=== PATIENT | male | born 1955 | race Caucasian/White ===

== ENCOUNTER 2017-09-18 12:37 | Inpatient (IN) | payer BC, OTHER ==
[2017-09-18] MEDS: VANCOMYCIN 1 GM (PMX) 250 ML IVPB (13:01)
[2017-09-18] MEDS: SODIUM CHLORIDE 0.9% 1L BAG IV* (13:37)
[2017-09-18] MEDS: FENTAnyl 50 MCG/ML VIAL IV ×5 (13:48→18:26)
[2017-09-18] MEDS: PIPER-TAZO 3.375 GM IV (PMX) 100 ML IVPB (13:48)
[2017-09-18 13:49] LABS: WHITE BLOOD COUNT 16.2 10^3/ul (4.8-10.8)
[2017-09-18 13:49] LABS: ABNORMAL IP MESSAGE 1; HEMATOCRIT 33.6 % (42.0-52.0); HEMOGLOBIN 10.3 g/dl (14.0-18.0); MEAN CORPUSCULAR HEMOGLOBIN 29.4 pg (29.0-33.0); MEAN CORPUSCULAR HGB CONC 30.7 g/dl (32.0-37.0); MEAN PLATELET VOLUME 10.1 fl (7.4-10.4); PLATELET COUNT 134 10^3/UL (140-415); POSITIVE DIFF @See below; RED CELL DISTRIBUTION WIDTH 14.6 % (11.5-14.5)
[2017-09-18 13:51] LABS: ADD MAN DIFF? YES
[2017-09-18 14:06] LABS: PROTIME 14.4 Sec (11.9-14.9); PT RATIO 1.1
[2017-09-18 14:07] LABS: PARTIAL THROMBOPLASTIN TIME 32.6 Sec (25.0-35.0)
[2017-09-18 14:15] LABS: LACTIC ACID 4.5 mmol/L (0.5-2.0)
[2017-09-18 14:16] LABS: ANISOCYTOSIS 3+ (0-0); BAND NEUTROPHILS #M 1.9 10^3/ul (0.0-0.6); BAND NEUTROPHILS % (M) 12 % (0-4); BURR CELLS 1+ (0-0); HYPOCHROMASIA 1+ (0-0); LYMPHOCYTES #M 0.6 10^3/ul (0.8-2.9); LYMPHOCYTES % (M) 4 % (15-51); MICROCYTOSIS 3+ (0-0); MONOCYTE #M 0.3 10^3/ul (0.3-0.9); MONOCYTES % (M) 2 % (0-11); PLATELET ESTIMATE DECREASED; POIKILOCYTOSIS 1+ (0-0); POLYCHROMASIA 2+ (0-0); SEG NEUT #M 13.6 10^3/ul (1.6-7.5); SEGMENTED NEUTROPHILS (M) % 82 % (39-77); SMUDGE%M 2 % (0-0); TEAR DROP CELLS 1+ (0-0)
[2017-09-18 14:46] LABS: ALANINE AMINOTRANSFERASE 33 IU/L (13-69); ALBUMIN 4.1 g/dl (3.3-4.9); ALBUMIN/GLOBULIN RATIO 1.13; ALKALINE PHOSPHATASE 201 IU/L (42-121); ANION GAP 33 (8-16); ASPARTATE AMINO TRANSFERASE 33 IU/L (15-46); BLOOD UREA NITROGEN 62 mg/dl (7-20); CALCIUM 6.9 mg/dl (8.4-10.2); CARBON DIOXIDE 22 mmol/L (21-31); CHLORIDE 93 mmol/L (97-110); GLUCOSE 246 mg/dl (70-220); POTASSIUM 5.8 mmol/L (3.5-5.1); SODIUM 142 mmol/L (135-144); TOTAL PROTEIN 7.7 g/dl (6.1-8.1)
[2017-09-18 14:54] LABS: CREATININE 14.96 mg/dl (0.61-1.24)
[2017-09-18 15:01] LABS: TROPONIN-I 0.135 ng/ml (0.00-0.12)
[2017-09-18] MEDS: INSULIN REGULAR, HUMAN 100 UNIT/1 ML 3ML VIAL IVP (15:27)
[2017-09-18] MEDS ORDERED: DEXTROSE 50% 50 ML SYRINGE IV ×3 (15:30→17:30)
[2017-09-18] MEDS: ONDANSETRON 4 MG INJ IV (15:32)
[2017-09-18] MEDS: ALBUTEROL 0.5% (NEB) 2.5 MG/0.5 ML AMP INH (15:35)
[2017-09-18 15:55] LABS: LACTIC ACID 1.9 mmol/L (0.5-2.0)
[2017-09-18] MEDS: SOD CHLORIDE 0.9% 100 ML (16:09)
[2017-09-18] MEDS: IODIXANOL LOCM 100 ML BTL (16:09)
[2017-09-18] MEDS ORDERED: hydrOXYzine HCL 50 MG TAB PO (16:30)
[2017-09-18] MEDS ORDERED: FENTAnyl 50 MCG/ML VIAL IV (16:30)
[2017-09-18] MEDS ORDERED: MAGNESIUM HYDROXIDE 30ML CUP PO (16:30)
[2017-09-18] MEDS ORDERED: VANCOMYCIN IV PER PHARMACY XX (16:30)
[2017-09-18 17:13] LABS: HEMOGLOBIN A1C 8.2 % (0-5.9)
[2017-09-18] MEDS ORDERED: GLUCOSE GEL 15 GRAM TUBE BUCCAL (17:30)
[2017-09-18] MEDS ORDERED: glipiZIDE 5 MG TAB PO (17:30)
[2017-09-18] MEDS ORDERED: GLUCOSE GEL 15 GRAM TUBE PO ×2 (17:30)
[2017-09-18] MEDS ORDERED: GLUCAGON 1 MG INJ IM (17:30)
[2017-09-18] MEDS: INSULIN ASPART [NOVOLOG] 3 ML PEN SC ×2 (18:00→21:00)
[2017-09-18] MEDS: NORepinephrine 8MG/250 ML (PMX 250 ML IV (19:31)
[2017-09-18 19:38] LABS: LACTIC ACID 2.8 mmol/L (0.5-2.0)
[2017-09-18] MEDS: ATORVASTATIN 20 MG TAB PO (20:45)
[2017-09-18] MEDS: GABAPENTIN 300 MG CAP PO (20:45)
[2017-09-18] MEDS: SEVELAMER 800 MG TAB PO (20:45)
[2017-09-18] MEDS: LIDOCAINE 5% PATCH TD (20:45)
[2017-09-18] MEDS ORDERED: DOXYCYCLINE 100 MG in SOD CHLORIDE 0.9% 250 ML IVPB (21:00)
[2017-09-18] MEDS: HEPARIN 5,000 UNIT/0.5 ML VIAL SC (21:39)
[2017-09-18] MEDS: ALBUTEROL 0.083% (NEB) 2.5 MG/3 ML AMP NEB (21:41)
[2017-09-18] MEDS: DOXYCYCLINE 100 MG in DEXTROSE 5% 250 ML IVPB (21:42)
[2017-09-18] MEDS: PIPER-TAZO 2.25 GM (PMX) 50 ML IVPB (22:07)
[2017-09-19] LABS: AADO2 Arterial 324.8 mmHg (7.0-24.0); Arterial Base Excess -6.4 mmol/L (-3.0-3); Arterial Blood Gas Oxygen Sat 90.4 mmHG (95.0-98.0); Arterial COHb 0.8 % (0.0-3.0); Arterial Fraction of Oxyhgb 89.3 % (93.0-99.0); Arterial HCO3 19.5 mmol/L (22.0-26.0); Arterial MetHb 0.4 % (0.0-1.5); Arterial Total Hemglobin 10.9 g/dl (12.0-18.0); Arterial pCO2 40.4 mmhg (35-45); MODE MASK - SIMPLE; Site Right Brachial
[2017-09-19] MEDS: AMIKACIN 500 MG in DEXTROSE 5% 100 ML IVPB (00:12)
[2017-09-19] MEDS: ACCU-CHEK XX ×2 (02:05→08:54)
[2017-09-19 03:09] LABS: CREATINE KINASE 285 IU/L (23-200)
[2017-09-19 03:20] LABS: CK INDEX 0.9
[2017-09-19 03:23] LABS: CK-MB 2.55 ng/ml (0.0-2.4)
[2017-09-19 05:28] LABS: HEPATITIS B SURFACE ANTIGEN NEGATIVE (NEGATIVE)
[2017-09-19 05:41] LABS: ADD MAN DIFF? NO
[2017-09-19 05:43] LABS: ABNORMAL IP MESSAGE 1; BASOPHILS % 0.1 % (0.0-2.0); HEMATOCRIT 31.9 % (42.0-52.0); HEMOGLOBIN 9.9 g/dl (14.0-18.0); LYMPHOCYTES # 0.4 10^3/ul (0.8-2.9); LYMPHOCYTES % 2.3 % (15.0-51.0); MEAN CORPUSCULAR HEMOGLOBIN 29.5 pg (29.0-33.0); MEAN CORPUSCULAR VOLUME 94.9 fl (82.0-101.0); MEAN PLATELET VOLUME 10.6 fl (7.4-10.4); MONOCYTE # 0.7 10^3/ul (0.3-0.9); MONOCYTES % 4.1 % (0.0-11.0); NEUTROPHIL # 15.1 10^3/ul (1.6-7.5); NEUTROPHILS % 91.7 % (39.0-77.0); PLATELET COUNT 128 10^3/UL (140-415); POSITIVE DIFF @See below; RED BLOOD COUNT 3.36 10^6/ul (4.70-6.10); RED CELL DISTRIBUTION WIDTH 14.6 % (11.5-14.5)
[2017-09-19 05:43] LABS: WHITE BLOOD COUNT 16.4 10^3/ul (4.8-10.8)
[2017-09-19 05:46] LABS: HEPATITIS B SURFACE ANTIBODY NEGATIVE (NEGATIVE)
[2017-09-19 06:03] LABS: CREATINE KINASE 350 IU/L (23-200)
[2017-09-19 06:16] LABS: CK INDEX 0.8
[2017-09-19 06:24] LABS: CK-MB 2.93 ng/ml (0.0-2.4); TROPONIN-I 0.196 ng/ml (0.00-0.12)
[2017-09-19 06:39] LABS: ANION GAP 30 (8-16); BLOOD UREA NITROGEN 45 mg/dl (7-20); CARBON DIOXIDE 22 mmol/L (21-31); CHLORIDE 98 mmol/L (97-110); GLUCOSE 178 mg/dl (70-220); POTASSIUM 4.8 mmol/L (3.5-5.1); SODIUM 145 mmol/L (135-144)
[2017-09-19 06:40] LABS: ALANINE AMINOTRANSFERASE 32 IU/L (13-69); ALBUMIN 3.3 g/dl (3.3-4.9); ALBUMIN/GLOBULIN RATIO 1.03; ALKALINE PHOSPHATASE 192 IU/L (42-121); ASPARTATE AMINO TRANSFERASE 34 IU/L (15-46); CALCIUM 6.8 mg/dl (8.4-10.2); CREATININE 10.78 mg/dl (0.61-1.24); MAGNESIUM 1.5 mg/dl (1.7-2.5); TOTAL PROTEIN 6.5 g/dl (6.1-8.1)
[2017-09-19] MEDS: INSULIN ASPART [NOVOLOG] 3 ML PEN SC ×4 (08:00→21:56)
[2017-09-19] MEDS: PIPER-TAZO 2.25 GM (PMX) 50 ML IVPB ×3 (08:44→22:32)
[2017-09-19] MEDS: LEVOTHYROXINE 75 MCG TAB PO (08:45)
[2017-09-19] MEDS: hydrOXYzine HCL 25 MG TAB PO (08:45)
[2017-09-19] MEDS: SEVELAMER 800 MG TAB PO ×3 (08:46→17:35)
[2017-09-19] MEDS: SERTRALINE 100 MG TAB PO (08:46)
[2017-09-19] MEDS: GABAPENTIN 300 MG CAP PO ×2 (08:46→21:47)
[2017-09-19] MEDS: ASPIRIN (EC) 81 MG TAB PO (08:59)
[2017-09-19] MEDS: PANTOPRAZOLE (EC) 40 MG TAB PO (08:59)
[2017-09-19] MEDS ORDERED: PAROXETINE 20 MG TAB PO (09:00)
[2017-09-19] MEDS ORDERED: SODIUM BICARBONATE (IV ADD) 50 ML (09:15)
[2017-09-19] MEDS: NA BICARBONATE 8.4% 50 ML SYG IV (09:25)
[2017-09-19] MEDS: CA CHLORIDE 10% 10 ML SYRINGE IV (09:26)
[2017-09-19] MEDS: AMIODARONE 150MG/D5W BOLUS IV* (09:41)
[2017-09-19] MEDS: AMIODARONE 900MG/D5W DRIP 500 ML IV ×2 (10:19→10:21)
[2017-09-19] MEDS ORDERED: NORepinephrine 8MG/250 ML (PMX 250 ML IV ×2 (11:30)
[2017-09-19] MEDS: DOXYCYCLINE 100 MG in DEXTROSE 5% 250 ML IVPB ×2 (11:55→21:00)
[2017-09-19] MEDS: LIDOCAINE 5% PATCH TD (12:01)
[2017-09-19] MEDS: HEPARIN 5,000 UNIT/0.5 ML VIAL SC ×2 (12:03→21:50)
[2017-09-19] MEDS: ACETAMINOPHEN 325 MG TAB PO (12:10)
[2017-09-19] MEDS: HYDROmorphONE 0.5 MG/0.5 ML SYG IV (13:13)
[2017-09-19] MEDS: PHENYLephrine 20MG IN 250 ML 250 ML IV ×2 (14:04→16:14)
[2017-09-19] MEDS: PHENYLephrine 40 MG in DEXTROSE 5% 496 ML IV (17:54)
[2017-09-19] MEDS: ATORVASTATIN 20 MG TAB PO (21:47)
[2017-09-20] MEDS: PHENYLephrine 40 MG in DEXTROSE 5% 496 ML IV (00:12)
[2017-09-20 01:45] LABS: Allen Test ACCEPTAB; Arterial Blood Gas Oxygen Sat 95.9 mmHG (95.0-98.0); Arterial COHb 0.8 % (0.0-3.0); Arterial Fraction of Oxyhgb 94.9 % (93.0-99.0); Arterial MetHb 0.2 % (0.0-1.5); Arterial Total Hemglobin 11.1 g/dl (12.0-18.0); Arterial pCO2 39.9 mmhg (35-45); MODE MASK - NRB; Site Right Brachial
[2017-09-20] MEDS: NORepinephrine 32 MG in DEXTROSE 5% 218 ML IV (02:06)
[2017-09-20] MEDS: PHENYLephrine 160 MG in DEXTROSE 5% 484 ML IV ×2 (02:07→12:36)
[2017-09-20] MEDS: INSULIN ASPART [NOVOLOG] 3 ML PEN SC ×2 (02:57→08:20)
[2017-09-20 04:18] LABS: ADD MAN DIFF? NO
[2017-09-20 04:24] LABS: WHITE BLOOD COUNT 15.5 10^3/ul (4.8-10.8)
[2017-09-20 04:24] LABS: ABNORMAL IP MESSAGE 1; BASOPHILS % 0.1 % (0.0-2.0); HEMATOCRIT 31.6 % (42.0-52.0); HEMOGLOBIN 9.9 g/dl (14.0-18.0); LYMPHOCYTES # 0.4 10^3/ul (0.8-2.9); LYMPHOCYTES % 2.3 % (15.0-51.0); MEAN CORPUSCULAR HEMOGLOBIN 29.5 pg (29.0-33.0); MEAN CORPUSCULAR HGB CONC 31.3 g/dl (32.0-37.0); MEAN PLATELET VOLUME 11.1 fl (7.4-10.4); MONOCYTES % 6.4 % (0.0-11.0); NEUTROPHILS % 90.1 % (39.0-77.0); PLATELET COUNT 118 10^3/UL (140-415); POSITIVE DIFF @See below; RED BLOOD COUNT 3.36 10^6/ul (4.70-6.10); RED CELL DISTRIBUTION WIDTH 14.9 % (11.5-14.5)
[2017-09-20] MEDS: VASOPRESSIN 60 UNIT in DEXTROSE 5% 57 ML IV ×3 (04:28→20:46)
[2017-09-20] MEDS: LORAZEPAM 2 MG INJ IV ×2 (04:42→20:36)
[2017-09-20] MEDS: HALOPERIDOL 5 MG INJ IM (04:42)
[2017-09-20 04:48] LABS: ALANINE AMINOTRANSFERASE 28 IU/L (13-69); ALBUMIN 3.6 g/dl (3.3-4.9); ALBUMIN/GLOBULIN RATIO 1.12; ALKALINE PHOSPHATASE 174 IU/L (42-121); ANION GAP 25 (8-16); ASPARTATE AMINO TRANSFERASE 25 IU/L (15-46); BLOOD UREA NITROGEN 54 mg/dl (7-20); CALCIUM 6.9 mg/dl (8.4-10.2); CARBON DIOXIDE 26 mmol/L (21-31); CHLORIDE 93 mmol/L (97-110); GLUCOSE 316 mg/dl (70-220); MAGNESIUM 1.5 mg/dl (1.7-2.5); POTASSIUM 5.7 mmol/L (3.5-5.1); SODIUM 138 mmol/L (135-144); TOTAL PROTEIN 6.8 g/dl (6.1-8.1)
[2017-09-20 05:01] LABS: CREATININE 11.69 mg/dl (0.61-1.24)
[2017-09-20] MEDS: PANTOPRAZOLE (EC) 40 MG TAB PO (06:24)
[2017-09-20] MEDS: PIPER-TAZO 2.25 GM (PMX) 50 ML IVPB ×2 (06:24→14:49)
[2017-09-20] MEDS: LEVOTHYROXINE 75 MCG TAB PO (07:00)
[2017-09-20] MEDS: SEVELAMER 800 MG TAB PO ×3 (07:35→17:35)
[2017-09-20] MEDS: SERTRALINE 100 MG TAB PO (09:00)
[2017-09-20] MEDS: ASPIRIN (EC) 81 MG TAB PO (09:00)
[2017-09-20] MEDS: GABAPENTIN 300 MG CAP PO ×2 (09:00→21:00)
[2017-09-20] MEDS: HEPARIN 5,000 UNIT/0.5 ML VIAL SC ×2 (09:00→21:25)
[2017-09-20 09:16] LABS: AADO2 Arterial 584.2 mmHg (7.0-24.0); Arterial Base Excess -3.5 mmol/L (-3.0-3); Arterial Blood Gas Oxygen Sat 93.5 mmHG (95.0-98.0); Arterial COHb 0.4 % (0.0-3.0); Arterial HCO3 23.5 mmol/L (22.0-26.0); Arterial MetHb 0.1 % (0.0-1.5); Arterial pCO2 51.2 mmhg (35-45); MODE MASK - NRB; Site Right Brachial
[2017-09-20] MEDS ORDERED: DEXTROSE 50% 50 ML SYRINGE IV (10:00)
[2017-09-20] MEDS ORDERED: VANCOMYCIN IV PER PHARMACY XX (10:00)
[2017-09-20] MEDS: ACCU-CHEK XX ×14 (10:00→23:12)
[2017-09-20] MEDS ORDERED: DEXTROSE 5%-0.45% NACL 1,000 ML IV (10:00)
[2017-09-20] MEDS ORDERED: DIPHENHYDRAMINE 50 MG INJ (10:15)
[2017-09-20] MEDS ORDERED: ALBUMIN HUMAN 25% 100 ML (10:16)
[2017-09-20] MEDS: DIPHENHYDRAMINE 50 MG INJ IV (11:01)
[2017-09-20] MEDS: INSULIN HUMAN REGULAR 100 UNIT in SOD CHLORIDE 0.9% 99 ML IV (11:36)
[2017-09-20] MEDS: ALBUMIN HUMAN 25% 100 ML IV (11:44)
[2017-09-20] MEDS: VANCOMYCIN 1 GM 250 ML IVPB (13:30)
[2017-09-20] MEDS: HYDROmorphONE 0.5 MG/0.5 ML SYG IV (13:46)
[2017-09-20] MEDS: DOXYCYCLINE 100 MG in DEXTROSE 5% 250 ML IVPB (14:50)
[2017-09-20] MEDS: AMIODARONE 900 MG in DEXTROSE 5% 482 ML IV (15:12)
[2017-09-20] MEDS: ASPIRIN 300 MG SUPP PR (15:21)
[2017-09-20] MEDS: LIDOCAINE 5% PATCH TD (15:21)
[2017-09-20 16:43] LABS: AADO2 Arterial 146.2 mmHg (7.0-24.0); Arterial Base Excess -1.1 mmol/L (-3.0-3); Arterial COHb 0.6 % (0.0-3.0); Arterial Fraction of Oxyhgb 92.3 % (93.0-99.0); Arterial HCO3 26.2 mmol/L (22.0-26.0); Arterial MetHb 0.2 % (0.0-1.5); Arterial Total Hemglobin 11.2 g/dl (12.0-18.0); Arterial pCO2 55.8 mmhg (35-45); Blood Gas IEPAP 18/8; Blood Gas PS 10; MODE MASK - BIPAP; Site Right Brachial
[2017-09-20] MEDS ORDERED: LIDOCAINE 1%/EPI 30 ML INJ (18:04)
[2017-09-20] MEDS ORDERED: MIDAZOLAM 1 MG/ML 2 ML INJ (18:33)
[2017-09-20] MEDS: LIDOCAINE 1%/EPI 30 ML INJ INJ (18:50)
[2017-09-20] MEDS ORDERED: LIDOCAINE 2% (SDV) 5 ML INJ (18:55)
[2017-09-20] MEDS ORDERED: FLUMAZENIL 0.5 MG INJ (19:53)
[2017-09-20] MEDS ORDERED: KETAMINE (50 MG/ML) 10 ML VIAL (19:55)
[2017-09-20] MEDS: DEXTROSE 50% 50 ML SYRINGE IV (20:13)
[2017-09-20] MEDS: MEROPENEM 500MG/50 ML (PMX) 50 ML IVPB (20:40)
[2017-09-20] MEDS: ATORVASTATIN 20 MG TAB PO (21:00)
[2017-09-20] MEDS: ACETAMINOPHEN 1000MG/100ML IV 100 ML IVPB (21:20)
[2017-09-21] MEDS: ACCU-CHEK XX ×23 (00:09→23:00)
[2017-09-21] MEDS: HYDROmorphONE 0.5 MG/0.5 ML SYG IV ×2 (00:43→20:18)
[2017-09-21] MEDS: KETOROLAC 15 MG INJ IV (00:46)
[2017-09-21] MEDS: NORepinephrine 32 MG in DEXTROSE 5% 218 ML IV (01:48)
[2017-09-21] MEDS: PHENYLephrine 160 MG in DEXTROSE 5% 484 ML IV (01:50)
[2017-09-21 05:50] LABS: ADD MAN DIFF? NO
[2017-09-21] MEDS: PANTOPRAZOLE (EC) 40 MG TAB PO (06:00)
[2017-09-21 06:01] LABS: WHITE BLOOD COUNT 12.4 10^3/ul (4.8-10.8)
[2017-09-21 06:01] LABS: ABNORMAL IP MESSAGE 1; BASOPHILS % 0.2 % (0.0-2.0); HEMATOCRIT 29.9 % (42.0-52.0); HEMOGLOBIN 8.9 g/dl (14.0-18.0); LYMPHOCYTES # 0.3 10^3/ul (0.8-2.9); LYMPHOCYTES % 2.7 % (15.0-51.0); MEAN CORPUSCULAR HGB CONC 29.8 g/dl (32.0-37.0); MEAN CORPUSCULAR VOLUME 97.4 fl (82.0-101.0); MEAN PLATELET VOLUME 10.9 fl (7.4-10.4); MONOCYTES % 7.9 % (0.0-11.0); NEUTROPHIL # 10.9 10^3/ul (1.6-7.5); NEUTROPHILS % 88.1 % (39.0-77.0); PLATELET COUNT 88 10^3/UL (140-415); POSITIVE DIFF @See below; RED BLOOD COUNT 3.07 10^6/ul (4.70-6.10); RED CELL DISTRIBUTION WIDTH 14.6 % (11.5-14.5)
[2017-09-21 06:21] LABS: ALANINE AMINOTRANSFERASE 25 IU/L (13-69); ALBUMIN 3.3 g/dl (3.3-4.9); ALKALINE PHOSPHATASE 156 IU/L (42-121); ANION GAP 23 (8-16); ASPARTATE AMINO TRANSFERASE 22 IU/L (15-46); BLOOD UREA NITROGEN 41 mg/dl (7-20); CALCIUM 7.6 mg/dl (8.4-10.2); CARBON DIOXIDE 24 mmol/L (21-31); CHLORIDE 100 mmol/L (97-110); CREATININE 9.94 mg/dl (0.61-1.24); GLUCOSE 123 mg/dl (70-220); MAGNESIUM 1.8 mg/dl (1.7-2.5); POTASSIUM 4.7 mmol/L (3.5-5.1); SODIUM 142 mmol/L (135-144); TOTAL PROTEIN 6.6 g/dl (6.1-8.1)
[2017-09-21] MEDS: LEVOTHYROXINE 75 MCG TAB PO (07:00)
[2017-09-21] MEDS: SEVELAMER 800 MG TAB PO ×3 (07:35→17:35)
[2017-09-21] MEDS: MEROPENEM 500MG/50 ML (PMX) 50 ML IVPB ×2 (08:24→21:14)
[2017-09-21] MEDS: ASPIRIN 300 MG SUPP PR (08:25)
[2017-09-21] MEDS: GABAPENTIN 300 MG CAP PO ×2 (08:25→21:12)
[2017-09-21] MEDS: SERTRALINE 100 MG TAB PO (08:25)
[2017-09-21] MEDS: LIDOCAINE 5% PATCH TD (08:28)
[2017-09-21] MEDS: HEPARIN 5,000 UNIT/0.5 ML VIAL SC ×2 (08:30→21:14)
[2017-09-21 08:32] LABS: AADO2 Arterial 190.8 mmHg (7.0-24.0); Allen Test ACCEPTAB; Arterial Base Excess -2.7 mmol/L (-3.0-3); Arterial Blood Gas Oxygen Sat 97.8 mmHG (95.0-98.0); Arterial COHb 0.6 % (0.0-3.0); Arterial Fraction of Oxyhgb 97.1 % (93.0-99.0); Arterial MetHb 0.1 % (0.0-1.5); Arterial Total Hemglobin 10.2 g/dl (12.0-18.0); Arterial pCO2 50.8 mmhg (35-45); Blood Gas IEPAP 18/8; MODE MASK - BIPAP; Site Right Radial
[2017-09-21] MEDS: VASOPRESSIN 60 UNIT in DEXTROSE 5% 57 ML IV (14:30)
[2017-09-21] MEDS: AMIODARONE 900 MG in DEXTROSE 5% 482 ML IV (14:30)
[2017-09-21] MEDS ORDERED: ALBUMIN HUMAN 25% 150 ML (15:19)
[2017-09-21] MEDS: ALBUMIN HUMAN 25% 50 ML IV (15:55)
[2017-09-21] MEDS: LORAZEPAM 2 MG INJ IV (21:12)
[2017-09-21] MEDS: ATORVASTATIN 20 MG TAB PO (21:12)
[2017-09-22] MEDS: ACCU-CHEK XX ×25 (00:12→23:00)
[2017-09-22] MEDS: VASOPRESSIN 60 UNIT in DEXTROSE 5% 57 ML IV ×2 (02:30→14:13)
[2017-09-22] MEDS: HYDROmorphONE 0.5 MG/0.5 ML SYG IV ×5 (03:11→21:08)
[2017-09-22] MEDS: PANTOPRAZOLE (EC) 40 MG TAB PO (06:00)
[2017-09-22 06:12] LABS: ADD MAN DIFF? NO
[2017-09-22 06:20] LABS: WHITE BLOOD COUNT 10.7 10^3/ul (4.8-10.8)
[2017-09-22 06:20] LABS: ABNORMAL IP MESSAGE 1; BASOPHILS % 0.3 % (0.0-2.0); EOSINOPHILS % 0.4 % (0.0-7.0); HEMATOCRIT 29.4 % (42.0-52.0); HEMOGLOBIN 8.7 g/dl (14.0-18.0); LYMPHOCYTES # 0.3 10^3/ul (0.8-2.9); LYMPHOCYTES % 2.9 % (15.0-51.0); MEAN CORPUSCULAR HEMOGLOBIN 28.6 pg (29.0-33.0); MEAN CORPUSCULAR HGB CONC 29.6 g/dl (32.0-37.0); MEAN CORPUSCULAR VOLUME 96.7 fl (82.0-101.0); MEAN PLATELET VOLUME 11.2 fl (7.4-10.4); MONOCYTE # 0.8 10^3/ul (0.3-0.9); MONOCYTES % 7.3 % (0.0-11.0); NEUTROPHIL # 9.5 10^3/ul (1.6-7.5); NEUTROPHILS % 88.4 % (39.0-77.0); PLATELET COUNT 98 10^3/UL (140-415); POSITIVE DIFF @See below; RED BLOOD COUNT 3.04 10^6/ul (4.70-6.10); RED CELL DISTRIBUTION WIDTH 14.7 % (11.5-14.5)
[2017-09-22 06:54] LABS: VANCOMYCIN,RANDOM 8.4 ug/ml
[2017-09-22] MEDS: LEVOTHYROXINE 75 MCG TAB PO (07:00)
[2017-09-22] MEDS: INSULIN HUMAN REGULAR 100 UNIT in SOD CHLORIDE 0.9% 99 ML IV ×2 (07:00→17:48)
[2017-09-22 07:01] LABS: ANION GAP 20 (8-16); BLOOD UREA NITROGEN 36 mg/dl (7-20); CALCIUM 7.9 mg/dl (8.4-10.2); CARBON DIOXIDE 28 mmol/L (21-31); CHLORIDE 98 mmol/L (97-110); CREATININE 8.48 mg/dl (0.61-1.24); GLUCOSE 120 mg/dl (70-220); MAGNESIUM 1.8 mg/dl (1.7-2.5); PHOSPHORUS 5.4 mg/dl (2.5-4.9); POTASSIUM 4.4 mmol/L (3.5-5.1); SODIUM 142 mmol/L (135-144)
[2017-09-22] MEDS: NORepinephrine 32 MG in DEXTROSE 5% 218 ML IV (07:07)
[2017-09-22] MEDS: SEVELAMER 800 MG TAB PO ×3 (07:35→17:35)
[2017-09-22] MEDS: LORAZEPAM 2 MG INJ IV ×3 (07:42→21:08)
[2017-09-22 09:24] LABS: AADO2 Arterial 119.7 mmHg (7.0-24.0); Arterial Base Excess -4.4 mmol/L (-3.0-3); Arterial COHb 1.2 % (0.0-3.0); Arterial Fraction of Oxyhgb 79.9 % (93.0-99.0); Arterial HCO3 21.2 mmol/L (22.0-26.0); Arterial MetHb 0.1 % (0.0-1.5); Arterial Total Hemglobin 8.9 g/dl (12.0-18.0); Arterial pCO2 41.4 mmhg (35-45); MODE NASAL CANNULA; Site Right Brachial
[2017-09-22] MEDS: GABAPENTIN 300 MG CAP PO ×2 (09:31→21:06)
[2017-09-22] MEDS: MEROPENEM 500MG/50 ML (PMX) 50 ML IVPB ×2 (09:31→21:11)
[2017-09-22] MEDS: LIDOCAINE 5% PATCH TD (09:32)
[2017-09-22] MEDS: SERTRALINE 100 MG TAB PO (09:32)
[2017-09-22] MEDS: ASPIRIN 300 MG SUPP PR (09:32)
[2017-09-22] MEDS: HEPARIN 5,000 UNIT/0.5 ML VIAL SC ×2 (09:39→21:41)
[2017-09-22] MEDS: VANCOMYCIN 1 GM 250 ML IVPB (13:38)
[2017-09-22] MEDS: MAGNESIUM SULFATE 1 GM/D5W 100 ML IVPB (14:16)
[2017-09-22] MEDS: ATORVASTATIN 20 MG TAB PO (21:06)
[2017-09-22] MEDS: AMIODARONE 200 MG TAB PO (21:07)
[2017-09-23] MEDS: ACCU-CHEK XX ×14 (00:28→12:23)
[2017-09-23] MEDS: HYDROmorphONE 0.5 MG/0.5 ML SYG IV ×6 (00:28→19:50)
[2017-09-23] MEDS: LORAZEPAM 2 MG INJ IV ×5 (02:20→21:11)
[2017-09-23] MEDS: VASOPRESSIN 60 UNIT in DEXTROSE 5% 57 ML IV ×3 (02:30→23:35)
[2017-09-23] MEDS ORDERED: LIDOCAINE 1% (MPF) 30 ML INJ INJ (04:00)
[2017-09-23 05:18] LABS: ADD MAN DIFF? NO
[2017-09-23 05:21] LABS: WHITE BLOOD COUNT 11.5 10^3/ul (4.8-10.8)
[2017-09-23 05:21] LABS: ABNORMAL IP MESSAGE 1; BASOPHILS % 0.2 % (0.0-2.0); EOSINOPHILS % 0.3 % (0.0-7.0); HEMATOCRIT 27.4 % (42.0-52.0); HEMOGLOBIN 8.3 g/dl (14.0-18.0); LYMPHOCYTES # 0.5 10^3/ul (0.8-2.9); LYMPHOCYTES % 4.1 % (15.0-51.0); MEAN CORPUSCULAR HEMOGLOBIN 29.3 pg (29.0-33.0); MEAN CORPUSCULAR HGB CONC 30.3 g/dl (32.0-37.0); MEAN CORPUSCULAR VOLUME 96.8 fl (82.0-101.0); MONOCYTE # 0.8 10^3/ul (0.3-0.9); MONOCYTES % 7.3 % (0.0-11.0); NEUTROPHIL # 10.1 10^3/ul (1.6-7.5); NEUTROPHILS % 87.4 % (39.0-77.0); PLATELET COUNT 99 10^3/UL (140-415); POSITIVE DIFF @See below; RED BLOOD COUNT 2.83 10^6/ul (4.70-6.10); RED CELL DISTRIBUTION WIDTH 14.9 % (11.5-14.5)
[2017-09-23 05:44] LABS: ANION GAP 26 (8-16); BLOOD UREA NITROGEN 51 mg/dl (7-20); CALCIUM 7.4 mg/dl (8.4-10.2); CARBON DIOXIDE 22 mmol/L (21-31); CHLORIDE 100 mmol/L (97-110); CREATININE 10.67 mg/dl (0.61-1.24); GLUCOSE 159 mg/dl (70-220); MAGNESIUM 2.2 mg/dl (1.7-2.5); PHOSPHORUS 5.2 mg/dl (2.5-4.9); POTASSIUM 4.7 mmol/L (3.5-5.1); SODIUM 143 mmol/L (135-144)
[2017-09-23] MEDS: PANTOPRAZOLE (EC) 40 MG TAB PO (05:46)
[2017-09-23] MEDS: LEVOTHYROXINE 100 MCG VIAL IV (06:00)
[2017-09-23] MEDS ORDERED: LIDOCAINE 1% (MDV) 20 ML INJ SC ×2 (06:30)
[2017-09-23] MEDS: LIDOCAINE 1% (MDV) 20 ML INJ SC (06:30)
[2017-09-23] MEDS ORDERED: LIDOCAINE 1% (MDV) 20 ML INJ INJ (06:30)
[2017-09-23] MEDS: LEVOTHYROXINE 75 MCG TAB PO (07:00)
[2017-09-23] MEDS: SEVELAMER 800 MG TAB PO ×3 (07:35→17:35)
[2017-09-23] MEDS: GABAPENTIN 300 MG CAP PO ×2 (09:00→20:38)
[2017-09-23] MEDS: ASPIRIN 81 MG TAB PO (09:00)
[2017-09-23] MEDS: SERTRALINE 100 MG TAB PO (09:00)
[2017-09-23] MEDS: AMIODARONE 200 MG TAB PO ×2 (09:00→20:38)
[2017-09-23 09:04] LABS: AADO2 Arterial 115.7 mmHg (7.0-24.0); Arterial Base Excess -1.5 mmol/L (-3.0-3); Arterial Blood Gas Oxygen Sat 84.7 mmHG (95.0-98.0); Arterial COHb 1.2 % (0.0-3.0); Arterial Fraction of Oxyhgb 83.7 % (93.0-99.0); Arterial HCO3 25.6 mmol/L (22.0-26.0); Arterial MetHb 0 % (0.0-1.5); Arterial Total Hemglobin 9.8 g/dl (12.0-18.0); Arterial pCO2 55.3 mmhg (35-45); MODE NASAL CANNULA; Site Right Brachial
[2017-09-23] MEDS: MEROPENEM 500MG/50 ML (PMX) 50 ML IVPB ×2 (10:59→20:41)
[2017-09-23] MEDS: LIDOCAINE 5% PATCH TD (11:00)
[2017-09-23] MEDS: HEPARIN 5,000 UNIT/0.5 ML VIAL SC ×2 (11:01→20:44)
[2017-09-23 13:28] LABS: AADO2 Arterial 102.6 mmHg (7.0-24.0); Allen Test ACCEPTAB; Arterial Base Excess -2.7 mmol/L (-3.0-3); Arterial Blood Gas Oxygen Sat 80.8 mmHG (95.0-98.0); Arterial COHb 1.1 % (0.0-3.0); Arterial Fraction of Oxyhgb 79.8 % (93.0-99.0); Arterial HCO3 24.2 mmol/L (22.0-26.0); Arterial MetHb 0.1 % (0.0-1.5); Arterial Total Hemglobin 9.7 g/dl (12.0-18.0); Arterial pCO2 52.4 mmhg (35-45); Blood Gas IEPAP 18/8; MODE MASK - BIPAP; Site Right Radial
[2017-09-23] MEDS: PANTOPRAZOLE 40 MG INJ IV (14:20)
[2017-09-23] MEDS: INSULIN GLARGINE [LANtus] 3 ML PEN SC ×2 (14:28→20:43)
[2017-09-23] MEDS ORDERED: GLUCOSE GEL 15 GRAM TUBE BUCCAL (14:30)
[2017-09-23] MEDS ORDERED: GLUCAGON 1 MG INJ IM (14:30)
[2017-09-23] MEDS ORDERED: GLUCOSE GEL 15 GRAM TUBE PO ×2 (14:30)
[2017-09-23] MEDS ORDERED: DEXTROSE 50% 50 ML SYRINGE IV ×2 (14:30)
[2017-09-23] MEDS: NORepinephrine 32 MG in DEXTROSE 5% 218 ML IV (14:40)
[2017-09-23] MEDS: PHENYLephrine 160 MG in DEXTROSE 5% 484 ML IV (16:02)
[2017-09-23] MEDS: INSULIN ASPART [NOVOLOG] 3 ML PEN SC ×2 (18:05→20:40)
[2017-09-23] MEDS: ATORVASTATIN 20 MG TAB PO (20:38)
[2017-09-24] MEDS: ACCU-CHEK XX (01:22)
[2017-09-24] MEDS: LORAZEPAM 2 MG INJ IV ×3 (02:35→21:50)
[2017-09-24] MEDS: HYDROmorphONE 0.5 MG/0.5 ML SYG IV ×7 (02:40→23:36)
[2017-09-24 05:49] LABS: ADD MAN DIFF? NO
[2017-09-24 05:56] LABS: ABNORMAL IP MESSAGE 1; BASOPHILS % 0.2 % (0.0-2.0); EOSINOPHILS % 0.4 % (0.0-7.0); HEMATOCRIT 30.3 % (42.0-52.0); HEMOGLOBIN 8.9 g/dl (14.0-18.0); LYMPHOCYTES # 0.5 10^3/ul (0.8-2.9); LYMPHOCYTES % 4.4 % (15.0-51.0); MEAN CORPUSCULAR HEMOGLOBIN 28.4 pg (29.0-33.0); MEAN CORPUSCULAR HGB CONC 29.4 g/dl (32.0-37.0); MEAN CORPUSCULAR VOLUME 96.8 fl (82.0-101.0); MEAN PLATELET VOLUME 10.8 fl (7.4-10.4); MONOCYTE # 1.1 10^3/ul (0.3-0.9); MONOCYTES % 10.3 % (0.0-11.0); NEUTROPHIL # 9.3 10^3/ul (1.6-7.5); NEUTROPHILS % 83.5 % (39.0-77.0); PLATELET COUNT 118 10^3/UL (140-415); POSITIVE DIFF @See below; RED BLOOD COUNT 3.13 10^6/ul (4.70-6.10); RED CELL DISTRIBUTION WIDTH 14.8 % (11.5-14.5)
[2017-09-24 05:56] LABS: WHITE BLOOD COUNT 11.1 10^3/ul (4.8-10.8)
[2017-09-24] MEDS: LEVOTHYROXINE 100 MCG VIAL IV (06:23)
[2017-09-24] MEDS: PANTOPRAZOLE 40 MG INJ IV (06:23)
[2017-09-24 06:42] LABS: ANION GAP 24 (8-16); BLOOD UREA NITROGEN 67 mg/dl (7-20); CALCIUM 7.7 mg/dl (8.4-10.2); CARBON DIOXIDE 24 mmol/L (21-31); CHLORIDE 101 mmol/L (97-110); GLUCOSE 189 mg/dl (70-220); MAGNESIUM 2.4 mg/dl (1.7-2.5); PHOSPHORUS 6.2 mg/dl (2.5-4.9); POTASSIUM 4.9 mmol/L (3.5-5.1); SODIUM 144 mmol/L (135-144)
[2017-09-24 07:06] LABS: CREATININE 11.01 mg/dl (0.61-1.24)
[2017-09-24] MEDS: SEVELAMER 800 MG TAB PO ×3 (07:35→17:32)
[2017-09-24] MEDS: INSULIN ASPART [NOVOLOG] 3 ML PEN SC ×4 (07:35→20:36)
[2017-09-24 08:03] LABS: AADO2 Arterial 138.7 mmHg (7.0-24.0); Arterial Base Excess -2.9 mmol/L (-3.0-3); Arterial COHb 0.8 % (0.0-3.0); Arterial HCO3 23.7 mmol/L (22.0-26.0); Arterial MetHb 0.2 % (0.0-1.5); Arterial Total Hemglobin 9.6 g/dl (12.0-18.0); Arterial pCO2 49.8 mmhg (35-45); Blood Gas IEPAP 18/8; MODE MASK - BIPAP; Site Right Brachial
[2017-09-24] MEDS: SERTRALINE 100 MG TAB PO (09:00)
[2017-09-24] MEDS: GABAPENTIN 300 MG CAP PO ×2 (09:00→21:00)
[2017-09-24] MEDS: ASPIRIN 81 MG TAB PO (09:00)
[2017-09-24] MEDS: AMIODARONE 200 MG TAB PO ×2 (09:00→20:58)
[2017-09-24] MEDS: MEROPENEM 500MG/50 ML (PMX) 50 ML IVPB ×2 (12:55→21:01)
[2017-09-24] MEDS: LIDOCAINE 5% PATCH TD (13:11)
[2017-09-24] MEDS: ASPIRIN 300 MG SUPP PR (13:17)
[2017-09-24] MEDS: HEPARIN 5,000 UNIT/0.5 ML VIAL SC ×2 (13:24→20:54)
[2017-09-24] MEDS: VASOPRESSIN 60 UNIT in DEXTROSE 5% 57 ML IV (14:30)
[2017-09-24] MEDS ORDERED: LIDOCAINE 1%/EPI 30 ML INJ (17:00)
[2017-09-24] MEDS ORDERED: KETAMINE (50 MG/ML) 10 ML VIAL (17:06)
[2017-09-24] MEDS ORDERED: ETOMIDATE 20 MG INJ ×2 (17:09→19:26)
[2017-09-24] MEDS ORDERED: LIDOCAINE 2% (SDV) 5 ML INJ (17:09)
[2017-09-24] MEDS ORDERED: FENTAnyl 50 MCG/ML VIAL ×2 (18:05→18:25)
[2017-09-24] MEDS: LIDOCAINE 1% (MPF) 30 ML INJ (18:20)
[2017-09-24] MEDS: POLYMYXIN/BACITRACIN 1L IRRIG (18:21)
[2017-09-24] MEDS: INSULIN GLARGINE [LANtus] 3 ML PEN SC (20:50)
[2017-09-24] MEDS: ATORVASTATIN 20 MG TAB PO (20:59)
[2017-09-24] MEDS: NORepinephrine 32 MG in DEXTROSE 5% 218 ML IV (23:53)
[2017-09-25] MEDS: ACCU-CHEK XX (02:00)
[2017-09-25] MEDS: VASOPRESSIN 60 UNIT in DEXTROSE 5% 57 ML IV ×2 (02:30→13:41)
[2017-09-25] MEDS: HYDROmorphONE 0.5 MG/0.5 ML SYG IV ×4 (02:38→20:22)
[2017-09-25] MEDS: LORAZEPAM 2 MG INJ IV ×3 (03:51→23:34)
[2017-09-25] MEDS: PANTOPRAZOLE 40 MG INJ IV (06:00)
[2017-09-25] MEDS: LEVOTHYROXINE 100 MCG VIAL IV (06:01)
[2017-09-25 06:05] LABS: ADD MAN DIFF? NO
[2017-09-25 06:16] LABS: WHITE BLOOD COUNT 9.1 10^3/ul (4.8-10.8)
[2017-09-25 06:16] LABS: ABNORMAL IP MESSAGE 1; BASOPHILS % 0.1 % (0.0-2.0); HEMATOCRIT 28.8 % (42.0-52.0); HEMOGLOBIN 8.3 g/dl (14.0-18.0); LYMPHOCYTES # 0.3 10^3/ul (0.8-2.9); MEAN CORPUSCULAR HEMOGLOBIN 27.9 pg (29.0-33.0); MEAN CORPUSCULAR HGB CONC 28.8 g/dl (32.0-37.0); MONOCYTE # 0.3 10^3/ul (0.3-0.9); MONOCYTES % 3.2 % (0.0-11.0); NEUTROPHIL # 8.4 10^3/ul (1.6-7.5); NEUTROPHILS % 92.5 % (39.0-77.0); PLATELET COUNT 135 10^3/UL (140-415); POSITIVE DIFF @See below; RED BLOOD COUNT 2.97 10^6/ul (4.70-6.10); RED CELL DISTRIBUTION WIDTH 14.5 % (11.5-14.5)
[2017-09-25 06:39] LABS: ANION GAP 25 (8-16); BLOOD UREA NITROGEN 54 mg/dl (7-20); CALCIUM 7.5 mg/dl (8.4-10.2); CARBON DIOXIDE 22 mmol/L (21-31); CHLORIDE 100 mmol/L (97-110); CREATININE 10.14 mg/dl (0.61-1.24); GLUCOSE 255 mg/dl (70-220); MAGNESIUM 2.2 mg/dl (1.7-2.5); PHOSPHORUS 7.2 mg/dl (2.5-4.9); POTASSIUM 5.3 mmol/L (3.5-5.1); SODIUM 142 mmol/L (135-144)
[2017-09-25] MEDS: SEVELAMER 800 MG TAB PO ×2 (07:25→11:08)
[2017-09-25] MEDS: INSULIN ASPART [NOVOLOG] 3 ML PEN SC (07:43)
[2017-09-25] MEDS: MEROPENEM 500MG/50 ML (PMX) 50 ML IVPB ×2 (08:11→20:37)
[2017-09-25] MEDS: ASPIRIN 300 MG SUPP PR (09:00)
[2017-09-25 09:15] LABS: AADO2 Arterial 83.1 mmHg (7.0-24.0); Arterial Base Excess -4.4 mmol/L (-3.0-3); Arterial Blood Gas Oxygen Sat 91.4 mmHG (95.0-98.0); Arterial COHb 0.7 % (0.0-3.0); Arterial Fraction of Oxyhgb 90.6 % (93.0-99.0); Arterial HCO3 22.7 mmol/L (22.0-26.0); Arterial MetHb 0.2 % (0.0-1.5); Arterial Total Hemglobin 9.2 g/dl (12.0-18.0); Arterial pCO2 51.9 mmhg (35-45); MODE NASAL CANNULA; Site Right Brachial
[2017-09-25] MEDS: LIDOCAINE 5% PATCH TD (09:44)
[2017-09-25] MEDS: HEPARIN 5,000 UNIT/0.5 ML VIAL SC ×2 (09:51→20:32)
[2017-09-25] MEDS: SERTRALINE 100 MG TAB PO (10:38)
[2017-09-25] MEDS: GABAPENTIN 300 MG CAP PO ×2 (10:38→20:22)
[2017-09-25] MEDS: ASPIRIN 81 MG TAB PO (10:39)
[2017-09-25] MEDS: AMIODARONE 200 MG TAB PO ×2 (10:39→20:22)
[2017-09-25] MEDS: VANCOMYCIN 1 GM 250 ML IVPB (11:16)
[2017-09-25] MEDS ORDERED: VANCOMYCIN 1 GM 250 ML IVPB (12:00)
[2017-09-25] MEDS ORDERED: INSULIN ASPART [NOVOLOG] 3 ML PEN SC (13:00)
[2017-09-25] MEDS: Insulin NOVOLOG SS MILD Algorithm (NPO/TPN/ENTERAL FEEDS) SC ×3 (13:20→20:31)
[2017-09-25] MEDS: SEVELAMER CARBONATE 0.8 GM PKT PO (17:43)
[2017-09-25] MEDS: ATORVASTATIN 20 MG TAB PO (20:22)
[2017-09-25] MEDS: INSULIN GLARGINE [LANtus] 3 ML PEN SC (20:30)
[2017-09-26] MEDS: Insulin NOVOLOG SS MILD Algorithm (NPO/TPN/ENTERAL FEEDS) SC ×3 (01:05→08:12)
[2017-09-26] MEDS: ACCU-CHEK XX ×15 (01:06→23:11)
[2017-09-26] MEDS: VASOPRESSIN 60 UNIT in DEXTROSE 5% 57 ML IV ×2 (01:06→14:00)
[2017-09-26] MEDS: LORAZEPAM 2 MG INJ IV ×5 (03:15→22:26)
[2017-09-26] MEDS: NORepinephrine 32 MG in DEXTROSE 5% 218 ML IV (03:17)
[2017-09-26 05:30] LABS: ADD MAN DIFF? NO
[2017-09-26] MEDS: PANTOPRAZOLE 40 MG INJ IV (05:34)
[2017-09-26] MEDS: LEVOTHYROXINE 100 MCG VIAL IV (05:35)
[2017-09-26 05:43] LABS: ABNORMAL IP MESSAGE 1; BASOPHILS % 0.1 % (0.0-2.0); EOSINOPHILS % 0.1 % (0.0-7.0); HEMATOCRIT 28.5 % (42.0-52.0); HEMOGLOBIN 8.5 g/dl (14.0-18.0); LYMPHOCYTES # 0.5 10^3/ul (0.8-2.9); LYMPHOCYTES % 5.9 % (15.0-51.0); MEAN CORPUSCULAR HEMOGLOBIN 28.3 pg (29.0-33.0); MEAN CORPUSCULAR HGB CONC 29.8 g/dl (32.0-37.0); MEAN PLATELET VOLUME 10.6 fl (7.4-10.4); MONOCYTE # 0.8 10^3/ul (0.3-0.9); MONOCYTES % 9.7 % (0.0-11.0); NEUTROPHIL # 6.5 10^3/ul (1.6-7.5); NEUTROPHILS % 83.4 % (39.0-77.0); PLATELET COUNT 196 10^3/UL (140-415); POSITIVE DIFF @See below
[2017-09-26 05:43] LABS: WHITE BLOOD COUNT 7.8 10^3/ul (4.8-10.8)
[2017-09-26 06:09] LABS: ANION GAP 19 (8-16); BLOOD UREA NITROGEN 49 mg/dl (7-20); CALCIUM 7.2 mg/dl (8.4-10.2); CARBON DIOXIDE 28 mmol/L (21-31); CHLORIDE 101 mmol/L (97-110); GLUCOSE 207 mg/dl (70-220); MAGNESIUM 2.1 mg/dl (1.7-2.5); PHOSPHORUS 5.6 mg/dl (2.5-4.9); POTASSIUM 4.3 mmol/L (3.5-5.1); SODIUM 144 mmol/L (135-144)
[2017-09-26] MEDS: HYDROmorphONE 0.5 MG/0.5 ML SYG IV ×5 (07:47→23:17)
[2017-09-26] MEDS: SEVELAMER CARBONATE 0.8 GM PKT PO ×3 (07:47→17:35)
[2017-09-26] MEDS: MEROPENEM 500MG/50 ML (PMX) 50 ML IVPB ×2 (08:01→20:01)
[2017-09-26] MEDS: SERTRALINE 100 MG TAB PO (08:01)
[2017-09-26] MEDS: ASPIRIN 81 MG TAB PO (08:01)
[2017-09-26] MEDS: AMIODARONE 200 MG TAB PO ×2 (08:01→21:00)
[2017-09-26] MEDS: GABAPENTIN 300 MG CAP PO ×2 (08:01→21:00)
[2017-09-26] MEDS: LIDOCAINE 5% PATCH TD (08:02)
[2017-09-26] MEDS: HEPARIN 5,000 UNIT/0.5 ML VIAL SC ×2 (08:03→20:02)
[2017-09-26] MEDS: ASPIRIN 300 MG SUPP PR (08:12)
[2017-09-26] MEDS ORDERED: DEXTROSE 50% 50 ML SYRINGE IV (09:30)
[2017-09-26] MEDS: SOD CHLORIDE 0.9% 2,000 ML IV (10:30)
[2017-09-26] MEDS: INSULIN HUMAN REGULAR 100 UNIT in SOD CHLORIDE 0.9% 99 ML IV (10:33)
[2017-09-26] MEDS: ATORVASTATIN 20 MG TAB PO (21:00)
[2017-09-26] MEDS: DEXTROSE 50% 50 ML SYRINGE IV ×2 (22:32→23:10)
[2017-09-27] MEDS: ACCU-CHEK XX ×24 (00:01→22:58)
[2017-09-27] MEDS: LORAZEPAM 2 MG INJ IV ×3 (01:33→21:11)
[2017-09-27] MEDS: VASOPRESSIN 60 UNIT in DEXTROSE 5% 57 ML IV ×2 (02:30→13:56)
[2017-09-27] MEDS: HYDROmorphONE 0.5 MG/0.5 ML SYG IV ×6 (02:55→22:57)
[2017-09-27 05:12] LABS: ADD MAN DIFF? NO
[2017-09-27 05:15] LABS: BASOPHILS % 0.1 % (0.0-2.0); EOSINOPHILS # 0.1 10^3/ul (0.0-0.5); EOSINOPHILS % 0.9 % (0.0-7.0); HEMATOCRIT 31.4 % (42.0-52.0); HEMOGLOBIN 9.3 g/dl (14.0-18.0); LYMPHOCYTES # 0.6 10^3/ul (0.8-2.9); LYMPHOCYTES % 6.6 % (15.0-51.0); MEAN CORPUSCULAR HEMOGLOBIN 28.2 pg (29.0-33.0); MEAN CORPUSCULAR HGB CONC 29.6 g/dl (32.0-37.0); MEAN CORPUSCULAR VOLUME 95.2 fl (82.0-101.0); MEAN PLATELET VOLUME 10.4 fl (7.4-10.4); NEUTROPHIL # 7.5 10^3/ul (1.6-7.5); NEUTROPHILS % 80.4 % (39.0-77.0); PLATELET COUNT 245 10^3/UL (140-415)
[2017-09-27 05:15] LABS: WHITE BLOOD COUNT 9.4 10^3/ul (4.8-10.8)
[2017-09-27] MEDS: LEVOTHYROXINE 100 MCG VIAL IV (05:21)
[2017-09-27] MEDS: PANTOPRAZOLE 40 MG INJ IV (05:21)
[2017-09-27 05:42] LABS: ANION GAP 18 (8-16); BLOOD UREA NITROGEN 46 mg/dl (7-20); CALCIUM 7.5 mg/dl (8.4-10.2); CARBON DIOXIDE 29 mmol/L (21-31); CHLORIDE 98 mmol/L (97-110); CREATININE 6.97 mg/dl (0.61-1.24); GLUCOSE 130 mg/dl (70-220); PHOSPHORUS 4.4 mg/dl (2.5-4.9); POTASSIUM 3.8 mmol/L (3.5-5.1); SODIUM 141 mmol/L (135-144)
[2017-09-27] MEDS: SEVELAMER CARBONATE 0.8 GM PKT PO ×3 (07:16→17:30)
[2017-09-27] MEDS: NORepinephrine 32 MG in DEXTROSE 5% 218 ML IV (07:25)
[2017-09-27] MEDS: LIDOCAINE 5% PATCH TD (08:02)
[2017-09-27] MEDS: MEROPENEM 500MG/50 ML (PMX) 50 ML IVPB ×2 (08:02→21:11)
[2017-09-27] MEDS: GABAPENTIN 300 MG CAP PO ×2 (08:03→23:53)
[2017-09-27] MEDS: SERTRALINE 100 MG TAB PO (08:03)
[2017-09-27] MEDS: AMIODARONE 200 MG TAB PO ×2 (08:03→23:54)
[2017-09-27] MEDS: ASPIRIN 81 MG TAB PO (08:03)
[2017-09-27] MEDS: HEPARIN 5,000 UNIT/0.5 ML VIAL SC ×2 (08:09→21:17)
[2017-09-27] MEDS: ASPIRIN 300 MG SUPP PR (08:11)
[2017-09-27] MEDS ORDERED: KETAMINE (50 MG/ML) 10 ML VIAL (17:50)
[2017-09-27] MEDS ORDERED: MIDAZOLAM 1 MG/ML 2 ML INJ (17:50)
[2017-09-27] MEDS ORDERED: GLYCOPYRROLATE 0.4 MG INJ (17:58)
[2017-09-27] MEDS ORDERED: ETOMIDATE 20 MG INJ (18:12)
[2017-09-27] MEDS ORDERED: LIDOCAINE 1% (MPF) 30 ML INJ (18:13)
[2017-09-27] MEDS: LIDOCAINE 1% (MPF) 30 ML INJ INJ ×2 (18:15)
[2017-09-27] MEDS: BACITRACIN 50000 UNITS INJ (18:44)
[2017-09-27] MEDS ORDERED: HYDROmorphONE 1 MG/ML SYG IV (19:30)
[2017-09-27] MEDS ORDERED: FENTAnyl 50 MCG/ML VIAL IV (19:30)
[2017-09-27] MEDS ORDERED: HYDROmorphONE 0.5 MG/0.5 ML SYG IV (19:30)
[2017-09-27] MEDS ORDERED: ONDANSETRON 4 MG INJ IV (19:30)
[2017-09-27] MEDS: INSULIN HUMAN REGULAR 100 UNIT in SOD CHLORIDE 0.9% 99 ML IV (20:11)
[2017-09-27] MEDS: BALSAM PERU/CASTOR OIL 60 GM TUBE TOP (21:11)
[2017-09-27] MEDS: ATORVASTATIN 20 MG TAB PO (23:53)
[2017-09-28] MEDS: ACCU-CHEK XX ×24 (00:26→23:00)
[2017-09-28] MEDS: VASOPRESSIN 60 UNIT in DEXTROSE 5% 57 ML IV ×2 (02:21→14:30)
[2017-09-28] MEDS: HYDROmorphONE 0.5 MG/0.5 ML SYG IV ×3 (03:37→22:34)
[2017-09-28 05:15] LABS: ADD MAN DIFF? NO
[2017-09-28 05:19] LABS: WHITE BLOOD COUNT 11.4 10^3/ul (4.8-10.8)
[2017-09-28 05:19] LABS: BASOPHILS % 0.1 % (0.0-2.0); EOSINOPHILS # 0.1 10^3/ul (0.0-0.5); EOSINOPHILS % 0.9 % (0.0-7.0); HEMATOCRIT 29.1 % (42.0-52.0); HEMOGLOBIN 8.7 g/dl (14.0-18.0); LYMPHOCYTES # 0.9 10^3/ul (0.8-2.9); LYMPHOCYTES % 7.8 % (15.0-51.0); MEAN CORPUSCULAR HEMOGLOBIN 28.4 pg (29.0-33.0); MEAN CORPUSCULAR HGB CONC 29.9 g/dl (32.0-37.0); MEAN CORPUSCULAR VOLUME 95.1 fl (82.0-101.0); MEAN PLATELET VOLUME 10.6 fl (7.4-10.4); MONOCYTE # 1.1 10^3/ul (0.3-0.9); MONOCYTES % 9.6 % (0.0-11.0); NEUTROPHIL # 9.2 10^3/ul (1.6-7.5); NEUTROPHILS % 80.6 % (39.0-77.0); PLATELET COUNT 214 10^3/UL (140-415); RED BLOOD COUNT 3.06 10^6/ul (4.70-6.10); RED CELL DISTRIBUTION WIDTH 14.3 % (11.5-14.5)
[2017-09-28] MEDS: LEVOTHYROXINE 100 MCG VIAL IV (05:24)
[2017-09-28] MEDS: PANTOPRAZOLE 40 MG INJ IV (05:24)
[2017-09-28 05:48] LABS: ALBUMIN 3.5 g/dl (3.3-4.9); ANION GAP 21 (8-16); BLOOD UREA NITROGEN 64 mg/dl (7-20); CALCIUM 7.7 mg/dl (8.4-10.2); CARBON DIOXIDE 24 mmol/L (21-31); CHLORIDE 100 mmol/L (97-110); GLUCOSE 157 mg/dl (70-220); PHOSPHORUS 5.9 mg/dl (2.5-4.9); POTASSIUM 4.2 mmol/L (3.5-5.1); SODIUM 141 mmol/L (135-144)
[2017-09-28] MEDS: SEVELAMER CARBONATE 0.8 GM PKT PO ×3 (07:35→17:35)
[2017-09-28 08:35] LABS: AADO2 Arterial 85.7 mmHg (7.0-24.0); Arterial Base Excess -0.3 mmol/L (-3.0-3); Arterial Blood Gas Oxygen Sat 91.1 mmHG (95.0-98.0); Arterial COHb 0.6 % (0.0-3.0); Arterial Fraction of Oxyhgb 90.4 % (93.0-99.0); Arterial HCO3 23.9 mmol/L (22.0-26.0); Arterial MetHb 0.2 % (0.0-1.5); Arterial Total Hemglobin 9.9 g/dl (12.0-18.0); MODE NASAL CANNULA; Site Right Brachial
[2017-09-28] MEDS: LIDOCAINE 5% PATCH TD (09:00)
[2017-09-28] MEDS: ASPIRIN 300 MG SUPP PR (09:00)
[2017-09-28] MEDS: MEROPENEM 500MG/50 ML (PMX) 50 ML IVPB ×2 (09:19→20:45)
[2017-09-28] MEDS: ASPIRIN 81 MG TAB PO (09:19)
[2017-09-28] MEDS: SERTRALINE 100 MG TAB PO (09:20)
[2017-09-28] MEDS: BALSAM PERU/CASTOR OIL 60 GM TUBE TOP ×2 (09:20→21:32)
[2017-09-28] MEDS: AMIODARONE 200 MG TAB PO ×2 (09:20→20:45)
[2017-09-28] MEDS: GABAPENTIN 300 MG CAP PO ×2 (09:20→20:45)
[2017-09-28] MEDS: ALBUMIN HUMAN 25% 50 ML IV (10:49)
[2017-09-28] MEDS: HEPARIN 5,000 UNIT/0.5 ML VIAL SC ×2 (13:15→20:49)
[2017-09-28] MEDS: INSULIN HUMAN REGULAR 100 UNIT in SOD CHLORIDE 0.9% 99 ML IV (18:50)
[2017-09-28] MEDS: ATORVASTATIN 20 MG TAB PO (20:45)
[2017-09-29] MEDS: VASOPRESSIN 60 UNIT in DEXTROSE 5% 57 ML IV (00:02)
[2017-09-29] MEDS: ACCU-CHEK XX ×15 (00:02→14:10)
[2017-09-29] MEDS: PANTOPRAZOLE 40 MG INJ IV (05:16)
[2017-09-29] MEDS: LEVOTHYROXINE 100 MCG VIAL IV (05:16)
[2017-09-29] MEDS: NORepinephrine 32 MG in DEXTROSE 5% 218 ML IV (05:18)
[2017-09-29 05:47] LABS: ADD MAN DIFF? NO
[2017-09-29 05:55] LABS: BASOPHILS % 0.1 % (0.0-2.0); EOSINOPHILS # 0.1 10^3/ul (0.0-0.5); EOSINOPHILS % 1.2 % (0.0-7.0); HEMOGLOBIN 8.7 g/dl (14.0-18.0); LYMPHOCYTES # 0.7 10^3/ul (0.8-2.9); LYMPHOCYTES % 7.2 % (15.0-51.0); MEAN CORPUSCULAR HEMOGLOBIN 28.2 pg (29.0-33.0); MEAN CORPUSCULAR VOLUME 94.2 fl (82.0-101.0); MEAN PLATELET VOLUME 10.7 fl (7.4-10.4); MONOCYTE # 1.1 10^3/ul (0.3-0.9); MONOCYTES % 10.8 % (0.0-11.0); NEUTROPHILS % 79.6 % (39.0-77.0); PLATELET COUNT 213 10^3/UL (140-415); RED BLOOD COUNT 3.08 10^6/ul (4.70-6.10); RED CELL DISTRIBUTION WIDTH 14.1 % (11.5-14.5)
[2017-09-29 05:55] LABS: WHITE BLOOD COUNT 10.1 10^3/ul (4.8-10.8)
[2017-09-29 06:19] LABS: ALBUMIN 3.7 g/dl (3.3-4.9); ANION GAP 22 (8-16); BLOOD UREA NITROGEN 52 mg/dl (7-20); CALCIUM 8.5 mg/dl (8.4-10.2); CARBON DIOXIDE 25 mmol/L (21-31); CHLORIDE 100 mmol/L (97-110); CREATININE 8.68 mg/dl (0.61-1.24); GLUCOSE 177 mg/dl (70-220); MAGNESIUM 2.1 mg/dl (1.7-2.5); PHOSPHORUS 5.7 mg/dl (2.5-4.9); POTASSIUM 3.9 mmol/L (3.5-5.1); SODIUM 143 mmol/L (135-144)
[2017-09-29] MEDS: SEVELAMER CARBONATE 0.8 GM PKT PO ×3 (07:35→18:05)
[2017-09-29] MEDS: MEROPENEM 500MG/50 ML (PMX) 50 ML IVPB (08:07)
[2017-09-29] MEDS: GABAPENTIN 300 MG CAP PO ×2 (08:08→20:10)
[2017-09-29] MEDS: LIDOCAINE 5% PATCH TD (08:08)
[2017-09-29] MEDS: SERTRALINE 100 MG TAB PO (08:08)
[2017-09-29] MEDS: AMIODARONE 200 MG TAB PO ×2 (08:08→20:10)
[2017-09-29] MEDS: ASPIRIN 300 MG SUPP PR (09:00)
[2017-09-29] MEDS: ASPIRIN 81 MG TAB PO (10:16)
[2017-09-29] MEDS: BALSAM PERU/CASTOR OIL 60 GM TUBE TOP ×2 (10:17→20:15)
[2017-09-29] MEDS: HEPARIN 5,000 UNIT/0.5 ML VIAL SC ×2 (10:18→20:13)
[2017-09-29] MEDS: HYDROmorphONE 0.5 MG/0.5 ML SYG IV ×4 (11:10→22:29)
[2017-09-29] MEDS: HYDROmorphONE 0.5 MG/0.5 ML SYG IM (12:04)
[2017-09-29] MEDS: VANCOMYCIN 1 GM 250 ML IVPB (12:05)
[2017-09-29] MEDS: ACETAMINOPHEN 325 MG TAB PO (13:47)
[2017-09-29] MEDS: ONDANSETRON 4 MG INJ IV (13:48)
[2017-09-29] MEDS ORDERED: GLUCOSE GEL 15 GRAM TUBE PO ×2 (15:00)
[2017-09-29] MEDS ORDERED: DEXTROSE 50% 50 ML SYRINGE IV ×2 (15:00)
[2017-09-29] MEDS ORDERED: GLUCAGON 1 MG INJ IM (15:00)
[2017-09-29] MEDS: INSULIN ASPART [NOVOLOG] 3 ML PEN SC ×3 (18:21→21:38)
[2017-09-29] MEDS: ATORVASTATIN 20 MG TAB PO (20:10)
[2017-09-29] MEDS: ZOLPIDEM 5 MG TAB PO (23:41)
[2017-09-30] MEDS: NORepinephrine 32 MG in DEXTROSE 5% 218 ML IV (01:06)
[2017-09-30] MEDS: HYDROmorphONE 0.5 MG/0.5 ML SYG IV ×6 (01:33→22:54)
[2017-09-30 05:52] LABS: ADD MAN DIFF? NO
[2017-09-30] MEDS: PANTOPRAZOLE 40 MG INJ IV (05:52)
[2017-09-30] MEDS: LEVOTHYROXINE 100 MCG VIAL IV (05:52)
[2017-09-30 06:07] LABS: WHITE BLOOD COUNT 9.5 10^3/ul (4.8-10.8)
[2017-09-30 06:07] LABS: BASOPHILS % 0.2 % (0.0-2.0); EOSINOPHILS # 0.2 10^3/ul (0.0-0.5); EOSINOPHILS % 2.3 % (0.0-7.0); HEMATOCRIT 28.3 % (42.0-52.0); HEMOGLOBIN 8.6 g/dl (14.0-18.0); LYMPHOCYTES # 0.7 10^3/ul (0.8-2.9); LYMPHOCYTES % 7.8 % (15.0-51.0); MEAN CORPUSCULAR HEMOGLOBIN 28.8 pg (29.0-33.0); MEAN CORPUSCULAR HGB CONC 30.4 g/dl (32.0-37.0); MEAN CORPUSCULAR VOLUME 94.6 fl (82.0-101.0); MEAN PLATELET VOLUME 10.7 fl (7.4-10.4); MONOCYTE # 1.1 10^3/ul (0.3-0.9); MONOCYTES % 11.8 % (0.0-11.0); NEUTROPHIL # 7.3 10^3/ul (1.6-7.5); NEUTROPHILS % 76.8 % (39.0-77.0); PLATELET COUNT 252 10^3/UL (140-415); RED BLOOD COUNT 2.99 10^6/ul (4.70-6.10); RED CELL DISTRIBUTION WIDTH 14.1 % (11.5-14.5)
[2017-09-30 06:34] LABS: ALBUMIN 3.6 g/dl (3.3-4.9); ANION GAP 22 (8-16); BLOOD UREA NITROGEN 68 mg/dl (7-20); CALCIUM 7.9 mg/dl (8.4-10.2); CARBON DIOXIDE 25 mmol/L (21-31); CHLORIDE 99 mmol/L (97-110); CREATININE 10.66 mg/dl (0.61-1.24); GLUCOSE 240 mg/dl (70-220); PHOSPHORUS 7.9 mg/dl (2.5-4.9); POTASSIUM 4.7 mmol/L (3.5-5.1); SODIUM 141 mmol/L (135-144)
[2017-09-30] MEDS ORDERED: LIDOCAINE 2% (SDV) 5 ML INJ (07:00)
[2017-09-30] MEDS ORDERED: ROPIVACAINE 0.5 % 30 ML VIAL (07:00)
[2017-09-30] MEDS ORDERED: PROPOFOL 200 MG INJ (07:00)
[2017-09-30 07:57] LABS: AADO2 Arterial 58.8 mmHg (7.0-24.0); Arterial Base Excess -1.7 mmol/L (-3.0-3); Arterial Blood Gas Oxygen Sat 94.5 mmHG (95.0-98.0); Arterial COHb 0.8 % (0.0-3.0); Arterial Fraction of Oxyhgb 93.6 % (93.0-99.0); Arterial HCO3 24.2 mmol/L (22.0-26.0); Arterial MetHb 0.2 % (0.0-1.5); Arterial Total Hemglobin 9.6 g/dl (12.0-18.0); Arterial pCO2 46.1 mmhg (35-45); MODE NASAL CANNULA; Site Right Brachial
[2017-09-30] MEDS: SEVELAMER CARBONATE 0.8 GM PKT PO ×3 (08:23→17:35)
[2017-09-30] MEDS: INSULIN ASPART [NOVOLOG] 3 ML PEN SC ×6 (08:25→21:25)
[2017-09-30] MEDS: AMIODARONE 200 MG TAB PO ×2 (08:51→21:33)
[2017-09-30] MEDS: GABAPENTIN 300 MG CAP PO ×2 (08:51→21:32)
[2017-09-30] MEDS: ASPIRIN 81 MG TAB PO (08:51)
[2017-09-30] MEDS: ASPIRIN 300 MG SUPP PR (08:52)
[2017-09-30] MEDS: SERTRALINE 100 MG TAB PO (08:52)
[2017-09-30] MEDS: LIDOCAINE 5% PATCH TD (08:53)
[2017-09-30] MEDS: BALSAM PERU/CASTOR OIL 60 GM TUBE TOP ×2 (08:53→21:33)
[2017-09-30] MEDS: HEPARIN 5,000 UNIT/0.5 ML VIAL SC ×2 (08:59→21:28)
[2017-09-30] MEDS: HYDROCORTISONE 100 MG INJ IV ×3 (11:53→22:52)
[2017-09-30] MEDS: ALBUMIN HUMAN 25% 50 ML IV ×2 (14:18→16:21)
[2017-09-30] MEDS: DIPHENHYDRAMINE 50 MG INJ IV (14:38)
[2017-09-30] MEDS: FLUCONAZOLE 100 MG TAB PO (15:00)
[2017-09-30] MEDS: LORAZEPAM 2 MG INJ IV (15:47)
[2017-09-30] MEDS: CASPOFUNGIN 70 MG in NS 250 ML IVPB (17:39)
[2017-09-30] MEDS ORDERED: KETAMINE (50 MG/ML) 10 ML VIAL (18:29)
[2017-09-30] MEDS: LIDOCAINE 1% (MPF) 30 ML INJ INJ (19:20)
[2017-09-30] MEDS: INSULIN GLARGINE [LANtus] 3 ML PEN SC (21:26)
[2017-09-30] MEDS: ATORVASTATIN 20 MG TAB PO (21:32)
[2017-10-01] MEDS: LORAZEPAM 2 MG INJ IV ×2 (00:25→04:09)
[2017-10-01] MEDS: HYDROmorphONE 0.5 MG/0.5 ML SYG IV ×5 (02:12→23:42)
[2017-10-01] MEDS: NORepinephrine 32 MG in DEXTROSE 5% 218 ML IV (04:48)
[2017-10-01] MEDS: HYDROCORTISONE 100 MG INJ IV ×3 (05:28→20:25)
[2017-10-01] MEDS: LEVOTHYROXINE 100 MCG VIAL IV (05:28)
[2017-10-01] MEDS: PANTOPRAZOLE 40 MG INJ IV (05:28)
[2017-10-01 05:38] LABS: ADD MAN DIFF? NO
[2017-10-01 05:45] LABS: ABNORMAL IP MESSAGE 1; BASOPHILS % 0.1 % (0.0-2.0); HEMATOCRIT 29.2 % (42.0-52.0); HEMOGLOBIN 8.8 g/dl (14.0-18.0); LYMPHOCYTES # 0.3 10^3/ul (0.8-2.9); LYMPHOCYTES % 3.1 % (15.0-51.0); MEAN CORPUSCULAR HEMOGLOBIN 28.2 pg (29.0-33.0); MEAN CORPUSCULAR HGB CONC 30.1 g/dl (32.0-37.0); MEAN CORPUSCULAR VOLUME 93.6 fl (82.0-101.0); MONOCYTE # 0.2 10^3/ul (0.3-0.9); MONOCYTES % 2.2 % (0.0-11.0); NEUTROPHIL # 7.8 10^3/ul (1.6-7.5); NEUTROPHILS % 93.9 % (39.0-77.0); PLATELET COUNT 233 10^3/UL (140-415); POSITIVE DIFF @See below; RED BLOOD COUNT 3.12 10^6/ul (4.70-6.10)
[2017-10-01 05:45] LABS: WHITE BLOOD COUNT 8.4 10^3/ul (4.8-10.8)
[2017-10-01 06:06] LABS: ALANINE AMINOTRANSFERASE 16 IU/L (13-69); ALBUMIN/GLOBULIN RATIO 1.02; ALKALINE PHOSPHATASE 118 IU/L (42-121); ANION GAP 24 (8-16); ASPARTATE AMINO TRANSFERASE 18 IU/L (15-46); BLOOD UREA NITROGEN 65 mg/dl (7-20); CALCIUM 7.4 mg/dl (8.4-10.2); CARBON DIOXIDE 23 mmol/L (21-31); CHLORIDE 95 mmol/L (97-110); CREATININE 9.64 mg/dl (0.61-1.24); SODIUM 136 mmol/L (135-144); TOTAL PROTEIN 7.9 g/dl (6.1-8.1)
[2017-10-01 06:53] LABS: GLUCOSE 506 mg/dl (70-220); POTASSIUM 6.2 mmol/L (3.5-5.1)
[2017-10-01] MEDS: SOD CHLORIDE 0.9% 500 ML IV (07:15)
[2017-10-01] MEDS: INSULIN ASPART [NOVOLOG] 3 ML PEN SC ×3 (07:18→18:31)
[2017-10-01] MEDS: NA POLYST SULFON 15 GM/60 ML BTL PO (07:54)
[2017-10-01] MEDS ORDERED: FLUCONAZOLE 100 MG TAB PO (09:00)
[2017-10-01] MEDS ORDERED: DEXTROSE 50% 50 ML SYRINGE IV (09:00)
[2017-10-01] MEDS: ASPIRIN 300 MG SUPP PR (09:00)
[2017-10-01] MEDS: ACCU-CHEK XX ×15 (09:53→23:00)
[2017-10-01] MEDS: LIDOCAINE 5% PATCH TD (09:57)
[2017-10-01] MEDS: ASPIRIN 81 MG TAB PO (09:57)
[2017-10-01] MEDS: SEVELAMER CARBONATE 0.8 GM PKT PO ×3 (09:57→18:30)
[2017-10-01] MEDS: GABAPENTIN 300 MG CAP PO ×2 (09:57→20:23)
[2017-10-01] MEDS: SERTRALINE 100 MG TAB PO (09:57)
[2017-10-01] MEDS: HEPARIN 5,000 UNIT/0.5 ML VIAL SC ×2 (09:58→20:14)
[2017-10-01] MEDS: AMIODARONE 200 MG TAB PO ×2 (09:58→21:00)
[2017-10-01] MEDS: BALSAM PERU/CASTOR OIL 60 GM TUBE TOP ×2 (09:59→20:25)
[2017-10-01] MEDS: INSULIN HUMAN REGULAR 100 UNIT in SOD CHLORIDE 0.9% 99 ML IV (11:07)
[2017-10-01 11:53] LABS: ALANINE AMINOTRANSFERASE 20 IU/L (13-69); ALBUMIN 3.8 g/dl (3.3-4.9); ALBUMIN/GLOBULIN RATIO 0.95; ALKALINE PHOSPHATASE 107 IU/L (42-121); ANION GAP 25 (8-16); ASPARTATE AMINO TRANSFERASE 18 IU/L (15-46); BLOOD UREA NITROGEN 72 mg/dl (7-20); CALCIUM 7.6 mg/dl (8.4-10.2); CARBON DIOXIDE 22 mmol/L (21-31); CHLORIDE 98 mmol/L (97-110); CREATININE 10.34 mg/dl (0.61-1.24); SODIUM 140 mmol/L (135-144); TOTAL PROTEIN 7.8 g/dl (6.1-8.1)
[2017-10-01 12:01] LABS: GLUCOSE 414 mg/dl (70-220); POTASSIUM 5.1 mmol/L (3.5-5.1)
[2017-10-01] MEDS: CASPOFUNGIN 50 MG in NS 250 ML IVPB (18:28)
[2017-10-01] MEDS: ATORVASTATIN 20 MG TAB PO (20:23)
[2017-10-01 21:20] LABS: ALANINE AMINOTRANSFERASE 24 IU/L (13-69); ALBUMIN 3.6 g/dl (3.3-4.9); ALBUMIN/GLOBULIN RATIO 0.92; ALKALINE PHOSPHATASE 103 IU/L (42-121); ANION GAP 25 (8-16); ASPARTATE AMINO TRANSFERASE 21 IU/L (15-46); BLOOD UREA NITROGEN 74 mg/dl (7-20); CALCIUM 6.9 mg/dl (8.4-10.2); CARBON DIOXIDE 22 mmol/L (21-31); CHLORIDE 99 mmol/L (97-110); CREATININE 10.81 mg/dl (0.61-1.24); GLUCOSE 250 mg/dl (70-220); POTASSIUM 3.9 mmol/L (3.5-5.1); SODIUM 142 mmol/L (135-144); TOTAL PROTEIN 7.5 g/dl (6.1-8.1)
[2017-10-01] MEDS: DIPHENHYDRAMINE 50 MG INJ IV (22:19)
[2017-10-02] MEDS: HYDROmorphONE 0.5 MG/0.5 ML SYG IV ×9 (01:18→22:35)
[2017-10-02] MEDS: ACCU-CHEK XX ×24 (01:37→23:02)
[2017-10-02] MEDS: DIPHENHYDRAMINE 50 MG INJ IV ×3 (02:44→23:29)
[2017-10-02 05:08] LABS: ADD MAN DIFF? NO
[2017-10-02 05:13] LABS: WHITE BLOOD COUNT 12.8 10^3/ul (4.8-10.8)
[2017-10-02 05:13] LABS: ABNORMAL IP MESSAGE 1; BASOPHILS % 0.1 % (0.0-2.0); HEMATOCRIT 28.2 % (42.0-52.0); HEMOGLOBIN 8.8 g/dl (14.0-18.0); LYMPHOCYTES # 0.5 10^3/ul (0.8-2.9); LYMPHOCYTES % 4.2 % (15.0-51.0); MEAN CORPUSCULAR HEMOGLOBIN 28.4 pg (29.0-33.0); MEAN CORPUSCULAR HGB CONC 31.2 g/dl (32.0-37.0); MEAN PLATELET VOLUME 10.9 fl (7.4-10.4); MONOCYTE # 0.8 10^3/ul (0.3-0.9); MONOCYTES % 6.4 % (0.0-11.0); NEUTROPHIL # 11.3 10^3/ul (1.6-7.5); NEUTROPHILS % 88.5 % (39.0-77.0); PLATELET COUNT 253 10^3/UL (140-415); POSITIVE DIFF @See below
[2017-10-02 05:30] LABS: ALBUMIN 3.9 g/dl (3.3-4.9); ANION GAP 19 (8-16); BLOOD UREA NITROGEN 46 mg/dl (7-20); CALCIUM 7.3 mg/dl (8.4-10.2); CARBON DIOXIDE 29 mmol/L (21-31); CHLORIDE 98 mmol/L (97-110); CREATININE 7.03 mg/dl (0.61-1.24); GLUCOSE 217 mg/dl (70-220); MAGNESIUM 1.7 mg/dl (1.7-2.5); POTASSIUM 3.4 mmol/L (3.5-5.1); SODIUM 143 mmol/L (135-144)
[2017-10-02] MEDS: LEVOTHYROXINE 100 MCG VIAL IV (06:17)
[2017-10-02] MEDS: HYDROCORTISONE 100 MG INJ IV ×3 (06:18→22:27)
[2017-10-02] MEDS: PANTOPRAZOLE 40 MG INJ IV (06:18)
[2017-10-02] MEDS: INSULIN ASPART [NOVOLOG] 3 ML PEN SC ×3 (07:35→17:23)
[2017-10-02] MEDS: LIDOCAINE 5% PATCH TD (08:25)
[2017-10-02] MEDS: SEVELAMER CARBONATE 0.8 GM PKT PO ×3 (08:26→17:23)
[2017-10-02] MEDS: SERTRALINE 100 MG TAB PO (08:27)
[2017-10-02] MEDS: BALSAM PERU/CASTOR OIL 60 GM TUBE TOP ×2 (08:27→21:03)
[2017-10-02] MEDS: ASPIRIN 81 MG TAB PO (08:27)
[2017-10-02] MEDS: AMIODARONE 200 MG TAB PO (08:28)
[2017-10-02] MEDS: HEPARIN 5,000 UNIT/0.5 ML VIAL SC ×2 (08:28→20:52)
[2017-10-02] MEDS: INSULIN HUMAN REGULAR 100 UNIT in SOD CHLORIDE 0.9% 99 ML IV (08:36)
[2017-10-02] MEDS: ASPIRIN 300 MG SUPP PR (08:43)
[2017-10-02] MEDS: GABAPENTIN 300 MG CAP PO ×2 (08:43→20:51)
[2017-10-02] MEDS: LIDOCAINE 1% (MPF) 5 ML VIAL SC (11:51)
[2017-10-02] MEDS ORDERED: traMADol 50 MG TAB PO (14:30)
[2017-10-02] MEDS: CASPOFUNGIN 50 MG in NS 250 ML IVPB (16:08)
[2017-10-02] MEDS: ATORVASTATIN 20 MG TAB PO (20:51)
[2017-10-03] MEDS: ACCU-CHEK XX ×24 (00:28→23:27)
[2017-10-03] MEDS: ALBUMIN HUMAN 25% 50 ML IV (00:50)
[2017-10-03] MEDS: HYDROmorphONE 0.5 MG/0.5 ML SYG IV ×4 (03:12→22:25)
[2017-10-03 04:56] LABS: ADD MAN DIFF? NO
[2017-10-03 04:59] LABS: ABNORMAL IP MESSAGE 1; BASOPHILS % 0.1 % (0.0-2.0); HEMATOCRIT 28.8 % (42.0-52.0); HEMOGLOBIN 9.1 g/dl (14.0-18.0); LYMPHOCYTES # 0.4 10^3/ul (0.8-2.9); LYMPHOCYTES % 3.8 % (15.0-51.0); MEAN CORPUSCULAR HEMOGLOBIN 28.9 pg (29.0-33.0); MEAN CORPUSCULAR HGB CONC 31.6 g/dl (32.0-37.0); MEAN CORPUSCULAR VOLUME 91.4 fl (82.0-101.0); MEAN PLATELET VOLUME 10.7 fl (7.4-10.4); MONOCYTE # 0.5 10^3/ul (0.3-0.9); MONOCYTES % 4.9 % (0.0-11.0); NEUTROPHIL # 9.4 10^3/ul (1.6-7.5); NEUTROPHILS % 90.5 % (39.0-77.0); PLATELET COUNT 231 10^3/UL (140-415); POSITIVE DIFF @See below; RED BLOOD COUNT 3.15 10^6/ul (4.70-6.10)
[2017-10-03 04:59] LABS: WHITE BLOOD COUNT 10.4 10^3/ul (4.8-10.8)
[2017-10-03 05:23] LABS: ALBUMIN 4.2 g/dl (3.3-4.9); ANION GAP 20 (8-16); BLOOD UREA NITROGEN 38 mg/dl (7-20); CALCIUM 7.4 mg/dl (8.4-10.2); CARBON DIOXIDE 30 mmol/L (21-31); CHLORIDE 95 mmol/L (97-110); GLUCOSE 146 mg/dl (70-220); MAGNESIUM 1.7 mg/dl (1.7-2.5); PHOSPHORUS 4.1 mg/dl (2.5-4.9); POTASSIUM 3.6 mmol/L (3.5-5.1); SODIUM 141 mmol/L (135-144)
[2017-10-03] MEDS: LEVOTHYROXINE 100 MCG VIAL IV (05:57)
[2017-10-03] MEDS: HYDROCORTISONE 100 MG INJ IV ×3 (05:57→21:09)
[2017-10-03] MEDS: PANTOPRAZOLE 40 MG INJ IV (05:57)
[2017-10-03] MEDS: INSULIN HUMAN REGULAR 100 UNIT in SOD CHLORIDE 0.9% 99 ML IV (06:05)
[2017-10-03] MEDS: SEVELAMER CARBONATE 0.8 GM PKT PO ×3 (07:56→17:34)
[2017-10-03] MEDS: INSULIN ASPART [NOVOLOG] 3 ML PEN SC ×3 (07:58→18:48)
[2017-10-03] MEDS: LIDOCAINE 5% PATCH TD (09:08)
[2017-10-03] MEDS: GABAPENTIN 300 MG CAP PO ×2 (09:08→21:08)
[2017-10-03] MEDS: SERTRALINE 100 MG TAB PO (09:08)
[2017-10-03] MEDS: ASPIRIN 81 MG TAB PO (09:08)
[2017-10-03] MEDS: HEPARIN 5,000 UNIT/0.5 ML VIAL SC ×2 (09:10→21:14)
[2017-10-03] MEDS: FENTAnyl 50 MCG/ML VIAL IV (09:16)
[2017-10-03] MEDS: BALSAM PERU/CASTOR OIL 60 GM TUBE TOP ×2 (09:39→21:08)
[2017-10-03] MEDS: MIDODRINE 5 MG TAB PO ×3 (09:58→17:34)
[2017-10-03] MEDS: VANCOMYCIN 1 GM 250 ML IVPB (11:43)
[2017-10-03] MEDS: DOCUSATE SODIUM 100 MG CAP PO (11:45)
[2017-10-03] MEDS: SENNA/DOCUSATE NA (8.6MG/50MG) TAB PO (12:03)
[2017-10-03 12:30] LABS: VANCOMYCIN,TROUGH 9.5 ug/ml (10.0-20.0)
[2017-10-03] MEDS: VANCOMYCIN 500MG/NS (PMX) 100 ML IVPB (14:35)
[2017-10-03] MEDS: CASPOFUNGIN 50 MG in NS 250 ML IVPB (16:55)
[2017-10-03] MEDS: OXYCODONE/ACETAMINOPHEN (10/325) TAB PO (19:40)
[2017-10-03] MEDS: ATORVASTATIN 20 MG TAB PO (21:08)
[2017-10-04] MEDS: ACCU-CHEK XX ×24 (00:13→23:04)
[2017-10-04] MEDS: HYDROmorphONE 0.5 MG/0.5 ML SYG IV ×5 (01:19→22:47)
[2017-10-04] MEDS: OXYCODONE/ACETAMINOPHEN (10/325) TAB PO ×2 (02:52→10:04)
[2017-10-04] MEDS: DIPHENHYDRAMINE 50 MG INJ IV ×2 (02:53→15:49)
[2017-10-04 06:03] LABS: ADD MAN DIFF? NO
[2017-10-04 06:13] LABS: HEMATOCRIT 25.4 % (42.0-52.0); HEMOGLOBIN 7.9 g/dl (14.0-18.0); LYMPHOCYTES # 0.6 10^3/ul (0.8-2.9); LYMPHOCYTES % 6.6 % (15.0-51.0); MEAN CORPUSCULAR HEMOGLOBIN 28.3 pg (29.0-33.0); MEAN CORPUSCULAR HGB CONC 31.1 g/dl (32.0-37.0); MEAN PLATELET VOLUME 11.1 fl (7.4-10.4); MONOCYTE # 0.8 10^3/ul (0.3-0.9); MONOCYTES % 8.5 % (0.0-11.0); NEUTROPHIL # 7.6 10^3/ul (1.6-7.5); NEUTROPHILS % 84.2 % (39.0-77.0); PLATELET COUNT 171 10^3/UL (140-415); RED BLOOD COUNT 2.79 10^6/ul (4.70-6.10); RED CELL DISTRIBUTION WIDTH 14.1 % (11.5-14.5)
[2017-10-04] MEDS: PANTOPRAZOLE 40 MG INJ IV (06:17)
[2017-10-04] MEDS: HYDROCORTISONE 100 MG INJ IV ×3 (06:18→22:13)
[2017-10-04] MEDS: LEVOTHYROXINE 100 MCG VIAL IV (06:18)
[2017-10-04] MEDS: INSULIN HUMAN REGULAR 100 UNIT in SOD CHLORIDE 0.9% 99 ML IV ×2 (06:23→20:42)
[2017-10-04] MEDS: NORepinephrine 32 MG in DEXTROSE 5% 218 ML IV (06:24)
[2017-10-04 06:34] LABS: ALBUMIN 3.5 g/dl (3.3-4.9); ANION GAP 22 (8-16); BLOOD UREA NITROGEN 70 mg/dl (7-20); CALCIUM 6.1 mg/dl (8.4-10.2); CARBON DIOXIDE 23 mmol/L (21-31); CHLORIDE 99 mmol/L (97-110); CREATININE 7.87 mg/dl (0.61-1.24); GLUCOSE 197 mg/dl (70-220); MAGNESIUM 1.5 mg/dl (1.7-2.5); PHOSPHORUS 6.7 mg/dl (2.5-4.9); POTASSIUM 4.4 mmol/L (3.5-5.1); SODIUM 140 mmol/L (135-144)
[2017-10-04] MEDS: SEVELAMER CARBONATE 0.8 GM PKT PO ×3 (08:05→17:45)
[2017-10-04] MEDS: INSULIN ASPART [NOVOLOG] 3 ML PEN SC ×3 (08:11→17:55)
[2017-10-04] MEDS: GABAPENTIN 300 MG CAP PO ×2 (08:52→20:29)
[2017-10-04] MEDS: MIDODRINE 5 MG TAB PO ×3 (08:52→17:45)
[2017-10-04] MEDS: ASPIRIN 81 MG TAB PO (08:53)
[2017-10-04] MEDS: SERTRALINE 100 MG TAB PO (08:53)
[2017-10-04] MEDS: BALSAM PERU/CASTOR OIL 60 GM TUBE TOP ×2 (08:53→20:30)
[2017-10-04] MEDS: LIDOCAINE 5% PATCH TD (08:55)
[2017-10-04] MEDS: HEPARIN 5,000 UNIT/0.5 ML VIAL SC ×2 (08:59→20:36)
[2017-10-04] MEDS ORDERED: NORepinephrine 8MG/250 ML (PMX 250 ML (09:19)
[2017-10-04] MEDS: NORepinephrine 8MG/250 ML (PMX 250 ML IV (09:25)
[2017-10-04 16:06] LABS: IONIZED CALCIUM 0.8 mmol/L (1.1-1.4)
[2017-10-04] MEDS: CASPOFUNGIN 50 MG in NS 250 ML IVPB (16:53)
[2017-10-04] MEDS: METHADONE (1 MG/1 ML PO SYG) PO ×2 (17:45→20:16)
[2017-10-04] MEDS: ATORVASTATIN 20 MG TAB PO (20:29)
[2017-10-04] MEDS: CALCITRIOL 1 MCG INJ IV (20:29)
[2017-10-05] MEDS: METHADONE (1 MG/1 ML PO SYG) PO ×6 (00:21→23:55)
[2017-10-05] MEDS: ACCU-CHEK XX ×25 (00:21→23:55)
[2017-10-05] MEDS: DIPHENHYDRAMINE 50 MG INJ IV ×2 (03:32→09:37)
[2017-10-05 04:32] LABS: ADD MAN DIFF? NO
[2017-10-05 04:42] LABS: ABNORMAL IP MESSAGE 1; HEMATOCRIT 26.9 % (42.0-52.0); HEMOGLOBIN 8.3 g/dl (14.0-18.0); LYMPHOCYTES # 0.5 10^3/ul (0.8-2.9); LYMPHOCYTES % 4.1 % (15.0-51.0); MEAN CORPUSCULAR HEMOGLOBIN 28.2 pg (29.0-33.0); MEAN CORPUSCULAR HGB CONC 30.9 g/dl (32.0-37.0); MEAN CORPUSCULAR VOLUME 91.5 fl (82.0-101.0); MEAN PLATELET VOLUME 10.8 fl (7.4-10.4); MONOCYTE # 0.7 10^3/ul (0.3-0.9); MONOCYTES % 6.4 % (0.0-11.0); NEUTROPHIL # 9.9 10^3/ul (1.6-7.5); NEUTROPHILS % 88.5 % (39.0-77.0); PLATELET COUNT 157 10^3/UL (140-415); POSITIVE DIFF @See below; RED BLOOD COUNT 2.94 10^6/ul (4.70-6.10); RED CELL DISTRIBUTION WIDTH 13.9 % (11.5-14.5)
[2017-10-05 04:42] LABS: WHITE BLOOD COUNT 11.2 10^3/ul (4.8-10.8)
[2017-10-05] MEDS: HYDROmorphONE 0.5 MG/0.5 ML SYG IV ×5 (04:49→23:55)
[2017-10-05 05:16] LABS: ANION GAP 18 (8-16); BLOOD UREA NITROGEN 52 mg/dl (7-20); CALCIUM 6.8 mg/dl (8.4-10.2); CARBON DIOXIDE 27 mmol/L (21-31); CHLORIDE 103 mmol/L (97-110); CREATININE 6.46 mg/dl (0.61-1.24); GLUCOSE 136 mg/dl (70-220); MAGNESIUM 1.6 mg/dl (1.7-2.5); PHOSPHORUS 5.2 mg/dl (2.5-4.9); POTASSIUM 4.1 mmol/L (3.5-5.1); SODIUM 144 mmol/L (135-144)
[2017-10-05] MEDS: PANTOPRAZOLE 40 MG INJ IV (06:34)
[2017-10-05] MEDS: HYDROCORTISONE 100 MG INJ IV ×3 (06:34→22:19)
[2017-10-05] MEDS: LEVOTHYROXINE 75 MCG TAB PO (06:34)
[2017-10-05] MEDS: INSULIN ASPART [NOVOLOG] 3 ML PEN SC ×3 (08:04→17:14)
[2017-10-05] MEDS: MAGNESIUM SULFATE 2 GM/50 ML 50 ML IVPB (08:10)
[2017-10-05] MEDS: GABAPENTIN 300 MG CAP PO ×2 (08:12→09:30)
[2017-10-05] MEDS: SERTRALINE 100 MG TAB PO ×2 (08:12→09:31)
[2017-10-05] MEDS: MIDODRINE 5 MG TAB PO ×3 (08:12→16:59)
[2017-10-05] MEDS: ASPIRIN 81 MG TAB PO (09:30)
[2017-10-05] MEDS: SEVELAMER CARBONATE 0.8 GM PKT PO ×3 (09:30→16:59)
[2017-10-05] MEDS: CALCITRIOL 0.25 MCG CAP PO (09:36)
[2017-10-05] MEDS: ONDANSETRON 4 MG INJ IV (09:42)
[2017-10-05] MEDS: HEPARIN 5,000 UNIT/0.5 ML VIAL SC ×2 (09:45→20:32)
[2017-10-05] MEDS: BALSAM PERU/CASTOR OIL 60 GM TUBE TOP ×2 (09:47→20:23)
[2017-10-05] MEDS: CALCITRIOL 1 MCG INJ IV (14:07)
[2017-10-05] MEDS: CA CARBONATE (250 MG/ML) 5ML CUP PO ×2 (14:33→20:22)
[2017-10-05] MEDS: CASPOFUNGIN 50 MG in NS 250 ML IVPB (15:53)
[2017-10-05] MEDS: ATORVASTATIN 20 MG TAB PO (20:22)
[2017-10-05] MEDS: INSULIN HUMAN REGULAR 100 UNIT in SOD CHLORIDE 0.9% 99 ML IV (20:32)
[2017-10-06] MEDS: DIPHENHYDRAMINE 50 MG INJ IV ×3 (00:40→21:14)
[2017-10-06] MEDS: ACCU-CHEK XX ×25 (01:00→23:23)
[2017-10-06] MEDS: HYDROmorphONE 0.5 MG/0.5 ML SYG IV ×7 (02:47→21:14)
[2017-10-06] MEDS: KETOROLAC 30 MG INJ IV (04:14)
[2017-10-06 05:10] LABS: ABNORMAL IP MESSAGE 1; ADD MAN DIFF? NO; BASOPHILS % 0.1 % (0.0-2.0); HEMATOCRIT 23.7 % (42.0-52.0); HEMOGLOBIN 7.3 g/dl (14.0-18.0); LYMPHOCYTES # 0.5 10^3/ul (0.8-2.9); LYMPHOCYTES % 4.9 % (15.0-51.0); MEAN CORPUSCULAR HEMOGLOBIN 28.4 pg (29.0-33.0); MEAN CORPUSCULAR HGB CONC 30.8 g/dl (32.0-37.0); MEAN CORPUSCULAR VOLUME 92.2 fl (82.0-101.0); MEAN PLATELET VOLUME 11.5 fl (7.4-10.4); MONOCYTE # 0.7 10^3/ul (0.3-0.9); MONOCYTES % 6.3 % (0.0-11.0); NEUTROPHIL # 9.6 10^3/ul (1.6-7.5); NEUTROPHILS % 87.5 % (39.0-77.0); PLATELET COUNT 141 10^3/UL (140-415); POSITIVE DIFF @See below; RED BLOOD COUNT 2.57 10^6/ul (4.70-6.10); RED CELL DISTRIBUTION WIDTH 14.1 % (11.5-14.5)
[2017-10-06] MEDS: PANTOPRAZOLE 40 MG INJ IV (05:52)
[2017-10-06] MEDS: METHADONE (1 MG/1 ML PO SYG) PO ×4 (05:52→23:29)
[2017-10-06] MEDS: HYDROCORTISONE 100 MG INJ IV ×3 (05:52→23:27)
[2017-10-06 05:57] LABS: ALANINE AMINOTRANSFERASE 18 IU/L (13-69); ALBUMIN 3.5 g/dl (3.3-4.9); ALBUMIN/GLOBULIN RATIO 1.12; ALKALINE PHOSPHATASE 79 IU/L (42-121); ANION GAP 22 (8-16); ASPARTATE AMINO TRANSFERASE 17 IU/L (15-46); BLOOD UREA NITROGEN 79 mg/dl (7-20); CARBON DIOXIDE 24 mmol/L (21-31); CHLORIDE 103 mmol/L (97-110); GLUCOSE 139 mg/dl (70-220); POTASSIUM 5.2 mmol/L (3.5-5.1); SODIUM 144 mmol/L (135-144); TOTAL PROTEIN 6.6 g/dl (6.1-8.1)
[2017-10-06 05:57] LABS: PHOSPHORUS 6.7 mg/dl (2.5-4.9)
[2017-10-06] MEDS: LEVOTHYROXINE 75 MCG TAB PO (06:04)
[2017-10-06 07:40] LABS: IONIZED CALCIUM 1.1 mmol/L (1.1-1.4)
[2017-10-06] MEDS: INSULIN ASPART [NOVOLOG] 3 ML PEN SC ×4 (08:23→20:16)
[2017-10-06] MEDS: HEPARIN 5,000 UNIT/0.5 ML VIAL SC ×2 (08:25→20:27)
[2017-10-06] MEDS: SEVELAMER CARBONATE 0.8 GM PKT PO ×3 (08:26→17:33)
[2017-10-06] MEDS: GABAPENTIN 300 MG CAP PO ×2 (08:26→20:27)
[2017-10-06] MEDS: ASPIRIN 81 MG TAB PO (08:26)
[2017-10-06] MEDS: CA CARBONATE (250 MG/ML) 5ML CUP PO ×2 (08:26→20:27)
[2017-10-06] MEDS: MIDODRINE 5 MG TAB PO ×3 (09:36→17:02)
[2017-10-06] MEDS: BALSAM PERU/CASTOR OIL 60 GM TUBE TOP ×2 (09:39→20:27)
[2017-10-06] MEDS: SERTRALINE 100 MG TAB PO (10:14)
[2017-10-06] MEDS: CALCITRIOL 0.25 MCG CAP PO (11:21)
[2017-10-06] MEDS: INSULIN HUMAN REGULAR 100 UNIT in SOD CHLORIDE 0.9% 99 ML IV (17:00)
[2017-10-06] MEDS: CASPOFUNGIN 50 MG in NS 250 ML IVPB (17:10)
[2017-10-06] MEDS: INSULIN GLARGINE [LANtus] 3 ML PEN SC (20:26)
[2017-10-06] MEDS: ATORVASTATIN 20 MG TAB PO (20:27)
[2017-10-07] MEDS: HYDROmorphONE 0.5 MG/0.5 ML SYG IV ×8 (00:43→22:24)
[2017-10-07] MEDS: ACCU-CHEK XX ×11 (00:46→19:35)
[2017-10-07] MEDS: PANTOPRAZOLE 40 MG INJ IV (05:12)
[2017-10-07] MEDS: DIPHENHYDRAMINE 50 MG INJ IV ×3 (05:13→18:26)
[2017-10-07 05:16] LABS: ADD MAN DIFF? NO
[2017-10-07] MEDS: METHADONE (1 MG/1 ML PO SYG) PO ×5 (05:16→23:56)
[2017-10-07] MEDS: HYDROCORTISONE 100 MG INJ IV ×3 (05:20→21:38)
[2017-10-07 05:23] LABS: ABNORMAL IP MESSAGE 1; BASOPHILS % 0.1 % (0.0-2.0); HEMATOCRIT 24.9 % (42.0-52.0); HEMOGLOBIN 7.5 g/dl (14.0-18.0); LYMPHOCYTES # 0.5 10^3/ul (0.8-2.9); LYMPHOCYTES % 4.5 % (15.0-51.0); MEAN CORPUSCULAR HEMOGLOBIN 28.4 pg (29.0-33.0); MEAN CORPUSCULAR HGB CONC 30.1 g/dl (32.0-37.0); MEAN CORPUSCULAR VOLUME 94.3 fl (82.0-101.0); MEAN PLATELET VOLUME 11.3 fl (7.4-10.4); MONOCYTE # 0.4 10^3/ul (0.3-0.9); MONOCYTES % 3.8 % (0.0-11.0); NEUTROPHILS % 90.3 % (39.0-77.0); PLATELET COUNT 133 10^3/UL (140-415); POSITIVE DIFF @See below; RED BLOOD COUNT 2.64 10^6/ul (4.70-6.10); RED CELL DISTRIBUTION WIDTH 14.2 % (11.5-14.5)
[2017-10-07 05:23] LABS: WHITE BLOOD COUNT 11.1 10^3/ul (4.8-10.8)
[2017-10-07 05:43] LABS: ALANINE AMINOTRANSFERASE 18 IU/L (13-69); ALBUMIN 3.4 g/dl (3.3-4.9); ALBUMIN/GLOBULIN RATIO 1.21; ALKALINE PHOSPHATASE 81 IU/L (42-121); ANION GAP 23 (8-16); ASPARTATE AMINO TRANSFERASE 14 IU/L (15-46); BLOOD UREA NITROGEN 69 mg/dl (7-20); CALCIUM 7.1 mg/dl (8.4-10.2); CARBON DIOXIDE 24 mmol/L (21-31); CHLORIDE 106 mmol/L (97-110); CREATININE 8.08 mg/dl (0.61-1.24); GLUCOSE 269 mg/dl (70-220); POTASSIUM 5.1 mmol/L (3.5-5.1); SODIUM 148 mmol/L (135-144); TOTAL PROTEIN 6.2 g/dl (6.1-8.1)
[2017-10-07] MEDS: LEVOTHYROXINE 75 MCG TAB PO (06:43)
[2017-10-07] MEDS ORDERED: ACETAMINOPHEN 1000 MG/100 ML IVPB (07:00)
[2017-10-07] MEDS: SEVELAMER CARBONATE 0.8 GM PKT PO ×3 (07:35→17:29)
[2017-10-07] MEDS: INSULIN ASPART [NOVOLOG] 3 ML PEN SC ×8 (07:35→21:00)
[2017-10-07] MEDS ORDERED: KETAMINE (50 MG/ML) 10 ML VIAL (07:40)
[2017-10-07] MEDS ORDERED: MIDAZOLAM 1 MG/ML 2 ML INJ ×2 (07:41→08:39)
[2017-10-07] MEDS: LIDOCAINE 1% (MPF) 30 ML INJ (08:13)
[2017-10-07 08:15] LABS: PHOSPHORUS 5.7 mg/dl (2.5-4.9)
[2017-10-07] MEDS ORDERED: LIDOCAINE 2% JELLY 5 ML (08:38)
[2017-10-07] MEDS: HEPARIN 5,000 UNIT/0.5 ML VIAL SC ×2 (09:00→21:34)
[2017-10-07] MEDS: BALSAM PERU/CASTOR OIL 60 GM TUBE TOP ×2 (09:00→21:38)
[2017-10-07] MEDS ORDERED: EPHEDrine SULFATE 50 MG/5 ML SYG (09:02)
[2017-10-07] MEDS ORDERED: HYDROmorphONE 0.5 MG/0.5 ML SYG IV (09:30)
[2017-10-07] MEDS ORDERED: DIPHENHYDRAMINE 50 MG INJ IV (09:30)
[2017-10-07] MEDS ORDERED: EPHEDrine SULFATE 50 MG/5 ML SYG IV (09:30)
[2017-10-07] MEDS ORDERED: hydrALAzine 20 MG INJ IV (09:30)
[2017-10-07] MEDS ORDERED: LABETALOL HCL 20MG INJ IV (09:30)
[2017-10-07] MEDS ORDERED: ONDANSETRON 4 MG INJ IV (09:30)
[2017-10-07] MEDS: CALCITRIOL 0.25 MCG CAP PO ×2 (10:01→21:29)
[2017-10-07] MEDS: CA CARBONATE (250 MG/ML) 5ML CUP PO ×2 (10:01→21:29)
[2017-10-07] MEDS: GABAPENTIN 300 MG CAP PO ×2 (10:01→21:29)
[2017-10-07] MEDS: ASPIRIN 81 MG TAB PO (10:01)
[2017-10-07] MEDS: MIDODRINE 5 MG TAB PO ×3 (10:02→17:29)
[2017-10-07] MEDS: SERTRALINE 100 MG TAB PO (10:02)
[2017-10-07] MEDS: VANCOMYCIN 1.5 GM in SOD CHLORIDE 0.9% 250 ML IVPB (10:44)
[2017-10-07] MEDS: KETOROLAC 30 MG INJ IV (13:56)
[2017-10-07] MEDS: CALCITRIOL 1 MCG INJ IV (14:41)
[2017-10-07] MEDS: NPH, HUMAN INSULIN ISOPHANE 3ML VIAL SC ×2 (14:50→21:40)
[2017-10-07] MEDS: hydrOXYzine HCL 25 MG TAB PO (14:57)
[2017-10-07] MEDS: CASPOFUNGIN 50 MG in NS 250 ML IVPB (15:56)
[2017-10-07] MEDS: INSULIN GLARGINE [LANtus] 3 ML PEN SC (20:17)
[2017-10-07] MEDS: LORAZEPAM 2 MG INJ IV (20:25)
[2017-10-07 20:41] LABS: PTH CALCIUM 7.2 mg/dL (8.6-10.3)
[2017-10-07] MEDS: ATORVASTATIN 20 MG TAB PO (21:29)
[2017-10-08] MEDS: LORAZEPAM 2 MG INJ IV ×2 (00:19→04:29)
[2017-10-08] MEDS: DIPHENHYDRAMINE 50 MG INJ IV ×2 (00:25→09:22)
[2017-10-08] MEDS: ACCU-CHEK XX ×4 (02:00→19:55)
[2017-10-08] MEDS: HYDROmorphONE 0.5 MG/0.5 ML SYG IV ×10 (03:22→22:59)
[2017-10-08 05:36] LABS: ADD MAN DIFF? NO
[2017-10-08 05:46] LABS: WHITE BLOOD COUNT 13.1 10^3/ul (4.8-10.8)
[2017-10-08 05:46] LABS: ABNORMAL IP MESSAGE 1; BASOPHILS % 0.1 % (0.0-2.0); EOSINOPHILS % 0.1 % (0.0-7.0); HEMATOCRIT 22.2 % (42.0-52.0); LYMPHOCYTES # 0.4 10^3/ul (0.8-2.9); LYMPHOCYTES % 2.8 % (15.0-51.0); MEAN CORPUSCULAR HEMOGLOBIN 29.5 pg (29.0-33.0); MEAN CORPUSCULAR HGB CONC 31.1 g/dl (32.0-37.0); MEAN CORPUSCULAR VOLUME 94.9 fl (82.0-101.0); MEAN PLATELET VOLUME 11.8 fl (7.4-10.4); MONOCYTE # 0.4 10^3/ul (0.3-0.9); MONOCYTES % 3.1 % (0.0-11.0); NEUTROPHIL # 12.1 10^3/ul (1.6-7.5); NEUTROPHILS % 92.7 % (39.0-77.0); PLATELET COUNT 124 10^3/UL (140-415); POSITIVE DIFF @See below; RED BLOOD COUNT 2.34 10^6/ul (4.70-6.10); RED CELL DISTRIBUTION WIDTH 14.6 % (11.5-14.5)
[2017-10-08 05:54] LABS: PHOSPHORUS 6.5 mg/dl (2.5-4.9)
[2017-10-08 05:58] LABS: ALANINE AMINOTRANSFERASE 25 IU/L (13-69); ALBUMIN/GLOBULIN RATIO 1.11; ALKALINE PHOSPHATASE 82 IU/L (42-121); ANION GAP 26 (8-16); ASPARTATE AMINO TRANSFERASE 11 IU/L (15-46); BLOOD UREA NITROGEN 88 mg/dl (7-20); CALCIUM 6.6 mg/dl (8.4-10.2); CARBON DIOXIDE 20 mmol/L (21-31); CHLORIDE 107 mmol/L (97-110); CREATININE 9.24 mg/dl (0.61-1.24); GLUCOSE 274 mg/dl (70-220); SODIUM 147 mmol/L (135-144); TOTAL PROTEIN 5.7 g/dl (6.1-8.1)
[2017-10-08 06:01] LABS: POTASSIUM 6.1 mmol/L (3.5-5.1)
[2017-10-08 06:05] LABS: HEMOGLOBIN 6.9 g/dl (14.0-18.0)
[2017-10-08] MEDS: PANTOPRAZOLE 40 MG INJ IV (06:38)
[2017-10-08] MEDS: HYDROCORTISONE 100 MG INJ IV ×2 (06:38→14:59)
[2017-10-08] MEDS: METHADONE (1 MG/1 ML PO SYG) PO ×4 (06:38→16:39)
[2017-10-08] MEDS: NPH, HUMAN INSULIN ISOPHANE 3ML VIAL SC ×2 (06:51→15:00)
[2017-10-08 07:31] LABS: PTH INTACT 1005 pg/mL (14-64)
[2017-10-08] MEDS: CA CARBONATE (250 MG/ML) 5ML CUP PO ×2 (08:04→16:39)
[2017-10-08] MEDS: CALCITRIOL 0.25 MCG CAP PO ×2 (08:05→20:47)
[2017-10-08] MEDS: GABAPENTIN 300 MG CAP PO ×2 (08:05→20:46)
[2017-10-08] MEDS: MIDODRINE 5 MG TAB PO ×3 (08:05→16:40)
[2017-10-08] MEDS: SEVELAMER CARBONATE 0.8 GM PKT PO ×3 (08:05→17:28)
[2017-10-08] MEDS: LEVOTHYROXINE 75 MCG TAB PO (08:05)
[2017-10-08] MEDS: SERTRALINE 100 MG TAB PO (08:06)
[2017-10-08] MEDS: ASPIRIN 81 MG TAB PO (08:06)
[2017-10-08] MEDS: INSULIN ASPART [NOVOLOG] 3 ML PEN SC ×7 (08:17→20:58)
[2017-10-08] MEDS: BALSAM PERU/CASTOR OIL 60 GM TUBE TOP ×2 (08:18→21:23)
[2017-10-08] MEDS: HEPARIN 5,000 UNIT/0.5 ML VIAL SC ×2 (08:18→21:22)
[2017-10-08 09:13] LABS: IMMEDIATE SPIN CROSSMATCH 1 2
[2017-10-08] MEDS: hydrOXYzine HCL 25 MG TAB PO (10:31)
[2017-10-08] MEDS: ERGOCALCIFEROL 50,000 UNIT CAP PO (15:44)
[2017-10-08] MEDS: CALCITRIOL 1 MCG INJ IV (15:45)
[2017-10-08] MEDS: ACETAMINOPHEN 1000MG/100ML IV 100 ML IVPB (16:27)
[2017-10-08] MEDS: CASPOFUNGIN 50 MG in NS 250 ML IVPB (16:38)
[2017-10-08] MEDS: SENNA/DOCUSATE NA (8.6MG/50MG) TAB PO (16:39)
[2017-10-08] MEDS: INSULIN GLARGINE [LANtus] 3 ML PEN SC (20:00)
[2017-10-08] MEDS: ATORVASTATIN 20 MG TAB PO (20:47)
[2017-10-08] MEDS: MAGNESIUM HYDROXIDE 30ML CUP PO (20:48)
[2017-10-09] MEDS: HYDROCORTISONE 100 MG INJ IV ×4 (00:10→22:04)
[2017-10-09] MEDS: NPH, HUMAN INSULIN ISOPHANE 3ML VIAL SC ×4 (00:13→22:13)
[2017-10-09] MEDS: DIPHENHYDRAMINE 50 MG INJ IV ×4 (00:16→21:40)
[2017-10-09] MEDS: ACCU-CHEK XX ×4 (02:00→19:55)
[2017-10-09] MEDS: HYDROmorphONE 0.5 MG/0.5 ML SYG IV ×9 (02:04→23:28)
[2017-10-09] MEDS: METHADONE (1 MG/1 ML PO SYG) PO ×4 (06:00→17:46)
[2017-10-09] MEDS: PANTOPRAZOLE (EC) 40 MG TAB PO (06:16)
[2017-10-09] MEDS: LEVOTHYROXINE 75 MCG TAB PO (06:16)
[2017-10-09 06:59] LABS: ADD MAN DIFF? NO
[2017-10-09 07:05] LABS: ABNORMAL IP MESSAGE 1; BASOPHILS % 0.1 % (0.0-2.0); EOSINOPHILS % 0.1 % (0.0-7.0); LYMPHOCYTES # 0.6 10^3/ul (0.8-2.9); LYMPHOCYTES % 2.5 % (15.0-51.0); MEAN CORPUSCULAR HEMOGLOBIN 29.5 pg (29.0-33.0); MEAN CORPUSCULAR VOLUME 92.3 fl (82.0-101.0); MEAN PLATELET VOLUME 11.7 fl (7.4-10.4); MONOCYTE # 1.1 10^3/ul (0.3-0.9); MONOCYTES % 4.7 % (0.0-11.0); NEUTROPHIL # 20.6 10^3/ul (1.6-7.5); NEUTROPHILS % 91.5 % (39.0-77.0); PLATELET COUNT 120 10^3/UL (140-415); POSITIVE DIFF @See below; RED BLOOD COUNT 2.71 10^6/ul (4.70-6.10); RED CELL DISTRIBUTION WIDTH 15.4 % (11.5-14.5)
[2017-10-09 07:05] LABS: WHITE BLOOD COUNT 22.5 10^3/ul (4.8-10.8)
[2017-10-09 07:45] LABS: ANION GAP 21 (8-16); BLOOD UREA NITROGEN 76 mg/dl (7-20); CALCIUM 7.1 mg/dl (8.4-10.2); CARBON DIOXIDE 25 mmol/L (21-31); CHLORIDE 106 mmol/L (97-110); CREATININE 7.63 mg/dl (0.61-1.24); GLUCOSE 121 mg/dl (70-220); PHOSPHORUS 3.9 mg/dl (2.5-4.9); POTASSIUM 5.1 mmol/L (3.5-5.1); SODIUM 147 mmol/L (135-144)
[2017-10-09] MEDS: INSULIN ASPART [NOVOLOG] 3 ML PEN SC ×8 (07:55→21:00)
[2017-10-09] MEDS: SERTRALINE 100 MG TAB PO (09:32)
[2017-10-09] MEDS: ASPIRIN 81 MG TAB PO (09:32)
[2017-10-09] MEDS: GABAPENTIN 300 MG CAP PO ×2 (09:32→21:02)
[2017-10-09] MEDS: CA CARBONATE (250 MG/ML) 5ML CUP PO ×2 (09:33→21:00)
[2017-10-09] MEDS: SEVELAMER CARBONATE 0.8 GM PKT PO ×3 (09:33→17:46)
[2017-10-09] MEDS: BALSAM PERU/CASTOR OIL 60 GM TUBE TOP ×2 (09:35→21:03)
[2017-10-09] MEDS: HEPARIN 5,000 UNIT/0.5 ML VIAL SC ×2 (09:50→21:03)
[2017-10-09] MEDS: CALCITRIOL 0.25 MCG CAP PO ×2 (09:54→21:03)
[2017-10-09] MEDS: MIDODRINE 5 MG TAB PO (09:55)
[2017-10-09] MEDS: ERGOCALCIFEROL 50,000 UNIT CAP PO (14:11)
[2017-10-09] MEDS: MIDODRINE 2.5 MG TAB PO ×2 (15:21→17:46)
[2017-10-09] MEDS: CASPOFUNGIN 50 MG in NS 250 ML IVPB (17:45)
[2017-10-09] MEDS: INSULIN GLARGINE [LANtus] 3 ML PEN SC ×2 (20:00→22:11)
[2017-10-09] MEDS: ONDANSETRON 4 MG INJ IV (20:23)
[2017-10-09] MEDS: GLUCOSE GEL 15 GRAM TUBE BUCCAL (20:50)
[2017-10-09] MEDS: ATORVASTATIN 20 MG TAB PO (21:02)
[2017-10-09] MEDS: LORAZEPAM 2 MG INJ IV (21:20)
[2017-10-10] MEDS: METHADONE (1 MG/1 ML PO SYG) PO ×4 (00:07→18:37)
[2017-10-10] MEDS: LORAZEPAM 2 MG INJ IV ×3 (00:45→02:14)
[2017-10-10] MEDS: HALOPERIDOL 5 MG INJ IM (01:29)
[2017-10-10] MEDS: DIPHENHYDRAMINE 50 MG INJ IV ×2 (01:30→13:59)
[2017-10-10] MEDS: ACCU-CHEK XX ×4 (02:00→20:29)
[2017-10-10 02:16] LABS: AADO2 Arterial 564.1 mmHg (7.0-24.0); Arterial Base Excess -7.1 mmol/L (-3.0-3); Arterial Blood Gas Oxygen Sat 97.5 mmHG (95.0-98.0); Arterial COHb 0.5 % (0.0-3.0); Arterial HCO3 17.7 mmol/L (22.0-26.0); Arterial MetHb 0 % (0.0-1.5); Arterial Total Hemglobin 10.3 g/dl (12.0-18.0); MODE NON-REBREATHING MASK; Site Right Brachial
[2017-10-10 05:54] LABS: ADD MAN DIFF? NO
[2017-10-10 05:58] LABS: ABNORMAL IP MESSAGE 1; BASOPHILS % 0.1 % (0.0-2.0); EOSINOPHILS % 0.1 % (0.0-7.0); HEMATOCRIT 26.5 % (42.0-52.0); HEMOGLOBIN 8.3 g/dl (14.0-18.0); LYMPHOCYTES # 0.4 10^3/ul (0.8-2.9); LYMPHOCYTES % 1.9 % (15.0-51.0); MEAN CORPUSCULAR HEMOGLOBIN 29.1 pg (29.0-33.0); MEAN CORPUSCULAR HGB CONC 31.3 g/dl (32.0-37.0); MEAN PLATELET VOLUME 11.4 fl (7.4-10.4); MONOCYTE # 0.9 10^3/ul (0.3-0.9); MONOCYTES % 4.6 % (0.0-11.0); NEUTROPHILS % 91.7 % (39.0-77.0); PLATELET COUNT 112 10^3/UL (140-415); POSITIVE DIFF @See below; RED BLOOD COUNT 2.85 10^6/ul (4.70-6.10); RED CELL DISTRIBUTION WIDTH 15.4 % (11.5-14.5)
[2017-10-10 05:58] LABS: WHITE BLOOD COUNT 18.5 10^3/ul (4.8-10.8)
[2017-10-10] MEDS: PANTOPRAZOLE (EC) 40 MG TAB PO (06:00)
[2017-10-10 06:35] LABS: ANION GAP 23 (8-16); BLOOD UREA NITROGEN 91 mg/dl (7-20); CALCIUM 7.4 mg/dl (8.4-10.2); CARBON DIOXIDE 23 mmol/L (21-31); CHLORIDE 104 mmol/L (97-110); GLUCOSE 213 mg/dl (70-220); PHOSPHORUS 4.5 mg/dl (2.5-4.9); SODIUM 144 mmol/L (135-144)
[2017-10-10] MEDS: HYDROCORTISONE 100 MG INJ IV ×3 (06:53→23:00)
[2017-10-10] MEDS: NPH, HUMAN INSULIN ISOPHANE 3ML VIAL SC ×3 (06:54→23:06)
[2017-10-10 06:59] LABS: POTASSIUM 6.4 mmol/L (3.5-5.1)
[2017-10-10] MEDS ORDERED: DEXTROSE 50% 50 ML SYRINGE IV (08:30)
[2017-10-10] MEDS: SEVELAMER CARBONATE 0.8 GM PKT PO ×3 (08:51→17:42)
[2017-10-10] MEDS: BALSAM PERU/CASTOR OIL 60 GM TUBE TOP ×2 (08:51→20:31)
[2017-10-10] MEDS: CALCITRIOL 0.25 MCG CAP PO ×2 (08:51→20:30)
[2017-10-10] MEDS: GABAPENTIN 300 MG CAP PO ×2 (08:52→20:30)
[2017-10-10] MEDS: LEVOTHYROXINE 75 MCG TAB PO (08:52)
[2017-10-10] MEDS: ASPIRIN 81 MG TAB PO (08:52)
[2017-10-10] MEDS: DEXTROSE 50% 50 ML SYRINGE IV (08:53)
[2017-10-10] MEDS: NA BICARBONATE 8.4% 50 ML SYG IV (08:53)
[2017-10-10] MEDS: CA CARBONATE (250 MG/ML) 5ML CUP PO (08:53)
[2017-10-10] MEDS: INSULIN ASPART [NOVOLOG] 3 ML PEN SC ×7 (08:57→20:31)
[2017-10-10] MEDS: MIDODRINE 2.5 MG TAB PO ×3 (09:00→17:43)
[2017-10-10] MEDS: SERTRALINE 100 MG TAB PO (09:00)
[2017-10-10] MEDS: CALCIUM GLUCONATE 10% 1 GM in DEXTROSE 5% 100 ML IVPB (09:00)
[2017-10-10] MEDS: HEPARIN 5,000 UNIT/0.5 ML VIAL SC (09:13)
[2017-10-10] MEDS: INSULIN REGULAR, HUMAN 100 UNIT/1 ML 3ML VIAL IVP (09:31)
[2017-10-10] MEDS: NA POLYST SULFON 15 GM/60 ML BTL PO (09:37)
[2017-10-10] MEDS: CALCIUM CARBONATE 500 MG CHEW TAB PO ×2 (12:00→20:30)
[2017-10-10] MEDS: HYDROmorphONE 0.5 MG/0.5 ML SYG IV ×4 (13:36→21:21)
[2017-10-10 16:56] LABS: ADD MAN DIFF? NO
[2017-10-10 16:58] LABS: BASOPHILS % 0.1 % (0.0-2.0); EOSINOPHILS % 0.2 % (0.0-7.0); HEMATOCRIT 27.1 % (42.0-52.0); HEMOGLOBIN 8.6 g/dl (14.0-18.0); LYMPHOCYTES # 0.7 10^3/ul (0.8-2.9); LYMPHOCYTES % 3.6 % (15.0-51.0); MEAN CORPUSCULAR HGB CONC 31.7 g/dl (32.0-37.0); MEAN CORPUSCULAR VOLUME 91.2 fl (82.0-101.0); MONOCYTE # 1.1 10^3/ul (0.3-0.9); MONOCYTES % 5.7 % (0.0-11.0); NEUTROPHIL # 16.5 10^3/ul (1.6-7.5); NEUTROPHILS % 88.9 % (39.0-77.0); PLATELET COUNT 133 10^3/UL (140-415); POSITIVE DIFF @See below; RED BLOOD COUNT 2.97 10^6/ul (4.70-6.10); RED CELL DISTRIBUTION WIDTH 15.5 % (11.5-14.5)
[2017-10-10 16:58] LABS: WHITE BLOOD COUNT 18.5 10^3/ul (4.8-10.8)
[2017-10-10 17:17] LABS: INR 0.99; PROTIME 13.2 Sec (11.9-14.9)
[2017-10-10 17:18] LABS: PARTIAL THROMBOPLASTIN TIME 31.5 Sec (25.0-35.0)
[2017-10-10] MEDS: HEPARIN 1000 UNITS/ML 10 ML INJ IV (17:46)
[2017-10-10] MEDS: HEPARIN 25000 UNITS/250 ML 250 ML IV (18:08)
[2017-10-10] MEDS: CASPOFUNGIN 50 MG in NS 250 ML IVPB (18:40)
[2017-10-10] MEDS ORDERED: INSULIN GLARGINE [LANtus] 3 ML PEN SC (20:00)
[2017-10-10] MEDS: ATORVASTATIN 20 MG TAB PO (20:30)
[2017-10-10] MEDS: INSULIN GLARGINE [LANtus] 3 ML PEN SC (20:48)
[2017-10-11] MEDS: METHADONE (1 MG/1 ML PO SYG) PO ×4 (00:07→17:35)
[2017-10-11] MEDS: HYDROmorphONE 0.5 MG/0.5 ML SYG IV ×7 (00:48→21:09)
[2017-10-11] MEDS: LORAZEPAM 2 MG INJ IV (00:54)
[2017-10-11] MEDS: ACCU-CHEK XX ×4 (02:00→20:45)
[2017-10-11] MEDS: HEPARIN 1000 UNITS/ML 10 ML INJ IV (02:12)
[2017-10-11] MEDS: HEPARIN 25000 UNITS/250 ML 250 ML IV ×5 (02:14→22:14)
[2017-10-11] MEDS: HYDROCORTISONE 100 MG INJ IV (06:48)
[2017-10-11] MEDS: PANTOPRAZOLE (EC) 40 MG TAB PO ×2 (06:49→20:50)
[2017-10-11] MEDS: LEVOTHYROXINE 75 MCG TAB PO (06:49)
[2017-10-11] MEDS: NPH, HUMAN INSULIN ISOPHANE 3ML VIAL SC (06:54)
[2017-10-11] MEDS: CALCIUM CARBONATE 500 MG CHEW TAB PO ×2 (08:17→20:49)
[2017-10-11] MEDS: GABAPENTIN 300 MG CAP PO ×2 (08:17→20:49)
[2017-10-11] MEDS: CALCITRIOL 0.25 MCG CAP PO ×2 (08:18→21:09)
[2017-10-11] MEDS: ASPIRIN 81 MG TAB PO (08:20)
[2017-10-11] MEDS: SERTRALINE 100 MG TAB PO (08:20)
[2017-10-11] MEDS: BALSAM PERU/CASTOR OIL 60 GM TUBE TOP ×2 (08:21→21:10)
[2017-10-11] MEDS: SEVELAMER CARBONATE 0.8 GM PKT PO ×3 (08:28→17:29)
[2017-10-11] MEDS: INSULIN ASPART [NOVOLOG] 3 ML PEN SC ×7 (08:40→20:51)
[2017-10-11 09:32] LABS: PARTIAL THROMBOPLASTIN TIME 62.1 Sec (25.0-35.0)
[2017-10-11] MEDS: DIPHENHYDRAMINE 50 MG INJ IV (09:43)
[2017-10-11] MEDS: MIDODRINE 2.5 MG TAB PO ×2 (09:44→12:06)
[2017-10-11] MEDS: VANCOMYCIN 1.5 GM in SOD CHLORIDE 0.9% 250 ML IVPB (12:43)
[2017-10-11 12:45] LABS: PARTIAL THROMBOPLASTIN TIME 54.4 Sec (25.0-35.0)
[2017-10-11 14:07] LABS: VANCOMYCIN,TROUGH 14.8 ug/ml (10.0-20.0)
[2017-10-11] MEDS: CASPOFUNGIN 50 MG in NS 250 ML IVPB (17:07)
[2017-10-11] MEDS ORDERED: morphine 2 MG INJ (18:30)
[2017-10-11] MEDS: morphine 2 MG INJ IV ×3 (18:32→19:02)
[2017-10-11] MEDS ORDERED: LEVALBUTEROL (NEB) 0.63 MG/3 ML AMP (18:34)
[2017-10-11] MEDS ORDERED: LEVALBUTEROL (NEB) 0.63 MG/3 ML AMP HHN (19:00)
[2017-10-11 20:07] LABS: ALBUMIN 3.2 g/dl (3.3-4.9); ANION GAP 23 (8-16); BLOOD UREA NITROGEN 73 mg/dl (7-20); CALCIUM 7.3 mg/dl (8.4-10.2); CARBON DIOXIDE 21 mmol/L (21-31); CHLORIDE 102 mmol/L (97-110); CREATININE 7.84 mg/dl (0.61-1.24); GLUCOSE 144 mg/dl (70-220); PHOSPHORUS 5.6 mg/dl (2.5-4.9); POTASSIUM 4.9 mmol/L (3.5-5.1); SODIUM 141 mmol/L (135-144)
[2017-10-11 20:19] LABS: PARTIAL THROMBOPLASTIN TIME 148.7 Sec (25.0-35.0)
[2017-10-11] MEDS: clonAZEPAM 0.5 MG TAB PO (20:49)
[2017-10-11] MEDS: HYDROCORTISONE 5 MG TAB PO (20:50)
[2017-10-11] MEDS: ATORVASTATIN 20 MG TAB PO (20:50)
[2017-10-11] MEDS ORDERED: HYDROCORTISONE 100 MG INJ IV (21:00)
[2017-10-11] MEDS: INSULIN GLARGINE [LANtus] 3 ML PEN SC (21:01)
[2017-10-12] MEDS: ACETAMINOPHEN 325 MG TAB PO ×2 (00:24→09:29)
[2017-10-12] MEDS: LORAZEPAM 2 MG INJ IV (00:48)
[2017-10-12] MEDS: HYDROmorphONE 0.5 MG/0.5 ML SYG IV ×4 (01:14→21:29)
[2017-10-12 01:16] LABS: PARTIAL THROMBOPLASTIN TIME 39.2 Sec (25.0-35.0)
[2017-10-12] MEDS: HEPARIN 1000 UNITS/ML 10 ML INJ IV (01:31)
[2017-10-12] MEDS: HEPARIN 25000 UNITS/250 ML 250 ML IV ×2 (01:32→07:29)
[2017-10-12] MEDS: ACCU-CHEK XX ×4 (01:59→21:53)
[2017-10-12] MEDS: DEXTROSE 50% 50 ML SYRINGE IV (04:58)
[2017-10-12] MEDS: METHADONE (1 MG/1 ML PO SYG) PO ×4 (06:00→21:34)
[2017-10-12] MEDS: LEVOTHYROXINE 75 MCG TAB PO (06:27)
[2017-10-12] MEDS: HYDROCORTISONE 5 MG TAB PO ×3 (06:27→21:46)
[2017-10-12] MEDS: LEVALBUTEROL (NEB) 0.63 MG/3 ML AMP HHN (07:26)
[2017-10-12 07:30] LABS: ADD MAN DIFF? NO
[2017-10-12] MEDS: INSULIN ASPART [NOVOLOG] 3 ML PEN SC ×7 (07:55→21:00)
[2017-10-12 08:07] LABS: PARTIAL THROMBOPLASTIN TIME 55.3 Sec (25.0-35.0)
[2017-10-12 08:14] LABS: ALANINE AMINOTRANSFERASE 42 IU/L (13-69); ALBUMIN 3.3 g/dl (3.3-4.9); ALBUMIN/GLOBULIN RATIO 1.26; ALKALINE PHOSPHATASE 120 IU/L (42-121); ANION GAP 25 (8-16); ASPARTATE AMINO TRANSFERASE 28 IU/L (15-46); BLOOD UREA NITROGEN 85 mg/dl (7-20); CALCIUM 7.6 mg/dl (8.4-10.2); CARBON DIOXIDE 22 mmol/L (21-31); CHLORIDE 103 mmol/L (97-110); CREATININE 9.06 mg/dl (0.61-1.24); POTASSIUM 5.4 mmol/L (3.5-5.1); SODIUM 145 mmol/L (135-144); TOTAL PROTEIN 5.9 g/dl (6.1-8.1)
[2017-10-12 08:16] LABS: CREATINE KINASE 63 IU/L (23-200)
[2017-10-12 08:21] LABS: ABNORMAL IP MESSAGE 1; BASOPHILS % 0.1 % (0.0-2.0); EOSINOPHILS # 0.1 10^3/ul (0.0-0.5); EOSINOPHILS % 0.4 % (0.0-7.0); HEMATOCRIT 30.5 % (42.0-52.0); HEMOGLOBIN 9.4 g/dl (14.0-18.0); LYMPHOCYTES # 0.4 10^3/ul (0.8-2.9); LYMPHOCYTES % 2.5 % (15.0-51.0); MEAN CORPUSCULAR HEMOGLOBIN 29.1 pg (29.0-33.0); MEAN CORPUSCULAR HGB CONC 30.8 g/dl (32.0-37.0); MEAN CORPUSCULAR VOLUME 94.4 fl (82.0-101.0); MEAN PLATELET VOLUME 11.1 fl (7.4-10.4); MONOCYTE # 0.7 10^3/ul (0.3-0.9); MONOCYTES % 3.7 % (0.0-11.0); NEUTROPHIL # 16.2 10^3/ul (1.6-7.5); NEUTROPHILS % 92.6 % (39.0-77.0); PLATELET COUNT 123 10^3/UL (140-415); POSITIVE DIFF @See below; RED BLOOD COUNT 3.23 10^6/ul (4.70-6.10); RED CELL DISTRIBUTION WIDTH 15.7 % (11.5-14.5)
[2017-10-12 08:21] LABS: WHITE BLOOD COUNT 17.5 10^3/ul (4.8-10.8)
[2017-10-12 08:22] LABS: CK INDEX 11.1
[2017-10-12 08:30] LABS: CK-MB 7.01 ng/ml (0.0-2.4)
[2017-10-12] MEDS: SEVELAMER CARBONATE 0.8 GM PKT PO ×3 (09:19→18:13)
[2017-10-12] MEDS: ASPIRIN 81 MG TAB PO (09:29)
[2017-10-12] MEDS: PANTOPRAZOLE (EC) 40 MG TAB PO ×2 (09:29→21:46)
[2017-10-12] MEDS: SERTRALINE 100 MG TAB PO (09:29)
[2017-10-12] MEDS: CALCIUM CARBONATE 500 MG CHEW TAB PO ×2 (09:29→21:46)
[2017-10-12] MEDS: GABAPENTIN 300 MG CAP PO ×2 (09:29→21:46)
[2017-10-12] MEDS: PIPER-TAZO 2.25 GM (PMX) 50 ML IVPB ×3 (09:30→21:57)
[2017-10-12] MEDS: CALCITRIOL 0.25 MCG CAP PO ×2 (10:00→21:53)
[2017-10-12] MEDS: MIDODRINE 2.5 MG TAB PO ×3 (10:00→18:14)
[2017-10-12] MEDS: BALSAM PERU/CASTOR OIL 60 GM TUBE TOP ×2 (10:00→21:47)
[2017-10-12 11:32] LABS: MAGNESIUM 1.8 mg/dl (1.7-2.5)
[2017-10-12 11:35] LABS: GLUCOSE 79 mg/dl (70-220)
[2017-10-12] MEDS ORDERED: PIPER-TAZO 3.375 GM IV (PMX) 100 ML IVPB (12:00)
[2017-10-12] MEDS: ONDANSETRON 4 MG INJ IV (12:13)
[2017-10-12 16:11] LABS: PARTIAL THROMBOPLASTIN TIME 51.6 Sec (25.0-35.0)
[2017-10-12] MEDS: ALBUMIN HUMAN 25% 100 ML IV (20:41)
[2017-10-12] MEDS: ATORVASTATIN 20 MG TAB PO (21:46)
[2017-10-12] MEDS: CASPOFUNGIN 50 MG in NS 250 ML IVPB (21:54)
[2017-10-12] MEDS: INSULIN GLARGINE [LANtus] 3 ML PEN SC (21:59)
[2017-10-12 23:45] LABS: PARTIAL THROMBOPLASTIN TIME 38.3 Sec (25.0-35.0)
[2017-10-13] MEDS: HEPARIN 1000 UNITS/ML 10 ML INJ IV (00:50)
[2017-10-13] MEDS: HEPARIN 25000 UNITS/250 ML 250 ML IV ×2 (00:54→09:12)
[2017-10-13] MEDS: HYDROmorphONE 0.5 MG/0.5 ML SYG IV ×8 (01:56→23:02)
[2017-10-13] MEDS: METHADONE (1 MG/1 ML PO SYG) PO ×4 (02:31→18:00)
[2017-10-13] MEDS: ACCU-CHEK XX ×4 (02:31→18:14)
[2017-10-13] MEDS: ALBUMIN HUMAN 25% 50 ML IV (02:35)
[2017-10-13 05:16] LABS: ADD MAN DIFF? NO
[2017-10-13 05:24] LABS: WHITE BLOOD COUNT 15.9 10^3/ul (4.8-10.8)
[2017-10-13 05:24] LABS: ABNORMAL IP MESSAGE 1; BASOPHILS % 0.1 % (0.0-2.0); EOSINOPHILS # 0.2 10^3/ul (0.0-0.5); HEMATOCRIT 21.7 % (42.0-52.0); LYMPHOCYTES # 0.5 10^3/ul (0.8-2.9); LYMPHOCYTES % 3.4 % (15.0-51.0); MEAN CORPUSCULAR HEMOGLOBIN 29.4 pg (29.0-33.0); MEAN CORPUSCULAR HGB CONC 30.9 g/dl (32.0-37.0); MEAN CORPUSCULAR VOLUME 95.2 fl (82.0-101.0); MEAN PLATELET VOLUME 11.3 fl (7.4-10.4); MONOCYTE # 0.9 10^3/ul (0.3-0.9); MONOCYTES % 5.5 % (0.0-11.0); NEUTROPHIL # 14.2 10^3/ul (1.6-7.5); NEUTROPHILS % 89.1 % (39.0-77.0); PLATELET COUNT 115 10^3/UL (140-415); POSITIVE DIFF @See below; RED BLOOD COUNT 2.28 10^6/ul (4.70-6.10); RED CELL DISTRIBUTION WIDTH 16.1 % (11.5-14.5)
[2017-10-13 05:40] LABS: ALANINE AMINOTRANSFERASE 38 IU/L (13-69); ALBUMIN 3.2 g/dl (3.3-4.9); ALKALINE PHOSPHATASE 128 IU/L (42-121); ANION GAP 24 (8-16); ASPARTATE AMINO TRANSFERASE 32 IU/L (15-46); BLOOD UREA NITROGEN 68 mg/dl (7-20); CALCIUM 7.6 mg/dl (8.4-10.2); CARBON DIOXIDE 24 mmol/L (21-31); CHLORIDE 99 mmol/L (97-110); CREATININE 8.05 mg/dl (0.61-1.24); GLUCOSE 186 mg/dl (70-220); SODIUM 142 mmol/L (135-144); TOTAL PROTEIN 6.1 g/dl (6.1-8.1)
[2017-10-13 05:50] LABS: MAGNESIUM 1.7 mg/dl (1.7-2.5)
[2017-10-13 06:15] LABS: HEMOGLOBIN 6.7 g/dl (14.0-18.0); PATH REVIEW? YES
[2017-10-13] MEDS: PIPER-TAZO 2.25 GM (PMX) 50 ML IVPB ×3 (06:35→22:47)
[2017-10-13 07:22] LABS: ANISOCYTOSIS 1+ (0-0); EOSINOPHILS % (M) 5 % (0-7); HYPOCHROMASIA 1+ (0-0); LYMPHOCYTES #M 0.9 10^3/ul (0.8-2.9); LYMPHOCYTES % (M) 6 % (15-51); MICROCYTOSIS 1+ (0-0); MYELOCYTES #M 0.1 10^3/ul (0.0-0.0); MYELOCYTES % (M) 1 % (0-0); PLATELET ESTIMATE DECREASED; POLYCHROMASIA 1+ (0-0); REACTIVE LYMPHOCYTES #M 0.3 10^3/ul (0.0-0.0); REACTIVE LYMPHOCYTES% (M) 2 % (0-0); SEGMENTED NEUTROPHILS (M) % 86 % (39-77)
[2017-10-13] MEDS: INSULIN ASPART [NOVOLOG] 3 ML PEN SC ×6 (07:35→21:00)
[2017-10-13] MEDS: ONDANSETRON 4 MG INJ IV (08:13)
[2017-10-13] MEDS: SEVELAMER CARBONATE 0.8 GM PKT PO ×3 (08:14→18:13)
[2017-10-13] MEDS: hydrOXYzine HCL 25 MG TAB PO (08:14)
[2017-10-13] MEDS: HYDROCORTISONE 5 MG TAB PO ×3 (08:14→22:44)
[2017-10-13] MEDS: GABAPENTIN 300 MG CAP PO ×2 (08:14→22:44)
[2017-10-13 08:15] LABS: HEMATOCRIT 20.5 % (42.0-52.0)
[2017-10-13] MEDS: LEVOTHYROXINE 75 MCG TAB PO (08:15)
[2017-10-13] MEDS: ERGOCALCIFEROL 50,000 UNIT CAP PO (08:15)
[2017-10-13] MEDS: SENNA/DOCUSATE NA (8.6MG/50MG) TAB PO (08:15)
[2017-10-13] MEDS: CALCITRIOL 0.25 MCG CAP PO ×2 (08:15→22:45)
[2017-10-13] MEDS: ASPIRIN 81 MG TAB PO (08:15)
[2017-10-13] MEDS: SERTRALINE 100 MG TAB PO (08:16)
[2017-10-13] MEDS: CALCIUM CARBONATE 500 MG CHEW TAB PO ×3 (08:18→22:45)
[2017-10-13] MEDS: MIDODRINE 2.5 MG TAB PO ×3 (08:18→17:26)
[2017-10-13 08:20] LABS: HEMOGLOBIN 6.5 g/dl (14.0-18.0)
[2017-10-13] MEDS: MAGNESIUM HYDROXIDE 30ML CUP PO (08:22)
[2017-10-13] MEDS: DOCUSATE SODIUM 100 MG CAP PO ×2 (08:22→22:44)
[2017-10-13 08:43] LABS: PARTIAL THROMBOPLASTIN TIME 48.3 Sec (25.0-35.0)
[2017-10-13] MEDS: POLYETHYLENE GLYCOL 17 GM PACKET PO (08:43)
[2017-10-13] MEDS: PANTOPRAZOLE (EC) 40 MG TAB PO ×2 (08:43→22:45)
[2017-10-13] MEDS: BALSAM PERU/CASTOR OIL 60 GM TUBE TOP ×2 (08:54→22:46)
[2017-10-13] MEDS: DEXTROSE 50% 50 ML SYRINGE IV (10:40)
[2017-10-13] MEDS: BISACODYL 10 MG SUPP PR (12:12)
[2017-10-13] MEDS: AMIODARONE 200 MG TAB PO ×2 (13:28→22:46)
[2017-10-13] MEDS: MAGNESIUM SULFATE 1 GM/D5W 100 ML IVPB (13:29)
[2017-10-13] MEDS: MINERAL OIL 133 ML ENEMA PR (13:40)
[2017-10-13] MEDS: DIPHENHYDRAMINE 50 MG INJ IV (18:47)
[2017-10-13] MEDS: ATORVASTATIN 20 MG TAB PO (22:45)
[2017-10-13] MEDS: INSULIN GLARGINE [LANtus] 3 ML PEN SC (22:59)
[2017-10-13] MEDS: CASPOFUNGIN 50 MG in NS 250 ML IVPB (23:02)
[2017-10-14] MEDS: ACCU-CHEK XX ×4 (02:00→19:41)
[2017-10-14] MEDS: HYDROmorphONE 0.5 MG/0.5 ML SYG IV ×8 (02:29→22:58)
[2017-10-14] MEDS: PIPER-TAZO 2.25 GM (PMX) 50 ML IVPB ×2 (05:16→15:28)
[2017-10-14] MEDS: METHADONE (1 MG/1 ML PO SYG) PO ×4 (06:00→17:54)
[2017-10-14 06:33] LABS: ALBUMIN 3.4 g/dl (3.3-4.9); ANION GAP 22 (8-16); BLOOD UREA NITROGEN 60 mg/dl (7-20); CALCIUM 7.7 mg/dl (8.4-10.2); CARBON DIOXIDE 27 mmol/L (21-31); CHLORIDE 100 mmol/L (97-110); CREATININE 7.43 mg/dl (0.61-1.24); GLUCOSE 101 mg/dl (70-220); PHOSPHORUS 6.1 mg/dl (2.5-4.9); POTASSIUM 5.3 mmol/L (3.5-5.1); SODIUM 144 mmol/L (135-144)
[2017-10-14 06:36] LABS: ALANINE AMINOTRANSFERASE 35 IU/L (13-69); ALBUMIN 3.3 g/dl (3.3-4.9); ALKALINE PHOSPHATASE 179 IU/L (42-121); ANION GAP 21 (8-16); ASPARTATE AMINO TRANSFERASE 28 IU/L (15-46); BILIRUBIN,INDIRECT 0.1 mg/dl (0-1.1); BILIRUBIN,TOTAL 0.1 mg/dl (0.2-1.3); BLOOD UREA NITROGEN 59 mg/dl (7-20); CALCIUM 7.8 mg/dl (8.4-10.2); CARBON DIOXIDE 27 mmol/L (21-31); CHLORIDE 100 mmol/L (97-110); CREATININE 7.22 mg/dl (0.61-1.24); GLUCOSE 100 mg/dl (70-220); POTASSIUM 5.3 mmol/L (3.5-5.1); SODIUM 143 mmol/L (135-144); TOTAL PROTEIN 6.6 g/dl (6.1-8.1)
[2017-10-14] MEDS: INSULIN ASPART [NOVOLOG] 3 ML PEN SC ×7 (07:35→20:49)
[2017-10-14] MEDS: ASPIRIN 81 MG TAB PO (08:23)
[2017-10-14] MEDS: SERTRALINE 100 MG TAB PO (08:23)
[2017-10-14] MEDS: PANTOPRAZOLE (EC) 40 MG TAB PO ×2 (08:23→20:36)
[2017-10-14] MEDS: HYDROCORTISONE 5 MG TAB PO ×3 (08:23→20:37)
[2017-10-14] MEDS: CALCIUM CARBONATE 500 MG CHEW TAB PO ×3 (08:23→20:36)
[2017-10-14] MEDS: DOCUSATE SODIUM 100 MG CAP PO ×2 (08:23→20:34)
[2017-10-14] MEDS: LEVOTHYROXINE 75 MCG TAB PO (08:23)
[2017-10-14] MEDS: GABAPENTIN 300 MG CAP PO ×2 (08:24→20:36)
[2017-10-14] MEDS: CALCITRIOL 0.25 MCG CAP PO ×2 (08:24→20:35)
[2017-10-14] MEDS: AMIODARONE 200 MG TAB PO ×3 (08:24→20:36)
[2017-10-14] MEDS: BALSAM PERU/CASTOR OIL 60 GM TUBE TOP ×2 (08:25→20:37)
[2017-10-14] MEDS: SEVELAMER CARBONATE 0.8 GM PKT PO ×3 (08:25→17:35)
[2017-10-14] MEDS: POLYETHYLENE GLYCOL 17 GM PACKET PO (08:27)
[2017-10-14] MEDS: DIPHENHYDRAMINE 50 MG INJ IV ×2 (08:32→21:01)
[2017-10-14] MEDS ORDERED: MIDODRINE 5 MG TAB PO (09:00)
[2017-10-14 09:40] LABS: ADD MAN DIFF? NO
[2017-10-14 09:46] LABS: BASOPHILS % 0.1 % (0.0-2.0); EOSINOPHILS # 0.2 10^3/ul (0.0-0.5); EOSINOPHILS % 1.9 % (0.0-7.0); HEMATOCRIT 25.2 % (42.0-52.0); LYMPHOCYTES # 0.7 10^3/ul (0.8-2.9); MEAN CORPUSCULAR HEMOGLOBIN 29.3 pg (29.0-33.0); MEAN CORPUSCULAR HGB CONC 31.7 g/dl (32.0-37.0); MEAN CORPUSCULAR VOLUME 92.3 fl (82.0-101.0); MEAN PLATELET VOLUME 10.9 fl (7.4-10.4); MONOCYTE # 0.6 10^3/ul (0.3-0.9); NEUTROPHIL # 8.5 10^3/ul (1.6-7.5); NEUTROPHILS % 84.3 % (39.0-77.0); PLATELET COUNT 110 10^3/UL (140-415); POSITIVE DIFF @See below; RED BLOOD COUNT 2.73 10^6/ul (4.70-6.10); RED CELL DISTRIBUTION WIDTH 18.7 % (11.5-14.5)
[2017-10-14 09:46] LABS: WHITE BLOOD COUNT 10.1 10^3/ul (4.8-10.8)
[2017-10-14] MEDS: MIDODRINE 2.5 MG TAB PO ×2 (12:29→17:54)
[2017-10-14] MEDS ORDERED: MIDAZOLAM 1 MG/ML 2 ML INJ (17:50)
[2017-10-14] MEDS ORDERED: KETAMINE (50 MG/ML) 10 ML VIAL (17:51)
[2017-10-14] MEDS: SODIUM HYPOCHLORITE 0.125% 473 ML BTL IRR (18:00)
[2017-10-14] MEDS: LIDOCAINE 1% (MPF) 30 ML INJ ×2 (18:18)
[2017-10-14] MEDS: SENNA/DOCUSATE NA (8.6MG/50MG) TAB PO (20:34)
[2017-10-14] MEDS: CASPOFUNGIN 50 MG in NS 250 ML IVPB (20:34)
[2017-10-14] MEDS: ATORVASTATIN 20 MG TAB PO (20:36)
[2017-10-14] MEDS: INSULIN GLARGINE [LANtus] 3 ML PEN SC (20:50)
[2017-10-15] MEDS: HYDROmorphONE 0.5 MG/0.5 ML SYG IV ×6 (00:59→15:37)
[2017-10-15] MEDS: LORAZEPAM 2 MG INJ IV ×2 (01:03→15:36)
[2017-10-15] MEDS: PIPER-TAZO 2.25 GM (PMX) 50 ML IVPB ×4 (01:03→22:02)
[2017-10-15 05:39] LABS: ADD MAN DIFF? NO
[2017-10-15 05:46] LABS: BASOPHILS % 0.1 % (0.0-2.0); EOSINOPHILS # 0.1 10^3/ul (0.0-0.5); EOSINOPHILS % 1.4 % (0.0-7.0); HEMATOCRIT 24.6 % (42.0-52.0); HEMOGLOBIN 7.5 g/dl (14.0-18.0); LYMPHOCYTES # 0.8 10^3/ul (0.8-2.9); LYMPHOCYTES % 7.4 % (15.0-51.0); MEAN CORPUSCULAR HEMOGLOBIN 28.4 pg (29.0-33.0); MEAN CORPUSCULAR HGB CONC 30.5 g/dl (32.0-37.0); MEAN CORPUSCULAR VOLUME 93.2 fl (82.0-101.0); MONOCYTE # 0.6 10^3/ul (0.3-0.9); MONOCYTES % 5.9 % (0.0-11.0); NEUTROPHIL # 8.5 10^3/ul (1.6-7.5); NEUTROPHILS % 84.5 % (39.0-77.0); PLATELET COUNT 109 10^3/UL (140-415); RED BLOOD COUNT 2.64 10^6/ul (4.70-6.10); RED CELL DISTRIBUTION WIDTH 18.4 % (11.5-14.5)
[2017-10-15 05:46] LABS: WHITE BLOOD COUNT 10.1 10^3/ul (4.8-10.8)
[2017-10-15] MEDS: METHADONE (1 MG/1 ML PO SYG) PO ×3 (05:57→12:30)
[2017-10-15 06:04] LABS: IRON 64 ug/dl (35-150)
[2017-10-15 06:06] LABS: MAGNESIUM 1.9 mg/dl (1.7-2.5)
[2017-10-15 06:14] LABS: % IRON SATURATION 42 % SAT (22-52); TOTAL IRON BINDING CAPACITY 154 ug/dl (241-421)
[2017-10-15 06:27] LABS: ALANINE AMINOTRANSFERASE 32 IU/L (13-69); ALBUMIN 3.4 g/dl (3.3-4.9); ALBUMIN/GLOBULIN RATIO 1.13; ALKALINE PHOSPHATASE 167 IU/L (42-121); ANION GAP 24 (8-16); ASPARTATE AMINO TRANSFERASE 21 IU/L (15-46); BLOOD UREA NITROGEN 74 mg/dl (7-20); CALCIUM 7.7 mg/dl (8.4-10.2); CARBON DIOXIDE 24 mmol/L (21-31); CHLORIDE 103 mmol/L (97-110); CREATININE 8.66 mg/dl (0.61-1.24); GLUCOSE 144 mg/dl (70-220); POTASSIUM 5.6 mmol/L (3.5-5.1); SODIUM 145 mmol/L (135-144); TOTAL PROTEIN 6.4 g/dl (6.1-8.1)
[2017-10-15] MEDS: INSULIN ASPART [NOVOLOG] 3 ML PEN SC ×7 (07:32→20:22)
[2017-10-15] MEDS: SEVELAMER CARBONATE 0.8 GM PKT PO ×3 (07:57→16:51)
[2017-10-15] MEDS: LEVOTHYROXINE 75 MCG TAB PO (07:58)
[2017-10-15] MEDS: PANTOPRAZOLE (EC) 40 MG TAB PO ×2 (08:01→20:24)
[2017-10-15] MEDS: POLYETHYLENE GLYCOL 17 GM PACKET PO (08:02)
[2017-10-15] MEDS: CALCITRIOL 0.25 MCG CAP PO ×2 (08:02→20:32)
[2017-10-15] MEDS: MIDODRINE 2.5 MG TAB PO ×3 (08:02→16:49)
[2017-10-15] MEDS: BALSAM PERU/CASTOR OIL 60 GM TUBE TOP ×2 (08:03→20:24)
[2017-10-15] MEDS: AMIODARONE 200 MG TAB PO ×3 (08:03→20:24)
[2017-10-15] MEDS: DOCUSATE SODIUM 100 MG CAP PO ×2 (08:03→20:23)
[2017-10-15] MEDS: SERTRALINE 100 MG TAB PO (08:03)
[2017-10-15] MEDS: HYDROCORTISONE 5 MG TAB PO ×3 (08:10→20:32)
[2017-10-15] MEDS: CALCIUM CARBONATE 500 MG CHEW TAB PO ×3 (08:10→20:23)
[2017-10-15] MEDS: SENNA/DOCUSATE NA (8.6MG/50MG) TAB PO ×2 (08:11→20:23)
[2017-10-15] MEDS: GABAPENTIN 300 MG CAP PO ×2 (08:11→20:22)
[2017-10-15] MEDS: DIPHENHYDRAMINE 50 MG INJ IV (10:05)
[2017-10-15 11:11] LABS: IMMEDIATE SPIN CROSSMATCH 1 6
[2017-10-15] MEDS: SOD CHLORIDE 0.9% 250 ML IV* ×2 (11:30)
[2017-10-15] MEDS: VANCOMYCIN 1.5 GM in SOD CHLORIDE 0.9% 250 ML IVPB (12:35)
[2017-10-15] MEDS: ERGOCALCIFEROL (8000 UNITS/ML PO SYG) PO (12:35)
[2017-10-15 13:53] LABS: CREATINE KINASE 36 IU/L (23-200)
[2017-10-15 14:05] LABS: CK INDEX 8.9
[2017-10-15 14:06] LABS: CK-MB 3.21 ng/ml (0.0-2.4)
[2017-10-15] MEDS: CASPOFUNGIN 50 MG in NS 250 ML IVPB (16:48)
[2017-10-15] MEDS: BACITRACIN 0.5%/ZINC 28.35 GM OINT TOP ×2 (16:48→22:03)
[2017-10-15] MEDS: EPOETIN 4000 UNITS/1 ML INJ (ESRD) SC (16:51)
[2017-10-15] MEDS ORDERED: HYDROmorphONE 0.5 MG/0.5 ML SYG IV (17:00)
[2017-10-15] MEDS: HYDROmorphONE 0.2 MG/ML PCA IV (18:19)
[2017-10-15] MEDS: ATORVASTATIN 20 MG TAB PO (20:22)
[2017-10-15] MEDS: INSULIN GLARGINE [LANtus] 3 ML PEN SC (20:31)
[2017-10-15] MEDS ORDERED: AMIKACIN IV PER PHARMACY XX (21:30)
[2017-10-15] MEDS: SOD CHLORIDE 0.9% IVPB (23:49)
[2017-10-15] MEDS: AMIKACIN IVPB (23:49)
[2017-10-16] MEDS: HYDROmorphONE 0.2 MG/ML PCA IV ×4 (02:39→23:09)
[2017-10-16 04:44] LABS: ADD MAN DIFF? NO
[2017-10-16 04:46] LABS: WHITE BLOOD COUNT 6.6 10^3/ul (4.8-10.8)
[2017-10-16 04:46] LABS: ABNORMAL IP MESSAGE 1; BASOPHILS % 0.2 % (0.0-2.0); EOSINOPHILS # 0.1 10^3/ul (0.0-0.5); EOSINOPHILS % 1.4 % (0.0-7.0); HEMATOCRIT 27.8 % (42.0-52.0); HEMOGLOBIN 8.8 g/dl (14.0-18.0); LYMPHOCYTES # 0.5 10^3/ul (0.8-2.9); LYMPHOCYTES % 7.9 % (15.0-51.0); MEAN CORPUSCULAR HEMOGLOBIN 29.2 pg (29.0-33.0); MEAN CORPUSCULAR HGB CONC 31.7 g/dl (32.0-37.0); MEAN CORPUSCULAR VOLUME 92.4 fl (82.0-101.0); MEAN PLATELET VOLUME 10.8 fl (7.4-10.4); MONOCYTE # 0.5 10^3/ul (0.3-0.9); MONOCYTES % 6.8 % (0.0-11.0); NEUTROPHIL # 5.5 10^3/ul (1.6-7.5); NEUTROPHILS % 83.1 % (39.0-77.0); PLATELET COUNT 101 10^3/UL (140-415); POSITIVE DIFF @See below; RED BLOOD COUNT 3.01 10^6/ul (4.70-6.10); RED CELL DISTRIBUTION WIDTH 17.3 % (11.5-14.5)
[2017-10-16 05:08] LABS: ANION GAP 21 (8-16); BLOOD UREA NITROGEN 60 mg/dl (7-20); CALCIUM 7.7 mg/dl (8.4-10.2); CARBON DIOXIDE 25 mmol/L (21-31); CHLORIDE 102 mmol/L (97-110); CREATININE 6.96 mg/dl (0.61-1.24); GLUCOSE 94 mg/dl (70-220); POTASSIUM 5.1 mmol/L (3.5-5.1); SODIUM 143 mmol/L (135-144)
[2017-10-16 05:09] LABS: ALBUMIN 3.3 g/dl (3.3-4.9); ANION GAP 18 (8-16); BLOOD UREA NITROGEN 56 mg/dl (7-20); CALCIUM 7.9 mg/dl (8.4-10.2); CARBON DIOXIDE 26 mmol/L (21-31); CHLORIDE 103 mmol/L (97-110); CREATININE 7.78 mg/dl (0.61-1.24); GLUCOSE 95 mg/dl (70-220); MAGNESIUM 1.9 mg/dl (1.7-2.5); PHOSPHORUS 6.3 mg/dl (2.5-4.9); SODIUM 142 mmol/L (135-144)
[2017-10-16 05:19] LABS: IONIZED CALCIUM 1.1 mmol/L (1.1-1.4)
[2017-10-16] MEDS: PIPER-TAZO 2.25 GM (PMX) 50 ML IVPB ×3 (05:39→22:12)
[2017-10-16] MEDS: LEVOTHYROXINE 75 MCG TAB PO (06:49)
[2017-10-16] MEDS: HYDROCORTISONE 5 MG TAB PO ×3 (06:52→21:09)
[2017-10-16] MEDS ORDERED: ERGOCALCIFEROL 50,000 UNIT CAP PO (07:00)
[2017-10-16] MEDS: INSULIN ASPART [NOVOLOG] 3 ML PEN SC ×7 (07:35→21:00)
[2017-10-16] MEDS: ERGOCALCIFEROL 50,000 UNIT CAP PO (08:15)
[2017-10-16] MEDS: POLYETHYLENE GLYCOL 17 GM PACKET PO (08:15)
[2017-10-16] MEDS: CALCIUM CARBONATE 500 MG CHEW TAB PO ×3 (08:16→21:08)
[2017-10-16] MEDS: ASPIRIN (EC) 81 MG TAB PO (08:17)
[2017-10-16] MEDS: SEVELAMER CARBONATE 0.8 GM PKT PO ×3 (08:17→18:11)
[2017-10-16] MEDS: GABAPENTIN 300 MG CAP PO ×2 (08:17→21:09)
[2017-10-16] MEDS: DOCUSATE SODIUM 100 MG CAP PO ×2 (08:17→21:00)
[2017-10-16] MEDS: PANTOPRAZOLE (EC) 40 MG TAB PO ×2 (08:17→21:08)
[2017-10-16] MEDS: CALCITRIOL 0.25 MCG CAP PO ×2 (08:17→21:08)
[2017-10-16] MEDS: AMIODARONE 200 MG TAB PO ×3 (08:17→21:10)
[2017-10-16] MEDS: SENNA/DOCUSATE NA (8.6MG/50MG) TAB PO ×2 (08:17→21:00)
[2017-10-16] MEDS: SERTRALINE 100 MG TAB PO (08:17)
[2017-10-16] MEDS: BALSAM PERU/CASTOR OIL 60 GM TUBE TOP ×2 (08:18→21:12)
[2017-10-16] MEDS: BACITRACIN 0.5%/ZINC 28.35 GM OINT TOP ×2 (08:18→21:12)
[2017-10-16] MEDS: MIDODRINE 2.5 MG TAB PO ×3 (09:00→17:00)
[2017-10-16] MEDS ORDERED: MIDODRINE 2.5 MG TAB PO (09:00)
[2017-10-16] MEDS: LIDOCAINE 1% (MPF) 30 ML INJ INJ (10:00)
[2017-10-16] MEDS: SODIUM HYPOCHLORITE 0.125% 473 ML BTL IRR (10:30)
[2017-10-16] MEDS ORDERED: HYDROmorphONE 0.2 MG/ML PCA IV (13:30)
[2017-10-16] MEDS: CASPOFUNGIN 50 MG in NS 250 ML IVPB (16:58)
[2017-10-16] MEDS: ATORVASTATIN 20 MG TAB PO (21:08)
[2017-10-16] MEDS: INSULIN GLARGINE [LANtus] 3 ML PEN SC (21:16)
[2017-10-17 04:28] LABS: ADD MAN DIFF? NO
[2017-10-17 04:34] LABS: ABNORMAL IP MESSAGE 1; BASOPHILS % 0.1 % (0.0-2.0); EOSINOPHILS # 0.1 10^3/ul (0.0-0.5); EOSINOPHILS % 1.3 % (0.0-7.0); HEMATOCRIT 28.4 % (42.0-52.0); HEMOGLOBIN 8.7 g/dl (14.0-18.0); LYMPHOCYTES # 0.5 10^3/ul (0.8-2.9); MEAN CORPUSCULAR HEMOGLOBIN 28.8 pg (29.0-33.0); MEAN CORPUSCULAR HGB CONC 30.6 g/dl (32.0-37.0); MEAN PLATELET VOLUME 10.5 fl (7.4-10.4); MONOCYTE # 0.4 10^3/ul (0.3-0.9); MONOCYTES % 5.9 % (0.0-11.0); NEUTROPHIL # 5.9 10^3/ul (1.6-7.5); NEUTROPHILS % 84.8 % (39.0-77.0); PLATELET COUNT 94 10^3/UL (140-415); POSITIVE DIFF @See below; RED BLOOD COUNT 3.02 10^6/ul (4.70-6.10); RED CELL DISTRIBUTION WIDTH 16.9 % (11.5-14.5)
[2017-10-17 04:51] LABS: ALBUMIN 3.3 g/dl (3.3-4.9); ANION GAP 23 (8-16); BLOOD UREA NITROGEN 67 mg/dl (7-20); CALCIUM 7.7 mg/dl (8.4-10.2); CARBON DIOXIDE 23 mmol/L (21-31); CHLORIDE 103 mmol/L (97-110); CREATININE 9.33 mg/dl (0.61-1.24); GLUCOSE 116 mg/dl (70-220); MAGNESIUM 1.9 mg/dl (1.7-2.5); PHOSPHORUS 8.4 mg/dl (2.5-4.9); POTASSIUM 5.8 mmol/L (3.5-5.1); SODIUM 143 mmol/L (135-144)
[2017-10-17] MEDS: LORAZEPAM 2 MG INJ IV (05:31)
[2017-10-17] MEDS: PIPER-TAZO 2.25 GM (PMX) 50 ML IVPB ×3 (06:07→22:14)
[2017-10-17] MEDS: LEVOTHYROXINE 75 MCG TAB PO (06:10)
[2017-10-17] MEDS: HYDROCORTISONE 5 MG TAB PO ×3 (06:10→20:54)
[2017-10-17] MEDS: INSULIN ASPART [NOVOLOG] 3 ML PEN SC ×7 (08:30→20:52)
[2017-10-17] MEDS: HYDROmorphONE 0.2 MG/ML PCA IV ×4 (08:39→22:01)
[2017-10-17] MEDS: ASPIRIN (EC) 81 MG TAB PO (08:52)
[2017-10-17] MEDS: PANTOPRAZOLE (EC) 40 MG TAB PO ×2 (08:52→20:54)
[2017-10-17] MEDS: SENNA/DOCUSATE NA (8.6MG/50MG) TAB PO ×2 (08:52→20:53)
[2017-10-17] MEDS: GABAPENTIN 300 MG CAP PO ×2 (08:52→20:53)
[2017-10-17] MEDS: SEVELAMER CARBONATE 0.8 GM PKT PO ×3 (08:52→17:13)
[2017-10-17] MEDS: AMIODARONE 200 MG TAB PO ×3 (08:52→20:53)
[2017-10-17] MEDS: DOCUSATE SODIUM 100 MG CAP PO ×2 (08:52→20:53)
[2017-10-17] MEDS: CALCITRIOL 0.25 MCG CAP PO ×2 (08:53→20:53)
[2017-10-17] MEDS: NA POLYST SULFON 15 GM/60 ML BTL PO (08:53)
[2017-10-17] MEDS: CALCIUM CARBONATE 500 MG CHEW TAB PO ×3 (08:53→20:54)
[2017-10-17] MEDS: POLYETHYLENE GLYCOL 17 GM PACKET PO (08:53)
[2017-10-17] MEDS: BACITRACIN 0.5%/ZINC 28.35 GM OINT TOP ×2 (08:53→20:54)
[2017-10-17] MEDS: BALSAM PERU/CASTOR OIL 60 GM TUBE TOP ×2 (08:53→20:54)
[2017-10-17] MEDS: SERTRALINE 100 MG TAB PO (08:54)
[2017-10-17] MEDS: MIDODRINE 2.5 MG TAB PO ×3 (08:58→17:13)
[2017-10-17] MEDS: CASPOFUNGIN 50 MG in NS 250 ML IVPB (17:14)
[2017-10-17] MEDS: INSULIN GLARGINE [LANtus] 3 ML PEN SC (20:52)
[2017-10-17] MEDS: ATORVASTATIN 20 MG TAB PO (20:54)
[2017-10-17] MEDS: LIDOCAINE 5% PATCH TD (22:15)
[2017-10-18] MEDS ORDERED: HYDROmorphONE 2 MG/ML SYG (00:38)
[2017-10-18] MEDS: HYDROmorphONE 0.5 MG/0.5 ML SYG IV (00:54)
[2017-10-18 05:17] LABS: ADD MAN DIFF? NO
[2017-10-18 05:23] LABS: WHITE BLOOD COUNT 6.8 10^3/ul (4.8-10.8)
[2017-10-18 05:23] LABS: ABNORMAL IP MESSAGE 1; BASOPHILS % 0.1 % (0.0-2.0); EOSINOPHILS # 0.1 10^3/ul (0.0-0.5); HEMATOCRIT 28.6 % (42.0-52.0); HEMOGLOBIN 8.6 g/dl (14.0-18.0); LYMPHOCYTES # 0.5 10^3/ul (0.8-2.9); LYMPHOCYTES % 7.9 % (15.0-51.0); MEAN CORPUSCULAR HGB CONC 30.1 g/dl (32.0-37.0); MEAN CORPUSCULAR VOLUME 96.3 fl (82.0-101.0); MEAN PLATELET VOLUME 10.3 fl (7.4-10.4); MONOCYTE # 0.4 10^3/ul (0.3-0.9); MONOCYTES % 5.9 % (0.0-11.0); NEUTROPHIL # 5.7 10^3/ul (1.6-7.5); NEUTROPHILS % 84.5 % (39.0-77.0); PLATELET COUNT 93 10^3/UL (140-415); POSITIVE DIFF @See below; RED BLOOD COUNT 2.97 10^6/ul (4.70-6.10)
[2017-10-18] MEDS: HYDROmorphONE 0.2 MG/ML PCA IV ×4 (05:25→23:50)
[2017-10-18 05:47] LABS: ALBUMIN 3.6 g/dl (3.3-4.9); ANION GAP 28 (8-16); BLOOD UREA NITROGEN 78 mg/dl (7-20); CALCIUM 7.3 mg/dl (8.4-10.2); CARBON DIOXIDE 21 mmol/L (21-31); CHLORIDE 104 mmol/L (97-110); CREATININE 10.77 mg/dl (0.61-1.24); GLUCOSE 150 mg/dl (70-220); MAGNESIUM 1.9 mg/dl (1.7-2.5); PHOSPHORUS 9.6 mg/dl (2.5-4.9); SODIUM 147 mmol/L (135-144)
[2017-10-18 06:16] LABS: POTASSIUM 6.2 mmol/L (3.5-5.1)
[2017-10-18] MEDS: PIPER-TAZO 2.25 GM (PMX) 50 ML IVPB ×3 (07:26→21:23)
[2017-10-18] MEDS: HYDROCORTISONE 5 MG TAB PO ×3 (07:27→21:22)
[2017-10-18] MEDS: LEVOTHYROXINE 75 MCG TAB PO (07:27)
[2017-10-18] MEDS: INSULIN ASPART [NOVOLOG] 3 ML PEN SC ×7 (07:35→21:00)
[2017-10-18] MEDS: SEVELAMER CARBONATE 0.8 GM PKT PO ×3 (08:22→18:09)
[2017-10-18] MEDS: NA POLYST SULFON 15 GM/60 ML BTL PO (08:22)
[2017-10-18] MEDS: CALCITRIOL 0.25 MCG CAP PO ×2 (08:23→21:20)
[2017-10-18] MEDS: PANTOPRAZOLE (EC) 40 MG TAB PO ×2 (08:23→21:21)
[2017-10-18] MEDS: AMIODARONE 200 MG TAB PO ×3 (08:23→21:20)
[2017-10-18] MEDS: ASPIRIN (EC) 81 MG TAB PO (08:23)
[2017-10-18] MEDS: CALCIUM CARBONATE 500 MG CHEW TAB PO ×3 (08:23→21:22)
[2017-10-18] MEDS: SERTRALINE 100 MG TAB PO (08:23)
[2017-10-18] MEDS: POLYETHYLENE GLYCOL 17 GM PACKET PO (08:24)
[2017-10-18] MEDS: SENNA/DOCUSATE NA (8.6MG/50MG) TAB PO ×2 (08:24→21:21)
[2017-10-18] MEDS: BALSAM PERU/CASTOR OIL 60 GM TUBE TOP ×2 (08:25→21:00)
[2017-10-18] MEDS: BACITRACIN 0.5%/ZINC 28.35 GM OINT TOP ×2 (08:25→21:00)
[2017-10-18] MEDS: GABAPENTIN 300 MG CAP PO ×2 (08:28→21:21)
[2017-10-18] MEDS: DOCUSATE SODIUM 100 MG CAP PO ×2 (08:28→21:17)
[2017-10-18] MEDS: MIDODRINE 2.5 MG TAB PO ×3 (08:28→17:00)
[2017-10-18] MEDS: OXYCODONE/ACETAMINOPHEN (10/325) TAB PO (15:24)
[2017-10-18] MEDS: CASPOFUNGIN 50 MG in NS 250 ML IVPB (16:30)
[2017-10-18] MEDS: LIDOCAINE 1% (MDV) 10 ML INJ INJ (18:08)
[2017-10-18] MEDS: EPOETIN 4000 UNITS/1 ML INJ (ESRD) SC (18:10)
[2017-10-18] MEDS: INSULIN GLARGINE [LANtus] 3 ML PEN SC (20:00)
[2017-10-18] MEDS: ATORVASTATIN 20 MG TAB PO (21:22)
[2017-10-19] MEDS: DIPHENHYDRAMINE 50 MG INJ IV ×2 (01:30→16:34)
[2017-10-19] MEDS: LEVOTHYROXINE 75 MCG TAB PO (06:12)
[2017-10-19] MEDS: PIPER-TAZO 2.25 GM (PMX) 50 ML IVPB ×3 (06:12→21:10)
[2017-10-19] MEDS: INSULIN ASPART [NOVOLOG] 3 ML PEN SC ×7 (07:55→21:03)
[2017-10-19] MEDS: HYDROCORTISONE 5 MG TAB PO ×3 (08:17→23:34)
[2017-10-19] MEDS: SEVELAMER CARBONATE 0.8 GM PKT PO ×4 (08:17→20:55)
[2017-10-19] MEDS: DOCUSATE SODIUM 100 MG CAP PO ×2 (08:18→20:59)
[2017-10-19] MEDS: ASPIRIN (EC) 81 MG TAB PO (08:19)
[2017-10-19] MEDS: MIDODRINE 2.5 MG TAB PO ×2 (08:19→13:09)
[2017-10-19] MEDS: PANTOPRAZOLE (EC) 40 MG TAB PO ×2 (08:19→20:58)
[2017-10-19] MEDS: POLYETHYLENE GLYCOL 17 GM PACKET PO (08:19)
[2017-10-19] MEDS: GABAPENTIN 300 MG CAP PO ×2 (08:19→21:09)
[2017-10-19] MEDS: AMIODARONE 200 MG TAB PO ×3 (08:19→21:00)
[2017-10-19] MEDS: CALCIUM CARBONATE 500 MG CHEW TAB PO ×3 (08:20→20:54)
[2017-10-19] MEDS: CALCITRIOL 0.25 MCG CAP PO ×2 (08:20→20:55)
[2017-10-19] MEDS: SENNA/DOCUSATE NA (8.6MG/50MG) TAB PO ×2 (08:20→20:58)
[2017-10-19] MEDS: BACITRACIN 0.5%/ZINC 28.35 GM OINT TOP (09:00)
[2017-10-19] MEDS: BALSAM PERU/CASTOR OIL 60 GM TUBE TOP (09:00)
[2017-10-19] MEDS: SERTRALINE 100 MG TAB PO (09:00)
[2017-10-19] MEDS: LORAZEPAM 2 MG INJ IV (10:05)
[2017-10-19] MEDS: HYDROmorphONE 0.2 MG/ML PCA IV ×2 (11:05→19:02)
[2017-10-19] MEDS: AMIKACIN IVPB (13:11)
[2017-10-19] MEDS: SOD CHLORIDE 0.9% IVPB (13:11)
[2017-10-19] MEDS: CASPOFUNGIN 50 MG in NS 250 ML IVPB (17:25)
[2017-10-19 19:53] LABS: ADD MAN DIFF? NO
[2017-10-19 19:55] LABS: WHITE BLOOD COUNT 6.4 10^3/ul (4.8-10.8)
[2017-10-19 19:55] LABS: ABNORMAL IP MESSAGE 1; BASOPHILS % 0.2 % (0.0-2.0); EOSINOPHILS # 0.1 10^3/ul (0.0-0.5); EOSINOPHILS % 1.1 % (0.0-7.0); HEMATOCRIT 24.7 % (42.0-52.0); HEMOGLOBIN 7.6 g/dl (14.0-18.0); LYMPHOCYTES # 0.4 10^3/ul (0.8-2.9); LYMPHOCYTES % 5.8 % (15.0-51.0); MEAN CORPUSCULAR HGB CONC 30.8 g/dl (32.0-37.0); MEAN CORPUSCULAR VOLUME 94.3 fl (82.0-101.0); MEAN PLATELET VOLUME 10.6 fl (7.4-10.4); MONOCYTE # 0.3 10^3/ul (0.3-0.9); MONOCYTES % 4.8 % (0.0-11.0); NEUTROPHIL # 5.6 10^3/ul (1.6-7.5); NEUTROPHILS % 87.6 % (39.0-77.0); PLATELET COUNT 97 10^3/UL (140-415); POSITIVE DIFF @See below; RED BLOOD COUNT 2.62 10^6/ul (4.70-6.10); RED CELL DISTRIBUTION WIDTH 16.9 % (11.5-14.5)
[2017-10-19 20:24] LABS: ALBUMIN 3.3 g/dl (3.3-4.9); ANION GAP 24 (8-16); BLOOD UREA NITROGEN 62 mg/dl (7-20); CALCIUM 6.6 mg/dl (8.4-10.2); CARBON DIOXIDE 23 mmol/L (21-31); CHLORIDE 101 mmol/L (97-110); GLUCOSE 195 mg/dl (70-220); MAGNESIUM 1.5 mg/dl (1.7-2.5); PHOSPHORUS 7.9 mg/dl (2.5-4.9); SODIUM 143 mmol/L (135-144)
[2017-10-19] MEDS: ATORVASTATIN 20 MG TAB PO (20:55)
[2017-10-19] MEDS: VANCOMYCIN 1.5 GM in SOD CHLORIDE 0.9% 250 ML IVPB (21:10)
[2017-10-19] MEDS: INSULIN GLARGINE [LANtus] 3 ML PEN SC (23:07)
[2017-10-19] MEDS: HYDROmorphONE 2 MG/ML SYG IV (23:28)
[2017-10-20] MEDS: HYDROmorphONE 0.5 MG/0.5 ML SYG IV ×10 (01:51→22:14)
[2017-10-20] MEDS: morphine (ER) 30 MG TAB PO ×3 (01:51→22:03)
[2017-10-20] MEDS: DIPHENHYDRAMINE 50 MG INJ IV ×2 (04:14→12:11)
[2017-10-20] MEDS: PIPER-TAZO 2.25 GM (PMX) 50 ML IVPB ×3 (05:42→22:00)
[2017-10-20] MEDS: HYDROCORTISONE 5 MG TAB PO ×3 (05:47→21:45)
[2017-10-20] MEDS: LEVOTHYROXINE 75 MCG TAB PO (05:48)
[2017-10-20] MEDS: BALSAM PERU/CASTOR OIL 60 GM TUBE TOP ×3 (05:48→21:00)
[2017-10-20] MEDS: BACITRACIN 0.5%/ZINC 28.35 GM OINT TOP ×3 (05:48→21:00)
[2017-10-20] MEDS: INSULIN ASPART [NOVOLOG] 3 ML PEN SC ×7 (07:55→21:00)
[2017-10-20] MEDS: DOCUSATE SODIUM 100 MG CAP PO ×2 (08:44→21:46)
[2017-10-20] MEDS: CALCIUM CARBONATE 500 MG CHEW TAB PO ×3 (08:45→22:00)
[2017-10-20] MEDS: GABAPENTIN 300 MG CAP PO ×2 (08:46→21:46)
[2017-10-20] MEDS: hydrOXYzine HCL 25 MG TAB PO (08:46)
[2017-10-20] MEDS: SENNA/DOCUSATE NA (8.6MG/50MG) TAB PO ×2 (08:47→22:00)
[2017-10-20] MEDS: PANTOPRAZOLE (EC) 40 MG TAB PO ×2 (08:47→22:00)
[2017-10-20] MEDS: POLYETHYLENE GLYCOL 17 GM PACKET PO (08:47)
[2017-10-20] MEDS: CALCITRIOL 0.25 MCG CAP PO ×2 (08:47→22:00)
[2017-10-20] MEDS: ASPIRIN (EC) 81 MG TAB PO (08:47)
[2017-10-20] MEDS: SERTRALINE 100 MG TAB PO (08:48)
[2017-10-20] MEDS: ERGOCALCIFEROL 50,000 UNIT CAP PO (08:48)
[2017-10-20] MEDS: AMIODARONE 200 MG TAB PO ×3 (08:48→21:44)
[2017-10-20] MEDS ORDERED: LIDOCAINE 1% (MDV) 50 ML INJ INJ (10:00)
[2017-10-20] MEDS: SEVELAMER CARBONATE 0.8 GM PKT PO ×2 (12:01→17:59)
[2017-10-20] MEDS: SODIUM HYPOCHLORITE 0.125% 473 ML BTL IRR (13:00)
[2017-10-20] MEDS: CASPOFUNGIN 50 MG in NS 250 ML IVPB (16:30)
[2017-10-20] MEDS: EPOETIN 4000 UNITS/1 ML INJ (ESRD) SC (17:00)
[2017-10-20] MEDS: SOD CHLORIDE 0.9% IVPB (22:01)
[2017-10-20] MEDS: ATORVASTATIN 20 MG TAB PO (22:01)
[2017-10-20] MEDS: AMIKACIN IVPB (22:01)
[2017-10-20] MEDS: INSULIN GLARGINE [LANtus] 3 ML PEN SC (22:12)
[2017-10-20] MEDS: LORAZEPAM 2 MG INJ IV (23:42)
[2017-10-21] MEDS: HALOPERIDOL 5 MG INJ IV (01:33)
[2017-10-21] MEDS: PIPER-TAZO 2.25 GM (PMX) 50 ML IVPB ×3 (06:00→22:04)
[2017-10-21] MEDS: HYDROCORTISONE 5 MG TAB PO ×3 (06:26→20:52)
[2017-10-21] MEDS: LEVOTHYROXINE 75 MCG TAB PO (06:26)
[2017-10-21] MEDS: INSULIN ASPART [NOVOLOG] 3 ML PEN SC ×7 (07:55→21:00)
[2017-10-21] MEDS: HYDROmorphONE 0.5 MG/0.5 ML SYG IV ×7 (08:47→23:14)
[2017-10-21] MEDS: morphine (ER) 30 MG TAB PO ×2 (09:00→20:54)
[2017-10-21] MEDS: SENNA/DOCUSATE NA (8.6MG/50MG) TAB PO ×2 (09:00→20:52)
[2017-10-21] MEDS: POLYETHYLENE GLYCOL 17 GM PACKET PO (09:00)
[2017-10-21] MEDS: AMIODARONE 200 MG TAB PO ×2 (09:00→21:00)
[2017-10-21] MEDS: SERTRALINE 100 MG TAB PO (09:00)
[2017-10-21] MEDS: PANTOPRAZOLE (EC) 40 MG TAB PO ×2 (09:29→20:53)
[2017-10-21] MEDS: ASPIRIN (EC) 81 MG TAB PO (09:29)
[2017-10-21] MEDS: GABAPENTIN 300 MG CAP PO ×2 (09:29→20:52)
[2017-10-21] MEDS: DOCUSATE SODIUM 100 MG CAP PO ×2 (09:29→20:53)
[2017-10-21] MEDS: CALCITRIOL 0.25 MCG CAP PO ×2 (09:29→20:54)
[2017-10-21] MEDS: CALCIUM CARBONATE 500 MG CHEW TAB PO ×3 (09:29→20:54)
[2017-10-21] MEDS: BACITRACIN 0.5%/ZINC 28.35 GM OINT TOP ×2 (09:30→21:01)
[2017-10-21] MEDS: BALSAM PERU/CASTOR OIL 60 GM TUBE TOP ×2 (09:30→21:01)
[2017-10-21] MEDS: SEVELAMER CARBONATE 0.8 GM PKT PO ×3 (09:31→17:55)
[2017-10-21] MEDS: SOD CHLORIDE 0.9% 500 ML IV (13:00)
[2017-10-21] MEDS: CASPOFUNGIN 50 MG in NS 250 ML IVPB (16:29)
[2017-10-21] MEDS: DIPHENHYDRAMINE 50 MG INJ IV (20:42)
[2017-10-21] MEDS: ATORVASTATIN 20 MG TAB PO (20:53)
[2017-10-21] MEDS: INSULIN GLARGINE [LANtus] 3 ML PEN SC (22:04)
[2017-10-22] MEDS: HYDROmorphONE 0.5 MG/0.5 ML SYG IV ×8 (01:20→22:50)
[2017-10-22] MEDS: DIPHENHYDRAMINE 50 MG INJ IV ×2 (02:46→12:00)
[2017-10-22] MEDS: PIPER-TAZO 2.25 GM (PMX) 50 ML IVPB ×3 (05:19→21:32)
[2017-10-22] MEDS: HYDROCORTISONE 5 MG TAB PO ×3 (06:09→21:32)
[2017-10-22] MEDS: LEVOTHYROXINE 75 MCG TAB PO (06:09)
[2017-10-22] MEDS: SEVELAMER CARBONATE 0.8 GM PKT PO ×3 (07:50→17:15)
[2017-10-22] MEDS: INSULIN ASPART [NOVOLOG] 3 ML PEN SC ×7 (07:56→20:25)
[2017-10-22] MEDS: CALCIUM CARBONATE 500 MG CHEW TAB PO ×3 (08:22→20:24)
[2017-10-22] MEDS: GABAPENTIN 300 MG CAP PO ×2 (08:22→20:24)
[2017-10-22] MEDS: POLYETHYLENE GLYCOL 17 GM PACKET PO (08:22)
[2017-10-22] MEDS: DOCUSATE SODIUM 100 MG CAP PO ×2 (08:23→20:24)
[2017-10-22] MEDS: CALCITRIOL 0.25 MCG CAP PO ×2 (08:23→20:24)
[2017-10-22] MEDS: ASPIRIN (EC) 81 MG TAB PO (08:23)
[2017-10-22] MEDS: PANTOPRAZOLE (EC) 40 MG TAB PO ×2 (08:23→20:24)
[2017-10-22] MEDS: SENNA/DOCUSATE NA (8.6MG/50MG) TAB PO ×2 (08:23→21:31)
[2017-10-22] MEDS: AMIODARONE 200 MG TAB PO ×2 (08:24→20:25)
[2017-10-22] MEDS: BALSAM PERU/CASTOR OIL 60 GM TUBE TOP ×2 (08:25→20:25)
[2017-10-22] MEDS: BACITRACIN 0.5%/ZINC 28.35 GM OINT TOP ×2 (08:25→20:26)
[2017-10-22] MEDS: morphine (ER) 30 MG TAB PO ×2 (08:28→21:00)
[2017-10-22] MEDS: SERTRALINE 100 MG TAB PO (11:55)
[2017-10-22 14:00] LABS: ADD MAN DIFF? NO
[2017-10-22 14:03] LABS: ABNORMAL IP MESSAGE 1; BASOPHILS % 0.2 % (0.0-2.0); EOSINOPHILS # 0.2 10^3/ul (0.0-0.5); EOSINOPHILS % 1.9 % (0.0-7.0); HEMATOCRIT 26.3 % (42.0-52.0); HEMOGLOBIN 8.3 g/dl (14.0-18.0); LYMPHOCYTES # 0.5 10^3/ul (0.8-2.9); LYMPHOCYTES % 6.1 % (15.0-51.0); MEAN CORPUSCULAR HEMOGLOBIN 29.6 pg (29.0-33.0); MEAN CORPUSCULAR HGB CONC 31.6 g/dl (32.0-37.0); MEAN CORPUSCULAR VOLUME 93.9 fl (82.0-101.0); MEAN PLATELET VOLUME 10.1 fl (7.4-10.4); MONOCYTE # 0.5 10^3/ul (0.3-0.9); MONOCYTES % 5.3 % (0.0-11.0); NEUTROPHIL # 7.3 10^3/ul (1.6-7.5); PLATELET COUNT 138 10^3/UL (140-415); POSITIVE DIFF @See below; RED CELL DISTRIBUTION WIDTH 16.9 % (11.5-14.5)
[2017-10-22 14:03] LABS: WHITE BLOOD COUNT 8.5 10^3/ul (4.8-10.8)
[2017-10-22 14:20] LABS: ANION GAP 21 (8-16); BLOOD UREA NITROGEN 32 mg/dl (7-20); CALCIUM 7.9 mg/dl (8.4-10.2); CARBON DIOXIDE 28 mmol/L (21-31); CHLORIDE 101 mmol/L (97-110); CREATININE 4.66 mg/dl (0.61-1.24); GLUCOSE 90 mg/dl (70-220); POTASSIUM 3.4 mmol/L (3.5-5.1); SODIUM 147 mmol/L (135-144)
[2017-10-22 14:22] LABS: MAGNESIUM 1.7 mg/dl (1.7-2.5)
[2017-10-22] MEDS: CASPOFUNGIN 50 MG in NS 250 ML IVPB (16:20)
[2017-10-22] MEDS: AMIKACIN IVPB (16:24)
[2017-10-22] MEDS: SOD CHLORIDE 0.9% IVPB (16:24)
[2017-10-22] MEDS: EPOETIN 4000 UNITS/1 ML INJ (ESRD) SC (17:14)
[2017-10-22] MEDS: ATORVASTATIN 20 MG TAB PO (20:24)
[2017-10-22] MEDS: INSULIN GLARGINE [LANtus] 3 ML PEN SC (21:00)
[2017-10-23] MEDS: HYDROmorphONE 0.5 MG/0.5 ML SYG IV ×5 (02:29→15:22)
[2017-10-23] MEDS: PIPER-TAZO 2.25 GM (PMX) 50 ML IVPB ×3 (05:59→22:47)
[2017-10-23] MEDS: LEVOTHYROXINE 75 MCG TAB PO (06:00)
[2017-10-23] MEDS: INSULIN ASPART [NOVOLOG] 3 ML PEN SC ×7 (07:55→21:00)
[2017-10-23] MEDS: SEVELAMER CARBONATE 0.8 GM PKT PO ×3 (08:09→17:28)
[2017-10-23] MEDS: POLYETHYLENE GLYCOL 17 GM PACKET PO (08:09)
[2017-10-23] MEDS: CALCIUM CARBONATE 500 MG CHEW TAB PO ×3 (08:10→21:00)
[2017-10-23] MEDS: SENNA/DOCUSATE NA (8.6MG/50MG) TAB PO ×2 (08:10→21:04)
[2017-10-23] MEDS: CALCITRIOL 0.25 MCG CAP PO ×2 (08:10→21:04)
[2017-10-23] MEDS: HYDROCORTISONE 5 MG TAB PO ×3 (08:12→21:05)
[2017-10-23] MEDS: GABAPENTIN 300 MG CAP PO ×2 (08:13→21:04)
[2017-10-23] MEDS: SERTRALINE 100 MG TAB PO (08:13)
[2017-10-23] MEDS: DOCUSATE SODIUM 100 MG CAP PO ×2 (08:13→21:04)
[2017-10-23] MEDS: PANTOPRAZOLE (EC) 40 MG TAB PO ×2 (08:13→21:04)
[2017-10-23] MEDS: AMIODARONE 200 MG TAB PO ×2 (08:14→21:05)
[2017-10-23] MEDS: BALSAM PERU/CASTOR OIL 60 GM TUBE TOP ×2 (08:14→21:07)
[2017-10-23] MEDS: ASPIRIN (EC) 81 MG TAB PO (08:14)
[2017-10-23] MEDS: BACITRACIN 0.5%/ZINC 28.35 GM OINT TOP ×2 (08:15→21:06)
[2017-10-23] MEDS: morphine (ER) 30 MG TAB PO ×2 (08:23→21:05)
[2017-10-23] MEDS: DIPHENHYDRAMINE 50 MG INJ IV (11:58)
[2017-10-23 13:35] LABS: VANCOMYCIN,TROUGH 12.4 ug/ml (10.0-20.0)
[2017-10-23] MEDS: VANCOMYCIN 1.5 GM in SOD CHLORIDE 0.9% 250 ML IVPB (14:19)
[2017-10-23] MEDS: METOPROLOL (XL) 25 MG TAB PO (15:06)
[2017-10-23] MEDS: CASPOFUNGIN 50 MG in NS 250 ML IVPB (16:39)
[2017-10-23] MEDS: INSULIN GLARGINE [LANtus] 3 ML PEN SC (20:00)
[2017-10-23] MEDS: ATORVASTATIN 20 MG TAB PO (21:04)
[2017-10-24] MEDS: HALOPERIDOL 5 MG INJ IV (01:20)
[2017-10-24] MEDS: PIPER-TAZO 2.25 GM (PMX) 50 ML IVPB ×3 (05:59→22:00)
[2017-10-24] MEDS: HYDROmorphONE 0.5 MG/0.5 ML SYG IV (05:59)
[2017-10-24] MEDS: LEVOTHYROXINE 75 MCG TAB PO (06:00)
[2017-10-24] MEDS: HYDROCORTISONE 5 MG TAB PO ×3 (06:37→22:43)
[2017-10-24] MEDS ORDERED: CA CHLORIDE 10% 10 ML SYRINGE ×2 (07:00→11:08)
[2017-10-24] MEDS ORDERED: NORepinephrine 8MG/250 ML BAG (07:00)
[2017-10-24] MEDS ORDERED: NA BICARBONATE 8.4% 50 ML SYG (07:00)
[2017-10-24] MEDS ORDERED: EPINEPHrine 0.1 MG/ML SYG (07:00)
[2017-10-24] MEDS ORDERED: AMIODARONE 150 MG INJ (07:00)
[2017-10-24] MEDS: INSULIN ASPART [NOVOLOG] 3 ML PEN SC ×5 (07:38→18:27)
[2017-10-24] MEDS: SEVELAMER CARBONATE 0.8 GM PKT PO ×3 (07:51→17:04)
[2017-10-24] MEDS: POLYETHYLENE GLYCOL 17 GM PACKET PO (08:53)
[2017-10-24] MEDS: SENNA/DOCUSATE NA (8.6MG/50MG) TAB PO ×2 (08:54→21:00)
[2017-10-24] MEDS: CALCITRIOL 0.25 MCG CAP PO ×2 (08:56→21:00)
[2017-10-24] MEDS: PANTOPRAZOLE (EC) 40 MG TAB PO ×2 (08:56→21:00)
[2017-10-24] MEDS: SERTRALINE 100 MG TAB PO (08:56)
[2017-10-24] MEDS: GABAPENTIN 300 MG CAP PO ×2 (08:56→22:41)
[2017-10-24] MEDS: ASPIRIN (EC) 81 MG TAB PO (08:56)
[2017-10-24] MEDS: morphine (ER) 30 MG TAB PO ×2 (08:57→21:00)
[2017-10-24] MEDS: CALCIUM CARBONATE 500 MG CHEW TAB PO ×3 (08:57→22:41)
[2017-10-24] MEDS: DOCUSATE SODIUM 100 MG CAP PO ×2 (09:00→21:00)
[2017-10-24] MEDS: AMIODARONE 200 MG TAB PO (09:01)
[2017-10-24] MEDS: METOPROLOL (XL) 25 MG TAB PO (09:01)
[2017-10-24] MEDS: BALSAM PERU/CASTOR OIL 60 GM TUBE TOP ×2 (09:07→22:44)
[2017-10-24] MEDS: BACITRACIN 0.5%/ZINC 28.35 GM OINT TOP ×2 (09:08→22:45)
[2017-10-24] MEDS: VASOPRESSIN 60 UNIT in DEXTROSE 5% 57 ML IV ×2 (11:30→23:30)
[2017-10-24] MEDS: AMIODARONE 150MG/D5W BOLUS 100 ML IV (11:30)
[2017-10-24 12:02] LABS: ADD MAN DIFF? NO
[2017-10-24] MEDS: PHENYLephrine 40 MG in DEXTROSE 5% 496 ML IV ×2 (12:13→17:49)
[2017-10-24 12:26] LABS: BASOPHILS % 0.1 % (0.0-2.0); EOSINOPHILS # 0.1 10^3/ul (0.0-0.5); EOSINOPHILS % 1.5 % (0.0-7.0); HEMATOCRIT 26.9 % (42.0-52.0); LYMPHOCYTES # 1.2 10^3/ul (0.8-2.9); MEAN CORPUSCULAR HEMOGLOBIN 29.3 pg (29.0-33.0); MEAN CORPUSCULAR HGB CONC 29.7 g/dl (32.0-37.0); MEAN CORPUSCULAR VOLUME 98.5 fl (82.0-101.0); MONOCYTE # 0.3 10^3/ul (0.3-0.9); MONOCYTES % 4.4 % (0.0-11.0); NEUTROPHIL # 5.1 10^3/ul (1.6-7.5); NEUTROPHILS % 74.7 % (39.0-77.0); PLATELET COUNT 177 10^3/UL (140-415); RED BLOOD COUNT 2.73 10^6/ul (4.70-6.10); RED CELL DISTRIBUTION WIDTH 17.2 % (11.5-14.5)
[2017-10-24 12:26] LABS: WHITE BLOOD COUNT 6.8 10^3/ul (4.8-10.8)
[2017-10-24] MEDS: FENTAnyl (DRIP) 1000 mcg/100mL 100 ML IV (12:26)
[2017-10-24 12:47] LABS: ALBUMIN 3.3 g/dl (3.3-4.9); ALBUMIN/GLOBULIN RATIO 1.22; ALKALINE PHOSPHATASE 350 IU/L (42-121); ANION GAP 32 (8-16); BLOOD UREA NITROGEN 75 mg/dl (7-20); CALCIUM 7.8 mg/dl (8.4-10.2); CARBON DIOXIDE 16 mmol/L (21-31); CHLORIDE 105 mmol/L (97-110); GLUCOSE 124 mg/dl (70-220); MAGNESIUM 1.8 mg/dl (1.7-2.5); SODIUM 147 mmol/L (135-144)
[2017-10-24 12:50] LABS: AADO2 Arterial 568.8 mmHg (7.0-24.0); Allen Test ACCEPTAB; Arterial Base Excess -12.4 mmol/L (-3.0-3); Arterial COHb 0.7 % (0.0-3.0); Arterial Fraction of Oxyhgb 92.1 % (93.0-99.0); Arterial HCO3 16.2 mmol/L (22.0-26.0); Arterial MetHb 0.3 % (0.0-1.5); Arterial Total Hemglobin 8.8 g/dl (12.0-18.0); Arterial pCO2 49.9 mmhg (35-45); MODE VENT - AC; Site Right Radial
[2017-10-24 12:54] LABS: POTASSIUM 5.6 mmol/L (3.5-5.1)
[2017-10-24 12:56] LABS: ALANINE AMINOTRANSFERASE 1913 IU/L (13-69)
[2017-10-24] MEDS ORDERED: SODIUM BICARBONATE (IV ADD) 100 MEQ in DEXTROSE 5% 1,000 ML IV (13:00)
[2017-10-24] MEDS: SOD CHLORIDE 0.9% 500 ML IV (13:03)
[2017-10-24 13:15] LABS: ASPARTATE AMINO TRANSFERASE 2431 IU/L (15-46)
[2017-10-24] MEDS ORDERED: NA BICARBONATE 8.4% 50 ML SYG IV (13:30)
[2017-10-24] MEDS: MAGNESIUM SULFATE 2 GM/50 ML 50 ML IVPB (13:43)
[2017-10-24] MEDS: NA BICARBONATE 8.4% 50 ML SYG IV (13:43)
[2017-10-24] MEDS: AMIODARONE 900 MG in DEXTROSE 5% 482 ML IV (13:43)
[2017-10-24] MEDS: NA POLYST SULFON 15 GM/60 ML BTL PO (13:44)
[2017-10-24] MEDS: SOD CHLORIDE 0.9% 1,000 ML IV (13:45)
[2017-10-24 13:53] LABS: TROPONIN-I 0.153 ng/ml (0.00-0.12)
[2017-10-24] MEDS: SODIUM BICARBONATE (IV ADD) 100 MEQ in DEXTROSE 5% 1,000 ML IV (15:22)
[2017-10-24 15:55] LABS: AADO2 Arterial 577.4 mmHg (7.0-24.0); Arterial Base Excess -7.4 mmol/L (-3.0-3); Arterial HCO3 20.5 mmol/L (22.0-26.0); Arterial pCO2 50.4 mmhg (35-45); MODE VENT - AC; Site Right Brachial
[2017-10-24] MEDS ORDERED: MIDAZOLAM (DRIP) 50 mg/50 mL 50 ML IV (17:00)
[2017-10-24] MEDS: DIPHENHYDRAMINE 50 MG INJ IV (17:26)
[2017-10-24] MEDS: CASPOFUNGIN 50 MG in NS 250 ML IVPB (18:21)
[2017-10-24] MEDS ORDERED: DEXTROSE 50% 50 ML SYRINGE IV ×2 (19:00)
[2017-10-24] MEDS: ACCU-CHEK XX ×5 (19:00→23:00)
[2017-10-24 19:46] LABS: TROPONIN-I 0.418 ng/ml (0.00-0.12)
[2017-10-24] MEDS: INSULIN HUMAN REGULAR 100 UNIT in SOD CHLORIDE 0.9% 99 ML IV (19:50)
[2017-10-24] MEDS ORDERED: INSULIN GLARGINE [LANtus] 3 ML PEN SC (20:00)
[2017-10-24] MEDS: ATORVASTATIN 20 MG TAB PO (22:41)
[2017-10-25 00:08] LABS: AADO2 Arterial 573.5 mmHg (7.0-24.0); Arterial Base Excess -5.1 mmol/L (-3.0-3); Arterial Blood Gas Oxygen Sat 94.2 mmHG (95.0-98.0); Arterial COHb 0.7 % (0.0-3.0); Arterial Fraction of Oxyhgb 93.4 % (93.0-99.0); Arterial HCO3 21.9 mmol/L (22.0-26.0); Arterial MetHb 0.2 % (0.0-1.5); Arterial Total Hemglobin 8.4 g/dl (12.0-18.0); Arterial pCO2 50.4 mmhg (35-45); MODE VENT - AC; Site Right Brachial
[2017-10-25] MEDS: ACCU-CHEK XX ×23 (01:03→22:03)
[2017-10-25 01:33] LABS: TROPONIN-I 0.797 ng/ml (0.00-0.12)
[2017-10-25 01:48] LABS: HEPATITIS B SURFACE ANTIGEN NEGATIVE (NEGATIVE)
[2017-10-25] MEDS: PHENYLephrine 40 MG in DEXTROSE 5% 496 ML IV (02:12)
[2017-10-25] MEDS: LORAZEPAM 2 MG INJ IV (04:15)
[2017-10-25] MEDS: FENTAnyl (DRIP) 1000 mcg/100mL 100 ML IV ×2 (05:26→18:21)
[2017-10-25] MEDS: PIPER-TAZO 2.25 GM (PMX) 50 ML IVPB ×3 (05:34→21:08)
[2017-10-25 05:51] LABS: Arterial Base Excess -0.2 mmol/L (-3.0-3); Arterial Blood Gas Oxygen Sat 94.9 mmHG (95.0-98.0); Arterial COHb 0.4 % (0.0-3.0); Arterial Fraction of Oxyhgb 94.3 % (93.0-99.0); Arterial HCO3 25.4 mmol/L (22.0-26.0); Arterial MetHb 0.2 % (0.0-1.5); Arterial Total Hemglobin 8.7 g/dl (12.0-18.0); Arterial pCO2 45.8 mmhg (35-45); MODE VENT - AC; Site Right Brachial
[2017-10-25 05:54] LABS: ADD MAN DIFF? NO
[2017-10-25 06:11] LABS: WHITE BLOOD COUNT 8.6 10^3/ul (4.8-10.8)
[2017-10-25 06:11] LABS: BASOPHILS % 0.2 % (0.0-2.0); EOSINOPHILS # 0.2 10^3/ul (0.0-0.5); EOSINOPHILS % 2.3 % (0.0-7.0); HEMATOCRIT 25.6 % (42.0-52.0); HEMOGLOBIN 7.9 g/dl (14.0-18.0); LYMPHOCYTES # 0.7 10^3/ul (0.8-2.9); LYMPHOCYTES % 7.9 % (15.0-51.0); MEAN CORPUSCULAR HEMOGLOBIN 29.4 pg (29.0-33.0); MEAN CORPUSCULAR HGB CONC 30.9 g/dl (32.0-37.0); MEAN CORPUSCULAR VOLUME 95.2 fl (82.0-101.0); MONOCYTE # 0.5 10^3/ul (0.3-0.9); MONOCYTES % 6.3 % (0.0-11.0); NEUTROPHIL # 7.1 10^3/ul (1.6-7.5); NEUTROPHILS % 82.7 % (39.0-77.0); PLATELET COUNT 194 10^3/UL (140-415); RED BLOOD COUNT 2.69 10^6/ul (4.70-6.10); RED CELL DISTRIBUTION WIDTH 17.2 % (11.5-14.5)
[2017-10-25 06:36] LABS: ANION GAP 21 (8-16); BLOOD UREA NITROGEN 52 mg/dl (7-20); CALCIUM 7.8 mg/dl (8.4-10.2); CARBON DIOXIDE 28 mmol/L (21-31); CHLORIDE 99 mmol/L (97-110); CREATININE 7.38 mg/dl (0.61-1.24); GLUCOSE 158 mg/dl (70-220); MAGNESIUM 1.8 mg/dl (1.7-2.5); PHOSPHORUS 6.8 mg/dl (2.5-4.9); POTASSIUM 4.4 mmol/L (3.5-5.1); SODIUM 144 mmol/L (135-144)
[2017-10-25 06:50] LABS: ALBUMIN 3.1 g/dl (3.3-4.9); ALKALINE PHOSPHATASE 363 IU/L (42-121); TOTAL PROTEIN 6.1 g/dl (6.1-8.1)
[2017-10-25 07:07] LABS: ALANINE AMINOTRANSFERASE 1501 IU/L (13-69)
[2017-10-25] MEDS: LEVOTHYROXINE 75 MCG TAB PO (08:44)
[2017-10-25] MEDS: GABAPENTIN 300 MG CAP PO ×2 (08:45→20:18)
[2017-10-25] MEDS: HYDROCORTISONE 5 MG TAB PO ×2 (08:45→20:17)
[2017-10-25] MEDS: SERTRALINE 100 MG TAB PO (08:45)
[2017-10-25] MEDS: SEVELAMER CARBONATE 0.8 GM PKT PO ×3 (08:45→17:08)
[2017-10-25] MEDS: PANTOPRAZOLE (EC) 40 MG TAB PO ×2 (08:45→20:16)
[2017-10-25] MEDS: SENNA/DOCUSATE NA (8.6MG/50MG) TAB PO ×2 (08:45→20:17)
[2017-10-25] MEDS: BALSAM PERU/CASTOR OIL 60 GM TUBE TOP ×2 (08:46→20:20)
[2017-10-25] MEDS: BACITRACIN 0.5%/ZINC 28.35 GM OINT TOP ×2 (08:46→20:18)
[2017-10-25] MEDS: CALCIUM CARBONATE 500 MG CHEW TAB PO ×3 (08:46→20:16)
[2017-10-25] MEDS: DOCUSATE SODIUM 100 MG CAP PO ×2 (08:47→20:17)
[2017-10-25] MEDS: ASPIRIN (EC) 81 MG TAB PO (08:47)
[2017-10-25] MEDS: CALCITRIOL 0.25 MCG CAP PO ×2 (08:50→20:17)
[2017-10-25] MEDS: POLYETHYLENE GLYCOL 17 GM PACKET PO (08:52)
[2017-10-25] MEDS: morphine (ER) 30 MG TAB PO (08:52)
[2017-10-25] MEDS: SODIUM BICARBONATE (IV ADD) 100 MEQ in DEXTROSE 5% 1,000 ML IV (10:03)
[2017-10-25] MEDS: VASOPRESSIN 60 UNIT in DEXTROSE 5% 57 ML IV ×2 (10:03→20:20)
[2017-10-25] MEDS: PHENYLephrine 40 MG in SOD CHLORIDE 0.9% 496 ML IV (13:30)
[2017-10-25] MEDS: AMIODARONE 900 MG in DEXTROSE 5% 482 ML IV (13:30)
[2017-10-25] MEDS: COSYNTROPIN 0.25 MG INJ IV (17:05)
[2017-10-25] MEDS: EPOETIN 4000 UNITS/1 ML INJ (ESRD) SC (17:06)
[2017-10-25] MEDS: CASPOFUNGIN 50 MG in NS 250 ML IVPB (17:08)
[2017-10-25] MEDS ORDERED: GLUCOSE GEL 15 GRAM TUBE BUCCAL (18:00)
[2017-10-25] MEDS ORDERED: GLUCOSE GEL 15 GRAM TUBE PO ×2 (18:00)
[2017-10-25] MEDS ORDERED: GLUCAGON 1 MG INJ IM (18:00)
[2017-10-25] MEDS: HYDROCORTISONE 100 MG INJ IV (20:16)
[2017-10-25] MEDS: ATORVASTATIN 20 MG TAB PO (20:18)
[2017-10-25] MEDS: DIPHENHYDRAMINE 50 MG INJ IV (20:21)
[2017-10-25] MEDS: hydrOXYzine HCL 25 MG TAB PO (20:21)
[2017-10-25] MEDS: INSULIN GLARGINE [LANtus] 3 ML PEN SC (20:25)
[2017-10-25] MEDS: INSULIN ASPART [NOVOLOG] 3 ML PEN SC (21:00)
[2017-10-25] MEDS: AMIKACIN IVPB (22:48)
[2017-10-25] MEDS: SOD CHLORIDE 0.9% IVPB (22:48)
[2017-10-26] MEDS: ACCU-CHEK XX (02:00)
[2017-10-26 05:17] LABS: ADD MAN DIFF? NO
[2017-10-26 05:18] LABS: ABNORMAL IP MESSAGE 1; BASOPHILS % 0.1 % (0.0-2.0); EOSINOPHILS % 0.1 % (0.0-7.0); HEMATOCRIT 23.1 % (42.0-52.0); HEMOGLOBIN 7.2 g/dl (14.0-18.0); LYMPHOCYTES # 0.4 10^3/ul (0.8-2.9); LYMPHOCYTES % 6.5 % (15.0-51.0); MEAN CORPUSCULAR HEMOGLOBIN 29.3 pg (29.0-33.0); MEAN CORPUSCULAR HGB CONC 31.2 g/dl (32.0-37.0); MEAN CORPUSCULAR VOLUME 93.9 fl (82.0-101.0); MEAN PLATELET VOLUME 10.9 fl (7.4-10.4); MONOCYTE # 0.4 10^3/ul (0.3-0.9); MONOCYTES % 6.5 % (0.0-11.0); NEUTROPHIL # 5.9 10^3/ul (1.6-7.5); NEUTROPHILS % 86.4 % (39.0-77.0); PLATELET COUNT 151 10^3/UL (140-415); POSITIVE DIFF @See below; RED BLOOD COUNT 2.46 10^6/ul (4.70-6.10); RED CELL DISTRIBUTION WIDTH 17.3 % (11.5-14.5)
[2017-10-26 05:18] LABS: WHITE BLOOD COUNT 6.8 10^3/ul (4.8-10.8)
[2017-10-26 05:56] LABS: MAGNESIUM 1.8 mg/dl (1.7-2.5)
[2017-10-26 05:59] LABS: ALANINE AMINOTRANSFERASE 803 IU/L (13-69); ALBUMIN 2.8 g/dl (3.3-4.9); ALBUMIN/GLOBULIN RATIO 0.96; ALKALINE PHOSPHATASE 276 IU/L (42-121); ANION GAP 22 (8-16); ASPARTATE AMINO TRANSFERASE 667 IU/L (15-46); BLOOD UREA NITROGEN 40 mg/dl (7-20); CARBON DIOXIDE 25 mmol/L (21-31); CHLORIDE 94 mmol/L (97-110); CREATININE 5.17 mg/dl (0.61-1.24); GLUCOSE 249 mg/dl (70-220); POTASSIUM 4.5 mmol/L (3.5-5.1); SODIUM 136 mmol/L (135-144); TOTAL PROTEIN 5.7 g/dl (6.1-8.1)
[2017-10-26] MEDS: LEVOTHYROXINE 75 MCG TAB PO ×2 (06:32→08:29)
[2017-10-26] MEDS: PIPER-TAZO 2.25 GM (PMX) 50 ML IVPB ×3 (06:32→20:53)
[2017-10-26] MEDS: HYDROCORTISONE 5 MG TAB PO ×3 (06:32→20:51)
[2017-10-26] MEDS: FENTAnyl (DRIP) 1000 mcg/100mL 100 ML IV ×2 (06:59→14:29)
[2017-10-26] MEDS: SERTRALINE 100 MG TAB PO (08:29)
[2017-10-26] MEDS: DOCUSATE SODIUM 100 MG CAP PO ×2 (08:29→20:49)
[2017-10-26] MEDS: SEVELAMER CARBONATE 0.8 GM PKT PO ×3 (08:29→14:22)
[2017-10-26] MEDS: PANTOPRAZOLE (EC) 40 MG TAB PO ×2 (08:29→20:51)
[2017-10-26] MEDS: GABAPENTIN 300 MG CAP PO ×2 (08:29→20:51)
[2017-10-26] MEDS: ASPIRIN (EC) 81 MG TAB PO (08:30)
[2017-10-26] MEDS: CALCIUM CARBONATE 500 MG CHEW TAB PO ×3 (08:30→20:50)
[2017-10-26] MEDS: SENNA/DOCUSATE NA (8.6MG/50MG) TAB PO ×2 (08:30→20:51)
[2017-10-26] MEDS: CALCITRIOL 0.25 MCG CAP PO ×2 (08:31→20:50)
[2017-10-26] MEDS: BACITRACIN 0.5%/ZINC 28.35 GM OINT TOP ×2 (08:32→20:52)
[2017-10-26] MEDS: BALSAM PERU/CASTOR OIL 60 GM TUBE TOP ×2 (08:32→20:52)
[2017-10-26] MEDS: INSULIN ASPART [NOVOLOG] 3 ML PEN SC ×4 (08:34→20:52)
[2017-10-26] MEDS: INSULIN GLARGINE [LANtus] 3 ML PEN SC ×2 (08:35→20:56)
[2017-10-26] MEDS: VASOPRESSIN 60 UNIT in DEXTROSE 5% 57 ML IV ×2 (08:45→20:52)
[2017-10-26] MEDS: MAGNESIUM SULFATE 2 GM/50 ML 50 ML IVPB (11:42)
[2017-10-26] MEDS: AMIODARONE 900 MG in DEXTROSE 5% 482 ML IV (13:00)
[2017-10-26] MEDS: AMIODARONE 200 MG TAB NGT ×2 (14:22→20:50)
[2017-10-26] MEDS: CASPOFUNGIN 50 MG in NS 250 ML IVPB (17:58)
[2017-10-26] MEDS: DIPHENHYDRAMINE 50 MG INJ IV (20:49)
[2017-10-26] MEDS: ATORVASTATIN 20 MG TAB PO (20:51)
[2017-10-26] MEDS: ZOLPIDEM 5 MG TAB PO (20:51)
[2017-10-26] MEDS: hydrOXYzine HCL 25 MG TAB PO (20:51)
[2017-10-27] MEDS: FENTAnyl (DRIP) 1000 mcg/100mL 100 ML IV (01:07)
[2017-10-27] MEDS: ACCU-CHEK XX (02:06)
[2017-10-27 05:07] LABS: ADD MAN DIFF? NO
[2017-10-27 05:13] LABS: WHITE BLOOD COUNT 8.3 10^3/ul (4.8-10.8)
[2017-10-27 05:13] LABS: BASOPHILS % 0.2 % (0.0-2.0); EOSINOPHILS # 0.2 10^3/ul (0.0-0.5); EOSINOPHILS % 2.2 % (0.0-7.0); HEMATOCRIT 23.7 % (42.0-52.0); HEMOGLOBIN 7.1 g/dl (14.0-18.0); LYMPHOCYTES # 0.8 10^3/ul (0.8-2.9); LYMPHOCYTES % 9.4 % (15.0-51.0); MEAN CORPUSCULAR HEMOGLOBIN 28.4 pg (29.0-33.0); MEAN CORPUSCULAR VOLUME 94.8 fl (82.0-101.0); MEAN PLATELET VOLUME 10.8 fl (7.4-10.4); MONOCYTE # 0.9 10^3/ul (0.3-0.9); NEUTROPHIL # 6.3 10^3/ul (1.6-7.5); NEUTROPHILS % 76.5 % (39.0-77.0); PLATELET COUNT 172 10^3/UL (140-415); RED CELL DISTRIBUTION WIDTH 17.3 % (11.5-14.5)
[2017-10-27 05:31] LABS: MAGNESIUM 2.1 mg/dl (1.7-2.5)
[2017-10-27 05:39] LABS: ALANINE AMINOTRANSFERASE 492 IU/L (13-69); ALBUMIN 2.9 g/dl (3.3-4.9); ALKALINE PHOSPHATASE 227 IU/L (42-121); ANION GAP 20 (8-16); ASPARTATE AMINO TRANSFERASE 225 IU/L (15-46); BLOOD UREA NITROGEN 57 mg/dl (7-20); CALCIUM 8.1 mg/dl (8.4-10.2); CARBON DIOXIDE 27 mmol/L (21-31); CHLORIDE 94 mmol/L (97-110); CREATININE 7.03 mg/dl (0.61-1.24); GLUCOSE 120 mg/dl (70-220); POTASSIUM 4.3 mmol/L (3.5-5.1); SODIUM 137 mmol/L (135-144); TOTAL PROTEIN 6.1 g/dl (6.1-8.1)
[2017-10-27] MEDS: HYDROCORTISONE 5 MG TAB PO (06:02)
[2017-10-27] MEDS: AMIODARONE 200 MG TAB NGT ×3 (06:02→21:44)
[2017-10-27] MEDS: PIPER-TAZO 2.25 GM (PMX) 50 ML IVPB ×3 (06:02→22:00)
[2017-10-27 06:20] LABS: AADO2 Arterial 311.2 mmHg (7.0-24.0); Allen Test ACCEPTAB; Arterial Blood Gas Oxygen Sat 92.2 mmHG (95.0-98.0); Arterial COHb 1.1 % (0.0-3.0); Arterial Fraction of Oxyhgb 90.9 % (93.0-99.0); Arterial HCO3 26.9 mmol/L (22.0-26.0); Arterial MetHb 0.3 % (0.0-1.5); Arterial pCO2 43.6 mmhg (35-45); MODE VENT - AC; Site Right Brachial
[2017-10-27] MEDS: INSULIN ASPART [NOVOLOG] 3 ML PEN SC ×4 (07:33→21:00)
[2017-10-27] MEDS: DEXTROSE 50% 50 ML SYRINGE IV ×5 (07:38→17:06)
[2017-10-27] MEDS: CALCITRIOL 0.25 MCG CAP PO (09:00)
[2017-10-27] MEDS: ERGOCALCIFEROL 50,000 UNIT CAP PO (09:00)
[2017-10-27] MEDS: INSULIN GLARGINE [LANtus] 3 ML PEN SC ×2 (09:11→20:00)
[2017-10-27] MEDS: SERTRALINE 100 MG TAB PO (09:11)
[2017-10-27] MEDS: CALCIUM CARBONATE 500 MG CHEW TAB PO ×3 (09:11→21:45)
[2017-10-27] MEDS: GABAPENTIN 300 MG CAP PO ×2 (09:11→21:43)
[2017-10-27] MEDS: SEVELAMER CARBONATE 0.8 GM PKT PO ×3 (09:11→18:28)
[2017-10-27] MEDS: PANTOPRAZOLE (EC) 40 MG TAB PO ×2 (09:12→21:45)
[2017-10-27] MEDS: BACITRACIN 0.5%/ZINC 28.35 GM OINT TOP ×2 (09:12→21:00)
[2017-10-27] MEDS: LEVOTHYROXINE 75 MCG TAB PO (09:12)
[2017-10-27] MEDS: SENNA/DOCUSATE NA (8.6MG/50MG) TAB PO ×2 (09:12→21:43)
[2017-10-27] MEDS: BALSAM PERU/CASTOR OIL 60 GM TUBE TOP ×2 (09:12→21:00)
[2017-10-27] MEDS: ASPIRIN (EC) 81 MG TAB PO (09:12)
[2017-10-27] MEDS: DOCUSATE SODIUM 100 MG CAP PO ×2 (09:13→21:45)
[2017-10-27] MEDS: SODIUM HYPOCHLORITE 0.125% 473 ML BTL IRR ×2 (09:20→21:00)
[2017-10-27] MEDS: VASOPRESSIN 60 UNIT in DEXTROSE 5% 57 ML IV (09:56)
[2017-10-27 12:56] LABS: AADO2 Arterial 566.6 mmHg (7.0-24.0); Allen Test ACCEPTAB; Arterial Base Excess 3.8 mmol/L (-3.0-3); Arterial Blood Gas Oxygen Sat 97.4 mmHG (95.0-98.0); Arterial COHb 0.8 % (0.0-3.0); Arterial Fraction of Oxyhgb 96.4 % (93.0-99.0); Arterial HCO3 28.3 mmol/L (22.0-26.0); Arterial MetHb 0.2 % (0.0-1.5); Arterial Total Hemglobin 8.6 g/dl (12.0-18.0); Arterial pCO2 42.1 mmhg (35-45); MODE MASK - NRB; Site Right Brachial
[2017-10-27] MEDS: VANCOMYCIN 1.5 GM in SOD CHLORIDE 0.9% 250 ML IVPB (13:10)
[2017-10-27] MEDS: SOD CHLORIDE 0.9% IVPB (14:58)
[2017-10-27] MEDS: AMIKACIN IVPB (14:58)
[2017-10-27] MEDS: CASPOFUNGIN 50 MG in NS 250 ML IVPB (18:29)
[2017-10-27] MEDS: EPOETIN 4000 UNITS/1 ML INJ (ESRD) SC (18:34)
[2017-10-27] MEDS: ROCALTROL PO (21:00)
[2017-10-27] MEDS: ATORVASTATIN 20 MG TAB PO (21:44)
[2017-10-28] MEDS: FENTAnyl 50 MCG/ML VIAL IV ×2 (00:38→19:25)
[2017-10-28] MEDS: ACCU-CHEK XX (02:00)
[2017-10-28 05:37] LABS: ADD MAN DIFF? NO
[2017-10-28 05:43] LABS: WHITE BLOOD COUNT 9.3 10^3/ul (4.8-10.8)
[2017-10-28 05:43] LABS: BASOPHILS % 0.2 % (0.0-2.0); EOSINOPHILS # 0.2 10^3/ul (0.0-0.5); EOSINOPHILS % 1.7 % (0.0-7.0); HEMATOCRIT 24.7 % (42.0-52.0); HEMOGLOBIN 7.6 g/dl (14.0-18.0); LYMPHOCYTES # 0.8 10^3/ul (0.8-2.9); MEAN CORPUSCULAR HEMOGLOBIN 29.3 pg (29.0-33.0); MEAN CORPUSCULAR HGB CONC 30.8 g/dl (32.0-37.0); MEAN CORPUSCULAR VOLUME 95.4 fl (82.0-101.0); MEAN PLATELET VOLUME 10.7 fl (7.4-10.4); MONOCYTE # 1.1 10^3/ul (0.3-0.9); MONOCYTES % 12.2 % (0.0-11.0); NEUTROPHILS % 75.8 % (39.0-77.0); PLATELET COUNT 139 10^3/UL (140-415); RED BLOOD COUNT 2.59 10^6/ul (4.70-6.10); RED CELL DISTRIBUTION WIDTH 17.3 % (11.5-14.5)
[2017-10-28 06:37] LABS: ALANINE AMINOTRANSFERASE 347 IU/L (13-69); ALBUMIN 3.2 g/dl (3.3-4.9); ALBUMIN/GLOBULIN RATIO 0.88; ALKALINE PHOSPHATASE 222 IU/L (42-121); ANION GAP 21 (8-16); ASPARTATE AMINO TRANSFERASE 109 IU/L (15-46); BLOOD UREA NITROGEN 51 mg/dl (7-20); CALCIUM 8.4 mg/dl (8.4-10.2); CARBON DIOXIDE 25 mmol/L (21-31); CHLORIDE 95 mmol/L (97-110); CREATININE 6.65 mg/dl (0.61-1.24); GLUCOSE 125 mg/dl (70-220); POTASSIUM 4.3 mmol/L (3.5-5.1); SODIUM 137 mmol/L (135-144); TOTAL PROTEIN 6.8 g/dl (6.1-8.1)
[2017-10-28] MEDS: PIPER-TAZO 2.25 GM (PMX) 50 ML IVPB ×2 (07:21→13:15)
[2017-10-28] MEDS: AMIODARONE 200 MG TAB NGT ×3 (07:21→22:00)
[2017-10-28] MEDS ORDERED: INSULIN GLARGINE [LANtus] 3 ML PEN SC (08:00)
[2017-10-28] MEDS: INSULIN ASPART [NOVOLOG] 3 ML PEN SC ×4 (08:45→21:00)
[2017-10-28] MEDS: SEVELAMER CARBONATE 0.8 GM PKT PO ×3 (08:45→18:16)
[2017-10-28] MEDS: INSULIN GLARGINE [LANtus] 3 ML PEN SC ×2 (08:47→21:36)
[2017-10-28] MEDS: DOCUSATE SODIUM 100 MG CAP PO ×2 (09:00→21:00)
[2017-10-28] MEDS: BALSAM PERU/CASTOR OIL 60 GM TUBE TOP ×2 (09:06→21:37)
[2017-10-28] MEDS: CALCIUM CARBONATE 500 MG CHEW TAB PO ×3 (09:06→21:00)
[2017-10-28] MEDS: SODIUM HYPOCHLORITE 0.125% 473 ML BTL IRR ×2 (09:06→21:30)
[2017-10-28] MEDS: BACITRACIN 0.5%/ZINC 28.35 GM OINT TOP ×2 (09:07→21:37)
[2017-10-28] MEDS: MIDODRINE 2.5 MG TAB PO (09:19)
[2017-10-28] MEDS: PANTOPRAZOLE (EC) 40 MG TAB PO ×2 (09:20→21:00)
[2017-10-28] MEDS: ASPIRIN (EC) 81 MG TAB PO (09:20)
[2017-10-28] MEDS: ROCALTROL PO ×2 (09:21→21:00)
[2017-10-28] MEDS: GABAPENTIN 300 MG CAP PO ×2 (09:21→21:00)
[2017-10-28] MEDS: SERTRALINE 100 MG TAB PO (09:22)
[2017-10-28] MEDS: SENNA/DOCUSATE NA (8.6MG/50MG) TAB PO ×2 (09:22→21:00)
[2017-10-28] MEDS ORDERED: ALTEPLASE (CATHFLO) 2 MG INJ CATHETER (10:30)
[2017-10-28] MEDS: DEXTROSE 5%-0.45% NACL 1,000 ML IV (10:43)
[2017-10-28] MEDS: ALTEPLASE (CATHFLO) 2 MG INJ CATHETER (16:00)
[2017-10-28] MEDS: CASPOFUNGIN 50 MG in NS 250 ML IVPB (18:16)
[2017-10-28] MEDS: HYDROmorphONE 0.5 MG/0.5 ML SYG IV (19:44)
[2017-10-28] MEDS: ATORVASTATIN 20 MG TAB PO (21:00)
[2017-10-29] MEDS: ACCU-CHEK XX (02:00)
[2017-10-29] MEDS: HYDROmorphONE 0.5 MG/0.5 ML SYG IV ×5 (03:34→23:38)
[2017-10-29 05:32] LABS: ADD MAN DIFF? NO
[2017-10-29 05:43] LABS: WHITE BLOOD COUNT 7.9 10^3/ul (4.8-10.8)
[2017-10-29 05:43] LABS: BASOPHILS % 0.4 % (0.0-2.0); EOSINOPHILS # 0.3 10^3/ul (0.0-0.5); EOSINOPHILS % 3.8 % (0.0-7.0); HEMATOCRIT 24.8 % (42.0-52.0); HEMOGLOBIN 7.7 g/dl (14.0-18.0); LYMPHOCYTES # 0.9 10^3/ul (0.8-2.9); LYMPHOCYTES % 11.1 % (15.0-51.0); MEAN CORPUSCULAR HEMOGLOBIN 29.5 pg (29.0-33.0); MEAN PLATELET VOLUME 11.3 fl (7.4-10.4); MONOCYTE # 0.8 10^3/ul (0.3-0.9); MONOCYTES % 10.2 % (0.0-11.0); NEUTROPHIL # 5.9 10^3/ul (1.6-7.5); NEUTROPHILS % 73.9 % (39.0-77.0); PLATELET COUNT 141 10^3/UL (140-415); RED BLOOD COUNT 2.61 10^6/ul (4.70-6.10); RED CELL DISTRIBUTION WIDTH 17.3 % (11.5-14.5)
[2017-10-29] MEDS: AMIODARONE 200 MG TAB NGT ×3 (06:00→23:41)
[2017-10-29 06:05] LABS: ALBUMIN 3.3 g/dl (3.3-4.9); ANION GAP 22 (8-16); BLOOD UREA NITROGEN 63 mg/dl (7-20); CALCIUM 8.3 mg/dl (8.4-10.2); CARBON DIOXIDE 26 mmol/L (21-31); CHLORIDE 92 mmol/L (97-110); GLUCOSE 162 mg/dl (70-220); MAGNESIUM 2.2 mg/dl (1.7-2.5); PHOSPHORUS 7.7 mg/dl (2.5-4.9); POTASSIUM 4.3 mmol/L (3.5-5.1); SODIUM 136 mmol/L (135-144)
[2017-10-29] MEDS: DEXTROSE 5%-0.45% NACL 1,000 ML IV (06:08)
[2017-10-29] MEDS: LEVOTHYROXINE 75 MCG TAB PO (07:08)
[2017-10-29] MEDS: INSULIN ASPART [NOVOLOG] 3 ML PEN SC ×4 (07:35→20:33)
[2017-10-29] MEDS: ASPIRIN (EC) 81 MG TAB PO (08:14)
[2017-10-29] MEDS: DOCUSATE SODIUM 100 MG CAP PO ×2 (08:17→20:33)
[2017-10-29] MEDS: PANTOPRAZOLE (EC) 40 MG TAB PO ×2 (08:17→20:33)
[2017-10-29] MEDS: SEVELAMER CARBONATE 0.8 GM PKT PO ×3 (08:17→16:13)
[2017-10-29] MEDS: SENNA/DOCUSATE NA (8.6MG/50MG) TAB PO ×2 (08:17→20:33)
[2017-10-29] MEDS: CALCIUM CARBONATE 500 MG CHEW TAB PO ×3 (08:17→20:32)
[2017-10-29] MEDS: SERTRALINE 100 MG TAB PO (08:17)
[2017-10-29] MEDS: GABAPENTIN 300 MG CAP PO ×2 (08:17→20:33)
[2017-10-29] MEDS: SODIUM HYPOCHLORITE 0.125% 473 ML BTL IRR ×2 (08:19→21:00)
[2017-10-29] MEDS: ROCALTROL PO ×2 (08:19→21:00)
[2017-10-29] MEDS: INSULIN GLARGINE [LANtus] 3 ML PEN SC ×2 (08:24→20:00)
[2017-10-29] MEDS: BALSAM PERU/CASTOR OIL 60 GM TUBE TOP ×2 (09:00→21:00)
[2017-10-29] MEDS: BACITRACIN 0.5%/ZINC 28.35 GM OINT TOP ×2 (09:00→21:00)
[2017-10-29] MEDS: LIDOCAINE 5% PATCH TD (09:50)
[2017-10-29] MEDS: DIPHENHYDRAMINE 50 MG INJ IV (10:30)
[2017-10-29] MEDS: SOD CHLORIDE 0.9% IVPB (16:05)
[2017-10-29] MEDS: AMIKACIN IVPB (16:05)
[2017-10-29] MEDS: morphine 2 MG INJ IV ×2 (16:05→17:54)
[2017-10-29] MEDS: EPOETIN 4000 UNITS/1 ML INJ (ESRD) SC (16:10)
[2017-10-29] MEDS: CASPOFUNGIN 50 MG in NS 250 ML IVPB (16:12)
[2017-10-29] MEDS: ATORVASTATIN 20 MG TAB PO (21:00)
[2017-10-30] MEDS: ACCU-CHEK XX (02:00)
[2017-10-30] MEDS: HYDROmorphONE 0.5 MG/0.5 ML SYG IV ×7 (03:29→21:48)
[2017-10-30 05:12] LABS: ADD MAN DIFF? NO
[2017-10-30 05:13] LABS: WHITE BLOOD COUNT 7.3 10^3/ul (4.8-10.8)
[2017-10-30 05:13] LABS: BASOPHILS % 0.3 % (0.0-2.0); EOSINOPHILS # 0.2 10^3/ul (0.0-0.5); EOSINOPHILS % 2.1 % (0.0-7.0); HEMATOCRIT 25.8 % (42.0-52.0); HEMOGLOBIN 7.8 g/dl (14.0-18.0); LYMPHOCYTES # 0.8 10^3/ul (0.8-2.9); LYMPHOCYTES % 11.6 % (15.0-51.0); MEAN CORPUSCULAR HEMOGLOBIN 28.7 pg (29.0-33.0); MEAN CORPUSCULAR HGB CONC 30.2 g/dl (32.0-37.0); MEAN CORPUSCULAR VOLUME 94.9 fl (82.0-101.0); MONOCYTE # 0.6 10^3/ul (0.3-0.9); MONOCYTES % 8.1 % (0.0-11.0); NEUTROPHIL # 5.6 10^3/ul (1.6-7.5); NEUTROPHILS % 76.5 % (39.0-77.0); PLATELET COUNT 152 10^3/UL (140-415); RED BLOOD COUNT 2.72 10^6/ul (4.70-6.10); RED CELL DISTRIBUTION WIDTH 17.6 % (11.5-14.5)
[2017-10-30 05:37] LABS: ALBUMIN 3.3 g/dl (3.3-4.9); ANION GAP 18 (8-16); BLOOD UREA NITROGEN 48 mg/dl (7-20); CALCIUM 8.4 mg/dl (8.4-10.2); CARBON DIOXIDE 26 mmol/L (21-31); CHLORIDE 96 mmol/L (97-110); CREATININE 6.92 mg/dl (0.61-1.24); GLUCOSE 188 mg/dl (70-220); PHOSPHORUS 6.8 mg/dl (2.5-4.9); POTASSIUM 4.2 mmol/L (3.5-5.1); SODIUM 136 mmol/L (135-144)
[2017-10-30] MEDS: AMIODARONE 200 MG TAB NGT ×3 (06:08→21:08)
[2017-10-30] MEDS: LEVOTHYROXINE 75 MCG TAB PO (06:08)
[2017-10-30] MEDS: DEXTROSE 5%-0.45% NACL 1,000 ML IV (06:14)
[2017-10-30] MEDS: INSULIN ASPART [NOVOLOG] 3 ML PEN SC ×4 (07:35→21:00)
[2017-10-30] MEDS: SEVELAMER CARBONATE 0.8 GM PKT PO ×3 (08:17→17:39)
[2017-10-30] MEDS: INSULIN GLARGINE [LANtus] 3 ML PEN SC ×2 (08:20→21:16)
[2017-10-30] MEDS: SODIUM HYPOCHLORITE 0.125% 473 ML BTL IRR ×2 (08:22→21:08)
[2017-10-30] MEDS: CALCIUM CARBONATE 500 MG CHEW TAB PO ×3 (08:23→21:07)
[2017-10-30] MEDS: DOCUSATE SODIUM 100 MG CAP PO ×2 (08:23→21:08)
[2017-10-30] MEDS: PANTOPRAZOLE (EC) 40 MG TAB PO ×2 (08:23→21:08)
[2017-10-30] MEDS: SENNA/DOCUSATE NA (8.6MG/50MG) TAB PO ×2 (08:23→21:08)
[2017-10-30] MEDS: GABAPENTIN 300 MG CAP PO ×2 (08:23→21:07)
[2017-10-30] MEDS: ASPIRIN (EC) 81 MG TAB PO (08:23)
[2017-10-30] MEDS: SERTRALINE 100 MG TAB PO (08:23)
[2017-10-30] MEDS: BACITRACIN 0.5%/ZINC 28.35 GM OINT TOP ×2 (08:24→21:09)
[2017-10-30] MEDS: BALSAM PERU/CASTOR OIL 60 GM TUBE TOP ×2 (08:24→21:08)
[2017-10-30] MEDS: LIDOCAINE 5% PATCH TD (08:24)
[2017-10-30] MEDS: ROCALTROL PO ×2 (09:35→21:11)
[2017-10-30] MEDS: CASPOFUNGIN 50 MG in NS 250 ML IVPB (16:34)
[2017-10-30] MEDS: ATORVASTATIN 20 MG TAB PO (21:07)
[2017-10-31] MEDS: ATORVASTATIN 20 MG TAB PO (01:44)
[2017-10-31] MEDS: AMIODARONE 200 MG TAB NGT ×3 (01:44→14:15)
[2017-10-31] MEDS: HYDROmorphONE 0.5 MG/0.5 ML SYG IV ×8 (01:45→21:48)
[2017-10-31] MEDS: ACCU-CHEK XX (02:00)
[2017-10-31] MEDS: DEXTROSE 5%-0.45% NACL 1,000 ML IV (04:54)
[2017-10-31 04:57] LABS: ADD MAN DIFF? NO
[2017-10-31 05:00] LABS: WHITE BLOOD COUNT 5.5 10^3/ul (4.8-10.8)
[2017-10-31 05:00] LABS: BASOPHILS % 0.4 % (0.0-2.0); EOSINOPHILS # 0.1 10^3/ul (0.0-0.5); EOSINOPHILS % 1.8 % (0.0-7.0); HEMOGLOBIN 7.5 g/dl (14.0-18.0); LYMPHOCYTES # 0.8 10^3/ul (0.8-2.9); LYMPHOCYTES % 14.7 % (15.0-51.0); MEAN CORPUSCULAR HEMOGLOBIN 28.8 pg (29.0-33.0); MEAN CORPUSCULAR VOLUME 96.2 fl (82.0-101.0); MEAN PLATELET VOLUME 10.9 fl (7.4-10.4); MONOCYTE # 0.5 10^3/ul (0.3-0.9); MONOCYTES % 9.1 % (0.0-11.0); NEUTROPHILS % 72.4 % (39.0-77.0); PLATELET COUNT 148 10^3/UL (140-415); RED CELL DISTRIBUTION WIDTH 17.5 % (11.5-14.5)
[2017-10-31 05:19] LABS: ALBUMIN 3.1 g/dl (3.3-4.9); ANION GAP 21 (8-16); BLOOD UREA NITROGEN 58 mg/dl (7-20); CALCIUM 8.2 mg/dl (8.4-10.2); CARBON DIOXIDE 25 mmol/L (21-31); CHLORIDE 97 mmol/L (97-110); CREATININE 8.22 mg/dl (0.61-1.24); GLUCOSE 118 mg/dl (70-220); MAGNESIUM 2.1 mg/dl (1.7-2.5); PHOSPHORUS 7.6 mg/dl (2.5-4.9); POTASSIUM 4.8 mmol/L (3.5-5.1); SODIUM 138 mmol/L (135-144)
[2017-10-31] MEDS: LEVOTHYROXINE 75 MCG TAB PO (05:49)
[2017-10-31] MEDS: INSULIN ASPART [NOVOLOG] 3 ML PEN SC ×4 (07:35→20:28)
[2017-10-31] MEDS: DIPHENHYDRAMINE 50 MG INJ IV ×2 (07:51→21:27)
[2017-10-31] MEDS: LIDOCAINE 5% PATCH TD (08:40)
[2017-10-31] MEDS: DOCUSATE SODIUM 100 MG CAP PO ×2 (08:40→21:00)
[2017-10-31] MEDS: SEVELAMER CARBONATE 0.8 GM PKT PO ×3 (08:40→17:35)
[2017-10-31] MEDS: SENNA/DOCUSATE NA (8.6MG/50MG) TAB PO ×2 (08:40→21:00)
[2017-10-31] MEDS: CALCIUM CARBONATE 500 MG CHEW TAB PO ×3 (08:40→21:00)
[2017-10-31] MEDS: PANTOPRAZOLE (EC) 40 MG TAB PO ×2 (08:40→21:00)
[2017-10-31] MEDS: GABAPENTIN 300 MG CAP PO ×2 (08:40→21:00)
[2017-10-31] MEDS: SERTRALINE 100 MG TAB PO (08:40)
[2017-10-31] MEDS: ASPIRIN (EC) 81 MG TAB PO (08:41)
[2017-10-31] MEDS: INSULIN GLARGINE [LANtus] 3 ML PEN SC ×2 (08:44→20:23)
[2017-10-31] MEDS: ROCALTROL PO ×2 (09:00→21:00)
[2017-10-31] MEDS: BACITRACIN 0.5%/ZINC 28.35 GM OINT TOP ×2 (09:00→21:00)
[2017-10-31] MEDS: BALSAM PERU/CASTOR OIL 60 GM TUBE TOP ×2 (09:00→21:00)
[2017-10-31] MEDS: SODIUM HYPOCHLORITE 0.125% 473 ML BTL IRR ×2 (09:00→21:00)
[2017-10-31] MEDS: VANCOMYCIN 1.5 GM in SOD CHLORIDE 0.9% 250 ML IVPB (14:22)
[2017-10-31] MEDS: CASPOFUNGIN 50 MG in NS 250 ML IVPB (16:52)
[2017-10-31 23:18] LABS: AADO2 Arterial 353.3 mmHg (7.0-24.0); Allen Test ACCEPTAB; Arterial Base Excess -0.6 mmol/L (-3.0-3); Arterial Blood Gas Oxygen Sat 85.8 mmHG (95.0-98.0); Arterial COHb 1.5 % (0.0-3.0); Arterial Fraction of Oxyhgb 84.3 % (93.0-99.0); Arterial HCO3 25.4 mmol/L (22.0-26.0); Arterial MetHb 0.3 % (0.0-1.5); Arterial Total Hemglobin 8.9 g/dl (12.0-18.0); Arterial pCO2 48.7 mmhg (35-45); MODE HFNC; Site Right Radial
[2017-11-01] MEDS: HYDROmorphONE 0.5 MG/0.5 ML SYG IV ×8 (00:14→21:21)
[2017-11-01] MEDS: AMIODARONE 200 MG TAB NGT ×4 (01:30→22:00)
[2017-11-01] MEDS: ACCU-CHEK XX (02:08)
[2017-11-01] MEDS: ALBUTEROL 0.083% (NEB) 2.5 MG/3 ML AMP NEB (02:27)
[2017-11-01 05:14] LABS: ADD MAN DIFF? NO
[2017-11-01 05:24] LABS: WHITE BLOOD COUNT 5.5 10^3/ul (4.8-10.8)
[2017-11-01 05:24] LABS: BASOPHILS % 0.4 % (0.0-2.0); EOSINOPHILS # 0.1 10^3/ul (0.0-0.5); EOSINOPHILS % 1.3 % (0.0-7.0); HEMATOCRIT 25.7 % (42.0-52.0); HEMOGLOBIN 7.7 g/dl (14.0-18.0); LYMPHOCYTES # 0.6 10^3/ul (0.8-2.9); LYMPHOCYTES % 11.7 % (15.0-51.0); MEAN CORPUSCULAR HEMOGLOBIN 28.7 pg (29.0-33.0); MEAN CORPUSCULAR VOLUME 95.9 fl (82.0-101.0); MONOCYTE # 0.5 10^3/ul (0.3-0.9); MONOCYTES % 9.7 % (0.0-11.0); NEUTROPHIL # 4.1 10^3/ul (1.6-7.5); NEUTROPHILS % 75.3 % (39.0-77.0); PLATELET COUNT 142 10^3/UL (140-415); RED BLOOD COUNT 2.68 10^6/ul (4.70-6.10); RED CELL DISTRIBUTION WIDTH 17.7 % (11.5-14.5)
[2017-11-01] MEDS: DEXTROSE 5%-0.45% NACL 1,000 ML IV (05:26)
[2017-11-01] MEDS: LEVOTHYROXINE 75 MCG TAB PO (06:34)
[2017-11-01 06:39] LABS: ANION GAP 17 (8-16); BLOOD UREA NITROGEN 41 mg/dl (7-20); CALCIUM 8.2 mg/dl (8.4-10.2); CARBON DIOXIDE 28 mmol/L (21-31); CHLORIDE 97 mmol/L (97-110); GLUCOSE 115 mg/dl (70-220); MAGNESIUM 1.9 mg/dl (1.7-2.5); PHOSPHORUS 6.4 mg/dl (2.5-4.9); POTASSIUM 4.1 mmol/L (3.5-5.1); SODIUM 138 mmol/L (135-144)
[2017-11-01] MEDS: INSULIN ASPART [NOVOLOG] 3 ML PEN SC ×4 (07:35→21:00)
[2017-11-01] MEDS: SEVELAMER CARBONATE 0.8 GM PKT PO ×3 (07:57→17:35)
[2017-11-01] MEDS: DIPHENHYDRAMINE 50 MG INJ IV (08:05)
[2017-11-01 08:30] LABS: AADO2 Arterial 380.6 mmHg (7.0-24.0); Arterial Base Excess -1.3 mmol/L (-3.0-3); Arterial Blood Gas Oxygen Sat 91.1 mmHG (95.0-98.0); Arterial COHb 1.5 % (0.0-3.0); Arterial Fraction of Oxyhgb 89.5 % (93.0-99.0); Arterial HCO3 24.5 mmol/L (22.0-26.0); Arterial MetHb 0.3 % (0.0-1.5); Arterial pCO2 46.3 mmhg (35-45); MODE HFNC; Site Right Brachial
[2017-11-01] MEDS: INSULIN GLARGINE [LANtus] 3 ML PEN SC ×2 (08:30→20:14)
[2017-11-01] MEDS: ASPIRIN (EC) 81 MG TAB PO (08:31)
[2017-11-01] MEDS: SODIUM HYPOCHLORITE 0.125% 473 ML BTL IRR ×2 (08:31→20:54)
[2017-11-01] MEDS: PANTOPRAZOLE (EC) 40 MG TAB PO ×2 (08:32→21:01)
[2017-11-01] MEDS: GABAPENTIN 300 MG CAP PO ×2 (08:32→20:55)
[2017-11-01] MEDS: SENNA/DOCUSATE NA (8.6MG/50MG) TAB PO ×2 (08:32→21:01)
[2017-11-01] MEDS: DOCUSATE SODIUM 100 MG CAP PO ×2 (08:32→20:55)
[2017-11-01] MEDS: SERTRALINE 100 MG TAB PO (08:32)
[2017-11-01] MEDS: BACITRACIN 0.5%/ZINC 28.35 GM OINT TOP ×2 (08:33→21:14)
[2017-11-01] MEDS: LIDOCAINE 5% PATCH TD (08:33)
[2017-11-01] MEDS: BALSAM PERU/CASTOR OIL 60 GM TUBE TOP ×2 (08:33→21:14)
[2017-11-01] MEDS: CALCIUM CARBONATE 500 MG CHEW TAB PO ×3 (08:34→20:54)
[2017-11-01] MEDS: ROCALTROL PO ×2 (08:40→21:10)
[2017-11-01] MEDS: HALOPERIDOL 5 MG INJ IV (09:34)
[2017-11-01] MEDS: SOD CHLORIDE 0.9% IVPB (10:45)
[2017-11-01] MEDS: AMIKACIN IVPB (10:45)
[2017-11-01 14:07] LABS: AHG CROSSMATCH 1 1
[2017-11-01] MEDS: CASPOFUNGIN 50 MG in NS 250 ML IVPB (16:53)
[2017-11-01] MEDS: EPOETIN 4000 UNITS/1 ML INJ (ESRD) SC (16:55)
[2017-11-01] MEDS: ATORVASTATIN 20 MG TAB PO (20:54)
[2017-11-02] MEDS: DEXTROSE 50% 50 ML SYRINGE IV (02:01)
[2017-11-02] MEDS: ACCU-CHEK XX (02:04)
[2017-11-02] MEDS: HYDROmorphONE 0.5 MG/0.5 ML SYG IV ×8 (04:13→22:16)
[2017-11-02] MEDS: AMIODARONE 200 MG TAB NGT ×3 (05:23→22:21)
[2017-11-02] MEDS: DEXTROSE 5%-0.45% NACL 1,000 ML IV (05:23)
[2017-11-02 06:04] LABS: ADD MAN DIFF? NO
[2017-11-02 06:06] LABS: WHITE BLOOD COUNT 5.1 10^3/ul (4.8-10.8)
[2017-11-02 06:06] LABS: BASOPHILS % 0.4 % (0.0-2.0); EOSINOPHILS # 0.1 10^3/ul (0.0-0.5); EOSINOPHILS % 1.2 % (0.0-7.0); HEMATOCRIT 27.3 % (42.0-52.0); HEMOGLOBIN 8.4 g/dl (14.0-18.0); LYMPHOCYTES # 0.8 10^3/ul (0.8-2.9); LYMPHOCYTES % 15.4 % (15.0-51.0); MEAN CORPUSCULAR HEMOGLOBIN 29.6 pg (29.0-33.0); MEAN CORPUSCULAR HGB CONC 30.8 g/dl (32.0-37.0); MEAN CORPUSCULAR VOLUME 96.1 fl (82.0-101.0); MEAN PLATELET VOLUME 10.2 fl (7.4-10.4); MONOCYTE # 0.6 10^3/ul (0.3-0.9); MONOCYTES % 10.7 % (0.0-11.0); NEUTROPHIL # 3.6 10^3/ul (1.6-7.5); NEUTROPHILS % 71.1 % (39.0-77.0); PLATELET COUNT 141 10^3/UL (140-415); RED BLOOD COUNT 2.84 10^6/ul (4.70-6.10); RED CELL DISTRIBUTION WIDTH 18.3 % (11.5-14.5)
[2017-11-02] MEDS: LEVOTHYROXINE 75 MCG TAB PO (06:29)
[2017-11-02 06:36] LABS: ANION GAP 21 (8-16); BLOOD UREA NITROGEN 50 mg/dl (7-20); CALCIUM 8.3 mg/dl (8.4-10.2); CARBON DIOXIDE 25 mmol/L (21-31); CHLORIDE 98 mmol/L (97-110); CREATININE 7.57 mg/dl (0.61-1.24); GLUCOSE 67 mg/dl (70-220); POTASSIUM 4.8 mmol/L (3.5-5.1); SODIUM 139 mmol/L (135-144)
[2017-11-02] MEDS: INSULIN ASPART [NOVOLOG] 3 ML PEN SC ×4 (07:35→20:37)
[2017-11-02] MEDS: INSULIN GLARGINE [LANtus] 3 ML PEN SC ×2 (08:54→20:37)
[2017-11-02] MEDS: SERTRALINE 100 MG TAB PO (08:54)
[2017-11-02] MEDS: CALCIUM CARBONATE 500 MG CHEW TAB PO ×3 (08:54→20:34)
[2017-11-02] MEDS: ASPIRIN (EC) 81 MG TAB PO (08:54)
[2017-11-02] MEDS: GABAPENTIN 300 MG CAP PO ×2 (08:54→20:34)
[2017-11-02] MEDS: PANTOPRAZOLE (EC) 40 MG TAB PO ×2 (08:55→20:34)
[2017-11-02] MEDS: SEVELAMER CARBONATE 0.8 GM PKT PO ×3 (08:55→17:34)
[2017-11-02] MEDS: SODIUM HYPOCHLORITE 0.125% 473 ML BTL IRR (08:55)
[2017-11-02] MEDS: BACITRACIN 0.5%/ZINC 28.35 GM OINT TOP ×2 (08:55→20:41)
[2017-11-02] MEDS: DOCUSATE SODIUM 100 MG CAP PO ×2 (08:55→20:34)
[2017-11-02] MEDS: SENNA/DOCUSATE NA (8.6MG/50MG) TAB PO ×2 (08:55→20:34)
[2017-11-02] MEDS: BALSAM PERU/CASTOR OIL 60 GM TUBE TOP ×2 (08:55→20:41)
[2017-11-02] MEDS: ROCALTROL PO ×2 (09:01→20:34)
[2017-11-02] MEDS: LIDOCAINE 5% PATCH TD (09:02)
[2017-11-02] MEDS: LEVALBUTEROL (NEB) 0.63 MG/3 ML AMP HHN ×2 (10:51→20:30)
[2017-11-02] MEDS: DIPHENHYDRAMINE 50 MG INJ IV (14:59)
[2017-11-02] MEDS: CASPOFUNGIN 50 MG in NS 250 ML IVPB (17:03)
[2017-11-02] MEDS: ATORVASTATIN 20 MG TAB PO (20:34)
[2017-11-02] MEDS: SOD CHLORIDE 0.9% IVPB (20:41)
[2017-11-02] MEDS: AMIKACIN IVPB (20:41)
[2017-11-03] MEDS: HYDROmorphONE 0.5 MG/0.5 ML SYG IV ×9 (00:27→23:26)
[2017-11-03] MEDS: ACCU-CHEK XX (02:26)
[2017-11-03] MEDS: SODIUM HYPOCHLORITE 0.125% 473 ML BTL IRR ×3 (04:52→23:21)
[2017-11-03 05:55] LABS: ADD MAN DIFF? NO
[2017-11-03 06:10] LABS: BASOPHILS % 0.2 % (0.0-2.0); EOSINOPHILS # 0.1 10^3/ul (0.0-0.5); EOSINOPHILS % 1.1 % (0.0-7.0); HEMATOCRIT 26.8 % (42.0-52.0); LYMPHOCYTES # 0.8 10^3/ul (0.8-2.9); LYMPHOCYTES % 11.6 % (15.0-51.0); MEAN CORPUSCULAR HEMOGLOBIN 29.6 pg (29.0-33.0); MEAN CORPUSCULAR HGB CONC 29.9 g/dl (32.0-37.0); MEAN CORPUSCULAR VOLUME 99.3 fl (82.0-101.0); MEAN PLATELET VOLUME 10.2 fl (7.4-10.4); MONOCYTE # 0.6 10^3/ul (0.3-0.9); MONOCYTES % 9.3 % (0.0-11.0); NEUTROPHILS % 76.9 % (39.0-77.0); PLATELET COUNT 154 10^3/UL (140-415); RED CELL DISTRIBUTION WIDTH 18.6 % (11.5-14.5)
[2017-11-03 06:10] LABS: WHITE BLOOD COUNT 6.6 10^3/ul (4.8-10.8)
[2017-11-03 06:22] LABS: ANION GAP 18 (8-16); BLOOD UREA NITROGEN 42 mg/dl (7-20); CALCIUM 8.1 mg/dl (8.4-10.2); CARBON DIOXIDE 28 mmol/L (21-31); CHLORIDE 99 mmol/L (97-110); CREATININE 7.14 mg/dl (0.61-1.24); GLUCOSE 80 mg/dl (70-220); MAGNESIUM 1.9 mg/dl (1.7-2.5); POTASSIUM 4.5 mmol/L (3.5-5.1); SODIUM 140 mmol/L (135-144)
[2017-11-03] MEDS: LEVOTHYROXINE 75 MCG TAB PO (06:30)
[2017-11-03] MEDS: AMIODARONE 200 MG TAB NGT ×3 (06:31→20:33)
[2017-11-03] MEDS: DEXTROSE 5%-0.45% NACL 1,000 ML IV (06:32)
[2017-11-03] MEDS: INSULIN ASPART [NOVOLOG] 3 ML PEN SC ×4 (07:35→21:00)
[2017-11-03] MEDS: SEVELAMER CARBONATE 0.8 GM PKT PO ×4 (07:35→17:22)
[2017-11-03] MEDS: DOCUSATE SODIUM 100 MG CAP PO ×2 (08:58→20:29)
[2017-11-03] MEDS: GABAPENTIN 300 MG CAP PO ×2 (08:58→20:31)
[2017-11-03] MEDS: CALCIUM CARBONATE 500 MG CHEW TAB PO ×3 (08:58→20:31)
[2017-11-03] MEDS: SENNA/DOCUSATE NA (8.6MG/50MG) TAB PO ×2 (08:59→20:31)
[2017-11-03] MEDS: SERTRALINE 100 MG TAB PO (08:59)
[2017-11-03] MEDS: ASPIRIN (EC) 81 MG TAB PO (08:59)
[2017-11-03] MEDS: PANTOPRAZOLE (EC) 40 MG TAB PO ×2 (08:59→20:31)
[2017-11-03] MEDS: LIDOCAINE 5% PATCH TD (09:00)
[2017-11-03] MEDS: BACITRACIN 0.5%/ZINC 28.35 GM OINT TOP ×2 (09:01→20:32)
[2017-11-03] MEDS: BALSAM PERU/CASTOR OIL 60 GM TUBE TOP ×2 (09:01→20:32)
[2017-11-03] MEDS: ROCALTROL PO ×2 (09:02→20:28)
[2017-11-03] MEDS: INSULIN GLARGINE [LANtus] 3 ML PEN SC ×2 (09:02→20:27)
[2017-11-03] MEDS: ERGOCALCIFEROL 50,000 UNIT CAP PO (09:03)
[2017-11-03] MEDS: traMADol 50 MG TAB PO ×3 (09:37→20:32)
[2017-11-03] MEDS: LEVALBUTEROL (NEB) 0.63 MG/3 ML AMP HHN ×2 (09:56→14:50)
[2017-11-03] MEDS ORDERED: HYDROmorphONE 0.5 MG/0.5 ML SYG (10:22)
[2017-11-03] MEDS ORDERED: HYDROmorphONE 0.5 MG/0.5 ML SYG IV (13:00)
[2017-11-03] MEDS ORDERED: TOBRAMYCIN IV PER PHARMACY XX (14:00)
[2017-11-03] MEDS: CASPOFUNGIN 50 MG in NS 250 ML IVPB (16:29)
[2017-11-03] MEDS: DEXTROSE 5% IVPB (17:21)
[2017-11-03] MEDS: TOBRAMYCIN IVPB (17:21)
[2017-11-03] MEDS: EPOETIN 4000 UNITS/1 ML INJ (ESRD) SC (18:23)
[2017-11-03] MEDS: ATORVASTATIN 20 MG TAB PO (20:31)
[2017-11-03] MEDS: LEVALBUTEROL (NEB) 1.25 MG/0.5 ML AMP HHN (21:00)
[2017-11-04] MEDS: LEVALBUTEROL (NEB) 1.25 MG/0.5 ML AMP HHN ×4 (01:21→20:36)
[2017-11-04] MEDS ORDERED: LEVALBUTEROL (NEB) 1.25 MG/0.5 ML AMP HHN (02:00)
[2017-11-04] MEDS: ACCU-CHEK XX (02:02)
[2017-11-04] MEDS: traMADol 50 MG TAB PO ×5 (02:03→20:02)
[2017-11-04] MEDS: HYDROmorphONE 0.5 MG/0.5 ML SYG IV ×6 (03:26→22:42)
[2017-11-04 05:03] LABS: ADD MAN DIFF? NO
[2017-11-04 05:13] LABS: WHITE BLOOD COUNT 7.6 10^3/ul (4.8-10.8)
[2017-11-04 05:13] LABS: BASOPHILS % 0.1 % (0.0-2.0); EOSINOPHILS # 0.1 10^3/ul (0.0-0.5); EOSINOPHILS % 0.8 % (0.0-7.0); HEMATOCRIT 27.8 % (42.0-52.0); HEMOGLOBIN 8.1 g/dl (14.0-18.0); LYMPHOCYTES # 0.8 10^3/ul (0.8-2.9); LYMPHOCYTES % 10.7 % (15.0-51.0); MEAN CORPUSCULAR HGB CONC 29.1 g/dl (32.0-37.0); MEAN CORPUSCULAR VOLUME 99.6 fl (82.0-101.0); MEAN PLATELET VOLUME 10.4 fl (7.4-10.4); MONOCYTE # 0.6 10^3/ul (0.3-0.9); MONOCYTES % 7.7 % (0.0-11.0); NEUTROPHIL # 6.1 10^3/ul (1.6-7.5); NEUTROPHILS % 79.9 % (39.0-77.0); PLATELET COUNT 151 10^3/UL (140-415); RED BLOOD COUNT 2.79 10^6/ul (4.70-6.10); RED CELL DISTRIBUTION WIDTH 18.5 % (11.5-14.5)
[2017-11-04 05:47] LABS: ANION GAP 22 (8-16); BLOOD UREA NITROGEN 48 mg/dl (7-20); CALCIUM 8.4 mg/dl (8.4-10.2); CARBON DIOXIDE 24 mmol/L (21-31); CHLORIDE 100 mmol/L (97-110); CREATININE 8.63 mg/dl (0.61-1.24); GLUCOSE 77 mg/dl (70-220); PHOSPHORUS 8.2 mg/dl (2.5-4.9); POTASSIUM 4.9 mmol/L (3.5-5.1); SODIUM 141 mmol/L (135-144)
[2017-11-04] MEDS: DEXTROSE 5%-0.45% NACL 1,000 ML IV (06:18)
[2017-11-04] MEDS: AMIODARONE 200 MG TAB NGT ×3 (06:18→20:14)
[2017-11-04] MEDS: LEVOTHYROXINE 75 MCG TAB PO ×2 (06:18→08:42)
[2017-11-04] MEDS: INSULIN ASPART [NOVOLOG] 3 ML PEN SC ×4 (07:35→20:33)
[2017-11-04] MEDS: ASPIRIN (EC) 81 MG TAB PO (08:42)
[2017-11-04] MEDS: SENNA/DOCUSATE NA (8.6MG/50MG) TAB PO ×2 (08:42→20:03)
[2017-11-04] MEDS: SERTRALINE 100 MG TAB PO (08:42)
[2017-11-04] MEDS: GABAPENTIN 300 MG CAP PO ×2 (08:42→20:03)
[2017-11-04] MEDS: PANTOPRAZOLE (EC) 40 MG TAB PO ×2 (08:43→20:03)
[2017-11-04] MEDS: SEVELAMER CARBONATE 0.8 GM PKT PO ×3 (08:43→17:25)
[2017-11-04] MEDS: DOCUSATE SODIUM 100 MG CAP PO ×2 (08:43→20:03)
[2017-11-04] MEDS: BACITRACIN 0.5%/ZINC 28.35 GM OINT TOP ×2 (08:43→20:04)
[2017-11-04] MEDS: CALCIUM CARBONATE 500 MG CHEW TAB PO ×3 (08:43→20:02)
[2017-11-04] MEDS: BALSAM PERU/CASTOR OIL 60 GM TUBE TOP ×2 (08:44→20:04)
[2017-11-04] MEDS: ROCALTROL PO ×2 (08:44→20:00)
[2017-11-04] MEDS: SODIUM HYPOCHLORITE 0.125% 473 ML BTL IRR ×2 (08:44→20:05)
[2017-11-04] MEDS: INSULIN GLARGINE [LANtus] 3 ML PEN SC ×2 (10:06→20:17)
[2017-11-04] MEDS: BISACODYL 10 MG SUPP PR (14:25)
[2017-11-04] MEDS ORDERED: TOBRAMYCIN 120 MG in DEXTROSE 5% 100 ML IVPB (14:30)
[2017-11-04] MEDS: CASPOFUNGIN 50 MG in NS 250 ML IVPB (17:25)
[2017-11-04] MEDS: ATORVASTATIN 20 MG TAB PO (20:03)
[2017-11-04] MEDS: CEFTAZIDIME 1GM/50 ML (PMX) 50 ML IVPB (20:05)
[2017-11-04] MEDS: TRIMETHOPRIM/SULFAMETHOX (DS) TAB PO (20:14)
[2017-11-04] MEDS: DIPHENHYDRAMINE 50 MG INJ IV (22:00)
[2017-11-05] MEDS: HYDROmorphONE 0.5 MG/0.5 ML SYG IV ×9 (01:51→23:35)
[2017-11-05] MEDS: ACCU-CHEK XX (01:57)
[2017-11-05] MEDS: LEVALBUTEROL (NEB) 1.25 MG/0.5 ML AMP HHN ×4 (02:00→19:33)
[2017-11-05] MEDS: traMADol 50 MG TAB PO ×4 (02:26→21:24)
[2017-11-05] MEDS: DIPHENHYDRAMINE 50 MG INJ IV (04:35)
[2017-11-05 05:19] LABS: ADD MAN DIFF? NO
[2017-11-05 05:22] LABS: WHITE BLOOD COUNT 7.1 10^3/ul (4.8-10.8)
[2017-11-05 05:22] LABS: BASOPHILS % 0.1 % (0.0-2.0); EOSINOPHILS # 0.1 10^3/ul (0.0-0.5); HEMOGLOBIN 8.4 g/dl (14.0-18.0); LYMPHOCYTES # 0.7 10^3/ul (0.8-2.9); LYMPHOCYTES % 9.9 % (15.0-51.0); MEAN CORPUSCULAR HEMOGLOBIN 29.7 pg (29.0-33.0); MEAN CORPUSCULAR VOLUME 98.9 fl (82.0-101.0); MEAN PLATELET VOLUME 10.5 fl (7.4-10.4); MONOCYTE # 0.6 10^3/ul (0.3-0.9); MONOCYTES % 8.5 % (0.0-11.0); NEUTROPHIL # 5.6 10^3/ul (1.6-7.5); NEUTROPHILS % 79.9 % (39.0-77.0); PLATELET COUNT 150 10^3/UL (140-415); RED BLOOD COUNT 2.83 10^6/ul (4.70-6.10); RED CELL DISTRIBUTION WIDTH 18.3 % (11.5-14.5)
[2017-11-05] MEDS: AMIODARONE 200 MG TAB NGT ×3 (05:50→22:01)
[2017-11-05] MEDS: DEXTROSE 5%-0.45% NACL 1,000 ML IV (05:52)
[2017-11-05 05:58] LABS: ANION GAP 19 (8-16); BLOOD UREA NITROGEN 37 mg/dl (7-20); CALCIUM 8.5 mg/dl (8.4-10.2); CARBON DIOXIDE 28 mmol/L (21-31); CHLORIDE 99 mmol/L (97-110); CREATININE 7.06 mg/dl (0.61-1.24); GLUCOSE 70 mg/dl (70-220); POTASSIUM 4.4 mmol/L (3.5-5.1); SODIUM 142 mmol/L (135-144)
[2017-11-05] MEDS: INSULIN ASPART [NOVOLOG] 3 ML PEN SC ×4 (07:35→20:11)
[2017-11-05] MEDS: DOCUSATE SODIUM 100 MG CAP PO ×2 (09:00→21:14)
[2017-11-05] MEDS: SENNA/DOCUSATE NA (8.6MG/50MG) TAB PO ×2 (09:00→21:14)
[2017-11-05] MEDS: PANTOPRAZOLE (EC) 40 MG TAB PO ×2 (09:39→21:13)
[2017-11-05] MEDS: ASPIRIN (EC) 81 MG TAB PO (09:40)
[2017-11-05] MEDS: SEVELAMER CARBONATE 0.8 GM PKT PO ×3 (09:40→16:54)
[2017-11-05] MEDS: ROCALTROL PO ×2 (09:40→21:45)
[2017-11-05] MEDS: CALCIUM CARBONATE 500 MG CHEW TAB PO ×3 (09:40→15:20)
[2017-11-05] MEDS: GABAPENTIN 300 MG CAP PO ×2 (09:40→21:11)
[2017-11-05] MEDS: BACITRACIN 0.5%/ZINC 28.35 GM OINT TOP ×2 (09:41→21:45)
[2017-11-05] MEDS: SODIUM HYPOCHLORITE 0.125% 473 ML BTL IRR ×2 (09:41→21:47)
[2017-11-05] MEDS: BALSAM PERU/CASTOR OIL 60 GM TUBE TOP ×2 (09:41→21:45)
[2017-11-05] MEDS: SERTRALINE 100 MG TAB PO (09:41)
[2017-11-05] MEDS: INSULIN GLARGINE [LANtus] 3 ML PEN SC ×2 (09:46→20:09)
[2017-11-05] MEDS: EPOETIN 4000 UNITS/1 ML INJ (ESRD) SC (16:54)
[2017-11-05] MEDS: CASPOFUNGIN 50 MG in NS 250 ML IVPB (16:55)
[2017-11-05] MEDS: KETOROLAC 30 MG INJ IV (18:05)
[2017-11-05] MEDS: ATORVASTATIN 20 MG TAB PO (21:13)
[2017-11-05] MEDS: TRIMETHOPRIM/SULFAMETHOX (DS) TAB PO (21:23)
[2017-11-05] MEDS: CEFTAZIDIME 1GM/50 ML (PMX) 50 ML IVPB (21:27)
[2017-11-06] MEDS: LEVALBUTEROL (NEB) 1.25 MG/0.5 ML AMP HHN ×4 (01:22→19:42)
[2017-11-06] MEDS: ACCU-CHEK XX (02:37)
[2017-11-06] MEDS: traMADol 50 MG TAB PO ×4 (03:00→21:06)
[2017-11-06] MEDS: HYDROmorphONE 0.5 MG/0.5 ML SYG IV ×4 (04:02→22:03)
[2017-11-06] MEDS: HALOPERIDOL 5 MG INJ IV (04:59)
[2017-11-06 05:20] LABS: ADD MAN DIFF? NO
[2017-11-06 05:25] LABS: WHITE BLOOD COUNT 6.6 10^3/ul (4.8-10.8)
[2017-11-06 05:25] LABS: BASOPHILS % 0.6 % (0.0-2.0); EOSINOPHILS # 0.1 10^3/ul (0.0-0.5); EOSINOPHILS % 1.1 % (0.0-7.0); HEMATOCRIT 28.2 % (42.0-52.0); HEMOGLOBIN 8.3 g/dl (14.0-18.0); LYMPHOCYTES # 0.8 10^3/ul (0.8-2.9); LYMPHOCYTES % 12.3 % (15.0-51.0); MEAN CORPUSCULAR HEMOGLOBIN 29.5 pg (29.0-33.0); MEAN CORPUSCULAR HGB CONC 29.4 g/dl (32.0-37.0); MEAN CORPUSCULAR VOLUME 100.4 fl (82.0-101.0); MEAN PLATELET VOLUME 10.1 fl (7.4-10.4); MONOCYTE # 0.6 10^3/ul (0.3-0.9); NEUTROPHIL # 5.1 10^3/ul (1.6-7.5); NEUTROPHILS % 76.5 % (39.0-77.0); PLATELET COUNT 145 10^3/UL (140-415); RED BLOOD COUNT 2.81 10^6/ul (4.70-6.10); RED CELL DISTRIBUTION WIDTH 18.1 % (11.5-14.5)
[2017-11-06] MEDS: DIPHENHYDRAMINE 50 MG INJ IV ×2 (05:35→16:10)
[2017-11-06 05:47] LABS: ANION GAP 22 (8-16); BLOOD UREA NITROGEN 46 mg/dl (7-20); CALCIUM 8.6 mg/dl (8.4-10.2); CARBON DIOXIDE 26 mmol/L (21-31); CHLORIDE 100 mmol/L (97-110); CREATININE 8.56 mg/dl (0.61-1.24); GLUCOSE 71 mg/dl (70-220); POTASSIUM 4.6 mmol/L (3.5-5.1); SODIUM 143 mmol/L (135-144)
[2017-11-06] MEDS: AMIODARONE 200 MG TAB NGT ×3 (06:00→22:03)
[2017-11-06] MEDS: DEXTROSE 5%-0.45% NACL 1,000 ML IV (06:30)
[2017-11-06] MEDS: LEVOTHYROXINE 75 MCG TAB PO (06:52)
[2017-11-06] MEDS: INSULIN ASPART [NOVOLOG] 3 ML PEN SC ×4 (07:35→21:00)
[2017-11-06] MEDS: INSULIN GLARGINE [LANtus] 3 ML PEN SC ×2 (08:00→20:00)
[2017-11-06] MEDS: DEXTROSE 50% 50 ML SYRINGE IV (08:38)
[2017-11-06] MEDS: SEVELAMER CARBONATE 0.8 GM PKT PO ×3 (09:31→18:09)
[2017-11-06] MEDS: SERTRALINE 100 MG TAB PO (09:32)
[2017-11-06] MEDS: PANTOPRAZOLE (EC) 40 MG TAB PO ×2 (09:32→21:04)
[2017-11-06] MEDS: GABAPENTIN 300 MG CAP PO ×2 (09:32→21:04)
[2017-11-06] MEDS: ASPIRIN (EC) 81 MG TAB PO (09:32)
[2017-11-06] MEDS: DOCUSATE SODIUM 100 MG CAP PO ×2 (09:32→21:04)
[2017-11-06] MEDS: CALCIUM CARBONATE 500 MG CHEW TAB PO ×3 (09:32→21:02)
[2017-11-06] MEDS: SODIUM HYPOCHLORITE 0.125% 473 ML BTL IRR ×2 (09:33→21:12)
[2017-11-06] MEDS: SENNA/DOCUSATE NA (8.6MG/50MG) TAB PO ×2 (09:33→21:04)
[2017-11-06] MEDS: ROCALTROL PO ×2 (09:33→21:01)
[2017-11-06] MEDS: BALSAM PERU/CASTOR OIL 60 GM TUBE TOP ×2 (09:34→21:25)
[2017-11-06] MEDS: BACITRACIN 0.5%/ZINC 28.35 GM OINT TOP ×2 (09:34→21:25)
[2017-11-06] MEDS: CASPOFUNGIN 50 MG in NS 250 ML IVPB (18:22)
[2017-11-06] MEDS: ATORVASTATIN 20 MG TAB PO (21:04)
[2017-11-06] MEDS: TRIMETHOPRIM/SULFAMETHOX (DS) TAB PO (21:04)
[2017-11-06] MEDS: CEFTAZIDIME 1GM/50 ML (PMX) 50 ML IVPB (21:11)
[2017-11-07] MEDS: HYDROmorphONE 0.5 MG/0.5 ML SYG IV ×7 (01:02→21:23)
[2017-11-07] MEDS: INSULIN GLARGINE [LANtus] 3 ML PEN SC ×2 (01:08→08:00)
[2017-11-07] MEDS: DIPHENHYDRAMINE 50 MG INJ IV ×2 (01:17→16:39)
[2017-11-07] MEDS: LEVALBUTEROL (NEB) 1.25 MG/0.5 ML AMP HHN ×4 (02:03→20:09)
[2017-11-07] MEDS: ACCU-CHEK XX (02:25)
[2017-11-07] MEDS: traMADol 50 MG TAB PO ×4 (03:30→21:23)
[2017-11-07 05:36] LABS: ADD MAN DIFF? NO
[2017-11-07 05:46] LABS: WHITE BLOOD COUNT 7.2 10^3/ul (4.8-10.8)
[2017-11-07 05:46] LABS: BASOPHILS % 0.4 % (0.0-2.0); EOSINOPHILS # 0.1 10^3/ul (0.0-0.5); EOSINOPHILS % 0.7 % (0.0-7.0); HEMATOCRIT 26.9 % (42.0-52.0); LYMPHOCYTES # 0.7 10^3/ul (0.8-2.9); LYMPHOCYTES % 9.1 % (15.0-51.0); MEAN CORPUSCULAR HEMOGLOBIN 29.6 pg (29.0-33.0); MEAN CORPUSCULAR HGB CONC 29.7 g/dl (32.0-37.0); MEAN CORPUSCULAR VOLUME 99.6 fl (82.0-101.0); MEAN PLATELET VOLUME 10.5 fl (7.4-10.4); MONOCYTE # 0.5 10^3/ul (0.3-0.9); MONOCYTES % 7.3 % (0.0-11.0); NEUTROPHIL # 5.9 10^3/ul (1.6-7.5); NEUTROPHILS % 82.1 % (39.0-77.0); PLATELET COUNT 148 10^3/UL (140-415); RED CELL DISTRIBUTION WIDTH 18.1 % (11.5-14.5)
[2017-11-07 06:03] LABS: PROTIME 15.4 Sec (11.9-14.9); PT RATIO 1.2
[2017-11-07 06:04] LABS: PARTIAL THROMBOPLASTIN TIME 47.5 Sec (25.0-35.0)
[2017-11-07] MEDS: AMIODARONE 200 MG TAB NGT ×3 (06:20→21:48)
[2017-11-07] MEDS: DEXTROSE 5%-0.45% NACL 1,000 ML IV (06:21)
[2017-11-07 06:35] LABS: ANION GAP 20 (8-16); BLOOD UREA NITROGEN 35 mg/dl (7-20); CALCIUM 8.5 mg/dl (8.4-10.2); CARBON DIOXIDE 26 mmol/L (21-31); CHLORIDE 100 mmol/L (97-110); CREATININE 7.18 mg/dl (0.61-1.24); GLUCOSE 134 mg/dl (70-220); POTASSIUM 4.6 mmol/L (3.5-5.1); SODIUM 141 mmol/L (135-144)
[2017-11-07 06:42] LABS: THROMBIN TIME 16.2 SEC (13.8-19.1)
[2017-11-07 07:03] LABS: PLATELET COUNT 148 10^3/UL (140-440)
[2017-11-07] MEDS: LEVOTHYROXINE 75 MCG TAB PO (07:03)
[2017-11-07] MEDS: SEVELAMER CARBONATE 0.8 GM PKT PO ×3 (07:35→17:35)
[2017-11-07] MEDS: INSULIN ASPART [NOVOLOG] 3 ML PEN SC ×4 (07:35→21:00)
[2017-11-07] MEDS: PANTOPRAZOLE (EC) 40 MG TAB PO ×2 (09:00→21:22)
[2017-11-07] MEDS: DOCUSATE SODIUM 100 MG CAP PO ×2 (09:00→21:24)
[2017-11-07] MEDS: ROCALTROL PO ×2 (09:00→21:22)
[2017-11-07] MEDS: SODIUM HYPOCHLORITE 0.125% 473 ML BTL IRR ×2 (09:00→21:26)
[2017-11-07] MEDS: SENNA/DOCUSATE NA (8.6MG/50MG) TAB PO ×2 (09:00→21:24)
[2017-11-07] MEDS: ASPIRIN (EC) 81 MG TAB PO (09:00)
[2017-11-07] MEDS: CALCIUM CARBONATE 500 MG CHEW TAB PO ×3 (09:00→21:22)
[2017-11-07] MEDS: BACITRACIN 0.5%/ZINC 28.35 GM OINT TOP ×2 (09:46→21:23)
[2017-11-07] MEDS: BALSAM PERU/CASTOR OIL 60 GM TUBE TOP ×2 (09:46→21:24)
[2017-11-07] MEDS: SERTRALINE 100 MG TAB PO (09:56)
[2017-11-07] MEDS: GABAPENTIN 300 MG CAP PO ×2 (09:57→21:22)
[2017-11-07] MEDS: CASPOFUNGIN 50 MG in NS 250 ML IVPB (19:58)
[2017-11-07] MEDS ORDERED: AMIODARONE 200 MG TAB NGT (21:00)
[2017-11-07] MEDS: ATORVASTATIN 20 MG TAB PO (21:22)
[2017-11-07] MEDS: TRIMETHOPRIM/SULFAMETHOX (DS) TAB PO (21:22)
[2017-11-07] MEDS: CEFTAZIDIME 1GM/50 ML (PMX) 50 ML IVPB (21:47)
[2017-11-08] MEDS: HYDROmorphONE 0.5 MG/0.5 ML SYG IV ×3 (01:13→18:22)
[2017-11-08 01:17] LABS: AADO2 Arterial 580.9 mmHg (7.0-24.0); Arterial Base Excess 0.4 mmol/L (-3.0-3); Arterial Blood Gas Oxygen Sat 93.3 mmHG (95.0-98.0); Arterial COHb 1.2 % (0.0-3.0); Arterial Fraction of Oxyhgb 92.1 % (93.0-99.0); Arterial HCO3 27.2 mmol/L (22.0-26.0); Arterial MetHb 0.1 % (0.0-1.5); Arterial Total Hemglobin 9.2 g/dl (12.0-18.0); Arterial pCO2 55.8 mmhg (35-45); MODE HFNC; Site Right Brachial
[2017-11-08] MEDS: ACCU-CHEK XX (02:00)
[2017-11-08] MEDS: LEVALBUTEROL (NEB) 1.25 MG/0.5 ML AMP HHN ×4 (02:12→20:15)
[2017-11-08 02:33] LABS: TROPONIN-I 0.068 ng/ml (0.00-0.12)
[2017-11-08] MEDS: clonAZEPAM 0.5 MG TAB PO (03:57)
[2017-11-08] MEDS: traMADol 50 MG TAB PO ×4 (03:57→21:17)
[2017-11-08 05:06] LABS: ADD MAN DIFF? NO
[2017-11-08 05:12] LABS: ABNORMAL IP MESSAGE 1; BASOPHILS % 0.3 % (0.0-2.0); EOSINOPHILS % 0.2 % (0.0-7.0); HEMATOCRIT 27.3 % (42.0-52.0); HEMOGLOBIN 7.9 g/dl (14.0-18.0); LYMPHOCYTES # 0.4 10^3/ul (0.8-2.9); LYMPHOCYTES % 6.3 % (15.0-51.0); MEAN CORPUSCULAR HEMOGLOBIN 29.4 pg (29.0-33.0); MEAN CORPUSCULAR HGB CONC 28.9 g/dl (32.0-37.0); MEAN CORPUSCULAR VOLUME 101.5 fl (82.0-101.0); MEAN PLATELET VOLUME 10.4 fl (7.4-10.4); MONOCYTE # 0.4 10^3/ul (0.3-0.9); MONOCYTES % 6.3 % (0.0-11.0); NEUTROPHIL # 5.7 10^3/ul (1.6-7.5); NEUTROPHILS % 86.4 % (39.0-77.0); PLATELET COUNT 152 10^3/UL (140-415); POSITIVE DIFF @See below; RED BLOOD COUNT 2.69 10^6/ul (4.70-6.10); RED CELL DISTRIBUTION WIDTH 18.2 % (11.5-14.5)
[2017-11-08 05:12] LABS: WHITE BLOOD COUNT 6.6 10^3/ul (4.8-10.8)
[2017-11-08 05:29] LABS: ANION GAP 21 (8-16); BLOOD UREA NITROGEN 32 mg/dl (7-20); CALCIUM 8.7 mg/dl (8.4-10.2); CARBON DIOXIDE 27 mmol/L (21-31); CHLORIDE 102 mmol/L (97-110); CREATININE 6.94 mg/dl (0.61-1.24); GLUCOSE 154 mg/dl (70-220); POTASSIUM 4.4 mmol/L (3.5-5.1); SODIUM 146 mmol/L (135-144)
[2017-11-08] MEDS: DEXTROSE 5%-0.45% NACL 1,000 ML IV (05:55)
[2017-11-08] MEDS: LEVOTHYROXINE 75 MCG TAB PO (06:20)
[2017-11-08] MEDS: SEVELAMER CARBONATE 0.8 GM PKT PO ×3 (08:00→17:26)
[2017-11-08] MEDS: INSULIN ASPART [NOVOLOG] 3 ML PEN SC ×4 (08:00→21:00)
[2017-11-08 08:32] LABS: AADO2 Arterial 515.3 mmHg (7.0-24.0); Allen Test ACCEPTAB; Arterial Base Excess 1.9 mmol/L (-3.0-3); Arterial Blood Gas Oxygen Sat 92.9 mmHG (95.0-98.0); Arterial COHb 1.3 % (0.0-3.0); Arterial Fraction of Oxyhgb 91.4 % (93.0-99.0); Arterial HCO3 28.3 mmol/L (22.0-26.0); Arterial MetHb 0.3 % (0.0-1.5); Arterial pCO2 54.3 mmhg (35-45); MODE HFNC; Site Right Radial
[2017-11-08] MEDS: AMIODARONE 200 MG TAB NGT (09:00)
[2017-11-08] MEDS: DOCUSATE SODIUM 100 MG CAP PO ×2 (09:00→21:17)
[2017-11-08] MEDS: CALCIUM CARBONATE 500 MG CHEW TAB PO ×3 (09:00→21:17)
[2017-11-08] MEDS ORDERED: AMIODARONE 200 MG TAB NGT (09:00)
[2017-11-08] MEDS: SERTRALINE 100 MG TAB PO (09:00)
[2017-11-08] MEDS: SENNA/DOCUSATE NA (8.6MG/50MG) TAB PO ×2 (09:00→21:17)
[2017-11-08] MEDS: ASPIRIN (EC) 81 MG TAB PO (09:00)
[2017-11-08] MEDS: GABAPENTIN 300 MG CAP PO ×2 (09:00→21:17)
[2017-11-08] MEDS: ROCALTROL PO ×2 (09:00→21:29)
[2017-11-08] MEDS: PANTOPRAZOLE (EC) 40 MG TAB PO ×2 (09:00→21:17)
[2017-11-08] MEDS: INSULIN GLARGINE [LANtus] 3 ML PEN SC ×2 (09:41→21:30)
[2017-11-08] MEDS: BALSAM PERU/CASTOR OIL 60 GM TUBE TOP ×2 (09:47→21:25)
[2017-11-08] MEDS: BACITRACIN 0.5%/ZINC 28.35 GM OINT TOP ×2 (09:47→21:25)
[2017-11-08] MEDS: SODIUM HYPOCHLORITE 0.125% 473 ML BTL IRR ×2 (09:49→21:24)
[2017-11-08] MEDS ORDERED: BUPIVACAINE 0.25% (MPF) 30 ML INJ (12:18)
[2017-11-08] MEDS: DEXTROSE 50% 50 ML SYRINGE IV (12:53)
[2017-11-08] MEDS ORDERED: MIDAZOLAM 1 MG/ML 2 ML INJ (12:54)
[2017-11-08] MEDS ORDERED: KETAMINE (50 MG/ML) 10 ML VIAL (12:55)
[2017-11-08] MEDS ORDERED: LIDOCAINE 1% (MPF) 30 ML INJ ×2 (13:06→13:26)
[2017-11-08] MEDS ORDERED: EPHEDrine SULFATE 50 MG/5 ML SYG ×2 (13:17→15:13)
[2017-11-08] MEDS ORDERED: ALBUMIN HUMAN 5% 250 ML (13:54)
[2017-11-08 14:27] LABS: AHG CROSSMATCH 1 2
[2017-11-08] MEDS ORDERED: NEOMYC/POLYMYX/BACIT 30 GM OINT (15:26)
[2017-11-08] MEDS ORDERED: HYDROmorphONE 0.5 MG/0.5 ML SYG IV (15:30)
[2017-11-08] MEDS ORDERED: ONDANSETRON 4 MG INJ IV (15:30)
[2017-11-08] MEDS ORDERED: EPHEDrine SULFATE 50 MG/5 ML SYG IV (15:30)
[2017-11-08] MEDS: LIDOCAINE 1% (MPF) 30 ML INJ ×2 (16:09)
[2017-11-08] MEDS: CASPOFUNGIN 50 MG in NS 250 ML IVPB (17:19)
[2017-11-08] MEDS: EPOETIN 4000 UNITS/1 ML INJ (ESRD) SC (17:20)
[2017-11-08] MEDS: DIPHENHYDRAMINE 50 MG INJ IV (20:51)
[2017-11-08] MEDS: ATORVASTATIN 20 MG TAB PO (21:17)
[2017-11-08] MEDS: CEFTAZIDIME 1GM/50 ML (PMX) 50 ML IVPB (21:21)
[2017-11-08] MEDS: TRIMETHOPRIM/SULFAMETHOX (DS) TAB PO (21:26)
[2017-11-09] MEDS: AMIODARONE 200 MG TAB NGT ×3 (00:47→20:14)
[2017-11-09] MEDS: HYDROmorphONE 0.5 MG/0.5 ML SYG IV ×7 (00:47→22:22)
[2017-11-09] MEDS: LEVALBUTEROL (NEB) 1.25 MG/0.5 ML AMP HHN ×4 (01:42→20:41)
[2017-11-09] MEDS: ACCU-CHEK XX (02:19)
[2017-11-09] MEDS: traMADol 50 MG TAB PO ×4 (03:00→20:22)
[2017-11-09 05:12] LABS: ADD MAN DIFF? NO
[2017-11-09 05:15] LABS: BASOPHILS % 0.2 % (0.0-2.0); EOSINOPHILS % 0.4 % (0.0-7.0); HEMATOCRIT 28.8 % (42.0-52.0); HEMOGLOBIN 8.7 g/dl (14.0-18.0); LYMPHOCYTES # 0.7 10^3/ul (0.8-2.9); LYMPHOCYTES % 8.5 % (15.0-51.0); MEAN CORPUSCULAR HEMOGLOBIN 29.6 pg (29.0-33.0); MEAN CORPUSCULAR HGB CONC 30.2 g/dl (32.0-37.0); MEAN PLATELET VOLUME 10.5 fl (7.4-10.4); MONOCYTE # 0.7 10^3/ul (0.3-0.9); MONOCYTES % 8.3 % (0.0-11.0); NEUTROPHIL # 6.7 10^3/ul (1.6-7.5); NEUTROPHILS % 82.2 % (39.0-77.0); PLATELET COUNT 145 10^3/UL (140-415); RED BLOOD COUNT 2.94 10^6/ul (4.70-6.10); RED CELL DISTRIBUTION WIDTH 19.5 % (11.5-14.5)
[2017-11-09 05:15] LABS: WHITE BLOOD COUNT 8.2 10^3/ul (4.8-10.8)
[2017-11-09 05:40] LABS: ALANINE AMINOTRANSFERASE 51 IU/L (13-69); ALBUMIN/GLOBULIN RATIO 0.93; ALKALINE PHOSPHATASE 114 IU/L (42-121); ANION GAP 18 (8-16); ASPARTATE AMINO TRANSFERASE 38 IU/L (15-46); BLOOD UREA NITROGEN 29 mg/dl (7-20); CALCIUM 8.5 mg/dl (8.4-10.2); CARBON DIOXIDE 27 mmol/L (21-31); CHLORIDE 103 mmol/L (97-110); CREATININE 5.81 mg/dl (0.61-1.24); GLUCOSE 81 mg/dl (70-220); POTASSIUM 4.4 mmol/L (3.5-5.1); SODIUM 144 mmol/L (135-144); TOTAL PROTEIN 6.2 g/dl (6.1-8.1)
[2017-11-09] MEDS: DEXTROSE 5%-0.45% NACL 1,000 ML IV (06:08)
[2017-11-09] MEDS: INSULIN ASPART [NOVOLOG] 3 ML PEN SC ×4 (07:35→20:18)
[2017-11-09] MEDS: SEVELAMER CARBONATE 0.8 GM PKT PO ×3 (07:54→17:03)
[2017-11-09] MEDS: SERTRALINE 100 MG TAB PO (07:54)
[2017-11-09] MEDS: ASPIRIN (EC) 81 MG TAB PO (07:56)
[2017-11-09] MEDS: PANTOPRAZOLE (EC) 40 MG TAB PO ×2 (07:56→20:13)
[2017-11-09] MEDS: LEVOTHYROXINE 75 MCG TAB PO (07:56)
[2017-11-09] MEDS: SENNA/DOCUSATE NA (8.6MG/50MG) TAB PO ×2 (07:56→20:15)
[2017-11-09] MEDS: GABAPENTIN 300 MG CAP PO ×2 (07:56→20:14)
[2017-11-09] MEDS: CALCIUM CARBONATE 500 MG CHEW TAB PO ×3 (07:56→20:13)
[2017-11-09] MEDS: DOCUSATE SODIUM 100 MG CAP PO ×2 (07:59→20:13)
[2017-11-09] MEDS: INSULIN GLARGINE [LANtus] 3 ML PEN SC ×2 (09:42→20:20)
[2017-11-09] MEDS: SODIUM HYPOCHLORITE 0.125% 473 ML BTL IRR ×2 (09:48→20:18)
[2017-11-09] MEDS: BALSAM PERU/CASTOR OIL 60 GM TUBE TOP ×2 (09:48→20:18)
[2017-11-09] MEDS: BACITRACIN 0.5%/ZINC 28.35 GM OINT TOP ×2 (09:48→20:18)
[2017-11-09] MEDS: ROCALTROL PO ×2 (09:49→20:14)
[2017-11-09] MEDS: CASPOFUNGIN 50 MG in NS 250 ML IVPB (16:49)
[2017-11-09] MEDS: TRIMETHOPRIM/SULFAMETHOX (DS) TAB PO (20:13)
[2017-11-09] MEDS: ATORVASTATIN 20 MG TAB PO (20:13)
[2017-11-09] MEDS: CEFTAZIDIME 1GM/50 ML (PMX) 50 ML IVPB (20:52)
[2017-11-10] MEDS: LEVALBUTEROL (NEB) 1.25 MG/0.5 ML AMP HHN ×4 (01:52→20:00)
[2017-11-10] MEDS: HYDROmorphONE 0.5 MG/0.5 ML SYG IV ×7 (02:22→22:10)
[2017-11-10] MEDS: ACCU-CHEK XX (02:28)
[2017-11-10] MEDS: traMADol 50 MG TAB PO ×4 (03:00→21:19)
[2017-11-10 05:29] LABS: HEMATOCRIT 28.3 % (42.0-52.0)
[2017-11-10 05:29] LABS: HEMOGLOBIN 8.5 g/dl (14.0-18.0)
[2017-11-10] MEDS: DEXTROSE 5%-0.45% NACL 1,000 ML IV ×2 (06:30→16:16)
[2017-11-10] MEDS: INSULIN ASPART [NOVOLOG] 3 ML PEN SC ×4 (07:35→21:00)
[2017-11-10] MEDS: INSULIN GLARGINE [LANtus] 3 ML PEN SC ×2 (08:00→21:33)
[2017-11-10] MEDS: CALCIUM CARBONATE 500 MG CHEW TAB PO ×3 (08:44→21:19)
[2017-11-10] MEDS: LEVOTHYROXINE 75 MCG TAB PO (08:44)
[2017-11-10] MEDS: DOCUSATE SODIUM 100 MG CAP PO ×2 (08:44→21:20)
[2017-11-10] MEDS: SENNA/DOCUSATE NA (8.6MG/50MG) TAB PO ×2 (08:44→21:19)
[2017-11-10] MEDS: PANTOPRAZOLE (EC) 40 MG TAB PO ×2 (08:44→21:20)
[2017-11-10] MEDS: GABAPENTIN 300 MG CAP PO ×2 (08:44→21:20)
[2017-11-10] MEDS: ASPIRIN (EC) 81 MG TAB PO (08:45)
[2017-11-10] MEDS: BALSAM PERU/CASTOR OIL 60 GM TUBE TOP ×2 (08:46→21:23)
[2017-11-10] MEDS: SODIUM HYPOCHLORITE 0.125% 473 ML BTL IRR ×2 (08:46→21:23)
[2017-11-10] MEDS: BACITRACIN 0.5%/ZINC 28.35 GM OINT TOP ×2 (08:46→21:23)
[2017-11-10] MEDS: AMIODARONE 200 MG TAB NGT ×2 (08:47→21:20)
[2017-11-10] MEDS: SERTRALINE 100 MG TAB PO (08:52)
[2017-11-10] MEDS: ROCALTROL PO ×2 (08:52→21:27)
[2017-11-10] MEDS: SEVELAMER CARBONATE 0.8 GM PKT PO ×3 (08:52→16:41)
[2017-11-10] MEDS: ERGOCALCIFEROL 50,000 UNIT CAP PO (09:00)
[2017-11-10] MEDS: DEXTROSE 50% 50 ML SYRINGE IV (10:42)
[2017-11-10] MEDS: CASPOFUNGIN 50 MG in NS 250 ML IVPB (16:15)
[2017-11-10] MEDS: EPOETIN 4000 UNITS/1 ML INJ (ESRD) SC (16:24)
[2017-11-10] MEDS: CEFTAZIDIME 1GM/50 ML (PMX) 50 ML IVPB (21:18)
[2017-11-10] MEDS: ATORVASTATIN 20 MG TAB PO (21:19)
[2017-11-10] MEDS: TRIMETHOPRIM/SULFAMETHOX (DS) TAB PO (21:27)
[2017-11-10] MEDS: LORAZEPAM 2 MG INJ IV (23:48)
[2017-11-11] MEDS: ACCU-CHEK XX (02:17)
[2017-11-11] MEDS: LEVALBUTEROL (NEB) 1.25 MG/0.5 ML AMP HHN ×4 (02:26→19:17)
[2017-11-11] MEDS: HYDROmorphONE 0.5 MG/0.5 ML SYG IV ×7 (03:19→19:28)
[2017-11-11] MEDS: traMADol 50 MG TAB PO ×5 (03:23→22:23)
[2017-11-11] MEDS: INSULIN ASPART [NOVOLOG] 3 ML PEN SC ×4 (07:35→20:43)
[2017-11-11] MEDS: ASPIRIN (EC) 81 MG TAB PO (08:47)
[2017-11-11] MEDS: GABAPENTIN 300 MG CAP PO ×2 (08:47→20:43)
[2017-11-11] MEDS: SERTRALINE 100 MG TAB PO (08:47)
[2017-11-11] MEDS: AMIODARONE 200 MG TAB NGT ×2 (08:47→20:43)
[2017-11-11] MEDS: DOCUSATE SODIUM 100 MG CAP PO ×2 (08:47→20:43)
[2017-11-11] MEDS: PANTOPRAZOLE (EC) 40 MG TAB PO ×2 (08:47→20:43)
[2017-11-11] MEDS: LEVOTHYROXINE 75 MCG TAB PO (08:47)
[2017-11-11] MEDS: SEVELAMER CARBONATE 0.8 GM PKT PO ×3 (08:48→17:13)
[2017-11-11] MEDS: CALCIUM CARBONATE 500 MG CHEW TAB PO ×3 (08:48→20:42)
[2017-11-11] MEDS: SENNA/DOCUSATE NA (8.6MG/50MG) TAB PO ×2 (08:48→20:43)
[2017-11-11] MEDS: ROCALTROL PO ×2 (08:49→20:42)
[2017-11-11] MEDS: BACITRACIN 0.5%/ZINC 28.35 GM OINT TOP ×2 (08:50→20:44)
[2017-11-11] MEDS: SODIUM HYPOCHLORITE 0.125% 473 ML BTL IRR ×2 (08:50→20:44)
[2017-11-11] MEDS: INSULIN GLARGINE [LANtus] 3 ML PEN SC ×2 (08:53→20:47)
[2017-11-11] MEDS: BALSAM PERU/CASTOR OIL 60 GM TUBE TOP ×2 (09:21→20:44)
[2017-11-11] MEDS: CASPOFUNGIN 50 MG in NS 250 ML IVPB (17:11)
[2017-11-11] MEDS: DIPHENHYDRAMINE 50 MG INJ IV (17:23)
[2017-11-11] MEDS: ATORVASTATIN 20 MG TAB PO (20:42)
[2017-11-11] MEDS: clonAZEPAM 0.5 MG TAB PO (20:42)
[2017-11-11] MEDS: TRIMETHOPRIM/SULFAMETHOX (DS) TAB PO (20:43)
[2017-11-11] MEDS ORDERED: LORAZEPAM 2 MG INJ IM (22:00)
[2017-11-11] MEDS: CEFTAZIDIME 1GM/50 ML (PMX) 50 ML IVPB (23:17)
[2017-11-12] MEDS: HYDROmorphONE 0.5 MG/0.5 ML SYG IV ×4 (00:03→18:10)
[2017-11-12] MEDS: LORAZEPAM 2 MG INJ IV (00:20)
[2017-11-12] MEDS: LEVALBUTEROL (NEB) 1.25 MG/0.5 ML AMP HHN ×5 (01:34→20:08)
[2017-11-12] MEDS: ACCU-CHEK XX (02:00)
[2017-11-12] MEDS: traMADol 50 MG TAB PO ×4 (03:00→21:00)
[2017-11-12 05:51] LABS: ADD MAN DIFF? NO
[2017-11-12 05:59] LABS: WHITE BLOOD COUNT 5.8 10^3/ul (4.8-10.8)
[2017-11-12 05:59] LABS: ABNORMAL IP MESSAGE 1; BASOPHILS % 0.5 % (0.0-2.0); EOSINOPHILS % 0.7 % (0.0-7.0); HEMATOCRIT 29.2 % (42.0-52.0); HEMOGLOBIN 8.4 g/dl (14.0-18.0); LYMPHOCYTES # 0.6 10^3/ul (0.8-2.9); LYMPHOCYTES % 10.8 % (15.0-51.0); MEAN CORPUSCULAR HEMOGLOBIN 29.2 pg (29.0-33.0); MEAN CORPUSCULAR HGB CONC 28.8 g/dl (32.0-37.0); MEAN CORPUSCULAR VOLUME 101.4 fl (82.0-101.0); MEAN PLATELET VOLUME 10.2 fl (7.4-10.4); MONOCYTE # 0.5 10^3/ul (0.3-0.9); MONOCYTES % 9.4 % (0.0-11.0); NEUTROPHIL # 4.5 10^3/ul (1.6-7.5); NEUTROPHILS % 77.9 % (39.0-77.0); POSITIVE DIFF @See below; RED BLOOD COUNT 2.88 10^6/ul (4.70-6.10)
[2017-11-12 06:00] LABS: PLATELET COUNT 110 10^3/UL (140-415)
[2017-11-12 06:24] LABS: ANION GAP 17 (8-16); BLOOD UREA NITROGEN 33 mg/dl (7-20); CALCIUM 8.3 mg/dl (8.4-10.2); CARBON DIOXIDE 28 mmol/L (21-31); CHLORIDE 104 mmol/L (97-110); CREATININE 7.71 mg/dl (0.61-1.24); GLUCOSE 194 mg/dl (70-220); POTASSIUM 4.3 mmol/L (3.5-5.1); SODIUM 145 mmol/L (135-144)
[2017-11-12] MEDS: DEXTROSE 5%-0.45% NACL 1,000 ML IV ×2 (06:30→19:00)
[2017-11-12] MEDS: INSULIN ASPART [NOVOLOG] 3 ML PEN SC ×4 (07:35→21:00)
[2017-11-12] MEDS: SODIUM HYPOCHLORITE 0.125% 473 ML BTL IRR ×2 (08:39→19:40)
[2017-11-12] MEDS: ROCALTROL PO ×2 (08:48→22:30)
[2017-11-12] MEDS: SEVELAMER CARBONATE 0.8 GM PKT PO ×3 (08:48→17:19)
[2017-11-12] MEDS: CALCIUM CARBONATE 500 MG CHEW TAB PO ×3 (08:48→21:16)
[2017-11-12] MEDS: PANTOPRAZOLE (EC) 40 MG TAB PO ×2 (08:49→21:16)
[2017-11-12] MEDS: DOCUSATE SODIUM 100 MG CAP PO ×2 (08:49→21:16)
[2017-11-12] MEDS: AMIODARONE 200 MG TAB NGT ×3 (08:49→22:10)
[2017-11-12] MEDS: LEVOTHYROXINE 75 MCG TAB PO (08:49)
[2017-11-12] MEDS: SERTRALINE 100 MG TAB PO (08:49)
[2017-11-12] MEDS: GABAPENTIN 300 MG CAP PO ×2 (08:49→21:16)
[2017-11-12] MEDS: SENNA/DOCUSATE NA (8.6MG/50MG) TAB PO ×2 (08:49→21:16)
[2017-11-12] MEDS: ASPIRIN (EC) 81 MG TAB PO (08:49)
[2017-11-12] MEDS: BACITRACIN 0.5%/ZINC 28.35 GM OINT TOP ×2 (08:50→21:16)
[2017-11-12] MEDS: BALSAM PERU/CASTOR OIL 60 GM TUBE TOP ×2 (08:50→21:16)
[2017-11-12] MEDS: INSULIN GLARGINE [LANtus] 3 ML PEN SC ×2 (09:04→21:14)
[2017-11-12] MEDS: HYDROCODONE/APAP (5/325) TAB PO (15:17)
[2017-11-12] MEDS: EPOETIN 4000 UNITS/1 ML INJ (ESRD) SC (17:16)
[2017-11-12] MEDS: CASPOFUNGIN 50 MG in NS 250 ML IVPB (17:17)
[2017-11-12] MEDS: ALBUMIN HUMAN 25% 100 ML IV (20:23)
[2017-11-12] MEDS: CEFTAZIDIME 1GM/50 ML (PMX) 50 ML IVPB (21:00)
[2017-11-12] MEDS: ATORVASTATIN 20 MG TAB PO (21:16)
[2017-11-12] MEDS: TRIMETHOPRIM/SULFAMETHOX (DS) TAB PO (22:15)
[2017-11-13] MEDS: LEVALBUTEROL (NEB) 1.25 MG/0.5 ML AMP HHN ×4 (02:04→20:28)
[2017-11-13] MEDS: traMADol 50 MG TAB PO ×4 (02:10→20:02)
[2017-11-13] MEDS: ACCU-CHEK XX (02:17)
[2017-11-13] MEDS: HYDROmorphONE 0.5 MG/0.5 ML SYG IV ×3 (06:07→17:02)
[2017-11-13 06:14] LABS: ANION GAP 17 (8-16); BLOOD UREA NITROGEN 29 mg/dl (7-20); CALCIUM 8.6 mg/dl (8.4-10.2); CARBON DIOXIDE 28 mmol/L (21-31); CHLORIDE 103 mmol/L (97-110); CREATININE 6.56 mg/dl (0.61-1.24); GLUCOSE 90 mg/dl (70-220); POTASSIUM 4.2 mmol/L (3.5-5.1); SODIUM 144 mmol/L (135-144)
[2017-11-13 06:33] LABS: ADD MAN DIFF? NO
[2017-11-13] MEDS: LEVOTHYROXINE 75 MCG TAB PO (06:38)
[2017-11-13] MEDS: INSULIN ASPART [NOVOLOG] 3 ML PEN SC ×4 (07:35→20:04)
[2017-11-13] MEDS: SEVELAMER CARBONATE 0.8 GM PKT PO ×3 (07:49→17:02)
[2017-11-13 08:18] LABS: ABNORMAL IP MESSAGE 1; BASOPHILS % 0.4 % (0.0-2.0); EOSINOPHILS # 0.1 10^3/ul (0.0-0.5); EOSINOPHILS % 1.7 % (0.0-7.0); HEMATOCRIT 29.1 % (42.0-52.0); HEMOGLOBIN 8.4 g/dl (14.0-18.0); LYMPHOCYTES # 0.7 10^3/ul (0.8-2.9); LYMPHOCYTES % 13.7 % (15.0-51.0); MEAN CORPUSCULAR HEMOGLOBIN 29.2 pg (29.0-33.0); MEAN CORPUSCULAR HGB CONC 28.9 g/dl (32.0-37.0); MEAN PLATELET VOLUME 10.8 fl (7.4-10.4); MONOCYTE # 0.5 10^3/ul (0.3-0.9); MONOCYTES % 9.1 % (0.0-11.0); NEUTROPHIL # 3.9 10^3/ul (1.6-7.5); NEUTROPHILS % 74.7 % (39.0-77.0); PLATELET COUNT 100 10^3/UL (140-415); POSITIVE DIFF @See below; RED BLOOD COUNT 2.88 10^6/ul (4.70-6.10); RED CELL DISTRIBUTION WIDTH 17.8 % (11.5-14.5)
[2017-11-13 08:18] LABS: WHITE BLOOD COUNT 5.3 10^3/ul (4.8-10.8)
[2017-11-13] MEDS: ASPIRIN (EC) 81 MG TAB PO (08:50)
[2017-11-13] MEDS: CALCIUM CARBONATE 500 MG CHEW TAB PO ×3 (08:50→20:02)
[2017-11-13] MEDS: PANTOPRAZOLE (EC) 40 MG TAB PO ×2 (08:50→20:01)
[2017-11-13] MEDS: BACITRACIN 0.5%/ZINC 28.35 GM OINT TOP ×2 (08:50→20:04)
[2017-11-13] MEDS: GABAPENTIN 300 MG CAP PO ×2 (08:51→20:01)
[2017-11-13] MEDS: ROCALTROL PO ×2 (08:51→20:01)
[2017-11-13] MEDS: DOCUSATE SODIUM 100 MG CAP PO ×2 (08:51→20:01)
[2017-11-13] MEDS: SERTRALINE 100 MG TAB PO (08:51)
[2017-11-13] MEDS: AMIODARONE 200 MG TAB NGT ×2 (08:51→20:03)
[2017-11-13] MEDS: SENNA/DOCUSATE NA (8.6MG/50MG) TAB PO ×2 (08:51→20:01)
[2017-11-13] MEDS: BALSAM PERU/CASTOR OIL 60 GM TUBE TOP ×2 (08:52→20:04)
[2017-11-13] MEDS: SODIUM HYPOCHLORITE 0.125% 473 ML BTL IRR ×2 (08:52→20:04)
[2017-11-13] MEDS: INSULIN GLARGINE [LANtus] 3 ML PEN SC ×2 (08:54→19:59)
[2017-11-13] MEDS ORDERED: PHENYLephrine 40 MG in DEXTROSE 5% 496 ML IV (10:30)
[2017-11-13] MEDS: HYDROCODONE/APAP (5/325) TAB PO (13:39)
[2017-11-13] MEDS: CASPOFUNGIN 50 MG in NS 250 ML IVPB (17:01)
[2017-11-13] MEDS: CEFTAZIDIME 1GM/50 ML (PMX) 50 ML IVPB (20:02)
[2017-11-13] MEDS: TRIMETHOPRIM/SULFAMETHOX (DS) TAB PO (20:03)
[2017-11-13] MEDS: ATORVASTATIN 20 MG TAB PO (20:03)
[2017-11-13] MEDS: ALBUMIN HUMAN 25% 100 ML IV (21:46)
[2017-11-14] MEDS: LEVALBUTEROL (NEB) 1.25 MG/0.5 ML AMP HHN ×4 (01:52→19:48)
[2017-11-14] MEDS: ACCU-CHEK XX (02:00)
[2017-11-14] MEDS: traMADol 50 MG TAB PO ×4 (03:00→20:43)
[2017-11-14] MEDS: HYDROmorphONE 0.5 MG/0.5 ML SYG IV ×4 (04:59→21:05)
[2017-11-14] MEDS: DEXTROSE 5%-0.45% NACL 1,000 ML IV (05:05)
[2017-11-14 05:31] LABS: ADD MAN DIFF? NO
[2017-11-14 05:38] LABS: ABNORMAL IP MESSAGE 1; BASOPHILS % 0.4 % (0.0-2.0); EOSINOPHILS % 0.7 % (0.0-7.0); HEMOGLOBIN 8.7 g/dl (14.0-18.0); LYMPHOCYTES # 0.5 10^3/ul (0.8-2.9); LYMPHOCYTES % 7.9 % (15.0-51.0); MEAN CORPUSCULAR HEMOGLOBIN 29.2 pg (29.0-33.0); MEAN CORPUSCULAR VOLUME 100.7 fl (82.0-101.0); MEAN PLATELET VOLUME 10.5 fl (7.4-10.4); MONOCYTE # 0.4 10^3/ul (0.3-0.9); NEUTROPHIL # 4.8 10^3/ul (1.6-7.5); NEUTROPHILS % 83.6 % (39.0-77.0); PLATELET COUNT 125 10^3/UL (140-415); POSITIVE DIFF @See below; RED BLOOD COUNT 2.98 10^6/ul (4.70-6.10); RED CELL DISTRIBUTION WIDTH 17.5 % (11.5-14.5)
[2017-11-14 05:38] LABS: WHITE BLOOD COUNT 5.7 10^3/ul (4.8-10.8)
[2017-11-14 05:58] LABS: ANION GAP 25 (8-16); BLOOD UREA NITROGEN 39 mg/dl (7-20); CALCIUM 9.1 mg/dl (8.4-10.2); CARBON DIOXIDE 27 mmol/L (21-31); CHLORIDE 100 mmol/L (97-110); CREATININE 8.15 mg/dl (0.61-1.24); GLUCOSE 115 mg/dl (70-220); POTASSIUM 4.7 mmol/L (3.5-5.1); SODIUM 147 mmol/L (135-144)
[2017-11-14] MEDS: INSULIN ASPART [NOVOLOG] 3 ML PEN SC ×4 (07:35→21:00)
[2017-11-14] MEDS: LEVOTHYROXINE 75 MCG TAB PO (07:38)
[2017-11-14] MEDS: SEVELAMER CARBONATE 0.8 GM PKT PO ×3 (07:52→17:35)
[2017-11-14] MEDS: INSULIN GLARGINE [LANtus] 3 ML PEN SC ×2 (07:54→21:08)
[2017-11-14] MEDS: GABAPENTIN 300 MG CAP PO ×2 (08:41→21:11)
[2017-11-14] MEDS: AMIODARONE 200 MG TAB NGT ×2 (08:41→20:45)
[2017-11-14] MEDS: SODIUM HYPOCHLORITE 0.125% 473 ML BTL IRR ×2 (08:41→20:50)
[2017-11-14] MEDS: PANTOPRAZOLE (EC) 40 MG TAB PO ×2 (08:41→21:12)
[2017-11-14] MEDS: ROCALTROL PO ×2 (08:42→21:11)
[2017-11-14] MEDS: DOCUSATE SODIUM 100 MG CAP PO ×2 (08:42→20:46)
[2017-11-14] MEDS: SENNA/DOCUSATE NA (8.6MG/50MG) TAB PO ×2 (08:42→20:51)
[2017-11-14] MEDS: SERTRALINE 100 MG TAB PO (08:42)
[2017-11-14] MEDS: CALCIUM CARBONATE 500 MG CHEW TAB PO ×3 (08:42→20:44)
[2017-11-14] MEDS: BACITRACIN 0.5%/ZINC 28.35 GM OINT TOP ×2 (08:43→20:50)
[2017-11-14] MEDS: BALSAM PERU/CASTOR OIL 60 GM TUBE TOP ×2 (08:43→20:50)
[2017-11-14] MEDS: ASPIRIN (EC) 81 MG TAB PO (08:45)
[2017-11-14] MEDS: METHYLPREDNISOLONE 125 MG INJ IV ×2 (11:55→18:05)
[2017-11-14] MEDS: CASPOFUNGIN 50 MG in NS 250 ML IVPB (18:01)
[2017-11-14] MEDS: TRIMETHOPRIM/SULFAMETHOX (DS) TAB PO (20:46)
[2017-11-14] MEDS: ATORVASTATIN 20 MG TAB PO (21:11)
[2017-11-15] MEDS: ACCU-CHEK XX (01:31)
[2017-11-15] MEDS: LEVALBUTEROL (NEB) 1.25 MG/0.5 ML AMP HHN ×4 (01:33→19:43)
[2017-11-15] MEDS: METHYLPREDNISOLONE 125 MG INJ IV ×4 (02:57→18:04)
[2017-11-15] MEDS: CEFTAZIDIME 1GM/50 ML (PMX) 50 ML IVPB ×2 (02:57→20:57)
[2017-11-15] MEDS: traMADol 50 MG TAB PO ×4 (03:28→20:53)
[2017-11-15] MEDS: HYDROmorphONE 0.5 MG/0.5 ML SYG IV ×6 (03:42→23:29)
[2017-11-15] MEDS: DIPHENHYDRAMINE 50 MG INJ IV (05:42)
[2017-11-15 06:22] LABS: ADD MAN DIFF? NO
[2017-11-15 06:37] LABS: WHITE BLOOD COUNT 4.2 10^3/ul (4.8-10.8)
[2017-11-15 06:37] LABS: ABNORMAL IP MESSAGE 1; HEMATOCRIT 28.4 % (42.0-52.0); HEMOGLOBIN 8.4 g/dl (14.0-18.0); LYMPHOCYTES # 0.2 10^3/ul (0.8-2.9); LYMPHOCYTES % 3.8 % (15.0-51.0); MEAN CORPUSCULAR HEMOGLOBIN 29.2 pg (29.0-33.0); MEAN CORPUSCULAR HGB CONC 29.6 g/dl (32.0-37.0); MEAN CORPUSCULAR VOLUME 98.6 fl (82.0-101.0); MEAN PLATELET VOLUME 10.8 fl (7.4-10.4); MONOCYTE # 0.1 10^3/ul (0.3-0.9); MONOCYTES % 3.1 % (0.0-11.0); NEUTROPHIL # 3.9 10^3/ul (1.6-7.5); NEUTROPHILS % 92.6 % (39.0-77.0); PLATELET COUNT 128 10^3/UL (140-415); POSITIVE DIFF @See below; RED BLOOD COUNT 2.88 10^6/ul (4.70-6.10); RED CELL DISTRIBUTION WIDTH 16.7 % (11.5-14.5)
[2017-11-15] MEDS: LEVOTHYROXINE 75 MCG TAB PO (06:42)
[2017-11-15] MEDS: DEXTROSE 5%-0.45% NACL 1,000 ML IV (06:42)
[2017-11-15 07:08] LABS: ANION GAP 24 (8-16); BLOOD UREA NITROGEN 38 mg/dl (7-20); CALCIUM 9.1 mg/dl (8.4-10.2); CARBON DIOXIDE 25 mmol/L (21-31); CHLORIDE 100 mmol/L (97-110); CREATININE 6.81 mg/dl (0.61-1.24); GLUCOSE 138 mg/dl (70-220); POTASSIUM 4.4 mmol/L (3.5-5.1); SODIUM 145 mmol/L (135-144)
[2017-11-15] MEDS: INSULIN ASPART [NOVOLOG] 3 ML PEN SC ×4 (07:35→21:06)
[2017-11-15] MEDS: DOCUSATE SODIUM 100 MG CAP PO ×2 (08:14→20:53)
[2017-11-15] MEDS: CALCIUM CARBONATE 500 MG CHEW TAB PO ×3 (08:14→20:53)
[2017-11-15] MEDS: SEVELAMER CARBONATE 0.8 GM PKT PO ×3 (08:14→18:04)
[2017-11-15] MEDS: ASPIRIN (EC) 81 MG TAB PO (08:14)
[2017-11-15] MEDS: AMIODARONE 200 MG TAB NGT ×2 (08:15→20:54)
[2017-11-15] MEDS: SENNA/DOCUSATE NA (8.6MG/50MG) TAB PO ×2 (08:15→20:54)
[2017-11-15] MEDS: SERTRALINE 100 MG TAB PO (08:15)
[2017-11-15] MEDS: PANTOPRAZOLE (EC) 40 MG TAB PO ×2 (08:15→20:55)
[2017-11-15] MEDS: GABAPENTIN 300 MG CAP PO ×2 (08:15→20:53)
[2017-11-15] MEDS: SODIUM HYPOCHLORITE 0.125% 473 ML BTL IRR ×2 (08:16→20:51)
[2017-11-15] MEDS: INSULIN GLARGINE [LANtus] 3 ML PEN SC ×2 (08:16→21:04)
[2017-11-15] MEDS: BALSAM PERU/CASTOR OIL 60 GM TUBE TOP ×2 (08:17→20:52)
[2017-11-15] MEDS: ROCALTROL PO ×2 (08:17→20:54)
[2017-11-15] MEDS: BACITRACIN 0.5%/ZINC 28.35 GM OINT TOP ×2 (08:17→20:52)
[2017-11-15] MEDS: CASPOFUNGIN 50 MG in NS 250 ML IVPB (16:14)
[2017-11-15] MEDS: EPOETIN 4000 UNITS/1 ML INJ (ESRD) SC (18:34)
[2017-11-15] MEDS: ATORVASTATIN 20 MG TAB PO (20:54)
[2017-11-15] MEDS: TRIMETHOPRIM/SULFAMETHOX (DS) TAB PO (20:54)
[2017-11-16] MEDS: METHYLPREDNISOLONE 125 MG INJ IV ×4 (00:12→18:43)
[2017-11-16] MEDS: DIPHENHYDRAMINE 50 MG INJ IV ×2 (00:15→11:57)
[2017-11-16] MEDS: LEVALBUTEROL (NEB) 1.25 MG/0.5 ML AMP HHN ×4 (01:35→20:39)
[2017-11-16] MEDS: ACCU-CHEK XX (02:00)
[2017-11-16] MEDS: traMADol 50 MG TAB PO ×4 (03:59→21:10)
[2017-11-16 05:54] LABS: ADD MAN DIFF? NO
[2017-11-16 06:03] LABS: WHITE BLOOD COUNT 3.7 10^3/ul (4.8-10.8)
[2017-11-16 06:03] LABS: ABNORMAL IP MESSAGE 1; HEMATOCRIT 28.5 % (42.0-52.0); HEMOGLOBIN 8.5 g/dl (14.0-18.0); LYMPHOCYTES # 0.1 10^3/ul (0.8-2.9); LYMPHOCYTES % 3.3 % (15.0-51.0); MEAN CORPUSCULAR HEMOGLOBIN 28.7 pg (29.0-33.0); MEAN CORPUSCULAR HGB CONC 29.8 g/dl (32.0-37.0); MEAN CORPUSCULAR VOLUME 96.3 fl (82.0-101.0); MEAN PLATELET VOLUME 11.2 fl (7.4-10.4); MONOCYTE # 0.2 10^3/ul (0.3-0.9); MONOCYTES % 4.1 % (0.0-11.0); NEUTROPHIL # 3.4 10^3/ul (1.6-7.5); NEUTROPHILS % 91.8 % (39.0-77.0); PLATELET COUNT 153 10^3/UL (140-415); POSITIVE DIFF @See below; RED BLOOD COUNT 2.96 10^6/ul (4.70-6.10); RED CELL DISTRIBUTION WIDTH 16.7 % (11.5-14.5)
[2017-11-16] MEDS: LEVOTHYROXINE 75 MCG TAB PO (06:04)
[2017-11-16] MEDS: HYDROmorphONE 0.5 MG/0.5 ML SYG IV ×4 (06:04→19:33)
[2017-11-16] MEDS: DEXTROSE 5%-0.45% NACL 1,000 ML IV (06:10)
[2017-11-16 06:44] LABS: ANION GAP 23 (8-16); BLOOD UREA NITROGEN 63 mg/dl (7-20); CALCIUM 9.1 mg/dl (8.4-10.2); CARBON DIOXIDE 24 mmol/L (21-31); CHLORIDE 99 mmol/L (97-110); CREATININE 8.07 mg/dl (0.61-1.24); GLUCOSE 213 mg/dl (70-220); POTASSIUM 4.6 mmol/L (3.5-5.1); SODIUM 141 mmol/L (135-144)
[2017-11-16] MEDS: SEVELAMER CARBONATE 0.8 GM PKT PO ×3 (07:35→17:27)
[2017-11-16] MEDS: INSULIN ASPART [NOVOLOG] 3 ML PEN SC ×4 (08:49→21:14)
[2017-11-16] MEDS: INSULIN GLARGINE [LANtus] 3 ML PEN SC ×2 (08:50→21:13)
[2017-11-16] MEDS: ASPIRIN (EC) 81 MG TAB PO (09:00)
[2017-11-16] MEDS: SENNA/DOCUSATE NA (8.6MG/50MG) TAB PO ×2 (09:00→21:08)
[2017-11-16] MEDS: DOCUSATE SODIUM 100 MG CAP PO ×2 (09:00→21:07)
[2017-11-16] MEDS: AMIODARONE 200 MG TAB NGT ×2 (09:01→21:06)
[2017-11-16] MEDS: SERTRALINE 100 MG TAB PO (09:01)
[2017-11-16] MEDS: GABAPENTIN 300 MG CAP PO ×2 (09:01→21:08)
[2017-11-16] MEDS: PANTOPRAZOLE (EC) 40 MG TAB PO ×2 (09:01→21:08)
[2017-11-16] MEDS: CALCIUM CARBONATE 500 MG CHEW TAB PO ×3 (09:01→21:08)
[2017-11-16] MEDS: BACITRACIN 0.5%/ZINC 28.35 GM OINT TOP ×2 (09:06→21:11)
[2017-11-16] MEDS: BALSAM PERU/CASTOR OIL 60 GM TUBE TOP ×2 (09:06→21:10)
[2017-11-16] MEDS: SODIUM HYPOCHLORITE 0.125% 473 ML BTL IRR ×2 (09:08→21:02)
[2017-11-16] MEDS: CALCITRIOL 0.5 MCG CAPSULE PO ×2 (10:00→21:14)
[2017-11-16] MEDS: CASPOFUNGIN 50 MG in NS 250 ML IVPB (17:26)
[2017-11-16] MEDS: CEFTAZIDIME 1GM/50 ML (PMX) 50 ML IVPB (21:03)
[2017-11-16] MEDS: TRIMETHOPRIM/SULFAMETHOX (DS) TAB PO (21:06)
[2017-11-16] MEDS: ATORVASTATIN 20 MG TAB PO (21:08)
[2017-11-17] MEDS: METHYLPREDNISOLONE 125 MG INJ IV ×2 (00:25→06:24)
[2017-11-17] MEDS: HYDROmorphONE 0.5 MG/0.5 ML SYG IV ×5 (00:27→16:23)
[2017-11-17] MEDS: LEVALBUTEROL (NEB) 1.25 MG/0.5 ML AMP HHN ×4 (01:35→20:57)
[2017-11-17] MEDS: ACCU-CHEK XX (02:00)
[2017-11-17] MEDS: traMADol 50 MG TAB PO ×4 (03:59→21:39)
[2017-11-17 06:01] LABS: ADD MAN DIFF? NO
[2017-11-17 06:08] LABS: WHITE BLOOD COUNT 5.3 10^3/ul (4.8-10.8)
[2017-11-17 06:08] LABS: ABNORMAL IP MESSAGE 1; HEMATOCRIT 28.3 % (42.0-52.0); HEMOGLOBIN 8.5 g/dl (14.0-18.0); LYMPHOCYTES # 0.1 10^3/ul (0.8-2.9); LYMPHOCYTES % 1.5 % (15.0-51.0); MEAN CORPUSCULAR HEMOGLOBIN 28.9 pg (29.0-33.0); MEAN CORPUSCULAR VOLUME 96.3 fl (82.0-101.0); MEAN PLATELET VOLUME 11.2 fl (7.4-10.4); MONOCYTE # 0.2 10^3/ul (0.3-0.9); NEUTROPHILS % 94.7 % (39.0-77.0); PLATELET COUNT 137 10^3/UL (140-415); POSITIVE DIFF @See below; RED BLOOD COUNT 2.94 10^6/ul (4.70-6.10); RED CELL DISTRIBUTION WIDTH 16.8 % (11.5-14.5)
[2017-11-17] MEDS: LEVOTHYROXINE 75 MCG TAB PO (06:25)
[2017-11-17] MEDS: DEXTROSE 5%-0.45% NACL 1,000 ML IV (06:25)
[2017-11-17 07:17] LABS: ANION GAP 19 (8-16); BLOOD UREA NITROGEN 58 mg/dl (7-20); CALCIUM 8.9 mg/dl (8.4-10.2); CARBON DIOXIDE 27 mmol/L (21-31); CHLORIDE 103 mmol/L (97-110); CREATININE 6.61 mg/dl (0.61-1.24); GLUCOSE 220 mg/dl (70-220); POTASSIUM 4.6 mmol/L (3.5-5.1); SODIUM 144 mmol/L (135-144)
[2017-11-17] MEDS: INSULIN ASPART [NOVOLOG] 3 ML PEN SC ×4 (08:50→20:33)
[2017-11-17] MEDS: INSULIN GLARGINE [LANtus] 3 ML PEN SC ×2 (08:54→20:33)
[2017-11-17] MEDS ORDERED: CALCITRIOL 0.25 MCG CAP PO (09:00)
[2017-11-17] MEDS: CALCITRIOL 0.5 MCG CAPSULE PO ×2 (09:00→21:57)
[2017-11-17] MEDS: SEVELAMER CARBONATE 0.8 GM PKT PO ×3 (09:09→16:52)
[2017-11-17] MEDS: PANTOPRAZOLE (EC) 40 MG TAB PO ×2 (09:10→21:34)
[2017-11-17] MEDS: CALCIUM CARBONATE 500 MG CHEW TAB PO ×3 (09:11→21:34)
[2017-11-17] MEDS: AMIODARONE 200 MG TAB NGT ×2 (09:11→21:33)
[2017-11-17] MEDS: GABAPENTIN 300 MG CAP PO ×2 (09:11→21:34)
[2017-11-17] MEDS: DOCUSATE SODIUM 100 MG CAP PO ×2 (09:11→21:34)
[2017-11-17] MEDS: SENNA/DOCUSATE NA (8.6MG/50MG) TAB PO ×2 (09:12→21:34)
[2017-11-17] MEDS: ASPIRIN (EC) 81 MG TAB PO (09:12)
[2017-11-17] MEDS: SERTRALINE 100 MG TAB PO (09:12)
[2017-11-17] MEDS: SODIUM HYPOCHLORITE 0.125% 473 ML BTL IRR ×2 (09:20→20:23)
[2017-11-17] MEDS: BACITRACIN 0.5%/ZINC 28.35 GM OINT TOP ×2 (09:20→20:23)
[2017-11-17] MEDS: BALSAM PERU/CASTOR OIL 60 GM TUBE TOP ×2 (09:20→20:22)
[2017-11-17] MEDS: ERGOCALCIFEROL 50,000 UNIT CAP PO (12:20)
[2017-11-17] MEDS: EPOETIN ALFA 1,000 UNITS/0.1 ML VIAL SC (16:44)
[2017-11-17] MEDS: CASPOFUNGIN 50 MG in NS 250 ML IVPB (16:44)
[2017-11-17 17:25] LABS: CREATINE KINASE < 20 IU/L (23-200)
[2017-11-17 17:31] LABS: TROPONIN-I 0.039 ng/ml (0.00-0.12)
[2017-11-17] MEDS: CEFTAZIDIME 1GM/50 ML (PMX) 50 ML IVPB (20:24)
[2017-11-17] MEDS: TRIMETHOPRIM/SULFAMETHOX (DS) TAB PO (21:33)
[2017-11-17] MEDS: ATORVASTATIN 20 MG TAB PO (21:34)
[2017-11-18] MEDS: HYDROmorphONE 0.5 MG/0.5 ML SYG IV ×4 (01:07→17:17)
[2017-11-18] MEDS: LEVALBUTEROL (NEB) 1.25 MG/0.5 ML AMP HHN ×4 (01:17→19:22)
[2017-11-18] MEDS: ACCU-CHEK XX (02:00)
[2017-11-18] MEDS: traMADol 50 MG TAB PO ×4 (02:20→21:37)
[2017-11-18 05:16] LABS: ADD MAN DIFF? NO
[2017-11-18 05:17] LABS: ABNORMAL IP MESSAGE 1; HEMATOCRIT 27.2 % (42.0-52.0); LYMPHOCYTES # 0.2 10^3/ul (0.8-2.9); LYMPHOCYTES % 2.1 % (15.0-51.0); MEAN CORPUSCULAR HEMOGLOBIN 28.3 pg (29.0-33.0); MEAN CORPUSCULAR HGB CONC 29.4 g/dl (32.0-37.0); MEAN CORPUSCULAR VOLUME 96.1 fl (82.0-101.0); MONOCYTE # 0.5 10^3/ul (0.3-0.9); MONOCYTES % 6.8 % (0.0-11.0); NEUTROPHIL # 7.2 10^3/ul (1.6-7.5); NEUTROPHILS % 90.3 % (39.0-77.0); NUCLEATED RED BLOOD CELLS% 0.3 /100WBC (0.0-0.0); PLATELET COUNT 142 10^3/UL (140-415); POSITIVE DIFF @See below; RED BLOOD COUNT 2.83 10^6/ul (4.70-6.10); RED CELL DISTRIBUTION WIDTH 16.7 % (11.5-14.5)
[2017-11-18] MEDS: DEXTROSE 5%-0.45% NACL 1,000 ML IV (05:46)
[2017-11-18 05:55] LABS: ANION GAP 23 (8-16); BLOOD UREA NITROGEN 80 mg/dl (7-20); CALCIUM 8.7 mg/dl (8.4-10.2); CARBON DIOXIDE 24 mmol/L (21-31); CHLORIDE 103 mmol/L (97-110); CREATININE 7.69 mg/dl (0.61-1.24); GLUCOSE 225 mg/dl (70-220); POTASSIUM 4.9 mmol/L (3.5-5.1); SODIUM 145 mmol/L (135-144)
[2017-11-18] MEDS: LEVOTHYROXINE 75 MCG TAB PO (06:14)
[2017-11-18] MEDS: DIPHENHYDRAMINE 50 MG INJ IV (06:35)
[2017-11-18] MEDS: INSULIN ASPART [NOVOLOG] 3 ML PEN SC ×6 (08:37→21:00)
[2017-11-18] MEDS: INSULIN GLARGINE [LANtus] 3 ML PEN SC ×2 (08:44→21:30)
[2017-11-18] MEDS: SEVELAMER CARBONATE 0.8 GM PKT PO ×3 (08:45→18:45)
[2017-11-18] MEDS: SODIUM HYPOCHLORITE 0.125% 473 ML BTL IRR ×2 (08:45→21:31)
[2017-11-18] MEDS: BACITRACIN 0.5%/ZINC 28.35 GM OINT TOP ×2 (08:46→21:31)
[2017-11-18] MEDS: BALSAM PERU/CASTOR OIL 60 GM TUBE TOP ×2 (08:46→21:31)
[2017-11-18] MEDS: PANTOPRAZOLE (EC) 40 MG TAB PO ×2 (08:55→21:31)
[2017-11-18] MEDS: CALCIUM CARBONATE 500 MG CHEW TAB PO ×3 (08:55→21:30)
[2017-11-18] MEDS: AMIODARONE 200 MG TAB NGT (08:56)
[2017-11-18] MEDS: SERTRALINE 100 MG TAB PO (08:56)
[2017-11-18] MEDS: ASPIRIN (EC) 81 MG TAB PO (08:56)
[2017-11-18] MEDS: SENNA/DOCUSATE NA (8.6MG/50MG) TAB PO ×2 (08:56→21:31)
[2017-11-18] MEDS: GABAPENTIN 300 MG CAP PO ×2 (08:56→21:31)
[2017-11-18] MEDS: DOCUSATE SODIUM 100 MG CAP PO ×2 (08:56→21:31)
[2017-11-18] MEDS ORDERED: DOCUSATE SODIUM 100 MG CAP PO (09:30)
[2017-11-18] MEDS: POLYETHYLENE GLYCOL 17 GM PACKET PO (12:18)
[2017-11-18] MEDS: CALCITRIOL 0.5 MCG CAPSULE PO ×2 (12:28→21:31)
[2017-11-18] MEDS: CASPOFUNGIN 50 MG in NS 250 ML IVPB (16:26)
[2017-11-18] MEDS: TRIMETHOPRIM/SULFAMETHOX (DS) TAB PO (21:00)
[2017-11-18] MEDS: ATORVASTATIN 20 MG TAB PO (21:30)
[2017-11-18] MEDS: CEFTAZIDIME 1GM/50 ML (PMX) 50 ML IVPB (21:37)
[2017-11-19] MEDS: HYDROmorphONE 0.5 MG/0.5 ML SYG IV ×3 (01:03→19:48)
[2017-11-19] MEDS: LEVALBUTEROL (NEB) 1.25 MG/0.5 ML AMP HHN ×4 (01:33→19:53)
[2017-11-19] MEDS: ACCU-CHEK XX (02:00)
[2017-11-19] MEDS: traMADol 50 MG TAB PO ×4 (04:29→23:21)
[2017-11-19 05:07] LABS: ADD MAN DIFF? NO
[2017-11-19 05:10] LABS: WHITE BLOOD COUNT 8.8 10^3/ul (4.8-10.8)
[2017-11-19 05:10] LABS: ABNORMAL IP MESSAGE 1; EOSINOPHILS % 0.1 % (0.0-7.0); HEMATOCRIT 27.2 % (42.0-52.0); HEMOGLOBIN 8.1 g/dl (14.0-18.0); LYMPHOCYTES # 0.3 10^3/ul (0.8-2.9); LYMPHOCYTES % 3.8 % (15.0-51.0); MEAN CORPUSCULAR HEMOGLOBIN 28.9 pg (29.0-33.0); MEAN CORPUSCULAR HGB CONC 29.8 g/dl (32.0-37.0); MEAN CORPUSCULAR VOLUME 97.1 fl (82.0-101.0); MEAN PLATELET VOLUME 11.1 fl (7.4-10.4); MONOCYTE # 0.6 10^3/ul (0.3-0.9); MONOCYTES % 7.1 % (0.0-11.0); NEUTROPHIL # 7.8 10^3/ul (1.6-7.5); NEUTROPHILS % 87.9 % (39.0-77.0); PLATELET COUNT 126 10^3/UL (140-415); POSITIVE DIFF @See below; RED CELL DISTRIBUTION WIDTH 16.5 % (11.5-14.5)
[2017-11-19 05:30] LABS: ANION GAP 22 (8-16); BLOOD UREA NITROGEN 94 mg/dl (7-20); CALCIUM 8.8 mg/dl (8.4-10.2); CARBON DIOXIDE 23 mmol/L (21-31); CHLORIDE 102 mmol/L (97-110); CREATININE 9.06 mg/dl (0.61-1.24); GLUCOSE 122 mg/dl (70-220); MAGNESIUM 2.2 mg/dl (1.7-2.5); POTASSIUM 5.2 mmol/L (3.5-5.1); SODIUM 142 mmol/L (135-144)
[2017-11-19] MEDS: INSULIN ASPART [NOVOLOG] 3 ML PEN SC ×7 (07:35→21:00)
[2017-11-19] MEDS: PANTOPRAZOLE (EC) 40 MG TAB PO ×2 (08:05→23:14)
[2017-11-19] MEDS: LEVOTHYROXINE 75 MCG TAB PO (08:05)
[2017-11-19] MEDS: DOCUSATE SODIUM 100 MG CAP PO ×2 (08:06→23:15)
[2017-11-19] MEDS: GABAPENTIN 300 MG CAP PO ×2 (08:07→23:14)
[2017-11-19] MEDS: ASPIRIN (EC) 81 MG TAB PO (08:07)
[2017-11-19] MEDS: CALCITRIOL 0.5 MCG CAPSULE PO ×2 (08:07→21:00)
[2017-11-19] MEDS: SERTRALINE 100 MG TAB PO (08:07)
[2017-11-19] MEDS: SEVELAMER CARBONATE 0.8 GM PKT PO ×3 (08:07→18:37)
[2017-11-19] MEDS: CALCIUM CARBONATE 500 MG CHEW TAB PO ×3 (08:07→23:14)
[2017-11-19] MEDS: SENNA/DOCUSATE NA (8.6MG/50MG) TAB PO ×2 (08:11→21:00)
[2017-11-19] MEDS: BACITRACIN 0.5%/ZINC 28.35 GM OINT TOP ×2 (09:27→23:16)
[2017-11-19] MEDS: SODIUM HYPOCHLORITE 0.125% 473 ML BTL IRR ×2 (09:27→23:16)
[2017-11-19] MEDS: BALSAM PERU/CASTOR OIL 60 GM TUBE TOP ×2 (09:27→23:15)
[2017-11-19 15:48] LABS: AHG CROSSMATCH 1 1
[2017-11-19] MEDS: CASPOFUNGIN 50 MG in NS 250 ML IVPB (18:37)
[2017-11-19] MEDS: EPOETIN ALFA 1,000 UNITS/0.1 ML VIAL SC (18:38)
[2017-11-19] MEDS: INSULIN GLARGINE [LANtus] 3 ML PEN SC (20:00)
[2017-11-19] MEDS: TRIMETHOPRIM/SULFAMETHOX (DS) TAB PO (23:14)
[2017-11-19] MEDS: ATORVASTATIN 20 MG TAB PO (23:14)
[2017-11-19] MEDS: CEFTAZIDIME 1GM/50 ML (PMX) 50 ML IVPB (23:21)
[2017-11-20] MEDS: HYDROmorphONE 0.5 MG/0.5 ML SYG IV ×2 (00:54→07:56)
[2017-11-20] MEDS: LEVALBUTEROL (NEB) 1.25 MG/0.5 ML AMP HHN ×2 (01:12→08:19)
[2017-11-20] MEDS: ACCU-CHEK XX (02:00)
[2017-11-20 06:45] LABS: ADD MAN DIFF? NO
[2017-11-20 06:56] LABS: ABNORMAL IP MESSAGE 1; EOSINOPHILS # 0.1 10^3/ul (0.0-0.5); EOSINOPHILS % 0.9 % (0.0-7.0); HEMATOCRIT 29.6 % (42.0-52.0); LYMPHOCYTES # 0.3 10^3/ul (0.8-2.9); LYMPHOCYTES % 3.3 % (15.0-51.0); MEAN CORPUSCULAR HEMOGLOBIN 29.2 pg (29.0-33.0); MEAN CORPUSCULAR HGB CONC 30.4 g/dl (32.0-37.0); MEAN CORPUSCULAR VOLUME 96.1 fl (82.0-101.0); MEAN PLATELET VOLUME 11.5 fl (7.4-10.4); MONOCYTE # 0.6 10^3/ul (0.3-0.9); MONOCYTES % 6.3 % (0.0-11.0); NEUTROPHILS % 88.8 % (39.0-77.0); PLATELET COUNT 111 10^3/UL (140-415); POSITIVE DIFF @See below; RED BLOOD COUNT 3.08 10^6/ul (4.70-6.10); RED CELL DISTRIBUTION WIDTH 16.9 % (11.5-14.5)
[2017-11-20] MEDS ORDERED: AMIODARONE 150 MG INJ (07:00)
[2017-11-20] MEDS ORDERED: MAGNESIUM SULFATE 1 GM/100 ML D5W IVPB (07:00)
[2017-11-20] MEDS ORDERED: EPINEPHrine 0.1 MG/ML SYG (07:00)
[2017-11-20] MEDS ORDERED: NA BICARBONATE 8.4% 50 ML SYG (07:00)
[2017-11-20] MEDS: INSULIN ASPART [NOVOLOG] 3 ML PEN SC ×6 (07:35→21:00)
[2017-11-20 07:38] LABS: ANION GAP 21 (8-16); BLOOD UREA NITROGEN 72 mg/dl (7-20); CALCIUM 8.9 mg/dl (8.4-10.2); CARBON DIOXIDE 26 mmol/L (21-31); CHLORIDE 100 mmol/L (97-110); CREATININE 7.17 mg/dl (0.61-1.24); GLUCOSE 134 mg/dl (70-220); MAGNESIUM 2.1 mg/dl (1.7-2.5); PHOSPHORUS 5.5 mg/dl (2.5-4.9); POTASSIUM 4.8 mmol/L (3.5-5.1); SODIUM 142 mmol/L (135-144)
[2017-11-20] MEDS: LEVOTHYROXINE 75 MCG TAB PO (07:56)
[2017-11-20] MEDS: SEVELAMER CARBONATE 0.8 GM PKT PO ×3 (07:56→22:38)
[2017-11-20] MEDS: POLYETHYLENE GLYCOL 17 GM PACKET PO (07:56)
[2017-11-20] MEDS: NA PHOSPHATE/BIPHOS 133 ML ENEMA PR (07:56)
[2017-11-20] MEDS: traMADol 50 MG TAB PO ×3 (09:00→22:30)
[2017-11-20] MEDS: PANTOPRAZOLE (EC) 40 MG TAB PO ×2 (09:17→22:30)
[2017-11-20] MEDS: GABAPENTIN 300 MG CAP PO ×2 (09:17→22:30)
[2017-11-20] MEDS: DOCUSATE SODIUM 100 MG CAP PO ×2 (09:17→21:00)
[2017-11-20] MEDS: ASPIRIN (EC) 81 MG TAB PO (09:17)
[2017-11-20] MEDS: SENNA/DOCUSATE NA (8.6MG/50MG) TAB PO ×2 (09:17→21:00)
[2017-11-20] MEDS: SERTRALINE 100 MG TAB PO (09:17)
[2017-11-20] MEDS: CALCIUM CARBONATE 500 MG CHEW TAB PO ×3 (09:17→22:30)
[2017-11-20] MEDS: BALSAM PERU/CASTOR OIL 60 GM TUBE TOP ×2 (09:18→22:33)
[2017-11-20] MEDS: SODIUM HYPOCHLORITE 0.125% 473 ML BTL IRR ×2 (09:18→21:00)
[2017-11-20] MEDS: DIPHENHYDRAMINE 50 MG INJ IV (09:33)
[2017-11-20] MEDS: BACITRACIN 0.5%/ZINC 28.35 GM OINT TOP ×2 (09:58→22:32)
[2017-11-20] MEDS: CALCITRIOL 0.5 MCG CAPSULE PO ×2 (09:58→22:40)
[2017-11-20] MEDS: MINERAL OIL 133 ML ENEMA PR (09:59)
[2017-11-20] MEDS ORDERED: AMIODARONE 150MG/D5W BOLUS 0 ML (10:51)
[2017-11-20] MEDS ORDERED: AMIODARONE 900 MG in DEXTROSE 5% 482 ML IV (11:00)
[2017-11-20] MEDS: AMIODARONE 150MG/D5W BOLUS 100 ML IV (11:00)
[2017-11-20 11:18] LABS: ADD MAN DIFF? NO
[2017-11-20 11:22] LABS: BASOPHILS % 0.1 % (0.0-2.0); EOSINOPHILS # 0.2 10^3/ul (0.0-0.5); EOSINOPHILS % 1.2 % (0.0-7.0); HEMATOCRIT 31.4 % (42.0-52.0); HEMOGLOBIN 9.2 g/dl (14.0-18.0); LYMPHOCYTES # 1.5 10^3/ul (0.8-2.9); LYMPHOCYTES % 12.2 % (15.0-51.0); MEAN CORPUSCULAR HEMOGLOBIN 29.3 pg (29.0-33.0); MEAN CORPUSCULAR HGB CONC 29.3 g/dl (32.0-37.0); MEAN PLATELET VOLUME 12.1 fl (7.4-10.4); MONOCYTE # 0.7 10^3/ul (0.3-0.9); MONOCYTES % 5.8 % (0.0-11.0); NEUTROPHIL # 9.9 10^3/ul (1.6-7.5); NEUTROPHILS % 79.4 % (39.0-77.0); NUCLEATED RED BLOOD CELLS% 0.2 /100WBC (0.0-0.0); PLATELET COUNT 149 10^3/UL (140-415); RED BLOOD COUNT 3.14 10^6/ul (4.70-6.10); RED CELL DISTRIBUTION WIDTH 17.2 % (11.5-14.5)
[2017-11-20 11:22] LABS: WHITE BLOOD COUNT 12.5 10^3/ul (4.8-10.8)
[2017-11-20 11:39] LABS: INR 1.42; PROTIME 17.6 Sec (11.9-14.9); PT RATIO 1.4
[2017-11-20 12:20] LABS: AADO2 Arterial 603.1 mmHg (7.0-24.0); Arterial Base Excess -7.3 mmol/L (-3.0-3); Arterial Blood Gas Oxygen Sat 77.8 mmHG (95.0-98.0); Arterial COHb 1.4 % (0.0-3.0); Arterial Fraction of Oxyhgb 76.6 % (93.0-99.0); Arterial HCO3 21.2 mmol/L (22.0-26.0); Arterial MetHb 0.2 % (0.0-1.5); Arterial Total Hemglobin 10.5 g/dl (12.0-18.0); Arterial pCO2 57.6 mmhg (35-45); MODE VENT - AC; Site Right Brachial
[2017-11-20 13:13] LABS: ANION GAP 24 (8-16); BLOOD UREA NITROGEN 77 mg/dl (7-20); CALCIUM 8.5 mg/dl (8.4-10.2); CARBON DIOXIDE 21 mmol/L (21-31); CHLORIDE 101 mmol/L (97-110); CREATINE KINASE 48 IU/L (23-200); CREATININE 7.59 mg/dl (0.61-1.24); GLUCOSE 180 mg/dl (70-220); MAGNESIUM 2.5 mg/dl (1.7-2.5); PHOSPHORUS 8.8 mg/dl (2.5-4.9); POTASSIUM 4.9 mmol/L (3.5-5.1); SODIUM 141 mmol/L (135-144)
[2017-11-20 13:25] LABS: TROPONIN-I 0.053 ng/ml (0.00-0.12)
[2017-11-20 13:26] LABS: CK INDEX 6.5; TROPONIN-I 0.055 ng/ml (0.00-0.12)
[2017-11-20 13:34] LABS: CK-MB 3.12 ng/ml (0.0-2.4)
[2017-11-20] MEDS: LEVALBUTEROL (HFA) 15 GM INHALER INH ×2 (15:09→19:03)
[2017-11-20] MEDS: CASPOFUNGIN 50 MG in NS 250 ML IVPB (17:09)
[2017-11-20] MEDS: ATORVASTATIN 20 MG TAB PO (22:31)
[2017-11-20] MEDS: TRIMETHOPRIM/SULFAMETHOX (DS) TAB PO (22:31)
[2017-11-20] MEDS: INSULIN GLARGINE [LANtus] 3 ML PEN SC (22:32)
[2017-11-20] MEDS: CEFTAZIDIME 1GM/50 ML (PMX) 50 ML IVPB (22:38)
[2017-11-21] MEDS: INSULIN ASPART [NOVOLOG] 3 ML PEN SC ×6 (01:00→22:16)
[2017-11-21] MEDS: LEVALBUTEROL (HFA) 15 GM INHALER INH ×4 (01:18→21:23)
[2017-11-21] MEDS: traMADol 50 MG TAB PO ×4 (03:54→22:17)
[2017-11-21 05:34] LABS: ADD MAN DIFF? NO
[2017-11-21 05:41] LABS: WHITE BLOOD COUNT 11.9 10^3/ul (4.8-10.8)
[2017-11-21 05:41] LABS: ABNORMAL IP MESSAGE 1; BASOPHILS % 0.1 % (0.0-2.0); EOSINOPHILS # 0.4 10^3/ul (0.0-0.5); HEMATOCRIT 29.2 % (42.0-52.0); LYMPHOCYTES # 0.5 10^3/ul (0.8-2.9); LYMPHOCYTES % 4.2 % (15.0-51.0); MEAN CORPUSCULAR HEMOGLOBIN 29.2 pg (29.0-33.0); MEAN CORPUSCULAR HGB CONC 30.8 g/dl (32.0-37.0); MEAN CORPUSCULAR VOLUME 94.8 fl (82.0-101.0); MEAN PLATELET VOLUME 11.4 fl (7.4-10.4); MONOCYTE # 0.8 10^3/ul (0.3-0.9); MONOCYTES % 6.7 % (0.0-11.0); NEUTROPHIL # 10.2 10^3/ul (1.6-7.5); NEUTROPHILS % 85.4 % (39.0-77.0); PLATELET COUNT 149 10^3/UL (140-415); POSITIVE DIFF @See below; RED BLOOD COUNT 3.08 10^6/ul (4.70-6.10); RED CELL DISTRIBUTION WIDTH 16.3 % (11.5-14.5)
[2017-11-21 06:09] LABS: ANION GAP 23 (8-16); BLOOD UREA NITROGEN 86 mg/dl (7-20); CALCIUM 8.8 mg/dl (8.4-10.2); CARBON DIOXIDE 24 mmol/L (21-31); CHLORIDE 98 mmol/L (97-110); CREATININE 8.18 mg/dl (0.61-1.24); GLUCOSE 117 mg/dl (70-220); MAGNESIUM 2.4 mg/dl (1.7-2.5); PHOSPHORUS 7.6 mg/dl (2.5-4.9); POTASSIUM 5.1 mmol/L (3.5-5.1); SODIUM 140 mmol/L (135-144)
[2017-11-21 06:17] LABS: CK INDEX 15.2
[2017-11-21 06:37] LABS: CK-MB 3.49 ng/ml (0.0-2.4); CREATINE KINASE 23 IU/L (23-200)
[2017-11-21 06:44] LABS: TROPONIN-I 0.137 ng/ml (0.00-0.12)
[2017-11-21] MEDS: CASPOFUNGIN 50 MG in NS 250 ML IVPB (07:59)
[2017-11-21] MEDS: LEVOTHYROXINE 75 MCG TAB PO (08:04)
[2017-11-21] MEDS: SEVELAMER CARBONATE 0.8 GM PKT PO ×3 (08:04→17:35)
[2017-11-21] MEDS: LANSOPRAZOLE 30 MG CAP GTB ×2 (08:27→17:42)
[2017-11-21] MEDS: GABAPENTIN 300 MG CAP PO ×2 (08:27→22:17)
[2017-11-21] MEDS: CALCIUM CARBONATE 500 MG CHEW TAB PO ×3 (08:27→22:17)
[2017-11-21] MEDS: DOCUSATE SODIUM 10 MG/ML (10ML CUP) GTB ×2 (08:28→21:00)
[2017-11-21] MEDS: ASPIRIN (EC) 81 MG TAB PO (08:28)
[2017-11-21] MEDS: SERTRALINE 100 MG TAB PO (08:29)
[2017-11-21] MEDS: SODIUM HYPOCHLORITE 0.125% 473 ML BTL IRR ×2 (08:29→21:00)
[2017-11-21] MEDS: BALSAM PERU/CASTOR OIL 60 GM TUBE TOP ×2 (08:30→22:20)
[2017-11-21] MEDS: BACITRACIN 0.5%/ZINC 28.35 GM OINT TOP ×2 (08:30→22:17)
[2017-11-21] MEDS: HYDROmorphONE 0.5 MG/0.5 ML SYG IV ×2 (10:24→19:12)
[2017-11-21 10:28] LABS: AADO2 Arterial 253.5 mmHg (7.0-24.0); Arterial Base Excess -4.4 mmol/L (-3.0-3); Arterial Blood Gas Oxygen Sat 85.3 mmHG (95.0-98.0); Arterial Fraction of Oxyhgb 84.2 % (93.0-99.0); Arterial HCO3 21.3 mmol/L (22.0-26.0); Arterial MetHb 0.3 % (0.0-1.5); MODE VENT - AC; Site Right Brachial
[2017-11-21] MEDS: SENNA/DOCUSATE NA (8.6MG/50MG) TAB PO ×2 (12:00→21:00)
[2017-11-21] MEDS: GUAIFENESIN/CODEINE 5ML CUP PO (13:05)
[2017-11-21] MEDS: CALCITRIOL 0.5 MCG CAPSULE PO ×2 (13:43→21:00)
[2017-11-21] MEDS: DIPHENHYDRAMINE 50 MG INJ IV (17:09)
[2017-11-21 19:32] LABS: HEPATITIS B SURFACE ANTIGEN NEGATIVE (NEGATIVE)
[2017-11-21 20:37] LABS: HEPATITIS B SURFACE ANTIBODY NEGATIVE (NEGATIVE)
[2017-11-21] MEDS: INSULIN GLARGINE [LANtus] 3 ML PEN SC (22:16)
[2017-11-21] MEDS: ATORVASTATIN 20 MG TAB PO (22:17)
[2017-11-21] MEDS: CEFTAZIDIME 1GM/50 ML (PMX) 50 ML IVPB (22:18)
[2017-11-21] MEDS: TRIMETHOPRIM/SULFAMETHOX (DS) TAB PO (22:18)
[2017-11-22] MEDS: LEVALBUTEROL (HFA) 15 GM INHALER INH ×4 (01:05→19:40)
[2017-11-22] MEDS: INSULIN ASPART [NOVOLOG] 3 ML PEN SC ×7 (01:44→20:39)
[2017-11-22 04:31] LABS: ADD MAN DIFF? NO
[2017-11-22 04:34] LABS: WHITE BLOOD COUNT 13.2 10^3/ul (4.8-10.8)
[2017-11-22 04:34] LABS: ABNORMAL IP MESSAGE 1; BASOPHILS % 0.1 % (0.0-2.0); EOSINOPHILS # 0.4 10^3/ul (0.0-0.5); EOSINOPHILS % 3.2 % (0.0-7.0); HEMATOCRIT 27.4 % (42.0-52.0); HEMOGLOBIN 8.7 g/dl (14.0-18.0); LYMPHOCYTES # 0.5 10^3/ul (0.8-2.9); LYMPHOCYTES % 3.6 % (15.0-51.0); MEAN CORPUSCULAR HEMOGLOBIN 29.8 pg (29.0-33.0); MEAN CORPUSCULAR HGB CONC 31.8 g/dl (32.0-37.0); MEAN CORPUSCULAR VOLUME 93.8 fl (82.0-101.0); MEAN PLATELET VOLUME 11.1 fl (7.4-10.4); MONOCYTE # 0.8 10^3/ul (0.3-0.9); MONOCYTES % 5.9 % (0.0-11.0); NEUTROPHIL # 11.4 10^3/ul (1.6-7.5); NEUTROPHILS % 86.6 % (39.0-77.0); PLATELET COUNT 162 10^3/UL (140-415); POSITIVE DIFF @See below; RED BLOOD COUNT 2.92 10^6/ul (4.70-6.10); RED CELL DISTRIBUTION WIDTH 16.4 % (11.5-14.5)
[2017-11-22] MEDS: traMADol 50 MG TAB PO ×4 (04:40→20:38)
[2017-11-22] MEDS: HYDROmorphONE 0.5 MG/0.5 ML SYG IV ×4 (04:40→16:13)
[2017-11-22 05:01] LABS: ANION GAP 19 (8-16); BLOOD UREA NITROGEN 60 mg/dl (7-20); CALCIUM 8.7 mg/dl (8.4-10.2); CARBON DIOXIDE 27 mmol/L (21-31); CHLORIDE 97 mmol/L (97-110); CREATININE 6.02 mg/dl (0.61-1.24); GLUCOSE 167 mg/dl (70-220); MAGNESIUM 2.2 mg/dl (1.7-2.5); PHOSPHORUS 4.5 mg/dl (2.5-4.9); POTASSIUM 3.9 mmol/L (3.5-5.1); SODIUM 139 mmol/L (135-144)
[2017-11-22] MEDS: LANSOPRAZOLE 30 MG CAP GTB ×2 (06:50→17:03)
[2017-11-22] MEDS: GABAPENTIN 300 MG CAP PO ×2 (08:23→20:38)
[2017-11-22] MEDS: LEVOTHYROXINE 75 MCG TAB PO (08:23)
[2017-11-22] MEDS: SENNA/DOCUSATE NA (8.6MG/50MG) TAB PO ×2 (08:23→20:37)
[2017-11-22] MEDS: ASPIRIN (EC) 81 MG TAB PO (08:23)
[2017-11-22] MEDS: DOCUSATE SODIUM 10 MG/ML (10ML CUP) GTB ×2 (08:23→20:37)
[2017-11-22] MEDS: SEVELAMER CARBONATE 0.8 GM PKT PO ×3 (08:23→17:03)
[2017-11-22] MEDS: SERTRALINE 100 MG TAB PO (08:23)
[2017-11-22] MEDS: CALCIUM CARBONATE 500 MG CHEW TAB PO ×3 (08:23→20:37)
[2017-11-22] MEDS: BALSAM PERU/CASTOR OIL 60 GM TUBE TOP (08:24)
[2017-11-22] MEDS: BACITRACIN 0.5%/ZINC 28.35 GM OINT TOP (08:24)
[2017-11-22] MEDS: FENTAnyl (DRIP) 1000 mcg/100mL 100 ML IV (10:27)
[2017-11-22] MEDS: CALCITRIOL 0.5 MCG CAPSULE PO ×2 (10:44→20:38)
[2017-11-22] MEDS: SODIUM HYPOCHLORITE 0.125% 473 ML BTL IRR (10:44)
[2017-11-22] MEDS: CASPOFUNGIN 50 MG in NS 250 ML IVPB (16:14)
[2017-11-22] MEDS: EPOETIN ALFA 1,000 UNITS/0.1 ML VIAL SC (18:21)
[2017-11-22] MEDS: INSULIN GLARGINE [LANtus] 3 ML PEN SC (20:35)
[2017-11-22] MEDS: ATORVASTATIN 20 MG TAB PO (20:37)
[2017-11-22] MEDS: CEFTAZIDIME 1GM/50 ML (PMX) 50 ML IVPB (20:38)
[2017-11-22] MEDS: TRIMETHOPRIM/SULFAMETHOX (DS) TAB PO (20:45)
[2017-11-23] MEDS: INSULIN ASPART [NOVOLOG] 3 ML PEN SC ×6 (01:00→20:38)
[2017-11-23] MEDS: LEVALBUTEROL (HFA) 15 GM INHALER INH ×4 (01:33→19:39)
[2017-11-23] MEDS: HYDROmorphONE 0.5 MG/0.5 ML SYG IV ×4 (01:46→20:43)
[2017-11-23] MEDS: traMADol 50 MG TAB PO ×4 (03:13→20:42)
[2017-11-23] MEDS: FENTAnyl (DRIP) 1000 mcg/100mL 100 ML IV ×2 (03:23→16:21)
[2017-11-23 05:37] LABS: ADD MAN DIFF? NO
[2017-11-23 05:45] LABS: WHITE BLOOD COUNT 9.2 10^3/ul (4.8-10.8)
[2017-11-23 05:45] LABS: ABNORMAL IP MESSAGE 1; EOSINOPHILS # 0.3 10^3/ul (0.0-0.5); EOSINOPHILS % 3.6 % (0.0-7.0); HEMATOCRIT 25.9 % (42.0-52.0); LYMPHOCYTES # 0.5 10^3/ul (0.8-2.9); LYMPHOCYTES % 5.1 % (15.0-51.0); MEAN CORPUSCULAR HEMOGLOBIN 29.5 pg (29.0-33.0); MEAN CORPUSCULAR HGB CONC 30.9 g/dl (32.0-37.0); MEAN CORPUSCULAR VOLUME 95.6 fl (82.0-101.0); MEAN PLATELET VOLUME 11.2 fl (7.4-10.4); MONOCYTE # 0.8 10^3/ul (0.3-0.9); MONOCYTES % 8.6 % (0.0-11.0); NEUTROPHIL # 7.6 10^3/ul (1.6-7.5); PLATELET COUNT 138 10^3/UL (140-415); POSITIVE DIFF @See below; RED BLOOD COUNT 2.71 10^6/ul (4.70-6.10); RED CELL DISTRIBUTION WIDTH 16.2 % (11.5-14.5)
[2017-11-23 06:26] LABS: ANION GAP 16 (8-16); BLOOD UREA NITROGEN 76 mg/dl (7-20); CALCIUM 8.7 mg/dl (8.4-10.2); CARBON DIOXIDE 29 mmol/L (21-31); CHLORIDE 101 mmol/L (97-110); GLUCOSE 133 mg/dl (70-220); MAGNESIUM 2.2 mg/dl (1.7-2.5); PHOSPHORUS 4.6 mg/dl (2.5-4.9); SODIUM 142 mmol/L (135-144)
[2017-11-23] MEDS: LANSOPRAZOLE 30 MG CAP GTB ×2 (06:35→17:14)
[2017-11-23] MEDS: LEVOTHYROXINE 75 MCG TAB PO (06:35)
[2017-11-23] MEDS: SEVELAMER CARBONATE 0.8 GM PKT PO ×3 (07:55→17:14)
[2017-11-23] MEDS: CALCIUM CARBONATE 500 MG CHEW TAB PO ×3 (09:16→20:40)
[2017-11-23] MEDS: ASPIRIN (EC) 81 MG TAB PO (09:16)
[2017-11-23] MEDS: SENNA/DOCUSATE NA (8.6MG/50MG) TAB PO ×2 (09:16→20:42)
[2017-11-23] MEDS: DOCUSATE SODIUM 10 MG/ML (10ML CUP) GTB ×2 (09:16→20:42)
[2017-11-23] MEDS: SERTRALINE 100 MG TAB PO (09:16)
[2017-11-23] MEDS: GABAPENTIN 300 MG CAP PO ×2 (09:16→20:42)
[2017-11-23] MEDS: CALCITRIOL 0.5 MCG CAPSULE PO ×2 (11:58→20:42)
[2017-11-23] MEDS: CASPOFUNGIN 50 MG in NS 250 ML IVPB (16:20)
[2017-11-23] MEDS: INSULIN GLARGINE [LANtus] 3 ML PEN SC (20:37)
[2017-11-23] MEDS: ATORVASTATIN 20 MG TAB PO (20:42)
[2017-11-23] MEDS: CEFTAZIDIME 1GM/50 ML (PMX) 50 ML IVPB (20:43)
[2017-11-23] MEDS: TRIMETHOPRIM/SULFAMETHOX (DS) TAB PO (21:35)
[2017-11-24] MEDS: INSULIN ASPART [NOVOLOG] 3 ML PEN SC ×6 (01:00→21:00)
[2017-11-24] MEDS: LEVALBUTEROL (HFA) 15 GM INHALER INH ×4 (01:18→19:30)
[2017-11-24] MEDS: traMADol 50 MG TAB PO ×2 (03:31→08:25)
[2017-11-24] MEDS: FENTAnyl (DRIP) 1000 mcg/100mL 100 ML IV ×2 (04:00→14:15)
[2017-11-24 05:51] LABS: ADD MAN DIFF? NO
[2017-11-24 05:59] LABS: EOSINOPHILS # 0.3 10^3/ul (0.0-0.5); EOSINOPHILS % 4.3 % (0.0-7.0); HEMATOCRIT 26.1 % (42.0-52.0); LYMPHOCYTES # 0.6 10^3/ul (0.8-2.9); LYMPHOCYTES % 7.9 % (15.0-51.0); MEAN CORPUSCULAR HEMOGLOBIN 29.5 pg (29.0-33.0); MEAN CORPUSCULAR HGB CONC 30.7 g/dl (32.0-37.0); MEAN CORPUSCULAR VOLUME 96.3 fl (82.0-101.0); MEAN PLATELET VOLUME 11.3 fl (7.4-10.4); MONOCYTE # 0.8 10^3/ul (0.3-0.9); MONOCYTES % 10.1 % (0.0-11.0); NEUTROPHILS % 76.7 % (39.0-77.0); PLATELET COUNT 130 10^3/UL (140-415); POSITIVE DIFF @See below; RED BLOOD COUNT 2.71 10^6/ul (4.70-6.10); RED CELL DISTRIBUTION WIDTH 16.5 % (11.5-14.5)
[2017-11-24 05:59] LABS: WHITE BLOOD COUNT 7.9 10^3/ul (4.8-10.8)
[2017-11-24] MEDS: LEVOTHYROXINE 75 MCG TAB PO (06:27)
[2017-11-24] MEDS: LANSOPRAZOLE 30 MG CAP GTB ×2 (06:27→18:02)
[2017-11-24 06:28] LABS: INR 1.26; PT RATIO 1.3
[2017-11-24] MEDS: HYDROmorphONE 0.5 MG/0.5 ML SYG IV ×4 (06:28→21:41)
[2017-11-24 06:30] LABS: ANION GAP 19 (8-16); BLOOD UREA NITROGEN 58 mg/dl (7-20); CALCIUM 8.9 mg/dl (8.4-10.2); CARBON DIOXIDE 28 mmol/L (21-31); CHLORIDE 99 mmol/L (97-110); GLUCOSE 146 mg/dl (70-220); POTASSIUM 3.8 mmol/L (3.5-5.1); SODIUM 142 mmol/L (135-144)
[2017-11-24] MEDS: traMADol 50 MG TAB GTB ×3 (09:00→20:47)
[2017-11-24] MEDS ORDERED: CALCITRIOL 0.5 MCG CAPSULE GTB (09:00)
[2017-11-24] MEDS: SEVELAMER CARBONATE 0.8 GM PKT GTB ×3 (09:00→18:02)
[2017-11-24] MEDS ORDERED: ERGOCALCIFEROL (8000 UNITS/ML PO SYG) GTB (09:00)
[2017-11-24] MEDS: ERGOCALCIFEROL (8000 UNITS/ML PO SYG) GTB (09:43)
[2017-11-24] MEDS: GABAPENTIN (50 MG/ML PO SYG) GTB ×2 (09:44→21:04)
[2017-11-24] MEDS: SENNA/DOCUSATE NA (8.6MG/50MG) TAB GTB ×2 (09:54→20:48)
[2017-11-24] MEDS: CALCIUM CARBONATE 500 MG CHEW TAB GTB ×3 (09:54→20:47)
[2017-11-24] MEDS: DOCUSATE SODIUM 10 MG/ML (10ML CUP) GTB ×2 (09:54→20:48)
[2017-11-24] MEDS: CALCITRIOL (1 MCG/ML PO SYG) GTB ×2 (09:54→21:04)
[2017-11-24] MEDS: SERTRALINE 100 MG TAB GTB (09:54)
[2017-11-24] MEDS: ASPIRIN 81 MG TAB GTB (10:01)
[2017-11-24] MEDS: MIDODRINE 2.5 MG TAB GTB ×2 (10:01→13:51)
[2017-11-24] MEDS: DIPHENHYDRAMINE 50 MG INJ IV (10:43)
[2017-11-24] MEDS: CASPOFUNGIN 50 MG in NS 250 ML IVPB (16:10)
[2017-11-24] MEDS: EPOETIN 4000 UNITS/1 ML INJ (ESRD) SC (18:06)
[2017-11-24] MEDS: ATORVASTATIN 20 MG TAB GTB (20:46)
[2017-11-24] MEDS: TRIMETHOPRIM/SULFAMETHOX (DS) TAB GTB (20:47)
[2017-11-24] MEDS: CEFTAZIDIME 1GM/50 ML (PMX) 50 ML IVPB (20:50)
[2017-11-24] MEDS: INSULIN GLARGINE [LANtus] 3 ML PEN SC (21:35)
[2017-11-24] MEDS ORDERED: [UNRECOGNIZED DRUG - REMARK] XX (22:00)
[2017-11-24] MEDS ORDERED: [UNRECOGNIZED DRUG - REMARK] XX (22:00)
[2017-11-24] MEDS ORDERED: [UNRECOGNIZED DRUG - REMARK] XX (22:00)
[2017-11-25] MEDS: FENTAnyl (DRIP) 1000 mcg/100mL 100 ML IV ×3 (00:15→22:13)
[2017-11-25] MEDS: INSULIN ASPART [NOVOLOG] 3 ML PEN SC ×6 (01:00→21:00)
[2017-11-25] MEDS: LEVALBUTEROL (HFA) 15 GM INHALER INH ×4 (01:00→19:20)
[2017-11-25] MEDS: DIPHENHYDRAMINE 50 MG INJ IV (01:25)
[2017-11-25] MEDS: HYDROmorphONE 0.5 MG/0.5 ML SYG IV ×4 (01:43→16:10)
[2017-11-25] MEDS: traMADol 50 MG TAB GTB ×5 (03:13→22:13)
[2017-11-25] MEDS: LANSOPRAZOLE 30 MG CAP GTB ×2 (05:46→18:41)
[2017-11-25] MEDS: CALCIUM CARBONATE 500 MG CHEW TAB GTB ×3 (09:33→21:13)
[2017-11-25] MEDS: SEVELAMER CARBONATE 0.8 GM PKT GTB ×3 (09:33→18:19)
[2017-11-25] MEDS: DOCUSATE SODIUM 10 MG/ML (10ML CUP) GTB ×2 (09:33→21:11)
[2017-11-25] MEDS: ASPIRIN 81 MG TAB GTB (09:34)
[2017-11-25] MEDS: LEVOTHYROXINE 75 MCG TAB GTB (09:34)
[2017-11-25] MEDS: SENNA/DOCUSATE NA (8.6MG/50MG) TAB GTB ×2 (09:34→21:13)
[2017-11-25] MEDS: SERTRALINE 100 MG TAB GTB (09:34)
[2017-11-25] MEDS: GUAIFENESIN/CODEINE 5ML CUP GTB (09:40)
[2017-11-25] MEDS: CALCITRIOL (1 MCG/ML PO SYG) GTB ×2 (10:55→21:00)
[2017-11-25] MEDS: GABAPENTIN (50 MG/ML PO SYG) GTB ×2 (10:55→21:13)
[2017-11-25] MEDS: NEOMYC/POLYMYX/BACIT 30 GM OINT TOP ×3 (11:00→21:15)
[2017-11-25] MEDS: CASPOFUNGIN 50 MG in NS 250 ML IVPB (20:25)
[2017-11-25] MEDS: TRIMETHOPRIM/SULFAMETHOX (DS) TAB GTB (21:00)
[2017-11-25] MEDS: INSULIN GLARGINE [LANtus] 3 ML PEN SC (21:11)
[2017-11-25] MEDS: ATORVASTATIN 20 MG TAB GTB (21:13)
[2017-11-25] MEDS: CEFTAZIDIME 1GM/50 ML (PMX) 50 ML IVPB (22:09)
[2017-11-25 23:44] LABS: ADD MAN DIFF? NO
[2017-11-25 23:46] LABS: BASOPHILS % 0.1 % (0.0-2.0); EOSINOPHILS # 0.3 10^3/ul (0.0-0.5); EOSINOPHILS % 3.6 % (0.0-7.0); HEMATOCRIT 25.4 % (42.0-52.0); HEMOGLOBIN 7.7 g/dl (14.0-18.0); LYMPHOCYTES # 0.8 10^3/ul (0.8-2.9); LYMPHOCYTES % 9.5 % (15.0-51.0); MEAN CORPUSCULAR HEMOGLOBIN 29.4 pg (29.0-33.0); MEAN CORPUSCULAR HGB CONC 30.3 g/dl (32.0-37.0); MEAN CORPUSCULAR VOLUME 96.9 fl (82.0-101.0); MEAN PLATELET VOLUME 11.1 fl (7.4-10.4); MONOCYTE # 0.7 10^3/ul (0.3-0.9); MONOCYTES % 8.1 % (0.0-11.0); NEUTROPHIL # 6.6 10^3/ul (1.6-7.5); NEUTROPHILS % 78.2 % (39.0-77.0); PLATELET COUNT 141 10^3/UL (140-415); RED BLOOD COUNT 2.62 10^6/ul (4.70-6.10); RED CELL DISTRIBUTION WIDTH 16.5 % (11.5-14.5)
[2017-11-25 23:46] LABS: WHITE BLOOD COUNT 8.4 10^3/ul (4.8-10.8)
[2017-11-26 00:17] LABS: ANION GAP 12 (8-16); BLOOD UREA NITROGEN 49 mg/dl (7-20); CALCIUM 8.9 mg/dl (8.4-10.2); CARBON DIOXIDE 32 mmol/L (21-31); CHLORIDE 101 mmol/L (97-110); CREATININE 5.43 mg/dl (0.61-1.24); GLUCOSE 118 mg/dl (70-220); POTASSIUM 3.5 mmol/L (3.5-5.1); SODIUM 141 mmol/L (135-144)
[2017-11-26] MEDS: 1/2 NS + KCL 20 MEQ 1,000 ML IV (00:47)
[2017-11-26] MEDS: INSULIN ASPART [NOVOLOG] 3 ML PEN SC ×6 (01:00→21:00)
[2017-11-26] MEDS: LEVALBUTEROL (HFA) 15 GM INHALER INH ×4 (01:25→19:21)
[2017-11-26] MEDS: HYDROmorphONE 0.5 MG/0.5 ML SYG IV ×4 (05:14→21:39)
[2017-11-26] MEDS: LANSOPRAZOLE 30 MG CAP GTB ×2 (05:19→17:18)
[2017-11-26] MEDS: LEVOTHYROXINE 75 MCG TAB GTB (07:00)
[2017-11-26] MEDS: ALTEPLASE (CATHFLO) 2 MG INJ CATHETER (08:38)
[2017-11-26] MEDS: FENTAnyl (DRIP) 1000 mcg/100mL 100 ML IV ×2 (08:42→16:04)
[2017-11-26] MEDS: SENNA/DOCUSATE NA (8.6MG/50MG) TAB GTB ×2 (09:00→21:00)
[2017-11-26] MEDS: CALCIUM CARBONATE 500 MG CHEW TAB GTB ×3 (09:00→21:00)
[2017-11-26] MEDS: ASPIRIN 81 MG TAB GTB (09:00)
[2017-11-26] MEDS: DOCUSATE SODIUM 10 MG/ML (10ML CUP) GTB ×2 (09:00→21:00)
[2017-11-26] MEDS: traMADol 50 MG TAB GTB ×3 (09:23→21:00)
[2017-11-26] MEDS: SERTRALINE 100 MG TAB GTB (09:24)
[2017-11-26] MEDS: SEVELAMER CARBONATE 0.8 GM PKT GTB ×3 (09:24→17:18)
[2017-11-26] MEDS: NEOMYC/POLYMYX/BACIT 30 GM OINT TOP ×3 (09:46→21:00)
[2017-11-26] MEDS: CALCITRIOL (1 MCG/ML PO SYG) GTB ×2 (09:57→21:00)
[2017-11-26] MEDS: GABAPENTIN (50 MG/ML PO SYG) GTB ×2 (09:57→21:00)
[2017-11-26 10:20] LABS: ADD MAN DIFF? NO
[2017-11-26 10:25] LABS: BASOPHILS % 0.2 % (0.0-2.0); EOSINOPHILS # 0.3 10^3/ul (0.0-0.5); HEMATOCRIT 27.2 % (42.0-52.0); HEMOGLOBIN 8.1 g/dl (14.0-18.0); LYMPHOCYTES # 0.7 10^3/ul (0.8-2.9); LYMPHOCYTES % 6.1 % (15.0-51.0); MEAN CORPUSCULAR HEMOGLOBIN 29.1 pg (29.0-33.0); MEAN CORPUSCULAR HGB CONC 29.8 g/dl (32.0-37.0); MEAN CORPUSCULAR VOLUME 97.8 fl (82.0-101.0); MEAN PLATELET VOLUME 11.2 fl (7.4-10.4); MONOCYTE # 0.8 10^3/ul (0.3-0.9); NEUTROPHIL # 9.2 10^3/ul (1.6-7.5); NEUTROPHILS % 83.2 % (39.0-77.0); PLATELET COUNT 140 10^3/UL (140-415); POSITIVE DIFF @See below; RED BLOOD COUNT 2.78 10^6/ul (4.70-6.10)
[2017-11-26 10:45] LABS: ANION GAP 15 (8-16); BLOOD UREA NITROGEN 54 mg/dl (7-20); CALCIUM 8.9 mg/dl (8.4-10.2); CARBON DIOXIDE 29 mmol/L (21-31); CHLORIDE 99 mmol/L (97-110); CREATININE 6.25 mg/dl (0.61-1.24); GLUCOSE 129 mg/dl (70-220); POTASSIUM 4.1 mmol/L (3.5-5.1); SODIUM 139 mmol/L (135-144)
[2017-11-26] MEDS: DIPHENHYDRAMINE 50 MG INJ IV (12:55)
[2017-11-26] MEDS: morphine 10 MG INJ IV (13:55)
[2017-11-26] MEDS: CASPOFUNGIN 50 MG in NS 250 ML IVPB (17:18)
[2017-11-26] MEDS: EPOETIN 4000 UNITS/1 ML INJ (ESRD) SC (17:20)
[2017-11-26] MEDS ORDERED: MIDAZOLAM 1 MG/ML 2 ML INJ (18:46)
[2017-11-26] MEDS ORDERED: FENTAnyl 50 MCG/ML VIAL (18:46)
[2017-11-26] MEDS: INSULIN GLARGINE [LANtus] 3 ML PEN SC (20:00)
[2017-11-26] MEDS: ATORVASTATIN 20 MG TAB GTB (21:00)
[2017-11-26] MEDS: TRIMETHOPRIM/SULFAMETHOX (DS) TAB GTB (21:00)
[2017-11-26] MEDS: CEFTAZIDIME 1GM/50 ML (PMX) 50 ML IVPB (22:25)
[2017-11-27] MEDS: INSULIN ASPART [NOVOLOG] 3 ML PEN SC ×6 (01:00→20:41)
[2017-11-27] MEDS: LEVALBUTEROL (HFA) 15 GM INHALER INH ×4 (01:15→19:26)
[2017-11-27] MEDS: FENTAnyl (DRIP) 1000 mcg/100mL 100 ML IV ×3 (01:41→21:30)
[2017-11-27 02:25] LABS: AHG CROSSMATCH 1 1
[2017-11-27] MEDS: traMADol 50 MG TAB GTB ×4 (03:00→20:41)
[2017-11-27] MEDS: HYDROmorphONE 0.5 MG/0.5 ML SYG IV ×4 (05:07→20:08)
[2017-11-27] MEDS: LANSOPRAZOLE 30 MG CAP GTB ×2 (05:14→17:48)
[2017-11-27 05:47] LABS: ADD MAN DIFF? NO
[2017-11-27 05:51] LABS: WHITE BLOOD COUNT 8.3 10^3/ul (4.8-10.8)
[2017-11-27 05:52] LABS: BASOPHILS % 0.2 % (0.0-2.0); EOSINOPHILS # 0.2 10^3/ul (0.0-0.5); EOSINOPHILS % 2.6 % (0.0-7.0); HEMATOCRIT 23.1 % (42.0-52.0); LYMPHOCYTES # 0.7 10^3/ul (0.8-2.9); MEAN CORPUSCULAR HEMOGLOBIN 29.4 pg (29.0-33.0); MEAN CORPUSCULAR HGB CONC 30.3 g/dl (32.0-37.0); MEAN CORPUSCULAR VOLUME 97.1 fl (82.0-101.0); MEAN PLATELET VOLUME 11.3 fl (7.4-10.4); MONOCYTE # 0.6 10^3/ul (0.3-0.9); MONOCYTES % 7.4 % (0.0-11.0); NEUTROPHIL # 6.8 10^3/ul (1.6-7.5); NEUTROPHILS % 81.2 % (39.0-77.0); PLATELET COUNT 122 10^3/UL (140-415); POSITIVE DIFF @See below; RED BLOOD COUNT 2.38 10^6/ul (4.70-6.10); RED CELL DISTRIBUTION WIDTH 16.2 % (11.5-14.5)
[2017-11-27 06:18] LABS: ALBUMIN 3.1 g/dl (3.3-4.9); ANION GAP 14 (8-16); BLOOD UREA NITROGEN 58 mg/dl (7-20); CALCIUM 8.8 mg/dl (8.4-10.2); CARBON DIOXIDE 29 mmol/L (21-31); CHLORIDE 102 mmol/L (97-110); CREATININE 7.39 mg/dl (0.61-1.24); GLUCOSE 119 mg/dl (70-220); MAGNESIUM 2.2 mg/dl (1.7-2.5); PHOSPHORUS 5.8 mg/dl (2.5-4.9); POTASSIUM 4.2 mmol/L (3.5-5.1); SODIUM 141 mmol/L (135-144)
[2017-11-27] MEDS: LEVOTHYROXINE 75 MCG TAB GTB (06:57)
[2017-11-27] MEDS: SEVELAMER CARBONATE 0.8 GM PKT GTB ×3 (07:35→17:35)
[2017-11-27] MEDS: ASPIRIN 81 MG TAB GTB (09:00)
[2017-11-27] MEDS: DOCUSATE SODIUM 10 MG/ML (10ML CUP) GTB ×2 (09:00→20:38)
[2017-11-27] MEDS: CALCIUM CARBONATE 500 MG CHEW TAB GTB ×3 (09:00→20:41)
[2017-11-27] MEDS: GABAPENTIN (50 MG/ML PO SYG) GTB ×2 (09:00→20:40)
[2017-11-27] MEDS: CALCITRIOL (1 MCG/ML PO SYG) GTB ×2 (09:00→20:40)
[2017-11-27] MEDS: SENNA/DOCUSATE NA (8.6MG/50MG) TAB GTB ×2 (09:00→20:40)
[2017-11-27] MEDS: SERTRALINE 100 MG TAB GTB (09:00)
[2017-11-27] MEDS: NEOMYC/POLYMYX/BACIT 30 GM OINT TOP ×3 (09:34→20:41)
[2017-11-27] MEDS: CASPOFUNGIN 50 MG in NS 250 ML IVPB (16:06)
[2017-11-27] MEDS: INSULIN GLARGINE [LANtus] 3 ML PEN SC ×2 (20:00→20:13)
[2017-11-27] MEDS: CEFTAZIDIME 1GM/50 ML (PMX) 50 ML IVPB (20:08)
[2017-11-27] MEDS: TRIMETHOPRIM/SULFAMETHOX (DS) TAB GTB (20:38)
[2017-11-27] MEDS: ATORVASTATIN 20 MG TAB GTB (20:40)
[2017-11-27] MEDS: DIPHENHYDRAMINE 50 MG INJ IV ×2 (23:31→23:35)
[2017-11-27] MEDS: BISACODYL 10 MG SUPP PR (23:44)
[2017-11-28] MEDS: morphine 10 MG INJ IV ×3 (00:01→19:59)
[2017-11-28] MEDS: INSULIN ASPART [NOVOLOG] 3 ML PEN SC ×6 (01:00→20:29)
[2017-11-28] MEDS: LEVALBUTEROL (HFA) 15 GM INHALER INH ×4 (01:18→19:22)
[2017-11-28] MEDS: traMADol 50 MG TAB GTB ×4 (02:42→20:25)
[2017-11-28 05:37] LABS: AADO2 Arterial 180.9 mmHg (7.0-24.0); Arterial Base Excess -2.2 mmol/L (-3.0-3); Arterial Blood Gas Oxygen Sat 92.3 mmHG (95.0-98.0); Arterial COHb 1.9 % (0.0-3.0); Arterial Fraction of Oxyhgb 90.3 % (93.0-99.0); Arterial HCO3 22.4 mmol/L (22.0-26.0); Arterial MetHb 0.3 % (0.0-1.5); Arterial Total Hemglobin 11.5 g/dl (12.0-18.0); Arterial pCO2 37.6 mmhg (35-45); MODE VENT - AC; Site Right Brachial
[2017-11-28 05:39] LABS: ADD MAN DIFF? NO
[2017-11-28] MEDS: HYDROmorphONE 0.5 MG/0.5 ML SYG IV ×3 (05:43→16:56)
[2017-11-28 05:46] LABS: ABNORMAL IP MESSAGE 1; BASOPHILS % 0.3 % (0.0-2.0); EOSINOPHILS # 0.2 10^3/ul (0.0-0.5); EOSINOPHILS % 2.6 % (0.0-7.0); HEMATOCRIT 23.5 % (42.0-52.0); LYMPHOCYTES # 0.7 10^3/ul (0.8-2.9); MEAN CORPUSCULAR HEMOGLOBIN 28.8 pg (29.0-33.0); MEAN CORPUSCULAR HGB CONC 29.4 g/dl (32.0-37.0); MEAN CORPUSCULAR VOLUME 97.9 fl (82.0-101.0); MEAN PLATELET VOLUME 10.8 fl (7.4-10.4); MONOCYTE # 0.6 10^3/ul (0.3-0.9); MONOCYTES % 7.6 % (0.0-11.0); NEUTROPHIL # 6.2 10^3/ul (1.6-7.5); PLATELET COUNT 130 10^3/UL (140-415); POSITIVE DIFF @See below; RED CELL DISTRIBUTION WIDTH 16.2 % (11.5-14.5)
[2017-11-28 05:46] LABS: WHITE BLOOD COUNT 7.7 10^3/ul (4.8-10.8)
[2017-11-28 05:56] LABS: HEMOGLOBIN 6.9 g/dl (14.0-18.0)
[2017-11-28] MEDS: LANSOPRAZOLE 30 MG CAP GTB ×2 (06:00→17:53)
[2017-11-28 06:01] LABS: LACTIC ACID 0.8 mmol/L (0.5-2.0)
[2017-11-28 06:06] LABS: ALBUMIN 3.3 g/dl (3.3-4.9); ANION GAP 21 (8-16); BLOOD UREA NITROGEN 42 mg/dl (7-20); CALCIUM 8.8 mg/dl (8.4-10.2); CARBON DIOXIDE 25 mmol/L (21-31); CHLORIDE 101 mmol/L (97-110); CREATININE 6.21 mg/dl (0.61-1.24); GLUCOSE 82 mg/dl (70-220); MAGNESIUM 2.3 mg/dl (1.7-2.5); PHOSPHORUS 6.3 mg/dl (2.5-4.9); POTASSIUM 4.3 mmol/L (3.5-5.1); SODIUM 143 mmol/L (135-144)
[2017-11-28] MEDS: LEVOTHYROXINE 75 MCG TAB GTB (06:43)
[2017-11-28] MEDS: SEVELAMER CARBONATE 0.8 GM PKT GTB ×3 (07:29→17:06)
[2017-11-28] MEDS: CALCITRIOL (1 MCG/ML PO SYG) GTB ×2 (09:00→20:25)
[2017-11-28] MEDS: SENNA/DOCUSATE NA (8.6MG/50MG) TAB GTB ×2 (09:00→20:25)
[2017-11-28] MEDS: DOCUSATE SODIUM 10 MG/ML (10ML CUP) GTB ×2 (09:00→20:25)
[2017-11-28] MEDS: SERTRALINE 100 MG TAB GTB (09:00)
[2017-11-28] MEDS: CALCIUM CARBONATE 500 MG CHEW TAB GTB ×3 (09:00→20:25)
[2017-11-28] MEDS: GABAPENTIN (50 MG/ML PO SYG) GTB ×2 (09:00→20:25)
[2017-11-28] MEDS: ASPIRIN 81 MG TAB GTB (09:00)
[2017-11-28] MEDS: NEOMYC/POLYMYX/BACIT 30 GM OINT TOP ×3 (09:02→20:30)
[2017-11-28] MEDS: FENTAnyl (DRIP) 1000 mcg/100mL 100 ML IV ×2 (09:29→19:43)
[2017-11-28] MEDS: PANTOPRAZOLE 40 MG INJ IV (12:35)
[2017-11-28] MEDS: SOD CHLORIDE 0.9% 500 ML IV (16:55)
[2017-11-28] MEDS: DEXTROSE 50% 50 ML SYRINGE IV (17:03)
[2017-11-28] MEDS: CASPOFUNGIN 50 MG in NS 250 ML IVPB (18:15)
[2017-11-28] MEDS: DEXTROSE 5%-0.45% NACL 1,000 ML IV (18:15)
[2017-11-28] MEDS: ATORVASTATIN 20 MG TAB GTB (20:25)
[2017-11-28] MEDS: CEFTAZIDIME 1GM/50 ML (PMX) 50 ML IVPB (20:29)
[2017-11-28] MEDS: TRIMETHOPRIM/SULFAMETHOX (DS) TAB GTB (20:30)
[2017-11-28] MEDS: INSULIN GLARGINE [LANtus] 3 ML PEN SC (20:34)
[2017-11-28] MEDS: MINERAL OIL 133 ML ENEMA PR (20:52)
[2017-11-28] MEDS: BISACODYL 10 MG SUPP PR (21:21)
[2017-11-29] MEDS: INSULIN ASPART [NOVOLOG] 3 ML PEN SC ×6 (01:00→21:00)
[2017-11-29] MEDS: LEVALBUTEROL (HFA) 15 GM INHALER INH ×4 (01:13→19:41)
[2017-11-29] MEDS: traMADol 50 MG TAB GTB ×4 (02:00→21:00)
[2017-11-29 05:11] LABS: AADO2 Arterial 162.4 mmHg (7.0-24.0); Arterial Base Excess -0.7 mmol/L (-3.0-3); Arterial Blood Gas Oxygen Sat 93.9 mmHG (95.0-98.0); Arterial COHb 2.2 % (0.0-3.0); Arterial Fraction of Oxyhgb 91.4 % (93.0-99.0); Arterial HCO3 24.7 mmol/L (22.0-26.0); Arterial MetHb 0.5 % (0.0-1.5); Arterial Total Hemglobin 7.8 g/dl (12.0-18.0); Arterial pCO2 44.1 mmhg (35-45); Blood Gas PS 14; MODE VENT - SIMV; Site Right Brachial
[2017-11-29] MEDS: FENTAnyl (DRIP) 1000 mcg/100mL 100 ML IV (05:40)
[2017-11-29] MEDS: LANSOPRAZOLE 30 MG CAP GTB ×3 (05:40→21:30)
[2017-11-29 06:29] LABS: ADD MAN DIFF? NO
[2017-11-29 06:37] LABS: BASOPHILS % 0.3 % (0.0-2.0); EOSINOPHILS # 0.2 10^3/ul (0.0-0.5); HEMATOCRIT 23.7 % (42.0-52.0); LYMPHOCYTES # 0.7 10^3/ul (0.8-2.9); LYMPHOCYTES % 5.9 % (15.0-51.0); MEAN CORPUSCULAR HEMOGLOBIN 29.3 pg (29.0-33.0); MEAN CORPUSCULAR HGB CONC 29.5 g/dl (32.0-37.0); MEAN CORPUSCULAR VOLUME 99.2 fl (82.0-101.0); MEAN PLATELET VOLUME 11.2 fl (7.4-10.4); MONOCYTE # 0.8 10^3/ul (0.3-0.9); MONOCYTES % 6.8 % (0.0-11.0); NEUTROPHIL # 9.6 10^3/ul (1.6-7.5); NEUTROPHILS % 84.5 % (39.0-77.0); PLATELET COUNT 130 10^3/UL (140-415); RED BLOOD COUNT 2.39 10^6/ul (4.70-6.10); RED CELL DISTRIBUTION WIDTH 16.1 % (11.5-14.5)
[2017-11-29 06:37] LABS: WHITE BLOOD COUNT 11.4 10^3/ul (4.8-10.8)
[2017-11-29] MEDS: LEVOTHYROXINE 75 MCG TAB GTB ×2 (06:58→21:31)
[2017-11-29 07:03] LABS: ALBUMIN 2.9 g/dl (3.3-4.9); ANION GAP 19 (8-16); BLOOD UREA NITROGEN 52 mg/dl (7-20); CALCIUM 8.6 mg/dl (8.4-10.2); CARBON DIOXIDE 26 mmol/L (21-31); CHLORIDE 103 mmol/L (97-110); CREATININE 7.16 mg/dl (0.61-1.24); GLUCOSE 62 mg/dl (70-220); MAGNESIUM 2.2 mg/dl (1.7-2.5); PHOSPHORUS 7.3 mg/dl (2.5-4.9); POTASSIUM 4.4 mmol/L (3.5-5.1); SODIUM 144 mmol/L (135-144)
[2017-11-29 07:07] LABS: INR 1.17; PROTIME 15.1 Sec (11.9-14.9); PT RATIO 1.2
[2017-11-29 07:08] LABS: PARTIAL THROMBOPLASTIN TIME 41.9 Sec (25.0-35.0)
[2017-11-29 07:15] LABS: ALANINE AMINOTRANSFERASE 28 IU/L (13-69); ALBUMIN 3.2 g/dl (3.3-4.9); ALBUMIN/GLOBULIN RATIO 0.91; ALKALINE PHOSPHATASE 90 IU/L (42-121); ANION GAP 19 (8-16); ASPARTATE AMINO TRANSFERASE 29 IU/L (15-46); BILIRUBIN,INDIRECT 0.2 mg/dl (0-1.1); BILIRUBIN,TOTAL 0.2 mg/dl (0.2-1.3); BLOOD UREA NITROGEN 49 mg/dl (7-20); CALCIUM 8.7 mg/dl (8.4-10.2); CARBON DIOXIDE 27 mmol/L (21-31); CHLORIDE 102 mmol/L (97-110); CREATININE 7.77 mg/dl (0.61-1.24); GLUCOSE 61 mg/dl (70-220); POTASSIUM 4.3 mmol/L (3.5-5.1); SODIUM 144 mmol/L (135-144); TOTAL PROTEIN 6.7 g/dl (6.1-8.1)
[2017-11-29] MEDS: SEVELAMER CARBONATE 0.8 GM PKT GTB ×4 (07:35→21:31)
[2017-11-29] MEDS: GABAPENTIN (50 MG/ML PO SYG) GTB ×2 (08:51→21:00)
[2017-11-29] MEDS: DOCUSATE SODIUM 10 MG/ML (10ML CUP) GTB ×2 (08:51→21:00)
[2017-11-29] MEDS: CALCIUM CARBONATE 500 MG CHEW TAB GTB ×3 (08:51→21:00)
[2017-11-29] MEDS: SENNA/DOCUSATE NA (8.6MG/50MG) TAB GTB ×2 (08:51→21:00)
[2017-11-29] MEDS: CALCITRIOL (1 MCG/ML PO SYG) GTB ×2 (08:51→21:00)
[2017-11-29] MEDS: SERTRALINE 100 MG TAB GTB (08:52)
[2017-11-29] MEDS: NEOMYC/POLYMYX/BACIT 30 GM OINT TOP ×3 (09:31→21:30)
[2017-11-29] MEDS: METOCLOPRAMIDE 10 MG INJ IV ×3 (09:32→21:29)
[2017-11-29] MEDS: DEXTROSE 50% 50 ML SYRINGE IV (09:35)
[2017-11-29] MEDS: HYDROmorphONE 0.5 MG/0.5 ML SYG IV ×2 (12:43→21:26)
[2017-11-29] MEDS: DEXTROSE 5%-0.45% NACL 1,000 ML IV (16:00)
[2017-11-29] MEDS: DIPHENHYDRAMINE 50 MG INJ IV (16:04)
[2017-11-29 17:12] LABS: IMMEDIATE SPIN CROSSMATCH 1
[2017-11-29] MEDS: INSULIN GLARGINE [LANtus] 3 ML PEN SC (19:55)
[2017-11-29] MEDS: ATORVASTATIN 20 MG TAB GTB (21:00)
[2017-11-29] MEDS ORDERED: HEPARIN 5,000 UNIT/0.5 ML VIAL SC (21:00)
[2017-11-29] MEDS: TRIMETHOPRIM/SULFAMETHOX (DS) TAB GTB (21:00)
[2017-11-29] MEDS: CASPOFUNGIN 50 MG in NS 250 ML IVPB (21:23)
[2017-11-29] MEDS: EPOETIN 4000 UNITS/1 ML INJ (ESRD) SC (21:27)
[2017-11-29] MEDS: CEFTAZIDIME 1GM/50 ML (PMX) 50 ML IVPB (21:30)
[2017-11-30] MEDS: INSULIN ASPART [NOVOLOG] 3 ML PEN SC ×6 (01:00→21:00)
[2017-11-30] MEDS: LEVALBUTEROL (HFA) 15 GM INHALER INH ×3 (01:48→19:52)
[2017-11-30] MEDS: HYDROmorphONE 0.5 MG/0.5 ML SYG IV ×3 (01:49→23:15)
[2017-11-30] MEDS: traMADol 50 MG TAB GTB ×4 (03:00→21:00)
[2017-11-30] MEDS: DEXTROSE 5%-0.45% NACL 1,000 ML IV ×2 (03:30→16:43)
[2017-11-30] MEDS: FENTAnyl (DRIP) 1000 mcg/100mL 100 ML IV (03:32)
[2017-11-30 08:41] LABS: ADD MAN DIFF? NO
[2017-11-30] MEDS: NEOMYC/POLYMYX/BACIT 30 GM OINT TOP ×3 (08:49→21:00)
[2017-11-30 08:54] LABS: WHITE BLOOD COUNT 8.6 10^3/ul (4.8-10.8)
[2017-11-30 08:54] LABS: BASOPHILS % 0.4 % (0.0-2.0); EOSINOPHILS # 0.2 10^3/ul (0.0-0.5); EOSINOPHILS % 2.2 % (0.0-7.0); HEMATOCRIT 25.3 % (42.0-52.0); HEMOGLOBIN 7.5 g/dl (14.0-18.0); LYMPHOCYTES # 0.6 10^3/ul (0.8-2.9); LYMPHOCYTES % 7.2 % (15.0-51.0); MEAN CORPUSCULAR HEMOGLOBIN 28.8 pg (29.0-33.0); MEAN CORPUSCULAR HGB CONC 29.6 g/dl (32.0-37.0); MEAN CORPUSCULAR VOLUME 97.3 fl (82.0-101.0); MONOCYTE # 0.6 10^3/ul (0.3-0.9); NEUTROPHIL # 7.1 10^3/ul (1.6-7.5); NEUTROPHILS % 82.5 % (39.0-77.0); PLATELET COUNT 108 10^3/UL (140-415); RED CELL DISTRIBUTION WIDTH 17.8 % (11.5-14.5)
[2017-11-30] MEDS: SENNA/DOCUSATE NA (8.6MG/50MG) TAB GTB ×2 (09:00→21:00)
[2017-11-30] MEDS: SERTRALINE 100 MG TAB GTB (09:00)
[2017-11-30] MEDS: CALCITRIOL (1 MCG/ML PO SYG) GTB ×2 (09:00→21:00)
[2017-11-30] MEDS: GABAPENTIN (50 MG/ML PO SYG) GTB ×2 (09:00→21:00)
[2017-11-30] MEDS: CALCIUM CARBONATE 500 MG CHEW TAB GTB ×3 (09:00→21:00)
[2017-11-30] MEDS: DOCUSATE SODIUM 10 MG/ML (10ML CUP) GTB ×2 (09:00→21:00)
[2017-11-30] MEDS: METOCLOPRAMIDE 10 MG INJ IV ×3 (09:02→23:15)
[2017-11-30 10:27] LABS: ANION GAP 16 (8-16); BLOOD UREA NITROGEN 35 mg/dl (7-20); CALCIUM 8.5 mg/dl (8.4-10.2); CARBON DIOXIDE 26 mmol/L (21-31); CHLORIDE 104 mmol/L (97-110); CREATININE 6.29 mg/dl (0.61-1.24); GLUCOSE 79 mg/dl (70-220); MAGNESIUM 2.1 mg/dl (1.7-2.5); PHOSPHORUS 5.6 mg/dl (2.5-4.9); SODIUM 142 mmol/L (135-144)
[2017-11-30] MEDS: SEVELAMER CARBONATE 0.8 GM PKT GTB ×2 (11:30→16:42)
[2017-11-30] MEDS: LANSOPRAZOLE 30 MG CAP GTB (16:42)
[2017-11-30] MEDS: ATORVASTATIN 20 MG TAB GTB (21:00)
[2017-11-30] MEDS: INSULIN GLARGINE [LANtus] 3 ML PEN SC (23:16)
[2017-12-01] MEDS: INSULIN ASPART [NOVOLOG] 3 ML PEN SC ×6 (01:00→20:28)
[2017-12-01] MEDS: traMADol 50 MG TAB GTB ×4 (01:37→20:05)
[2017-12-01] MEDS: LANSOPRAZOLE 30 MG CAP GTB ×2 (01:38→17:24)
[2017-12-01] MEDS: LEVALBUTEROL (HFA) 15 GM INHALER INH ×4 (01:47→20:00)
[2017-12-01 05:25] LABS: ADD MAN DIFF? NO
[2017-12-01 05:29] LABS: WHITE BLOOD COUNT 7.7 10^3/ul (4.8-10.8)
[2017-12-01 05:29] LABS: BASOPHILS % 0.4 % (0.0-2.0); EOSINOPHILS # 0.2 10^3/ul (0.0-0.5); EOSINOPHILS % 2.2 % (0.0-7.0); HEMATOCRIT 27.3 % (42.0-52.0); HEMOGLOBIN 8.2 g/dl (14.0-18.0); LYMPHOCYTES # 0.6 10^3/ul (0.8-2.9); LYMPHOCYTES % 7.9 % (15.0-51.0); MEAN CORPUSCULAR VOLUME 96.5 fl (82.0-101.0); MEAN PLATELET VOLUME 10.5 fl (7.4-10.4); MONOCYTE # 0.4 10^3/ul (0.3-0.9); MONOCYTES % 5.7 % (0.0-11.0); NEUTROPHIL # 6.5 10^3/ul (1.6-7.5); NEUTROPHILS % 83.3 % (39.0-77.0); PLATELET COUNT 107 10^3/UL (140-415); POSITIVE DIFF @See below; RED BLOOD COUNT 2.83 10^6/ul (4.70-6.10); RED CELL DISTRIBUTION WIDTH 17.3 % (11.5-14.5)
[2017-12-01 05:48] LABS: LACTIC ACID 0.6 mmol/L (0.5-2.0)
[2017-12-01 05:51] LABS: ANION GAP 12 (8-16); BLOOD UREA NITROGEN 43 mg/dl (7-20); CALCIUM 8.5 mg/dl (8.4-10.2); CARBON DIOXIDE 30 mmol/L (21-31); CHLORIDE 104 mmol/L (97-110); CREATININE 7.67 mg/dl (0.61-1.24); GLUCOSE 87 mg/dl (70-220); MAGNESIUM 2.2 mg/dl (1.7-2.5); PHOSPHORUS 6.9 mg/dl (2.5-4.9); SODIUM 142 mmol/L (135-144)
[2017-12-01] MEDS: LEVOTHYROXINE 75 MCG TAB GTB (07:00)
[2017-12-01] MEDS: SEVELAMER CARBONATE 0.8 GM PKT GTB ×3 (07:35→16:20)
[2017-12-01] MEDS: SERTRALINE 100 MG TAB GTB (09:00)
[2017-12-01] MEDS: ERGOCALCIFEROL (8000 UNITS/ML PO SYG) GTB (09:00)
[2017-12-01] MEDS: CALCITRIOL (1 MCG/ML PO SYG) GTB ×2 (09:00→20:28)
[2017-12-01] MEDS: SENNA/DOCUSATE NA (8.6MG/50MG) TAB GTB ×2 (09:00→20:04)
[2017-12-01] MEDS: CALCIUM CARBONATE 500 MG CHEW TAB GTB ×3 (09:00→20:04)
[2017-12-01] MEDS: GABAPENTIN (50 MG/ML PO SYG) GTB ×2 (09:00→20:04)
[2017-12-01] MEDS: DOCUSATE SODIUM 10 MG/ML (10ML CUP) GTB ×2 (09:00→20:04)
[2017-12-01] MEDS: ASPIRIN 81 MG TAB GTB (09:30)
[2017-12-01] MEDS: DIPHENHYDRAMINE 50 MG INJ IV ×2 (09:45→20:29)
[2017-12-01] MEDS: METOCLOPRAMIDE 10 MG INJ IV ×3 (10:17→20:29)
[2017-12-01] MEDS: NEOMYC/POLYMYX/BACIT 30 GM OINT TOP ×2 (10:18→13:53)
[2017-12-01] MEDS: HYDROmorphONE 0.5 MG/0.5 ML SYG IV ×2 (13:22→21:44)
[2017-12-01] MEDS: DEXTROSE 50% 50 ML SYRINGE IV ×2 (14:01→17:28)
[2017-12-01] MEDS: morphine 10 MG INJ IV (15:58)
[2017-12-01] MEDS: DEXTROSE 5%-0.45% NACL 1,000 ML IV (17:18)
[2017-12-01] MEDS: EPOETIN 4000 UNITS/1 ML INJ (ESRD) SC (17:21)
[2017-12-01] MEDS: ATORVASTATIN 20 MG TAB GTB (20:04)
[2017-12-01] MEDS: HEPARIN 5,000 UNIT/0.5 ML VIAL SC (20:30)
[2017-12-01] MEDS: INSULIN GLARGINE [LANtus] 3 ML PEN SC (20:31)
[2017-12-02] MEDS: INSULIN ASPART [NOVOLOG] 3 ML PEN SC ×6 (01:00→21:00)
[2017-12-02] MEDS: LEVALBUTEROL (HFA) 15 GM INHALER INH ×4 (02:13→20:28)
[2017-12-02] MEDS: traMADol 50 MG TAB GTB ×4 (02:26→21:10)
[2017-12-02] MEDS: HYDROmorphONE 0.5 MG/0.5 ML SYG IV ×3 (02:26→21:26)
[2017-12-02] MEDS: LANSOPRAZOLE 30 MG CAP GTB ×2 (04:47→18:29)
[2017-12-02 05:23] LABS: ADD MAN DIFF? NO
[2017-12-02 05:32] LABS: BASOPHILS % 0.5 % (0.0-2.0); EOSINOPHILS # 0.2 10^3/ul (0.0-0.5); EOSINOPHILS % 2.8 % (0.0-7.0); HEMATOCRIT 28.4 % (42.0-52.0); HEMOGLOBIN 8.3 g/dl (14.0-18.0); LYMPHOCYTES # 0.6 10^3/ul (0.8-2.9); LYMPHOCYTES % 8.2 % (15.0-51.0); MEAN CORPUSCULAR HEMOGLOBIN 28.5 pg (29.0-33.0); MEAN CORPUSCULAR HGB CONC 29.2 g/dl (32.0-37.0); MEAN CORPUSCULAR VOLUME 97.6 fl (82.0-101.0); MEAN PLATELET VOLUME 10.4 fl (7.4-10.4); MONOCYTE # 0.4 10^3/ul (0.3-0.9); MONOCYTES % 5.4 % (0.0-11.0); NEUTROPHIL # 6.1 10^3/ul (1.6-7.5); NEUTROPHILS % 82.6 % (39.0-77.0); PLATELET COUNT 117 10^3/UL (140-415); POSITIVE DIFF @See below; RED BLOOD COUNT 2.91 10^6/ul (4.70-6.10); RED CELL DISTRIBUTION WIDTH 17.3 % (11.5-14.5)
[2017-12-02 05:32] LABS: WHITE BLOOD COUNT 7.4 10^3/ul (4.8-10.8)
[2017-12-02 06:22] LABS: ANION GAP 18 (8-16); BLOOD UREA NITROGEN 34 mg/dl (7-20); CALCIUM 8.4 mg/dl (8.4-10.2); CARBON DIOXIDE 24 mmol/L (21-31); CHLORIDE 102 mmol/L (97-110); CREATININE 7.16 mg/dl (0.61-1.24); GLUCOSE 89 mg/dl (70-220); MAGNESIUM 2.1 mg/dl (1.7-2.5); PHOSPHORUS 6.5 mg/dl (2.5-4.9); POTASSIUM 3.8 mmol/L (3.5-5.1); SODIUM 140 mmol/L (135-144)
[2017-12-02] MEDS ORDERED: NEOMYC/POLYMYX/BACIT 30 GM OINT TOP (09:00)
[2017-12-02] MEDS: CEFAZOLIN 2 GM/50 ML (PMX) 50 ML IVPB (09:00)
[2017-12-02] MEDS: DOCUSATE SODIUM 10 MG/ML (10ML CUP) GTB ×2 (09:02→21:10)
[2017-12-02] MEDS: SEVELAMER CARBONATE 0.8 GM PKT GTB ×3 (09:03→16:48)
[2017-12-02] MEDS: ASPIRIN 81 MG TAB GTB (09:03)
[2017-12-02] MEDS: hydrOXYzine HCL 25 MG TAB GTB (09:03)
[2017-12-02] MEDS: SENNA/DOCUSATE NA (8.6MG/50MG) TAB GTB ×2 (09:03→21:09)
[2017-12-02] MEDS: SERTRALINE 100 MG TAB GTB (09:03)
[2017-12-02] MEDS: CALCIUM CARBONATE 500 MG CHEW TAB GTB ×3 (09:03→21:10)
[2017-12-02] MEDS: METOCLOPRAMIDE 10 MG INJ IV ×3 (09:04→21:11)
[2017-12-02] MEDS: LEVOTHYROXINE 75 MCG TAB GTB (09:04)
[2017-12-02] MEDS: HEPARIN 5,000 UNIT/0.5 ML VIAL SC ×2 (09:05→21:12)
[2017-12-02] MEDS: GABAPENTIN (50 MG/ML PO SYG) GTB ×2 (09:15→21:11)
[2017-12-02] MEDS: NEOMYC/POLYMYX/BACIT 30 GM OINT TOP (11:32)
[2017-12-02] MEDS: CALCITRIOL (1 MCG/ML PO SYG) GTB ×2 (12:18→21:10)
[2017-12-02] MEDS: GUAIFENESIN/CODEINE 5ML CUP GTB (14:37)
[2017-12-02] MEDS: morphine 10 MG INJ IV (15:15)
[2017-12-02] MEDS: BISACODYL 10 MG SUPP PR (15:22)
[2017-12-02] MEDS: POLYETHYLENE GLYCOL 17 GM PACKET GTB (15:22)
[2017-12-02] MEDS: DIPHENHYDRAMINE 50 MG INJ IV (18:32)
[2017-12-02] MEDS: ATORVASTATIN 20 MG TAB GTB (21:10)
[2017-12-02] MEDS: INSULIN GLARGINE [LANtus] 3 ML PEN SC (21:13)
[2017-12-03] MEDS: INSULIN ASPART [NOVOLOG] 3 ML PEN SC ×6 (01:00→21:00)
[2017-12-03] MEDS: HYDROmorphONE 0.5 MG/0.5 ML SYG IV ×4 (01:40→21:50)
[2017-12-03] MEDS: LEVALBUTEROL (HFA) 15 GM INHALER INH ×4 (01:59→19:19)
[2017-12-03] MEDS: traMADol 50 MG TAB GTB ×4 (03:00→21:30)
[2017-12-03 05:15] LABS: ADD MAN DIFF? NO
[2017-12-03] MEDS: LANSOPRAZOLE 30 MG CAP GTB ×2 (05:24→17:40)
[2017-12-03] MEDS: LEVOTHYROXINE 75 MCG TAB GTB (05:24)
[2017-12-03 05:26] LABS: WHITE BLOOD COUNT 6.8 10^3/ul (4.8-10.8)
[2017-12-03 05:26] LABS: BASOPHILS % 0.4 % (0.0-2.0); EOSINOPHILS # 0.2 10^3/ul (0.0-0.5); EOSINOPHILS % 3.5 % (0.0-7.0); HEMOGLOBIN 7.8 g/dl (14.0-18.0); LYMPHOCYTES # 0.7 10^3/ul (0.8-2.9); LYMPHOCYTES % 10.5 % (15.0-51.0); MEAN CORPUSCULAR HEMOGLOBIN 29.2 pg (29.0-33.0); MEAN CORPUSCULAR VOLUME 97.4 fl (82.0-101.0); MEAN PLATELET VOLUME 10.5 fl (7.4-10.4); MONOCYTE # 0.5 10^3/ul (0.3-0.9); MONOCYTES % 6.9 % (0.0-11.0); NEUTROPHIL # 5.3 10^3/ul (1.6-7.5); NEUTROPHILS % 78.4 % (39.0-77.0); PLATELET COUNT 108 10^3/UL (140-415); POSITIVE DIFF @See below; RED BLOOD COUNT 2.67 10^6/ul (4.70-6.10); RED CELL DISTRIBUTION WIDTH 17.2 % (11.5-14.5)
[2017-12-03 05:57] LABS: ANION GAP 15 (8-16); BLOOD UREA NITROGEN 42 mg/dl (7-20); CALCIUM 8.3 mg/dl (8.4-10.2); CARBON DIOXIDE 26 mmol/L (21-31); CHLORIDE 103 mmol/L (97-110); CREATININE 8.66 mg/dl (0.61-1.24); GLUCOSE 92 mg/dl (70-220); MAGNESIUM 2.1 mg/dl (1.7-2.5); PHOSPHORUS 6.9 mg/dl (2.5-4.9); POTASSIUM 3.9 mmol/L (3.5-5.1); SODIUM 140 mmol/L (135-144)
[2017-12-03] MEDS: SEVELAMER CARBONATE 0.8 GM PKT GTB ×3 (08:17→17:38)
[2017-12-03] MEDS: SENNA/DOCUSATE NA (8.6MG/50MG) TAB GTB ×2 (08:18→21:10)
[2017-12-03] MEDS: SERTRALINE 100 MG TAB GTB (08:18)
[2017-12-03] MEDS: DOCUSATE SODIUM 10 MG/ML (10ML CUP) GTB ×2 (08:18→20:59)
[2017-12-03] MEDS: ASPIRIN 81 MG TAB GTB (08:18)
[2017-12-03] MEDS: CALCIUM CARBONATE 500 MG CHEW TAB GTB ×3 (08:18→21:00)
[2017-12-03] MEDS: CALCITRIOL (1 MCG/ML PO SYG) GTB ×2 (08:18→21:00)
[2017-12-03] MEDS: NEOMYC/POLYMYX/BACIT 30 GM OINT TOP (08:19)
[2017-12-03] MEDS: HEPARIN 5,000 UNIT/0.5 ML VIAL SC ×2 (08:20→21:02)
[2017-12-03] MEDS: GABAPENTIN (50 MG/ML PO SYG) GTB ×2 (08:37→21:00)
[2017-12-03] MEDS: METOCLOPRAMIDE 10 MG INJ IV ×3 (08:39→21:30)
[2017-12-03] MEDS: DIPHENHYDRAMINE 50 MG INJ IV (10:38)
[2017-12-03] MEDS: EPOETIN 4000 UNITS/1 ML INJ (ESRD) SC (17:40)
[2017-12-03] MEDS: INSULIN GLARGINE [LANtus] 3 ML PEN SC (20:18)
[2017-12-03] MEDS: ATORVASTATIN 20 MG TAB GTB (20:59)
[2017-12-04] MEDS: INSULIN ASPART [NOVOLOG] 3 ML PEN SC ×6 (01:00→21:00)
[2017-12-04] MEDS: HYDROmorphONE 0.5 MG/0.5 ML SYG IV ×2 (02:11→02:57)
[2017-12-04] MEDS: MIDODRINE 2.5 MG TAB GTB ×3 (02:23→21:21)
[2017-12-04] MEDS: LEVALBUTEROL (HFA) 15 GM INHALER INH ×4 (02:40→19:04)
[2017-12-04] MEDS: traMADol 50 MG TAB GTB ×4 (03:00→21:18)
[2017-12-04] MEDS: LANSOPRAZOLE 30 MG CAP GTB ×2 (06:08→18:09)
[2017-12-04] MEDS: LEVOTHYROXINE 75 MCG TAB GTB (06:36)
[2017-12-04] MEDS: CALCIUM CARBONATE 500 MG CHEW TAB GTB ×3 (10:03→21:18)
[2017-12-04] MEDS: ASPIRIN 81 MG TAB GTB (10:04)
[2017-12-04] MEDS: DOCUSATE SODIUM 10 MG/ML (10ML CUP) GTB ×2 (10:04→21:17)
[2017-12-04] MEDS: GABAPENTIN (50 MG/ML PO SYG) GTB ×2 (10:04→21:21)
[2017-12-04] MEDS: SERTRALINE 100 MG TAB GTB (10:04)
[2017-12-04] MEDS: METOCLOPRAMIDE 10 MG INJ IV ×3 (10:04→21:22)
[2017-12-04] MEDS: SEVELAMER CARBONATE 0.8 GM PKT GTB ×3 (10:04→18:09)
[2017-12-04] MEDS: CALCITRIOL (1 MCG/ML PO SYG) GTB ×2 (10:05→21:21)
[2017-12-04] MEDS: SENNA/DOCUSATE NA (8.6MG/50MG) TAB GTB ×2 (10:13→21:21)
[2017-12-04] MEDS: NEOMYC/POLYMYX/BACIT 30 GM OINT TOP (10:15)
[2017-12-04] MEDS: HEPARIN 5,000 UNIT/0.5 ML VIAL SC ×2 (10:17→21:25)
[2017-12-04] MEDS: HYDROCODONE/APAP (5/325) TAB GTB (12:02)
[2017-12-04 13:28] LABS: AADO2 Arterial 81.6 mmHg (7.0-24.0); Arterial Base Excess -0.2 mmol/L (-3.0-3); Arterial Blood Gas Oxygen Sat 93.8 mmHG (95.0-98.0); Arterial COHb 0.9 % (0.0-3.0); Arterial Fraction of Oxyhgb 92.7 % (93.0-99.0); Arterial HCO3 26.2 mmol/L (22.0-26.0); Arterial MetHb 0.3 % (0.0-1.5); Arterial Total Hemglobin 10.1 g/dl (12.0-18.0); Arterial pCO2 50.9 mmhg (35-45); Blood Gas PS 10; MODE VENT - CPAP; Site Right Brachial
[2017-12-04] MEDS: INSULIN GLARGINE [LANtus] 3 ML PEN SC (20:17)
[2017-12-04] MEDS: ATORVASTATIN 20 MG TAB GTB (21:20)
[2017-12-05] MEDS: INSULIN ASPART [NOVOLOG] 3 ML PEN SC ×6 (01:00→20:09)
[2017-12-05] MEDS: LEVALBUTEROL (HFA) 15 GM INHALER INH ×3 (01:08→14:07)
[2017-12-05] MEDS: traMADol 50 MG TAB GTB ×4 (03:08→20:29)
[2017-12-05] MEDS ORDERED: ALTEPLASE (CATHFLO) 2 MG INJ CATHETER (04:00)
[2017-12-05] MEDS: LANSOPRAZOLE 30 MG CAP GTB ×2 (06:14→17:29)
[2017-12-05] MEDS: LEVOTHYROXINE 75 MCG TAB GTB (06:43)
[2017-12-05] MEDS: SEVELAMER CARBONATE 0.8 GM PKT GTB ×3 (08:24→17:29)
[2017-12-05] MEDS: DOCUSATE SODIUM 10 MG/ML (10ML CUP) GTB ×2 (09:14→20:28)
[2017-12-05] MEDS: CALCITRIOL (1 MCG/ML PO SYG) GTB ×2 (09:15→20:29)
[2017-12-05] MEDS: ASPIRIN 81 MG TAB GTB (09:15)
[2017-12-05] MEDS: GABAPENTIN (50 MG/ML PO SYG) GTB ×2 (09:15→22:20)
[2017-12-05] MEDS: SERTRALINE 100 MG TAB GTB (09:15)
[2017-12-05] MEDS: CALCIUM CARBONATE 500 MG CHEW TAB GTB ×3 (09:15→20:28)
[2017-12-05] MEDS: METOCLOPRAMIDE 10 MG INJ IV ×3 (09:15→20:29)
[2017-12-05] MEDS: SENNA/DOCUSATE NA (8.6MG/50MG) TAB GTB ×2 (09:15→20:28)
[2017-12-05] MEDS: HEPARIN 5,000 UNIT/0.5 ML VIAL SC ×2 (09:16→20:31)
[2017-12-05] MEDS: NEOMYC/POLYMYX/BACIT 30 GM OINT TOP (09:18)
[2017-12-05 09:36] LABS: ADD MAN DIFF? NO
[2017-12-05 09:42] LABS: BASOPHILS % 0.4 % (0.0-2.0); EOSINOPHILS # 0.3 10^3/ul (0.0-0.5); EOSINOPHILS % 3.6 % (0.0-7.0); HEMOGLOBIN 8.2 g/dl (14.0-18.0); LYMPHOCYTES # 0.9 10^3/ul (0.8-2.9); LYMPHOCYTES % 12.4 % (15.0-51.0); MEAN CORPUSCULAR HEMOGLOBIN 28.9 pg (29.0-33.0); MEAN CORPUSCULAR HGB CONC 29.3 g/dl (32.0-37.0); MEAN CORPUSCULAR VOLUME 98.6 fl (82.0-101.0); MEAN PLATELET VOLUME 10.7 fl (7.4-10.4); MONOCYTE # 0.6 10^3/ul (0.3-0.9); MONOCYTES % 7.9 % (0.0-11.0); NEUTROPHIL # 5.3 10^3/ul (1.6-7.5); NEUTROPHILS % 75.1 % (39.0-77.0); PLATELET COUNT 120 10^3/UL (140-415); POSITIVE DIFF @See below; RED BLOOD COUNT 2.84 10^6/ul (4.70-6.10)
[2017-12-05 09:56] LABS: ANION GAP 12 (8-16); BLOOD UREA NITROGEN 49 mg/dl (7-20); CALCIUM 8.8 mg/dl (8.4-10.2); CARBON DIOXIDE 30 mmol/L (21-31); CHLORIDE 99 mmol/L (97-110); CREATININE 8.52 mg/dl (0.61-1.24); GLUCOSE 78 mg/dl (70-220); MAGNESIUM 2.3 mg/dl (1.7-2.5); PHOSPHORUS 5.4 mg/dl (2.5-4.9); POTASSIUM 3.7 mmol/L (3.5-5.1); SODIUM 137 mmol/L (135-144)
[2017-12-05] MEDS: DIPHENHYDRAMINE 50 MG INJ IV (09:56)
[2017-12-05] MEDS: ALBUMIN HUMAN 25% 100 ML IV (09:57)
[2017-12-05] MEDS: NORepinephrine 8MG/250 ML (PMX 250 ML IV (11:14)
[2017-12-05] MEDS: HYDROmorphONE 0.5 MG/0.5 ML SYG IV ×2 (13:29→22:20)
[2017-12-05] MEDS: LEVALBUTEROL (NEB) 0.63 MG/3 ML AMP HHN (20:23)
[2017-12-05] MEDS: ATORVASTATIN 20 MG TAB GTB (20:28)
[2017-12-05] MEDS: INSULIN GLARGINE [LANtus] 3 ML PEN SC (20:32)
[2017-12-06] MEDS: INSULIN ASPART [NOVOLOG] 3 ML PEN SC ×6 (01:00→20:35)
[2017-12-06] MEDS: LEVALBUTEROL (NEB) 0.63 MG/3 ML AMP HHN ×4 (01:31→20:20)
[2017-12-06] MEDS: traMADol 50 MG TAB GTB ×4 (03:33→20:34)
[2017-12-06] MEDS: HYDROmorphONE 0.5 MG/0.5 ML SYG IV ×2 (04:16→11:44)
[2017-12-06] MEDS: LEVOTHYROXINE 75 MCG TAB GTB (06:06)
[2017-12-06] MEDS: LANSOPRAZOLE 30 MG CAP GTB ×2 (06:08→17:29)
[2017-12-06] MEDS: METOCLOPRAMIDE 10 MG INJ IV ×3 (09:10→20:12)
[2017-12-06] MEDS: DOCUSATE SODIUM 10 MG/ML (10ML CUP) GTB ×2 (09:10→20:12)
[2017-12-06] MEDS: SEVELAMER CARBONATE 0.8 GM PKT GTB ×3 (09:11→17:29)
[2017-12-06] MEDS: SENNA/DOCUSATE NA (8.6MG/50MG) TAB GTB ×2 (09:11→20:12)
[2017-12-06] MEDS: CALCIUM CARBONATE 500 MG CHEW TAB GTB ×3 (09:11→20:12)
[2017-12-06] MEDS: SERTRALINE 100 MG TAB GTB (09:11)
[2017-12-06] MEDS: MIDODRINE 2.5 MG TAB GTB ×4 (09:11→23:24)
[2017-12-06] MEDS: ASPIRIN 81 MG TAB GTB (09:11)
[2017-12-06] MEDS: HEPARIN 5,000 UNIT/0.5 ML VIAL SC ×2 (09:12→20:17)
[2017-12-06] MEDS: NEOMYC/POLYMYX/BACIT 30 GM OINT TOP (09:13)
[2017-12-06] MEDS: GABAPENTIN (50 MG/ML PO SYG) GTB ×2 (11:44→20:25)
[2017-12-06] MEDS: CALCITRIOL (1 MCG/ML PO SYG) GTB ×2 (11:44→20:11)
[2017-12-06] MEDS: EPOETIN 4000 UNITS/1 ML INJ (ESRD) SC (17:32)
[2017-12-06] MEDS: ATORVASTATIN 20 MG TAB GTB (20:16)
[2017-12-06] MEDS: INSULIN GLARGINE [LANtus] 3 ML PEN SC (20:18)
[2017-12-07] MEDS: INSULIN ASPART [NOVOLOG] 3 ML PEN SC ×6 (01:00→21:00)
[2017-12-07] MEDS: LEVALBUTEROL (NEB) 0.63 MG/3 ML AMP HHN ×4 (01:22→19:58)
[2017-12-07] MEDS: traMADol 50 MG TAB GTB ×4 (03:13→20:53)
[2017-12-07] MEDS: NORepinephrine 8MG/250 ML (PMX 250 ML IV (03:30)
[2017-12-07] MEDS: HYDROmorphONE 0.5 MG/0.5 ML SYG IV ×2 (05:24→14:46)
[2017-12-07] MEDS: LANSOPRAZOLE 30 MG CAP GTB ×2 (05:34→17:14)
[2017-12-07] MEDS: MIDODRINE 2.5 MG TAB GTB ×4 (05:34→23:49)
[2017-12-07 05:38] LABS: ADD MAN DIFF? NO
[2017-12-07 05:45] LABS: BASOPHILS % 0.3 % (0.0-2.0); EOSINOPHILS # 0.3 10^3/ul (0.0-0.5); EOSINOPHILS % 4.3 % (0.0-7.0); HEMATOCRIT 28.7 % (42.0-52.0); HEMOGLOBIN 8.5 g/dl (14.0-18.0); LYMPHOCYTES % 12.4 % (15.0-51.0); MEAN CORPUSCULAR HGB CONC 29.6 g/dl (32.0-37.0); MEAN PLATELET VOLUME 10.9 fl (7.4-10.4); MONOCYTE # 0.8 10^3/ul (0.3-0.9); MONOCYTES % 10.8 % (0.0-11.0); NEUTROPHIL # 5.6 10^3/ul (1.6-7.5); NEUTROPHILS % 71.7 % (39.0-77.0); PLATELET COUNT 146 10^3/UL (140-415); RED BLOOD COUNT 2.93 10^6/ul (4.70-6.10); RED CELL DISTRIBUTION WIDTH 16.3 % (11.5-14.5)
[2017-12-07 05:45] LABS: WHITE BLOOD COUNT 7.8 10^3/ul (4.8-10.8)
[2017-12-07 06:21] LABS: ANION GAP 15 (8-16); BLOOD UREA NITROGEN 53 mg/dl (7-20); CALCIUM 9.1 mg/dl (8.4-10.2); CARBON DIOXIDE 29 mmol/L (21-31); CHLORIDE 96 mmol/L (97-110); CREATININE 7.68 mg/dl (0.61-1.24); GLUCOSE 113 mg/dl (70-220); MAGNESIUM 2.4 mg/dl (1.7-2.5); PHOSPHORUS 4.7 mg/dl (2.5-4.9); POTASSIUM 3.7 mmol/L (3.5-5.1); SODIUM 136 mmol/L (135-144)
[2017-12-07] MEDS: LEVOTHYROXINE 75 MCG TAB GTB (06:46)
[2017-12-07] MEDS: SEVELAMER CARBONATE 0.8 GM PKT GTB ×3 (07:55→17:15)
[2017-12-07] MEDS: SENNA/DOCUSATE NA (8.6MG/50MG) TAB GTB ×2 (08:00→20:53)
[2017-12-07] MEDS: SERTRALINE 100 MG TAB GTB (08:00)
[2017-12-07] MEDS: CALCIUM CARBONATE 500 MG CHEW TAB GTB ×3 (08:00→20:54)
[2017-12-07] MEDS: ASPIRIN 81 MG TAB GTB (08:00)
[2017-12-07] MEDS: METOCLOPRAMIDE 10 MG INJ IV ×3 (08:02→20:52)
[2017-12-07] MEDS: CALCITRIOL (1 MCG/ML PO SYG) GTB ×2 (08:02→21:39)
[2017-12-07] MEDS: DOCUSATE SODIUM 10 MG/ML (10ML CUP) GTB ×2 (08:02→20:53)
[2017-12-07] MEDS: HEPARIN 5,000 UNIT/0.5 ML VIAL SC ×2 (08:04→20:55)
[2017-12-07] MEDS: GABAPENTIN (50 MG/ML PO SYG) GTB ×2 (08:25→20:53)
[2017-12-07] MEDS: NEOMYC/POLYMYX/BACIT 30 GM OINT TOP (08:27)
[2017-12-07] MEDS: HYDROCODONE/APAP (5/325) TAB GTB (18:28)
[2017-12-07] MEDS: ATORVASTATIN 20 MG TAB GTB (20:53)
[2017-12-07] MEDS: INSULIN GLARGINE [LANtus] 3 ML PEN SC (20:56)
[2017-12-07] MEDS: DIPHENHYDRAMINE 50 MG INJ IV (21:23)
[2017-12-08] MEDS: HYDROmorphONE 0.5 MG/0.5 ML SYG IV ×4 (00:21→15:54)
[2017-12-08] MEDS: INSULIN ASPART [NOVOLOG] 3 ML PEN SC ×6 (01:00→20:06)
[2017-12-08] MEDS: LEVALBUTEROL (NEB) 0.63 MG/3 ML AMP HHN ×4 (01:11→19:19)
[2017-12-08] MEDS: traMADol 50 MG TAB GTB ×4 (03:09→20:36)
[2017-12-08 05:10] LABS: ADD MAN DIFF? NO
[2017-12-08 05:16] LABS: WHITE BLOOD COUNT 6.7 10^3/ul (4.8-10.8)
[2017-12-08 05:16] LABS: BASOPHILS % 0.6 % (0.0-2.0); EOSINOPHILS # 0.3 10^3/ul (0.0-0.5); EOSINOPHILS % 4.2 % (0.0-7.0); HEMATOCRIT 27.8 % (42.0-52.0); HEMOGLOBIN 8.4 g/dl (14.0-18.0); LYMPHOCYTES # 0.9 10^3/ul (0.8-2.9); LYMPHOCYTES % 12.9 % (15.0-51.0); MEAN CORPUSCULAR HEMOGLOBIN 29.6 pg (29.0-33.0); MEAN CORPUSCULAR HGB CONC 30.2 g/dl (32.0-37.0); MEAN CORPUSCULAR VOLUME 97.9 fl (82.0-101.0); MEAN PLATELET VOLUME 10.8 fl (7.4-10.4); MONOCYTE # 0.8 10^3/ul (0.3-0.9); MONOCYTES % 11.6 % (0.0-11.0); NEUTROPHIL # 4.7 10^3/ul (1.6-7.5); PLATELET COUNT 146 10^3/UL (140-415); RED BLOOD COUNT 2.84 10^6/ul (4.70-6.10)
[2017-12-08] MEDS: NORepinephrine 8MG/250 ML (PMX 250 ML IV (05:16)
[2017-12-08 05:41] LABS: ALBUMIN 3.1 g/dl (3.3-4.9); ANION GAP 12 (8-16); BLOOD UREA NITROGEN 44 mg/dl (7-20); CALCIUM 9.3 mg/dl (8.4-10.2); CARBON DIOXIDE 31 mmol/L (21-31); CHLORIDE 96 mmol/L (97-110); GLUCOSE 103 mg/dl (70-220); MAGNESIUM 2.4 mg/dl (1.7-2.5); PHOSPHORUS 3.8 mg/dl (2.5-4.9); POTASSIUM 3.5 mmol/L (3.5-5.1); SODIUM 135 mmol/L (135-144)
[2017-12-08] MEDS: MIDODRINE 2.5 MG TAB GTB ×3 (06:20→17:00)
[2017-12-08] MEDS: LANSOPRAZOLE 30 MG CAP GTB ×2 (06:20→17:00)
[2017-12-08] MEDS: LEVOTHYROXINE 75 MCG TAB GTB (06:20)
[2017-12-08] MEDS: SEVELAMER CARBONATE 0.8 GM PKT GTB ×3 (07:53→16:55)
[2017-12-08] MEDS: DOCUSATE SODIUM 10 MG/ML (10ML CUP) GTB ×2 (07:56→20:33)
[2017-12-08] MEDS: CALCIUM CARBONATE 500 MG CHEW TAB GTB ×3 (07:56→20:36)
[2017-12-08] MEDS: SENNA/DOCUSATE NA (8.6MG/50MG) TAB GTB ×2 (07:56→20:36)
[2017-12-08] MEDS: ERGOCALCIFEROL (8000 UNITS/ML PO SYG) GTB (08:01)
[2017-12-08] MEDS: GABAPENTIN (50 MG/ML PO SYG) GTB ×2 (08:02→20:36)
[2017-12-08] MEDS: SERTRALINE 100 MG TAB GTB (08:02)
[2017-12-08] MEDS: METOCLOPRAMIDE 10 MG INJ IV ×3 (08:03→20:37)
[2017-12-08] MEDS: ASPIRIN 81 MG TAB GTB (08:03)
[2017-12-08] MEDS: HEPARIN 5,000 UNIT/0.5 ML VIAL SC ×2 (08:05→20:34)
[2017-12-08] MEDS: NEOMYC/POLYMYX/BACIT 30 GM OINT TOP (08:10)
[2017-12-08] MEDS: CALCITRIOL (1 MCG/ML PO SYG) GTB ×2 (09:56→20:36)
[2017-12-08] MEDS: POTASSIUM CHLORIDE 20 MEQ POWDER FOR ORAL SOLN GTB (09:56)
[2017-12-08] MEDS: EPOETIN 4000 UNITS/1 ML INJ (ESRD) SC (16:56)
[2017-12-08] MEDS: INSULIN GLARGINE [LANtus] 3 ML PEN SC (20:33)
[2017-12-08] MEDS: clonAZEPAM 0.5 MG TAB GTB (20:36)
[2017-12-08] MEDS: ATORVASTATIN 20 MG TAB GTB (20:37)
[2017-12-09] MEDS: MIDODRINE 2.5 MG TAB GTB ×4 (00:08→18:48)
[2017-12-09] MEDS: INSULIN ASPART [NOVOLOG] 3 ML PEN SC ×4 (00:13→18:00)
[2017-12-09] MEDS: LEVALBUTEROL (NEB) 0.63 MG/3 ML AMP HHN ×4 (01:37→20:05)
[2017-12-09] MEDS: traMADol 50 MG TAB GTB ×4 (03:44→21:03)
[2017-12-09 04:50] LABS: ADD MAN DIFF? NO
[2017-12-09 04:54] LABS: BASOPHIL # 0.1 10^3/ul (0.0-0.1); BASOPHILS % 0.8 % (0.0-2.0); EOSINOPHILS # 0.3 10^3/ul (0.0-0.5); EOSINOPHILS % 5.5 % (0.0-7.0); HEMATOCRIT 27.5 % (42.0-52.0); HEMOGLOBIN 8.1 g/dl (14.0-18.0); LYMPHOCYTES # 1.1 10^3/ul (0.8-2.9); LYMPHOCYTES % 17.8 % (15.0-51.0); MEAN CORPUSCULAR HEMOGLOBIN 28.5 pg (29.0-33.0); MEAN CORPUSCULAR HGB CONC 29.5 g/dl (32.0-37.0); MEAN CORPUSCULAR VOLUME 96.8 fl (82.0-101.0); MEAN PLATELET VOLUME 10.7 fl (7.4-10.4); MONOCYTE # 0.8 10^3/ul (0.3-0.9); MONOCYTES % 12.8 % (0.0-11.0); NEUTROPHIL # 3.8 10^3/ul (1.6-7.5); NEUTROPHILS % 62.4 % (39.0-77.0); PLATELET COUNT 148 10^3/UL (140-415); RED BLOOD COUNT 2.84 10^6/ul (4.70-6.10)
[2017-12-09 05:23] LABS: ALBUMIN 3.3 g/dl (3.3-4.9); ANION GAP 17 (8-16); BLOOD UREA NITROGEN 54 mg/dl (7-20); CALCIUM 8.9 mg/dl (8.4-10.2); CARBON DIOXIDE 27 mmol/L (21-31); CHLORIDE 94 mmol/L (97-110); CREATININE 8.01 mg/dl (0.61-1.24); GLUCOSE 95 mg/dl (70-220); MAGNESIUM 2.6 mg/dl (1.7-2.5); PHOSPHORUS 4.5 mg/dl (2.5-4.9); POTASSIUM 4.3 mmol/L (3.5-5.1); SODIUM 134 mmol/L (135-144)
[2017-12-09] MEDS: LANSOPRAZOLE 30 MG CAP GTB ×2 (06:22→18:48)
[2017-12-09] MEDS: LEVOTHYROXINE 75 MCG TAB GTB (06:22)
[2017-12-09] MEDS: NEOMYC/POLYMYX/BACIT 30 GM OINT TOP (09:00)
[2017-12-09] MEDS: SEVELAMER CARBONATE 0.8 GM PKT GTB ×3 (09:27→18:48)
[2017-12-09] MEDS: DOCUSATE SODIUM 10 MG/ML (10ML CUP) GTB ×2 (09:27→21:01)
[2017-12-09] MEDS: SERTRALINE 100 MG TAB GTB (09:27)
[2017-12-09] MEDS: ASPIRIN 81 MG TAB GTB (09:27)
[2017-12-09] MEDS: CALCIUM CARBONATE 500 MG CHEW TAB GTB ×3 (09:27→21:02)
[2017-12-09] MEDS: SENNA/DOCUSATE NA (8.6MG/50MG) TAB GTB ×2 (09:27→21:03)
[2017-12-09] MEDS: CALCITRIOL (1 MCG/ML PO SYG) GTB ×2 (09:28→21:54)
[2017-12-09] MEDS: GABAPENTIN (50 MG/ML PO SYG) GTB ×2 (09:28→21:02)
[2017-12-09] MEDS: METOCLOPRAMIDE 10 MG INJ IV ×3 (09:29→21:02)
[2017-12-09] MEDS: HEPARIN 5,000 UNIT/0.5 ML VIAL SC ×2 (09:34→21:01)
[2017-12-09] MEDS: INSULIN GLARGINE [LANtus] 3 ML PEN SC (20:00)
[2017-12-09] MEDS: ATORVASTATIN 20 MG TAB GTB (21:02)
[2017-12-09] MEDS: HYDROmorphONE 0.5 MG/0.5 ML SYG IV (21:54)
[2017-12-10] MEDS: NEOMYC/POLYMYX/BACIT 30 GM OINT TOP ×2 (01:03→20:59)
[2017-12-10] MEDS: MIDODRINE 2.5 MG TAB GTB ×5 (01:03→23:49)
[2017-12-10] MEDS: LEVALBUTEROL (NEB) 0.63 MG/3 ML AMP HHN ×4 (01:35→19:38)
[2017-12-10] MEDS: traMADol 50 MG TAB GTB ×5 (02:43→21:03)
[2017-12-10] MEDS: HYDROmorphONE 0.5 MG/0.5 ML SYG IV ×4 (04:35→23:49)
[2017-12-10 05:51] LABS: ADD MAN DIFF? NO
[2017-12-10 05:59] LABS: WHITE BLOOD COUNT 5.4 10^3/ul (4.8-10.8)
[2017-12-10 05:59] LABS: BASOPHIL # 0.1 10^3/ul (0.0-0.1); BASOPHILS % 0.9 % (0.0-2.0); EOSINOPHILS # 0.3 10^3/ul (0.0-0.5); EOSINOPHILS % 5.3 % (0.0-7.0); HEMOGLOBIN 7.8 g/dl (14.0-18.0); LYMPHOCYTES # 0.8 10^3/ul (0.8-2.9); LYMPHOCYTES % 14.2 % (15.0-51.0); MEAN CORPUSCULAR HEMOGLOBIN 29.2 pg (29.0-33.0); MEAN CORPUSCULAR VOLUME 97.4 fl (82.0-101.0); MEAN PLATELET VOLUME 10.7 fl (7.4-10.4); MONOCYTE # 0.6 10^3/ul (0.3-0.9); NEUTROPHIL # 3.7 10^3/ul (1.6-7.5); NEUTROPHILS % 67.9 % (39.0-77.0); PLATELET COUNT 146 10^3/UL (140-415); RED BLOOD COUNT 2.67 10^6/ul (4.70-6.10); RED CELL DISTRIBUTION WIDTH 15.9 % (11.5-14.5)
[2017-12-10] MEDS: INSULIN ASPART [NOVOLOG] 3 ML PEN SC ×3 (06:00→21:00)
[2017-12-10 06:17] LABS: ALBUMIN 3.2 g/dl (3.3-4.9); ANION GAP 18 (8-16); BLOOD UREA NITROGEN 66 mg/dl (7-20); CALCIUM 8.9 mg/dl (8.4-10.2); CARBON DIOXIDE 26 mmol/L (21-31); CHLORIDE 91 mmol/L (97-110); GLUCOSE 118 mg/dl (70-220); MAGNESIUM 2.7 mg/dl (1.7-2.5); PHOSPHORUS 5.2 mg/dl (2.5-4.9); POTASSIUM 4.5 mmol/L (3.5-5.1); SODIUM 130 mmol/L (135-144)
[2017-12-10] MEDS: LEVOTHYROXINE 75 MCG TAB GTB (06:42)
[2017-12-10] MEDS: LANSOPRAZOLE 30 MG CAP GTB ×2 (06:42→18:27)
[2017-12-10] MEDS: SERTRALINE 100 MG TAB GTB (09:00)
[2017-12-10] MEDS: SENNA/DOCUSATE NA (8.6MG/50MG) TAB GTB ×2 (09:00→20:59)
[2017-12-10] MEDS: GABAPENTIN (50 MG/ML PO SYG) GTB ×2 (10:16→21:01)
[2017-12-10] MEDS: CALCITRIOL (1 MCG/ML PO SYG) GTB ×2 (10:16→21:01)
[2017-12-10] MEDS: DOCUSATE SODIUM 10 MG/ML (10ML CUP) GTB ×2 (10:16→20:59)
[2017-12-10] MEDS: METOCLOPRAMIDE 10 MG INJ IV ×3 (10:16→21:01)
[2017-12-10] MEDS: CALCIUM CARBONATE 500 MG CHEW TAB GTB ×3 (10:17→20:59)
[2017-12-10] MEDS: ASPIRIN 81 MG TAB GTB (10:17)
[2017-12-10] MEDS: SEVELAMER CARBONATE 0.8 GM PKT GTB ×3 (10:17→18:28)
[2017-12-10] MEDS: HEPARIN 5,000 UNIT/0.5 ML VIAL SC ×2 (10:33→21:00)
[2017-12-10] MEDS: DIPHENHYDRAMINE 50 MG INJ IV (12:46)
[2017-12-10] MEDS: GUAIFENESIN/CODEINE 5ML CUP GTB (12:47)
[2017-12-10] MEDS: ALBUMIN HUMAN 25% 100 ML IV (14:37)
[2017-12-10] MEDS: EPOETIN 4000 UNITS/1 ML INJ (ESRD) SC (18:29)
[2017-12-10] MEDS: INSULIN GLARGINE [LANtus] 3 ML PEN SC (20:00)
[2017-12-10] MEDS: ATORVASTATIN 20 MG TAB GTB (21:01)
[2017-12-11] MEDS: LEVALBUTEROL (NEB) 0.63 MG/3 ML AMP HHN ×4 (02:16→19:33)
[2017-12-11] MEDS: traMADol 50 MG TAB GTB ×4 (03:27→22:19)
[2017-12-11] MEDS: HYDROmorphONE 0.5 MG/0.5 ML SYG IV (04:53)
[2017-12-11] MEDS: DIPHENHYDRAMINE 50 MG INJ IV (04:53)
[2017-12-11] MEDS: MIDODRINE 2.5 MG TAB GTB ×3 (06:10→18:09)
[2017-12-11] MEDS: LEVOTHYROXINE 75 MCG TAB GTB (06:10)
[2017-12-11] MEDS: LANSOPRAZOLE 30 MG CAP GTB ×2 (06:13→18:08)
[2017-12-11] MEDS: INSULIN ASPART [NOVOLOG] 3 ML PEN SC ×2 (09:00→21:00)
[2017-12-11] MEDS ORDERED: ALTEPLASE (CATHFLO) 2 MG INJ CATHETER (09:00)
[2017-12-11] MEDS: DOCUSATE SODIUM 10 MG/ML (10ML CUP) GTB ×2 (10:15→22:16)
[2017-12-11] MEDS: METOCLOPRAMIDE 10 MG INJ IV ×3 (10:15→22:16)
[2017-12-11] MEDS: SEVELAMER CARBONATE 0.8 GM PKT GTB ×3 (10:15→18:08)
[2017-12-11] MEDS: ASPIRIN 81 MG TAB GTB (10:16)
[2017-12-11] MEDS: CALCIUM CARBONATE 500 MG CHEW TAB GTB ×3 (10:16→22:16)
[2017-12-11] MEDS: SERTRALINE 100 MG TAB GTB (10:16)
[2017-12-11] MEDS: SENNA/DOCUSATE NA (8.6MG/50MG) TAB GTB ×2 (10:17→22:15)
[2017-12-11] MEDS: HEPARIN 5,000 UNIT/0.5 ML VIAL SC ×2 (10:19→22:19)
[2017-12-11] MEDS: GABAPENTIN (50 MG/ML PO SYG) GTB ×2 (13:31→22:19)
[2017-12-11] MEDS: CALCITRIOL (1 MCG/ML PO SYG) GTB ×2 (13:31→22:16)
[2017-12-11] MEDS: ALTEPLASE (CATHFLO) 2 MG INJ CATHETER ×2 (13:32→15:29)
[2017-12-11] MEDS: POLYETHYLENE GLYCOL 17 GM PACKET GTB (13:35)
[2017-12-11] MEDS: NEOMYC/POLYMYX/BACIT 30 GM OINT TOP (21:00)
[2017-12-11] MEDS: ATORVASTATIN 20 MG TAB GTB (22:16)
[2017-12-11] MEDS: INSULIN GLARGINE [LANtus] 3 ML PEN SC (22:20)
[2017-12-12] MEDS: LEVALBUTEROL (NEB) 0.63 MG/3 ML AMP HHN ×4 (01:48→19:37)
[2017-12-12] MEDS: traMADol 50 MG TAB GTB ×4 (03:00→20:39)
[2017-12-12 05:21] LABS: ADD MAN DIFF? NO
[2017-12-12 05:23] LABS: WHITE BLOOD COUNT 6.8 10^3/ul (4.8-10.8)
[2017-12-12 05:23] LABS: BASOPHILS % 0.3 % (0.0-2.0); EOSINOPHILS # 0.2 10^3/ul (0.0-0.5); EOSINOPHILS % 2.5 % (0.0-7.0); HEMOGLOBIN 7.7 g/dl (14.0-18.0); LYMPHOCYTES # 0.9 10^3/ul (0.8-2.9); LYMPHOCYTES % 13.3 % (15.0-51.0); MEAN CORPUSCULAR HEMOGLOBIN 29.1 pg (29.0-33.0); MEAN CORPUSCULAR HGB CONC 29.6 g/dl (32.0-37.0); MEAN CORPUSCULAR VOLUME 98.1 fl (82.0-101.0); MEAN PLATELET VOLUME 10.6 fl (7.4-10.4); MONOCYTE # 0.8 10^3/ul (0.3-0.9); MONOCYTES % 11.2 % (0.0-11.0); NEUTROPHIL # 4.9 10^3/ul (1.6-7.5); NEUTROPHILS % 71.7 % (39.0-77.0); PLATELET COUNT 144 10^3/UL (140-415); RED BLOOD COUNT 2.65 10^6/ul (4.70-6.10); RED CELL DISTRIBUTION WIDTH 16.1 % (11.5-14.5)
[2017-12-12 05:43] LABS: ALBUMIN 3.3 g/dl (3.3-4.9); ANION GAP 16 (8-16); BLOOD UREA NITROGEN 61 mg/dl (7-20); CALCIUM 9.4 mg/dl (8.4-10.2); CARBON DIOXIDE 28 mmol/L (21-31); CHLORIDE 94 mmol/L (97-110); CREATININE 8.39 mg/dl (0.61-1.24); GLUCOSE 111 mg/dl (70-220); MAGNESIUM 2.7 mg/dl (1.7-2.5); PHOSPHORUS 4.3 mg/dl (2.5-4.9); POTASSIUM 4.5 mmol/L (3.5-5.1); SODIUM 133 mmol/L (135-144)
[2017-12-12] MEDS: LEVOTHYROXINE 75 MCG TAB GTB (06:32)
[2017-12-12] MEDS: LANSOPRAZOLE 30 MG CAP GTB ×2 (06:32→17:00)
[2017-12-12] MEDS: MIDODRINE 2.5 MG TAB GTB ×5 (06:33→23:12)
[2017-12-12] MEDS: INSULIN ASPART [NOVOLOG] 3 ML PEN SC ×2 (09:00→20:32)
[2017-12-12] MEDS: CALCITRIOL (1 MCG/ML PO SYG) GTB ×2 (09:30→20:46)
[2017-12-12] MEDS: GABAPENTIN (50 MG/ML PO SYG) GTB ×2 (09:30→21:37)
[2017-12-12] MEDS: CALCIUM CARBONATE 500 MG CHEW TAB GTB ×3 (09:31→20:30)
[2017-12-12] MEDS: SEVELAMER CARBONATE 0.8 GM PKT GTB ×3 (09:31→17:00)
[2017-12-12] MEDS: METOCLOPRAMIDE 10 MG INJ IV ×3 (09:31→20:33)
[2017-12-12] MEDS: POLYETHYLENE GLYCOL 17 GM PACKET GTB (09:31)
[2017-12-12] MEDS: DOCUSATE SODIUM 10 MG/ML (10ML CUP) GTB ×2 (09:31→20:30)
[2017-12-12] MEDS: SENNA/DOCUSATE NA (8.6MG/50MG) TAB GTB ×2 (09:31→20:30)
[2017-12-12] MEDS: SERTRALINE 100 MG TAB GTB (09:32)
[2017-12-12] MEDS: ASPIRIN 81 MG TAB GTB (09:32)
[2017-12-12] MEDS: HEPARIN 5,000 UNIT/0.5 ML VIAL SC ×2 (09:33→20:45)
[2017-12-12] MEDS: HYDROmorphONE 0.5 MG/0.5 ML SYG IV ×3 (10:02→23:09)
[2017-12-12] MEDS: ATORVASTATIN 20 MG TAB GTB (20:31)
[2017-12-12] MEDS: NEOMYC/POLYMYX/BACIT 30 GM OINT TOP (20:33)
[2017-12-12] MEDS: INSULIN GLARGINE [LANtus] 3 ML PEN SC (20:38)
[2017-12-13] MEDS: clonAZEPAM 0.5 MG TAB GTB (02:02)
[2017-12-13] MEDS: LEVALBUTEROL (NEB) 0.63 MG/3 ML AMP HHN ×4 (02:04→19:31)
[2017-12-13] MEDS: ALBUMIN HUMAN 25% 100 ML IV (02:10)
[2017-12-13] MEDS: traMADol 50 MG TAB GTB ×4 (03:17→20:45)
[2017-12-13] MEDS: LANSOPRAZOLE 30 MG CAP GTB ×2 (05:08→17:39)
[2017-12-13] MEDS: MIDODRINE 2.5 MG TAB GTB ×3 (05:08→17:40)
[2017-12-13] MEDS: LEVOTHYROXINE 75 MCG TAB GTB (06:05)
[2017-12-13] MEDS: HYDROmorphONE 0.5 MG/0.5 ML SYG IV ×2 (06:06→15:18)
[2017-12-13 06:33] LABS: ADD MAN DIFF? NO
[2017-12-13 06:38] LABS: BASOPHILS % 0.4 % (0.0-2.0); EOSINOPHILS # 0.1 10^3/ul (0.0-0.5); EOSINOPHILS % 1.5 % (0.0-7.0); HEMATOCRIT 25.6 % (42.0-52.0); HEMOGLOBIN 7.6 g/dl (14.0-18.0); LYMPHOCYTES # 0.8 10^3/ul (0.8-2.9); LYMPHOCYTES % 10.8 % (15.0-51.0); MEAN CORPUSCULAR HEMOGLOBIN 28.9 pg (29.0-33.0); MEAN CORPUSCULAR HGB CONC 29.7 g/dl (32.0-37.0); MEAN CORPUSCULAR VOLUME 97.3 fl (82.0-101.0); MEAN PLATELET VOLUME 10.4 fl (7.4-10.4); MONOCYTE # 0.7 10^3/ul (0.3-0.9); MONOCYTES % 9.3 % (0.0-11.0); NEUTROPHIL # 5.7 10^3/ul (1.6-7.5); NEUTROPHILS % 77.2 % (39.0-77.0); PLATELET COUNT 129 10^3/UL (140-415); POSITIVE DIFF @See below; RED BLOOD COUNT 2.63 10^6/ul (4.70-6.10)
[2017-12-13 06:38] LABS: WHITE BLOOD COUNT 7.4 10^3/ul (4.8-10.8)
[2017-12-13 07:04] LABS: ALBUMIN 3.7 g/dl (3.3-4.9); ANION GAP 16 (8-16); BLOOD UREA NITROGEN 49 mg/dl (7-20); CALCIUM 9.1 mg/dl (8.4-10.2); CARBON DIOXIDE 27 mmol/L (21-31); CHLORIDE 99 mmol/L (97-110); CREATININE 6.39 mg/dl (0.61-1.24); GLUCOSE 107 mg/dl (70-220); MAGNESIUM 2.6 mg/dl (1.7-2.5); PHOSPHORUS 3.7 mg/dl (2.5-4.9); POTASSIUM 4.3 mmol/L (3.5-5.1); SODIUM 138 mmol/L (135-144)
[2017-12-13] MEDS: INSULIN ASPART [NOVOLOG] 3 ML PEN SC ×2 (08:46→20:56)
[2017-12-13] MEDS: SEVELAMER CARBONATE 0.8 GM PKT GTB ×3 (09:39→17:38)
[2017-12-13] MEDS: CALCITRIOL (1 MCG/ML PO SYG) GTB ×2 (09:39→20:43)
[2017-12-13] MEDS: METOCLOPRAMIDE 10 MG INJ IV ×3 (09:40→20:46)
[2017-12-13] MEDS: POLYETHYLENE GLYCOL 17 GM PACKET GTB (09:40)
[2017-12-13] MEDS: SENNA/DOCUSATE NA (8.6MG/50MG) TAB GTB ×2 (09:40→20:42)
[2017-12-13] MEDS: DOCUSATE SODIUM 10 MG/ML (10ML CUP) GTB ×2 (09:40→20:42)
[2017-12-13] MEDS: SERTRALINE 100 MG TAB GTB (09:40)
[2017-12-13] MEDS: CALCIUM CARBONATE 500 MG CHEW TAB GTB ×3 (09:41→20:43)
[2017-12-13] MEDS: ASPIRIN 81 MG TAB GTB (09:41)
[2017-12-13] MEDS: HEPARIN 5,000 UNIT/0.5 ML VIAL SC ×2 (09:42→20:57)
[2017-12-13] MEDS: GABAPENTIN (50 MG/ML PO SYG) GTB ×2 (09:56→21:06)
[2017-12-13] MEDS: EPOETIN 4000 UNITS/1 ML INJ (ESRD) SC (17:41)
[2017-12-13] MEDS: ATORVASTATIN 20 MG TAB GTB (20:42)
[2017-12-13] MEDS: AMIODARONE 200 MG TAB PO (20:48)
[2017-12-13] MEDS: INSULIN GLARGINE [LANtus] 3 ML PEN SC (20:57)
[2017-12-13] MEDS: NEOMYC/POLYMYX/BACIT 30 GM OINT TOP (21:08)
[2017-12-13] MEDS: morphine 10 MG INJ IV (23:19)
[2017-12-14] MEDS: LEVALBUTEROL (NEB) 0.63 MG/3 ML AMP HHN ×4 (01:41→19:56)
[2017-12-14] MEDS: traMADol 50 MG TAB GTB ×4 (04:53→21:00)
[2017-12-14] MEDS: LEVOTHYROXINE 75 MCG TAB GTB (06:17)
[2017-12-14] MEDS: LANSOPRAZOLE 30 MG CAP GTB ×2 (06:17→17:25)
[2017-12-14] MEDS: MIDODRINE 2.5 MG TAB GTB ×4 (06:18→17:25)
[2017-12-14 06:50] LABS: ADD MAN DIFF? NO
[2017-12-14 06:52] LABS: ABNORMAL IP MESSAGE 1; BASOPHILS % 0.5 % (0.0-2.0); EOSINOPHILS # 0.2 10^3/ul (0.0-0.5); EOSINOPHILS % 2.1 % (0.0-7.0); HEMATOCRIT 25.7 % (42.0-52.0); HEMOGLOBIN 7.4 g/dl (14.0-18.0); LYMPHOCYTES % 12.5 % (15.0-51.0); MEAN CORPUSCULAR HEMOGLOBIN 28.7 pg (29.0-33.0); MEAN CORPUSCULAR HGB CONC 28.8 g/dl (32.0-37.0); MEAN CORPUSCULAR VOLUME 99.6 fl (82.0-101.0); MEAN PLATELET VOLUME 10.5 fl (7.4-10.4); MONOCYTE # 0.7 10^3/ul (0.3-0.9); MONOCYTES % 9.4 % (0.0-11.0); NEUTROPHIL # 5.8 10^3/ul (1.6-7.5); NEUTROPHILS % 74.6 % (39.0-77.0); PLATELET COUNT 140 10^3/UL (140-415); POSITIVE DIFF @See below; RED BLOOD COUNT 2.58 10^6/ul (4.70-6.10); RED CELL DISTRIBUTION WIDTH 16.4 % (11.5-14.5)
[2017-12-14 06:52] LABS: WHITE BLOOD COUNT 7.7 10^3/ul (4.8-10.8)
[2017-12-14 07:34] LABS: ALBUMIN 3.3 g/dl (3.3-4.9); ANION GAP 14 (8-16); BLOOD UREA NITROGEN 61 mg/dl (7-20); CALCIUM 9.4 mg/dl (8.4-10.2); CARBON DIOXIDE 29 mmol/L (21-31); CHLORIDE 100 mmol/L (97-110); CREATININE 7.83 mg/dl (0.61-1.24); GLUCOSE 110 mg/dl (70-220); PHOSPHORUS 4.6 mg/dl (2.5-4.9); POTASSIUM 4.4 mmol/L (3.5-5.1); SODIUM 139 mmol/L (135-144)
[2017-12-14] MEDS: DOCUSATE SODIUM 10 MG/ML (10ML CUP) GTB ×2 (08:24→22:11)
[2017-12-14] MEDS: GABAPENTIN (50 MG/ML PO SYG) GTB ×2 (08:24→22:24)
[2017-12-14] MEDS: POLYETHYLENE GLYCOL 17 GM PACKET GTB (08:24)
[2017-12-14] MEDS: METOCLOPRAMIDE 10 MG INJ IV ×3 (08:24→22:15)
[2017-12-14] MEDS: SEVELAMER CARBONATE 0.8 GM PKT GTB ×3 (08:24→17:25)
[2017-12-14] MEDS: SERTRALINE 100 MG TAB GTB (08:25)
[2017-12-14] MEDS: SENNA/DOCUSATE NA (8.6MG/50MG) TAB GTB ×2 (08:25→22:13)
[2017-12-14] MEDS: CALCIUM CARBONATE 500 MG CHEW TAB GTB ×3 (08:25→22:12)
[2017-12-14] MEDS: ASPIRIN 81 MG TAB GTB (08:25)
[2017-12-14] MEDS: CALCITRIOL (1 MCG/ML PO SYG) GTB ×2 (08:25→22:12)
[2017-12-14] MEDS: HEPARIN 5,000 UNIT/0.5 ML VIAL SC ×2 (08:29→22:22)
[2017-12-14] MEDS: AMIODARONE 200 MG TAB PO ×2 (08:29→22:14)
[2017-12-14] MEDS: INSULIN ASPART [NOVOLOG] 3 ML PEN SC ×2 (09:00→21:00)
[2017-12-14] MEDS: DIPHENHYDRAMINE 50 MG INJ IV ×2 (13:45→19:43)
[2017-12-14] MEDS: HYDROmorphONE 0.5 MG/0.5 ML SYG IV (17:52)
[2017-12-14] MEDS: INSULIN GLARGINE [LANtus] 3 ML PEN SC (20:27)
[2017-12-14] MEDS: ATORVASTATIN 20 MG TAB GTB (22:13)
[2017-12-14] MEDS: NEOMYC/POLYMYX/BACIT 30 GM OINT TOP (22:16)
[2017-12-15] MEDS: MIDODRINE 2.5 MG TAB GTB ×4 (00:21→17:24)
[2017-12-15] MEDS: HYDROmorphONE 0.5 MG/0.5 ML SYG IV ×2 (00:27→21:02)
[2017-12-15] MEDS: LEVALBUTEROL (NEB) 0.63 MG/3 ML AMP HHN ×4 (01:15→19:22)
[2017-12-15] MEDS: traMADol 50 MG TAB GTB ×4 (02:41→21:22)
[2017-12-15] MEDS: morphine 10 MG INJ IV (03:30)
[2017-12-15] MEDS: LANSOPRAZOLE 30 MG CAP GTB ×2 (06:23→17:24)
[2017-12-15] MEDS: LEVOTHYROXINE 75 MCG TAB GTB (06:24)
[2017-12-15] MEDS: CALCITRIOL (1 MCG/ML PO SYG) GTB ×2 (08:21→21:12)
[2017-12-15] MEDS: ASPIRIN 81 MG TAB GTB (08:21)
[2017-12-15] MEDS: CALCIUM CARBONATE 500 MG CHEW TAB GTB ×3 (08:22→21:12)
[2017-12-15] MEDS: SENNA/DOCUSATE NA (8.6MG/50MG) TAB GTB ×2 (08:22→21:13)
[2017-12-15] MEDS: SERTRALINE 100 MG TAB GTB (08:22)
[2017-12-15] MEDS: POLYETHYLENE GLYCOL 17 GM PACKET GTB (08:22)
[2017-12-15] MEDS: SEVELAMER CARBONATE 0.8 GM PKT GTB ×3 (08:23→17:23)
[2017-12-15] MEDS: METOCLOPRAMIDE 10 MG INJ IV ×3 (08:23→21:12)
[2017-12-15] MEDS: DOCUSATE SODIUM 10 MG/ML (10ML CUP) GTB ×2 (08:23→21:12)
[2017-12-15] MEDS: HEPARIN 5,000 UNIT/0.5 ML VIAL SC ×2 (08:29→21:16)
[2017-12-15] MEDS: AMIODARONE 200 MG TAB PO ×2 (08:36→21:14)
[2017-12-15] MEDS: INSULIN ASPART [NOVOLOG] 3 ML PEN SC ×2 (08:37→21:27)
[2017-12-15] MEDS: GABAPENTIN (50 MG/ML PO SYG) GTB ×2 (08:43→21:21)
[2017-12-15] MEDS: ERGOCALCIFEROL (8000 UNITS/ML PO SYG) GTB (08:43)
[2017-12-15] MEDS: EPOETIN 4000 UNITS/1 ML INJ (ESRD) SC (17:25)
[2017-12-15] MEDS: INSULIN GLARGINE [LANtus] 3 ML PEN SC (21:23)
[2017-12-15] MEDS: NEOMYC/POLYMYX/BACIT 30 GM OINT TOP (21:25)
[2017-12-15] MEDS: ATORVASTATIN 20 MG TAB GTB (21:25)
[2017-12-16] MEDS: MIDODRINE 2.5 MG TAB GTB ×4 (00:30→17:24)
[2017-12-16] MEDS: LEVALBUTEROL (NEB) 0.63 MG/3 ML AMP HHN ×4 (01:26→19:40)
[2017-12-16] MEDS: HYDROmorphONE 0.5 MG/0.5 ML SYG IV ×5 (03:47→22:34)
[2017-12-16] MEDS: traMADol 50 MG TAB GTB ×4 (03:48→22:42)
[2017-12-16] MEDS: LEVOTHYROXINE 75 MCG TAB GTB (05:42)
[2017-12-16] MEDS: LANSOPRAZOLE 30 MG CAP GTB ×2 (05:42→17:24)
[2017-12-16] MEDS: CALCITRIOL (1 MCG/ML PO SYG) GTB ×2 (08:48→22:34)
[2017-12-16] MEDS: METOCLOPRAMIDE 10 MG INJ IV ×3 (08:48→22:35)
[2017-12-16] MEDS: POLYETHYLENE GLYCOL 17 GM PACKET GTB (08:48)
[2017-12-16] MEDS: GABAPENTIN (50 MG/ML PO SYG) GTB ×2 (08:48→22:35)
[2017-12-16] MEDS: SENNA/DOCUSATE NA (8.6MG/50MG) TAB GTB ×2 (08:49→22:36)
[2017-12-16] MEDS: ASPIRIN 81 MG TAB GTB (08:49)
[2017-12-16] MEDS: SERTRALINE 100 MG TAB GTB (08:49)
[2017-12-16] MEDS: DOCUSATE SODIUM 10 MG/ML (10ML CUP) GTB ×2 (08:49→22:35)
[2017-12-16] MEDS: SEVELAMER CARBONATE 0.8 GM PKT GTB ×3 (08:50→17:25)
[2017-12-16] MEDS: AMIODARONE 200 MG TAB PO ×2 (08:50→22:36)
[2017-12-16] MEDS: CALCIUM CARBONATE 500 MG CHEW TAB GTB ×3 (08:50→22:34)
[2017-12-16] MEDS: INSULIN ASPART [NOVOLOG] 3 ML PEN SC ×2 (08:52→21:00)
[2017-12-16] MEDS: HEPARIN 5,000 UNIT/0.5 ML VIAL SC ×2 (09:21→22:38)
[2017-12-16] MEDS: ATORVASTATIN 20 MG TAB GTB (22:42)
[2017-12-16] MEDS: NEOMYC/POLYMYX/BACIT 30 GM OINT TOP (22:43)
[2017-12-16] MEDS: INSULIN GLARGINE [LANtus] 3 ML PEN SC (22:53)
[2017-12-17] MEDS: LEVALBUTEROL (NEB) 0.63 MG/3 ML AMP HHN ×4 (02:52→19:30)
[2017-12-17] MEDS: traMADol 50 MG TAB GTB ×4 (03:05→20:42)
[2017-12-17] MEDS: HYDROmorphONE 0.5 MG/0.5 ML SYG IV ×3 (03:51→17:30)
[2017-12-17] MEDS: LANSOPRAZOLE 30 MG CAP GTB ×2 (05:45→17:29)
[2017-12-17] MEDS: LEVOTHYROXINE 75 MCG TAB GTB (05:45)
[2017-12-17] MEDS: MIDODRINE 2.5 MG TAB GTB ×4 (05:46→17:30)
[2017-12-17] MEDS: CALCIUM CARBONATE 500 MG CHEW TAB GTB ×3 (08:43→20:18)
[2017-12-17] MEDS: METOCLOPRAMIDE 10 MG INJ IV ×3 (08:43→20:19)
[2017-12-17] MEDS: ASPIRIN 81 MG TAB GTB (08:44)
[2017-12-17] MEDS: SERTRALINE 100 MG TAB GTB (08:44)
[2017-12-17] MEDS: SEVELAMER CARBONATE 0.8 GM PKT GTB ×3 (08:44→17:30)
[2017-12-17] MEDS: SENNA/DOCUSATE NA (8.6MG/50MG) TAB GTB ×2 (08:44→20:20)
[2017-12-17] MEDS: DOCUSATE SODIUM 10 MG/ML (10ML CUP) GTB ×2 (08:44→20:19)
[2017-12-17] MEDS: AMIODARONE 200 MG TAB PO ×2 (08:45→20:19)
[2017-12-17] MEDS: hydrOXYzine HCL 25 MG TAB GTB ×2 (08:45→16:04)
[2017-12-17] MEDS: CALCITRIOL (1 MCG/ML PO SYG) GTB ×2 (08:46→20:43)
[2017-12-17] MEDS: POLYETHYLENE GLYCOL 17 GM PACKET GTB (08:46)
[2017-12-17] MEDS: morphine 10 MG INJ IV (08:46)
[2017-12-17] MEDS: HEPARIN 5,000 UNIT/0.5 ML VIAL SC ×2 (08:50→20:21)
[2017-12-17] MEDS: GABAPENTIN (50 MG/ML PO SYG) GTB ×3 (09:00→20:42)
[2017-12-17] MEDS: INSULIN ASPART [NOVOLOG] 3 ML PEN SC ×2 (09:00→20:34)
[2017-12-17] MEDS: EPOETIN 4000 UNITS/1 ML INJ (ESRD) SC (17:32)
[2017-12-17] MEDS: ATORVASTATIN 20 MG TAB GTB (20:18)
[2017-12-17] MEDS: INSULIN GLARGINE [LANtus] 3 ML PEN SC (20:45)
[2017-12-18] MEDS: HYDROmorphONE 0.5 MG/0.5 ML SYG IV ×4 (01:01→17:45)
[2017-12-18] MEDS: MIDODRINE 2.5 MG TAB GTB ×4 (01:01→17:41)
[2017-12-18] MEDS: LEVALBUTEROL (NEB) 0.63 MG/3 ML AMP HHN ×4 (01:47→19:49)
[2017-12-18 01:52] LABS: ADD MAN DIFF? NO
[2017-12-18 01:57] LABS: ABNORMAL IP MESSAGE 1; BASOPHILS % 0.3 % (0.0-2.0); EOSINOPHILS # 0.1 10^3/ul (0.0-0.5); EOSINOPHILS % 1.5 % (0.0-7.0); HEMATOCRIT 26.1 % (42.0-52.0); HEMOGLOBIN 7.4 g/dl (14.0-18.0); LYMPHOCYTES # 1.1 10^3/ul (0.8-2.9); LYMPHOCYTES % 12.1 % (15.0-51.0); MEAN CORPUSCULAR HEMOGLOBIN 28.4 pg (29.0-33.0); MEAN CORPUSCULAR HGB CONC 28.4 g/dl (32.0-37.0); MEAN PLATELET VOLUME 10.2 fl (7.4-10.4); MONOCYTE # 0.7 10^3/ul (0.3-0.9); MONOCYTES % 7.5 % (0.0-11.0); NEUTROPHIL # 6.9 10^3/ul (1.6-7.5); PLATELET COUNT 136 10^3/UL (140-415); POSITIVE DIFF @See below; RED BLOOD COUNT 2.61 10^6/ul (4.70-6.10); RED CELL DISTRIBUTION WIDTH 16.4 % (11.5-14.5)
[2017-12-18 01:57] LABS: WHITE BLOOD COUNT 8.8 10^3/ul (4.8-10.8)
[2017-12-18 02:14] LABS: ANION GAP 20 (8-16); BLOOD UREA NITROGEN 58 mg/dl (7-20); CALCIUM 9.4 mg/dl (8.4-10.2); CARBON DIOXIDE 27 mmol/L (21-31); CHLORIDE 99 mmol/L (97-110); GLUCOSE 90 mg/dl (70-220); MAGNESIUM 2.8 mg/dl (1.7-2.5); POTASSIUM 4.6 mmol/L (3.5-5.1); SODIUM 141 mmol/L (135-144)
[2017-12-18] MEDS: NEOMYC/POLYMYX/BACIT 30 GM OINT TOP (06:12)
[2017-12-18] MEDS: LEVOTHYROXINE 75 MCG TAB GTB (06:13)
[2017-12-18] MEDS: traMADol 50 MG TAB GTB ×4 (06:15→20:09)
[2017-12-18] MEDS: SEVELAMER CARBONATE 0.8 GM PKT GTB ×3 (06:16→17:45)
[2017-12-18] MEDS: LANSOPRAZOLE 30 MG CAP GTB ×2 (06:16→17:41)
[2017-12-18] MEDS: INSULIN ASPART [NOVOLOG] 3 ML PEN SC ×2 (08:18→20:18)
[2017-12-18] MEDS: GABAPENTIN (50 MG/ML PO SYG) GTB ×2 (08:19→20:09)
[2017-12-18] MEDS: DOCUSATE SODIUM 10 MG/ML (10ML CUP) GTB (08:20)
[2017-12-18] MEDS: CALCIUM CARBONATE 500 MG CHEW TAB GTB ×3 (08:20→20:09)
[2017-12-18] MEDS: POLYETHYLENE GLYCOL 17 GM PACKET GTB (08:20)
[2017-12-18] MEDS: SERTRALINE 100 MG TAB GTB (08:21)
[2017-12-18] MEDS: SENNA/DOCUSATE NA (8.6MG/50MG) TAB GTB (08:21)
[2017-12-18] MEDS: ASPIRIN 81 MG TAB GTB (08:21)
[2017-12-18] MEDS: AMIODARONE 200 MG TAB PO ×2 (08:21→20:10)
[2017-12-18] MEDS: METOCLOPRAMIDE 10 MG INJ IV ×3 (08:22→20:10)
[2017-12-18] MEDS: HEPARIN 5,000 UNIT/0.5 ML VIAL SC ×2 (08:31→20:17)
[2017-12-18] MEDS: CALCITRIOL (1 MCG/ML PO SYG) GTB ×2 (09:00→20:09)
[2017-12-18] MEDS: SODIUM HYPOCHLORITE 0.125% 473 ML BTL IRR (17:41)
[2017-12-18 19:35] LABS: AHG CROSSMATCH 1 2
[2017-12-18] MEDS: ALBUMIN HUMAN 25% 100 ML IV ×2 (19:45→22:41)
[2017-12-18] MEDS: ATORVASTATIN 20 MG TAB GTB (20:08)
[2017-12-18] MEDS: DIPHENHYDRAMINE 50 MG INJ IV (20:10)
[2017-12-18] MEDS: INSULIN GLARGINE [LANtus] 3 ML PEN SC (20:20)
[2017-12-18 23:13] LABS: HEPATITIS B SURFACE ANTIGEN NEGATIVE (NEGATIVE)
[2017-12-19] MEDS: NEOMYC/POLYMYX/BACIT 30 GM OINT TOP ×2 (01:38→21:03)
[2017-12-19] MEDS: MIDODRINE 2.5 MG TAB GTB ×5 (01:40→23:00)
[2017-12-19] MEDS: LEVALBUTEROL (NEB) 0.63 MG/3 ML AMP HHN ×4 (01:52→20:19)
[2017-12-19] MEDS: traMADol 50 MG TAB GTB ×5 (03:00→20:57)
[2017-12-19] MEDS: LEVOTHYROXINE 75 MCG TAB GTB (05:32)
[2017-12-19] MEDS: LANSOPRAZOLE 30 MG CAP GTB ×2 (05:32→16:12)
[2017-12-19] MEDS: HYDROmorphONE 0.5 MG/0.5 ML SYG IV ×4 (05:40→19:57)
[2017-12-19] MEDS: SEVELAMER CARBONATE 0.8 GM PKT GTB ×3 (08:39→16:11)
[2017-12-19] MEDS: METOCLOPRAMIDE 10 MG INJ IV ×3 (08:39→20:56)
[2017-12-19] MEDS: AMIODARONE 200 MG TAB PO (08:40)
[2017-12-19] MEDS: CALCITRIOL (1 MCG/ML PO SYG) GTB ×2 (08:40→20:58)
[2017-12-19] MEDS: ASPIRIN 81 MG TAB GTB (08:40)
[2017-12-19] MEDS: GABAPENTIN (50 MG/ML PO SYG) GTB ×2 (08:40→23:00)
[2017-12-19] MEDS: CALCIUM CARBONATE 500 MG CHEW TAB GTB ×3 (08:40→20:58)
[2017-12-19] MEDS: SODIUM HYPOCHLORITE 0.125% 473 ML BTL IRR (08:42)
[2017-12-19] MEDS: INSULIN ASPART [NOVOLOG] 3 ML PEN SC ×2 (08:42→21:02)
[2017-12-19] MEDS: HEPARIN 5,000 UNIT/0.5 ML VIAL SC ×2 (08:48→20:55)
[2017-12-19] MEDS: morphine 10 MG INJ IV (10:48)
[2017-12-19] MEDS: DIPHENHYDRAMINE 50 MG INJ IV (12:27)
[2017-12-19] MEDS: SERTRALINE 100 MG TAB GTB (12:28)
[2017-12-19] MEDS: BARIUM SULF 2% 450 ML BTL (BERRY SMOOTHIE) PO (12:32)
[2017-12-19] MEDS: AMIODARONE 150MG/D5W BOLUS 100 ML IV (13:30)
[2017-12-19] MEDS: AMIODARONE 900 MG in DEXTROSE 5% 482 ML IV (14:19)
[2017-12-19] MEDS: ACETAMINOPHEN 650MG/20.3ML CUP PO (16:11)
[2017-12-19] MEDS ORDERED: NORepinephrine 8MG/250 ML (PMX 250 ML (18:32)
[2017-12-19] MEDS: SOD CHLORIDE 0.9% 250 ML IV (18:54)
[2017-12-19] MEDS: NORepinephrine 8MG/250 ML (PMX 250 ML IV (18:54)
[2017-12-19] MEDS: INSULIN GLARGINE [LANtus] 3 ML PEN SC (20:54)
[2017-12-19] MEDS: ATORVASTATIN 20 MG TAB GTB (20:57)
[2017-12-19] MEDS: METOPROLOL 25 MG TAB PO (21:00)
[2017-12-20] MEDS ORDERED: MAGNESIUM SULFATE 2 GM/50 ML 50 ML (01:31)
[2017-12-20] MEDS ORDERED: EPINEPHrine 0.1 MG/ML SYG (01:34)
[2017-12-20] MEDS ORDERED: CA CHLORIDE 10% 10 ML SYRINGE (01:45)
[2017-12-20] MEDS: LEVALBUTEROL (NEB) 0.63 MG/3 ML AMP HHN (01:56)
== END 2017-12-20 01:56 | disposition expired | DRG 3 ==
LOC: ICU 10-12 08:52 → TEL 10-18 20:30 → ICU 10-24 11:19 → TEL 12-12 13:52 → ICU 12-19 13:15 → E/R 12:37 → ICU 09-19 10:57 → TEL 10-08 18:05
PROC: 0KBM0ZZ Excision of Perineum Muscle, Open Approach (ICD-10-PCS; principal; 2017-09-20 17:30)
PROC: 0B110F4 Bypass Trachea to Cutaneous with Tracheostomy Device, Open Approach (ICD-10-PCS; 2017-09-20 18:22)
PROC: 5A1955Z Respiratory Ventilation, Greater than 96 Consecutive Hours (ICD-10-PCS; 2017-09-20 18:22)
PROC: 0JBB0ZZ Excision of Perineum Subcutaneous Tissue and Fascia, Open Approach (ICD-10-PCS; 2017-09-20 18:22)
PROC: 0KBM0ZZ Excision of Perineum Muscle, Open Approach (ICD-10-PCS; 2017-09-20 18:22)
PROC: 0KBM0ZZ Excision of Perineum Muscle, Open Approach (ICD-10-PCS; 2017-09-20 18:22)
PROC: 0JBB0ZZ Excision of Perineum Subcutaneous Tissue and Fascia, Open Approach (ICD-10-PCS; 2017-09-20 18:22)
PROC: 0VBB0ZZ Excision of Left Testis, Open Approach (ICD-10-PCS; 2017-09-20 18:22)
PROC: 0HR Skin and Breast, Replacement (ICD-10-PCS; 2017-09-20 18:22)
PROC: 0HR9XK3 Replacement of Perineum Skin with Nonautologous Tissue Substitute, Full Thickness, External Approach (ICD-10-PCS; 2017-09-20 18:22)
PROC: 0JBB0ZZ Excision of Perineum Subcutaneous Tissue and Fascia, Open Approach (ICD-10-PCS; 2017-09-20 18:22)
PROC: 0HR Skin and Breast, Replacement (ICD-10-PCS; 2017-09-20 18:22)
PROC: 0HR9XK3 Replacement of Perineum Skin with Nonautologous Tissue Substitute, Full Thickness, External Approach (ICD-10-PCS; 2017-09-20 18:22)
PROC: 0JBB0ZZ Excision of Perineum Subcutaneous Tissue and Fascia, Open Approach (ICD-10-PCS; 2017-09-20 18:22)
PROC: 0JBB0ZZ Excision of Perineum Subcutaneous Tissue and Fascia, Open Approach (ICD-10-PCS; 2017-09-20 18:22)
PROC: 0JQB0ZZ Repair Perineum Subcutaneous Tissue and Fascia, Open Approach (ICD-10-PCS; 2017-09-20 18:22)
PROC: 0HXAXZZ Transfer Inguinal Skin, External Approach (ICD-10-PCS; 2017-09-20 18:22)
PROC: 061 Lower Veins, Bypass (ICD-10-PCS; 2017-09-20 18:22)
PROC: 04CK0ZZ Extirpation of Matter from Right Femoral Artery, Open Approach (ICD-10-PCS; 2017-09-20 18:22)
PROC: 06BP0ZZ Excision of Right Saphenous Vein, Open Approach (ICD-10-PCS; 2017-09-20 18:22)
PROC: 0T9B30Z Drainage of Bladder with Drainage Device, Percutaneous Approach (ICD-10-PCS; 2017-09-20 18:22)
PROC: 0BH17EZ Insertion of Endotracheal Airway into Trachea, Via Natural or Artificial Opening (ICD-10-PCS; 2017-09-20 18:22)
PROC: 5A1945Z Respiratory Ventilation, 24-96 Consecutive Hours (ICD-10-PCS; 2017-09-20 18:22)
PROC: 5A12012 Performance of Cardiac Output, Single, Manual (ICD-10-PCS; 2017-09-20 18:22)
PROC: 5A2204Z Restoration of Cardiac Rhythm, Single (ICD-10-PCS; 2017-09-20 18:22)
PROC: 30233N1 Transfusion of Nonautologous Red Blood Cells into Peripheral Vein, Percutaneous Approach (ICD-10-PCS; 2017-09-20 18:22)
PROC: 30233N1 Transfusion of Nonautologous Red Blood Cells into Peripheral Vein, Percutaneous Approach (ICD-10-PCS; 2017-09-20 18:22)
PROC: 30233N1 Transfusion of Nonautologous Red Blood Cells into Peripheral Vein, Percutaneous Approach (ICD-10-PCS; 2017-09-20 18:22)
PROC: 30233N1 Transfusion of Nonautologous Red Blood Cells into Peripheral Vein, Percutaneous Approach (ICD-10-PCS; 2017-09-20 18:22)
PROC: 30233N1 Transfusion of Nonautologous Red Blood Cells into Peripheral Vein, Percutaneous Approach (ICD-10-PCS; 2017-09-20 18:22)
PROC: 30233N1 Transfusion of Nonautologous Red Blood Cells into Peripheral Vein, Percutaneous Approach (ICD-10-PCS; 2017-09-20 18:22)
PROC: 30233N1 Transfusion of Nonautologous Red Blood Cells into Peripheral Vein, Percutaneous Approach (ICD-10-PCS; 2017-09-20 18:22)
PROC: 30233N1 Transfusion of Nonautologous Red Blood Cells into Peripheral Vein, Percutaneous Approach (ICD-10-PCS; 2017-09-20 18:22)
PROC: 30233K1 Transfusion of Nonautologous Frozen Plasma into Peripheral Vein, Percutaneous Approach (ICD-10-PCS; 2017-09-20 18:22)
PROC: 5A12012 Performance of Cardiac Output, Single, Manual (ICD-10-PCS; 2017-09-20 18:22)
PROC: 0BH17EZ Insertion of Endotracheal Airway into Trachea, Via Natural or Artificial Opening (ICD-10-PCS; 2017-09-20 18:22)
PROC: 0DH63UZ Insertion of Feeding Device into Stomach, Percutaneous Approach (ICD-10-PCS; 2017-09-20 18:22)
PROC: 5A1945Z Respiratory Ventilation, 24-96 Consecutive Hours (ICD-10-PCS; 2017-09-20 18:22)
PROC: 5A09557 Assistance with Respiratory Ventilation, Greater than 96 Consecutive Hours, Continuous Positive Airway Pressure (ICD-10-PCS; 2017-09-20 18:22)
PROC: 5A1D70Z Performance of Urinary Filtration, Intermittent, Less than 6 Hours Per Day (ICD-10-PCS; 2017-09-20 18:22)
PROC: 5A1D70Z Performance of Urinary Filtration, Intermittent, Less than 6 Hours Per Day (ICD-10-PCS; 2017-09-20 18:22)
PROC: 5A1D70Z Performance of Urinary Filtration, Intermittent, Less than 6 Hours Per Day (ICD-10-PCS; 2017-09-20 18:22)
DX: A41.9 Sepsis, unspecified organism (principal); R65.21 Severe sepsis with septic shock; J96.01 Acute respiratory failure with hypoxia; I21.4 Non-ST elevation (NSTEMI) myocardial infarction; G92 Toxic encephalopathy; N18.6 End stage renal disease; J18.9 Pneumonia, unspecified organism; J96.02 Acute respiratory failure with hypercapnia; I50.43 Acute on chronic combined systolic (congestive) and diastolic (congestive) heart failure; I47.2 Ventricular tachycardia; I13.2 Hypertensive heart and chronic kidney disease with heart failure and with stage 5 chronic kidney disease, or end stage renal disease; E27.40 Unspecified adrenocortical insufficiency; E87.2 Acidosis; D62 Acute posthemorrhagic anemia; I42.9 Cardiomyopathy, unspecified; R57.0 Cardiogenic shock; R13.10 Dysphagia, unspecified; E11.22 Type 2 diabetes mellitus with diabetic chronic kidney disease; E11.42 Type 2 diabetes mellitus with diabetic polyneuropathy; J84.10 Pulmonary fibrosis, unspecified; E11.51 Type 2 diabetes mellitus with diabetic peripheral angiopathy without gangrene; E66.01 Morbid (severe) obesity due to excess calories; E83.51 Hypocalcemia; E87.5 Hyperkalemia; I48.91 Unspecified atrial fibrillation; N49.3 Fournier gangrene; D63.1 Anemia in chronic kidney disease; I25.10 Atherosclerotic heart disease of native coronary artery without angina pectoris; E03.9 Hypothyroidism, unspecified; I73.9 Peripheral vascular disease, unspecified; B96.20 Unspecified Escherichia coli [E. coli] as the cause of diseases classified elsewhere; B96.5 Pseudomonas (aeruginosa) (mallei) (pseudomallei) as the cause of diseases classified elsewhere; B96.1 Klebsiella pneumoniae [K. pneumoniae] as the cause of diseases classified elsewhere; Z79.4 Long term (current) use of insulin; Z99.2 Dependence on renal dialysis; Z68.35 Body mass index [BMI] 35.0-35.9, adult; Z89.421 Acquired absence of other right toe(s); Z95.1 Presence of aortocoronary bypass graft; Z95.828 Presence of other vascular implants and grafts; Z87.891 Personal history of nicotine dependence; Z91.15 Patient's noncompliance with renal dialysis; Z91.14 Patient's other noncompliance with medication regimen
CPT/HCPCS: 31500; 36415; 36430; 36569; 36600; 70450; 71045; 74018; 74177; 76856; 76870; 76937; 80048; 80053; 80069; 80076; 80202; 82306; 82330; 82533; 82550; 82553; 82652; 82803; 82962; 83036; 83540; 83605; 83735; 83970; 84100; 84443; 84484; 85014; 85018; 85025; 85049; 85610; 85670; 85730; 86644; 86706; 86850; 86860; 86870; 86880; 86900; 86901; 86920; 86971; 87040; 87070; 87081; 87086; 87340; 88304; 88305; 90935; 92526; 92610; 92950; 93005; 93306; 94002; 94003; 94640; 94644; 94660; 94664; 94667; 94668; 94770; 96365; 96366; 96372; 96375; 96376; 97110; 97116; 97161; 97162; 97163; 97530; 99291-25